=== PATIENT | male | born 1940 | race Caucasian/White ===

== ENCOUNTER 2017-06-09 14:46 | Day surgery (SDC) | payer MEDICARE, BC ==
[2017-06-09] MEDS ORDERED: diphenhydrAMINE 25 MG CAP PO SCH (16:45)
[2017-06-09] MEDS ORDERED: FLU VACC TS2017-18 (>65YR) 0.5 ML SYRINGE IM ONE (16:45)
[2017-06-09] MEDS ORDERED: Acetaminophen 500 MG TAB PO SCH (16:45)
[2017-06-09 23:18] VITALS: BP 142/78; TEMP 97.8
[2017-06-10 00:19] LABS: Band 4 % (5-11); Hematocrit 28.8 % (42.0-52.0); Macrocytosis MODERATE=16-30 cells (100X) (0-5/hpf); Mean Platelet Volume 6.9 fL (7.4-10.4); Metamyelocyte 9 % (0-0); Myelocyte 3 % (0-0); Neutrophil 62 % (42-75); Polychromasia SLIGHT = 2-3 cells (100X) (0-2/hpf); Reactive Lymphocytes 1 % (0-10); Red Blood Cell (RBC) Count 2.73 mill/uL (4.70-6.10)
--- OUTSIDE RECORDS SUMMARY | 2017-06-11 22:19 | XMS | Clinical Summary ---
:1940 Author Organization Formerly [facility] Address [address] [place] [address] Phone Care Team Providers Name Role Phone , Primary Care Provider Unavailable Allergies Not on File Current Medications Not on file Active Problems Not on file Social History Tobacco Use Types Packs/Day Years Used Date Never Assessed Sex Assigned at Date Recorded Not on file Last Filed Vital Signs Not on file Plan of Treatment Not on file Results Not on filefrom Last 3 Months
== END 2017-06-09 23:45 | disposition home or self-care (01) ==
LOC: ONC/OP 14:46 → ONC 14:58 → ONC/OP 23:45
PROVIDERS: ATTEND Internal Medicine Hematology & Oncology
PROC: 30233N1 Transfusion of Nonautologous Red Blood Cells into Peripheral Vein, Percutaneous Approach (ICD-10-PCS; principal; 2017-06-09)
DX: D64.9 Anemia, unspecified (principal); D69.6 Thrombocytopenia, unspecified
CPT/HCPCS: 36415; 36430; 82728; 85025; 86850; 86900; 86901; P9016

== ENCOUNTER 2017-06-17 11:29 | Day surgery (SDC) | payer MEDICARE, BC ==
[2017-06-17] MEDS ORDERED: Acetaminophen 500 MG TAB PO SCH (12:00)
[2017-06-17] MEDS ORDERED: diphenhydrAMINE 25 MG CAP PO SCH (12:00)
[2017-06-17 12:01] VITALS: BMI 48.2
[2017-06-17 17:43] VITALS: BP 148/67; TEMP 99.4
[2017-06-17 23:49] LABS: Hematocrit 28.2 % (42.0-52.0); Red Blood Cell (RBC) Count 2.78 mill/uL (4.70-6.10); White Blood Cell (WBC) Count 5.8 thou/uL (4.8-10.8)
[2017-06-18 00:06] LABS: #Eosinphils 0.1 thou/uL (0.0-0.7); #Lymphocytes 0.9 thou/uL (1.20-3.40); #Monocytes 0.8 thou/uL (0.11-0.59); #Neutrophils 4.1 thou/uL (1.40-6.50); %Basophils 0.4 % (0.0-1.0); %Eosinophils 1.7 % (0.0-10.0); %Lymphocytes 14.7 % (21.0-51.0); %Monocytes 13.5 % (0.0-10.0); Anisocytosis SLIGHT = 6-15 cells (100X) (0-5/hpf); Polychromasia SLIGHT = 2-3 cells (100X) (0-2/hpf)
== END 2017-06-17 23:45 | disposition home or self-care (01) ==
LOC: ONC/OP 11:29 → ONC 11:30 → ONC/OP 23:45
PROVIDERS: ATTEND Internal Medicine Hematology & Oncology
PROC: 30233N1 Transfusion of Nonautologous Red Blood Cells into Peripheral Vein, Percutaneous Approach (ICD-10-PCS; principal; 2017-06-17)
DX: D64.9 Anemia, unspecified (principal); D69.6 Thrombocytopenia, unspecified
CPT/HCPCS: 36415; 36430; 85025; 86850; 86900; 86901; P9016

== ENCOUNTER 2018-06-04 16:49 | Inpatient (IN) | payer MEDICARE, BC ==
[2018-06-04 17:35] LABS: #Eosinphils 0.1 thou/uL (0.0-0.7); #Lymphocytes 0.7 thou/uL (1.20-3.40); #Neutrophils 11.2 thou/uL (1.40-6.50); %Basophils 0.1 % (0.0-1.0); %Eosinophils 0.7 % (0.0-10.0); %Lymphocytes 5.2 % (21.0-51.0); %Monocytes 7.7 % (0.0-10.0); %Neutrophils 86.4 % (42.0-75.0); Hemoglobin 7.3 g/dL (14.0-18.0); Mean Corpuscular HGB CONC 31.3 g/dL (32.0-36.0); Mean Corpuscular Hemoglobin 32.7 pg (27.0-31.0); Mean Platelet Volume 6.5 fL (7.4-10.4); Platelet Count 429 thou/uL (130-400); RBC Distribution Width 14.8 % (11.5-14.5); Red Blood Cell (RBC) Count 2.22 mill/uL (4.70-6.10); White Blood Cell (WBC) Count 12.9 thou/uL (4.8-10.8)
[2018-06-04 17:57] LABS: ALT (SGPT) 9 U/L (8-55); AST (SGOT) 11 U/L (5-34); Albumin 3.8 g/dL (3.4-4.8); Alkaline Phosphatase 46 U/L (40-150); Anion Gap 12 mmol/L (10-20); BUN (Urea Nitrogen) 59 mg/dL (8.4-25.7); Bilirubin, Total 0.4 mg/dL (0.2-1.2); Calc. Creatinine Clearance 0 mL/min (70-130); Calcium 8.6 mg/dL (7.8-10.44); Carbon Dioxide 29 mmol/L (23-31); Chloride 99 mmol/L (98-107); Estimated GFR-MDRD 27; Globulin 2.7 g/dL (2.4-3.5); Glucose 111 mg/dL (83-110); PTT 28.3 SEC (22.9-36.1); Potassium 4.5 mmol/L (3.5-5.1); Protein, Total 6.5 g/dL (5.8-8.1); Prothrombin Time 13.5 SEC (12.0-14.7); Sodium 135 mmol/L (136-145)
[2018-06-04 20:19] LABS: Folate (Folic Acid) 7.3 ng/mL (7.0-31.4)
[2018-06-04] MEDS ORDERED: Lactated Ringer's 1,000 ML IV SCH (21:45)
[2018-06-05] MEDS ORDERED: Sodium Chloride 0.9% 1,000 ML IV SCH (00:15)
[2018-06-05 00:50] LABS: Reticulocyte Count 7.7 % (0.5-1.5)
[2018-06-05 00:51] LABS: #Eosinphils 0.1 thou/uL (0.0-0.7); #Monocytes 1.1 thou/uL (0.11-0.59); %Basophils 0.1 % (0.0-1.0); %Eosinophils 0.8 % (0.0-10.0); %Lymphocytes 8.2 % (21.0-51.0); %Monocytes 8.8 % (0.0-10.0); %Neutrophils 82.2 % (42.0-75.0); Hemoglobin 7.4 g/dL (14.0-18.0); Mean Corpuscular HGB CONC 31.5 g/dL (32.0-36.0); Mean Corpuscular Hemoglobin 32.1 pg (27.0-31.0); Mean Platelet Volume 6.2 fL (7.4-10.4); Platelet Count 382 thou/uL (130-400); RBC Distribution Width 15.5 % (11.5-14.5); White Blood Cell (WBC) Count 12.1 thou/uL (4.8-10.8)
[2018-06-05 01:09] LABS: Albumin 3.7 g/dL (3.4-4.8); Anion Gap 11 mmol/L (10-20); BUN (Urea Nitrogen) 63 mg/dL (8.4-25.7); BUN/Creatinine Ratio 26.69; Calc. Creatinine Clearance 53 mL/min (70-130); Calcium 8.4 mg/dL (7.8-10.44); Carbon Dioxide 30 mmol/L (23-31); Chloride 100 mmol/L (98-107); Estimated GFR-MDRD 27; Glucose 106 mg/dL (83-110); Iron 101 ug/dL (65-175); Phosphorus 3.4 mg/dL (2.3-4.7); Potassium 4.2 mmol/L (3.5-5.1); Sodium 137 mmol/L (136-145)
[2018-06-05 01:31] LABS: Ferritin 400.73 ng/mL (22-322)
[2018-06-05] MEDS: Acetaminophen 325 MG TAB PO PRN ×2 (02:21→13:11)
--- NOTE | 2018-06-05 04:03 | HP ---
CHIEF COMPLAINT: Transferred to the hospital because "I'm anemic." HISTORY OF PRESENT ILLNESS: This is a 77-year-old male with past medical history of chronic anemia, prostate cancer, hypertension, being admitted for anemia that was found in lab result which was done by patient's primary care physician, Dr. Cortes. Patient reports that he also follows up with Dr. Adele cruz in his clinic and he receives iron transfusions. In the past couple of weeks about 3 weeks, daphnie jones stated that he had been receiving iron transfusions, but this time around when he went to receive the transfusion, his hemoglobin was measured at 8.1 and then when he got home, he was not feeling too well. He was having shortness of breath and generalized weakness. When the patient's hemoglobin wa s measured in our ED, patient's hemoglobin was 7.3. Per the patient, his baseline is around 11. Lilli devries states that he uses CPAP at home for his sleep apnea. Patient states that he has been followed by GI doctor who did a colonoscopy on him 2 years ago and also endoscopy was done recently and everyt sha has been negative. Patient has history of aortic valve replacement 5 years ago and prostate can cer status post radiation in 2006. At this point, patient denies any fever, nausea, vomiting, dizzin ess. REVIEW OF SYSTEMS: Positive for generalized weakness, shortness of breath, otherwise as documented i n the HPI, all other systems were reviewed and are negative. PAST MEDICAL HISTORY: Prostate cancer, hypertension, anemia. FAMILY HISTORY: Reviewed and noncontributory. PAST SURGICAL HISTORY: Prostate cancer, status post radiation, left hip replacement, tonsillectomy, artificial valve replacement. SOCIAL HISTORY: Former tobacco user. Patient used to smoke cigarettes, patient quit when patient wa s 50 years. Patient lives at home. Patient drinks one glass of wine every month. ALLERGIES: No known drug allergies. CURRENT MEDICATIONS: Patient is on aspirin 81 mg, Celebrex 100 mg, Tylenol 325 mg. PHYSICAL EXAMINATION: VITAL SIGNS: Blood pressure is 146/71, pulse of 98, respiratory rate of 20, temperature of 99.2, O2 sat of 92%. GENERAL: Patient is lying comfortably in bed, does not appear to be in any distress. Patient is spe aking in full sentences. HEENT: Normocephalic, atraumatic. Pupils are equal, round, and reactive to light. Extraocular move ments are intact. No scleral icterus. NECK: Supple, full range of motion. Trachea is midline. LUNGS: Clear to auscultation bilaterally. No wheezing, no rales, no rhonchi appreciated. CARDIOVASCULAR: Positive S1, S2, regular rate and rhythm, no murmurs, no gallops or rubs appreciated . ABDOMEN: Obese. Abdomen is soft, nontender, nondistended, positive bowel sounds in all quadrants. EXTREMITIES: The patient has 5/5 upper extremity strength, 5/5 lower extremity strength, good pulses at the upper and lower extremity bilaterally. Patient has 1+ pitting edema at the lower extremity. NEUROLOGIC: Cranial nerves II-XII grossly intact. No focal neurologic deficits noted. SKIN: Warm, dry, and intact. PSYCHIATRIC: Patient has normal affect. Patient is alert and oriented x3. EKG: Normal sinus rhythm with a rate of 94. 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 LABORATORY DATA: WBC 12.9, hemoglobin 7.3, hematocrit 23.2, platelets 429. PT 13.5, INR is 1.0, PTT 28.3. Sodium is 135, potassium is 4.5, chloride is 99, carbon dioxide 29, anion gap of 12, BUN is 5 9, creatinine is 2.37, AST is 11, ALT is 9. Lactate dehydrogenase 221. BNP is 31. Vitamin B12 is 1 92. Folate is 7.3. ASSESSMENT AND PLAN: 1. This is a 77-year-old male being admitted for symptomatic anemia likely due to anemia of chronic inflammation, B12 deficiency and iron deficiency. At this point, patient is being transfused PRBC. We will repeat H&H in the morning. We will send anemia workup. Patient will benefit from B12 inject ions and we will start Venofer IV. We have consulted heme oncologist. We will continue to monitor t he patient. 2. Acute kidney injury likely due to dehydration. At this point, patient's creatinine is 2.37, BUN 59. We will transfuse the patient 1 PRBCs. We will start the patient on fluids. We will monitor neha mendosa's creatinine. We have consulted Nephrology. We will follow up with their recommendations. 3. Microcytic anemia due to B12 deficiency. We have ordered B12 injections. 4. History of prostate cancer, status post radiation, currently stable. We will continue to monitor the patient. 5. History of hypertension. We will continue patient on current management. 6. Deep venous thrombosis and gastrointestinal prophylaxis. At this point, we will do SCDs and will do Pepcid for GI prophylaxis. This case has been dictated by Dr. Jer Royal on patient Flakito Coulter.
[2018-06-05] MEDS: Nystatin Powder 15 GM BOT TOP PRN ×2 (05:29→09:34)
[2018-06-05 05:57] LABS: Bilirubin Negative (Negative); Blood, Urine Negative (Negative); Clarity CLEAR (Clear); Glucose, Urine (Dipstick) Negative (Negative); Leukocyte Small (Negative); Nitrite Negative (Negative); Protein, Urine (Dipstick) Negative (Neg-Trace); Specific Gravity, Urine 1.015 (1.002-1.036); Urobilinogen 0.2 mg/dL (0.2-1.0)
[2018-06-05 06:00] LABS: Bacteria/HPF Rare-Few HPF (None Seen); Hyaline Casts/LPF 0-3 HYALINE CAST LPF (0-3 Hyaline); Pathc Cast-AUWi Flag 0.14 (0-2.49); Squamous Epithelial 0-3 HPF (0-3)
--- NOTE | 2018-06-05 08:26 | RAD ---
PORTABLE AP CHEST XRAY: DATE: 06/05/2018. HISTORY: Chest pain. COMPARISON: None available. FINDINGS: Cardiac silhouette is magnified by projection but is at the upper limits of normal in size. Pulmonar y vasculature is within normal limits. Lungs are clear. Vascular calcification is seen in the thora cic aorta. Degenerative changes are noted in the spine. IMPRESSION: No acute cardiopulmonary process. POS: [facility]
[2018-06-05] MEDS ORDERED: Iron, Sodium Ferric Gluconate 125 MG in Sodium Chloride 0.9% 100 ML IVPB SCH (09:00)
[2018-06-05] MEDS ORDERED: Epoetin (ESRD) 20,000 UNITS/ML SC SCH (09:15)
[2018-06-05] MEDS: Cyanocobalamin 1000 MCG/ML VIAL IM SCH (09:33)
[2018-06-05] MEDS ORDERED: Furosemide 40 MG/4 ML VIAL SLOW IVP SCH (11:00)
[2018-06-05] MEDS: Epoetin (ESRD) 10,000 UNITS/ML VIAL SC SCH (11:18)
[2018-06-05] MEDS ORDERED: Acetaminophen 325 MG TAB PO PRN (12:47)
--- NOTE | 2018-06-05 12:51 | PDOC.PN ---
- Subjective Encounter Start Date: 06/05/18 Encounter Start Time: 10:30 Subjective: pt up in bed sleeping, no complains - Objective Vital Signs & Weight: Vital Signs (12 hours) Temp Pulse Resp BP BP Pulse Ox 06/05/18 12:15 98.1 F 89 18 121/57 L 95 06/05/18 11:25 82 20 96 06/05/18 07:43 98.0 F 99 22 H 143/60 H 99 06/05/18 03:45 98.1 F 88 14 112/53 L 96 Weight Weight 326 lb 8 oz Result Diagrams: 06/05/18 00:28 06/05/18 00:28 Phys Exam - Physical Examination Neck: no nodes, no JVD, supple, full ROM Respiratory: wheezing present Cardiovascular: RRR, no significant murmur, no rub, gallop, irregular Gastrointestinal: soft, non-tender, no distention, positive bowel sounds Dx/Plan (1) Symptomatic anemia Code(s): D64.9 - ANEMIA, UNSPECIFIED Status: Acute (2) SERG (acute kidney injury) Code(s): N17.9 - ACUTE KIDNEY FAILURE, UNSPECIFIED Status: Acute (3) HTN (hypertension) Code(s): I10 - ESSENTIAL (PRIMARY) HYPERTENSION Status: Acute - Plan pt is receiving blood and iron -: will give one dose of lasix -: pt was on celebrex, hctz and ARB. will hold and see if this help -: if his creatinine does not improve may consider spep/upep -: will stop hydration * . Review of Systems - Review of Systems Respiratory: negative: Cough, Dry, Shortness of Breath, Hemoptysis, SOB with Excertion, Pleuritic Pain, Sputum, Wheezing Gastrointestinal: negative: Nausea, Vomiting, Abdominal Pain, Diarrhea, Constipation, Melena, Hematochezia, Other Genitourinary: negative: Dysuria, Frequency, Incontinence, Hematuria, Retention , Other - Medications/Allergies Allergies/Adverse Reactions: Allergies Allergy/AdvReac Type Severity Reaction Status Date / Time No Known Allergies Allergy Verified 06/04/18 21:18 Medications: Current Medications Acetaminophen (Tylenol) 650 mg PO Q6H PRN PRN Reason: Headache/Fever or Pain Last Admin: 06/05/18 02:21 Dose: 650 mg Acetaminophen (Tylenol) 325 mg PO ASDIR PRN PRN Reason: Pain Albuterol/Ipratropium (Duoneb) 3 ml NEB [id number] PRN PRN Reason: SOB &/or Wheezing Last Admin: 06/05/18 11:25 Dose: 3 ml Cyanocobalamin (Vitamin B-12) 1,000 mcg IM DAILY MARCIN Stop: 06/06/18 09:01 Last Admin: 06/05/18 09:33 Dose: 1,000 mcg Epoetin Jean Carlos (Procrit) 10,000 units SC Q7D MARCIN Last Admin: 06/05/18 11:18 Dose: 10,000 units Ferric Sodium Gluconate Complex 125 mg/ Sodium Chloride 110 mls @ 110 mls/hr IVPB DAILY MARCIN Stop: 06/09/18 09:59 Last Admin: 06/05/18 09:33 Dose: 110 mls Nystatin (Mycostatin Powder) 0 gm TOP DAILYPRN PRN PRN Reason: ABDOMINAL FOLD Last Admin: 06/05/18 09:34 Dose: 1 applic Sodium Chloride (Flush - Normal Saline) 10 ml IVF Q12HR MARCIN Last Admin: 06/05/18 09:34 Dose: 10 ml Sodium Chloride (Flush - Normal Saline) 10 ml IVF PRN PRN PRN Reason: Saline Flush Last Admin: 06/05/18 02:14 Dose: 10 ml
--- NOTE | 2018-06-05 16:34 | CON ---
DATE OF CONSULTATION: 06/05/2018 CONSULTING PHYSICIAN: Aman Barclay M.D. REQUESTING PHYSICIAN: Jer Royal DO REASON FOR CONSULTATION: Acute kidney injury versus chronic kidney disease. IMPRESSION: 1. Chronic kidney disease, query cause. 2. Severe symptomatic anemia. PLAN: 1. The patient to receive up to 2 units of blood. 2. Erythropoiesis stimulating agent to be administered given the normal iron studies. 3. I did not see any evidence of proteinuria while evaluating this patient for paraprotein disease l annemarie multiple myeloma causing anemia and kidney disease; however, this is not completely ruled out giv en the history of this patient. 4. Further management would to be dependent on the clinical course. Meanwhile, renally dose all med ications and avoid potential nephrotoxic agents. 5. Discontinue IV fluid as patient is beginning to show some evidence of respiratory distress. HISTORY OF PRESENT ILLNESS: A 77-year-old gentleman who was sent over because of symptomatic anemia. On further evaluation, the patient noted with elevated creatinine above 2, that was the need for Re nal consultation. Patient denies any hematuria, denies any evidence of GI bleed. The patient denies any knowledge of kidney disease. The patient does have history of prostatic carcinoma, status post radiotherapy. PAST MEDICAL HISTORY: Significant for prostatic carcinoma, status post radiotherapy followed by Dr. Rodrigez, obesity, hypertension, and anemia. FAMILY HISTORY: None significantly related to the presenting illness. SOCIAL HISTORY: Remote tobacco use. No alcohol, no illicit drug use. REVIEW OF SYSTEMS: As documented in the body of the history. Other systems were reviewed and found not to be significantly related to presenting illness. ALLERGIES: No known drug allergy. PHYSICAL EXAMINATION: GENERAL: The patient was found to be in some mild respiratory distress in bed. VITAL SIGNS: Afebrile, temperature 98.1, pulse 89, respiratory rate of 18, O2 sat 95% with blood pre ssure 121/57. HEENT: Unremarkable. Moist oral mucosa. Neck was supple. No conjunctival injection or icterus. CARDIOVASCULAR SYSTEM: First and second heart sounds are heard. RESPIRATORY SYSTEM: Showed some wheeze. DIGESTIVE SYSTEM: Revealed an obese abdomen. EXTREMITIES: No significant peripheral edema. NEUROLOGIC: Alert, oriented. No lateralizing sign. LYMPHATICS: No peripheral lymphadenopathy. SUMMARY: A 77-year-old gentleman who presented here with symptomatic anemia. Thank you for this consultation. We will follow with you.
[2018-06-05] MEDS: HYDROcodone/Acetaminophen 5/325 mg Tablet PO PRN (16:35)
--- NOTE | 2018-06-05 21:34 | CON ---
DATE OF CONSULTATION: 06/05/2018 REASON FOR CONSULTATION: Anemia. HISTORY OF PRESENT ILLNESS: Mr. Fraga is a pleasant 77-year-old gentleman who has a history of chr onic iron deficient anemia secondary to occult gastrointestinal blood loss. He has been receiving IV iron in our clinic periodically since 2011. He has had multiple GI workups, all of which have been negative. He does also have a history of atrial fibrillation and was on Eliquis at some point which was stopped in 2016. He returned to our clinic several weeks ago with complaints of fatigue and shor tness of breath. His hemoglobin was 10.1. On May 13, his ferritin was 66. He received 3 dose s of 500 mg a Feraheme over the last 3 weeks. Unfortunately, his hemoglobin continued to drop and wa s at 8.1 on Friday, June 01. He was undergoing further workup when he presented to this facilit y for weakness and fatigue. In the emergency room, his hemoglobin was 7.3. He was admitted for symp tomatic anemia. Further workup revealed a creatinine level of 2.36, a ferritin of 400, and a B12 of 192. He was started on B12 injections. He was transfused 1 unit of packed RBCs. He complains of ba ck pain and shortness of breath, denies any bleeding, bruising, or clotting. PAST MEDICAL HISTORY: 1. Chronic iron deficient anemia. 2. Atrial fibrillation. 3. Prostate cancer, status post radiation. 4. Hypertension. PAST SURGICAL HISTORY: 1. Hip replacement. 2. Valve replacement. ALLERGIES: No known drug allergies. HOME MEDICATIONS: 1. Aspirin 81 mg daily. 2. Candesartan - hydrochlorothiazide daily. 2. Celebrex daily. FAMILY HISTORY: Noncontributory. SOCIAL HISTORY: He is , lives with his spouse. No alcohol, tobacco, or illicit drug use. REVIEW OF SYSTEMS: Twelve-point review of systems is negative except for noted in HPI. PHYSICAL EXAMINATION: VITAL SIGNS: Temperature 98.1, pulse is 89, respiratory rate 18, BP is 121/57. He is 95% on room ai r. GENERAL: Obese male in no acute distress. HEENT: Normocephalic, atraumatic. Pupils equal and reactive to light. CARDIOVASCULAR: Regular rate and rhythm. LUNGS: Clear. ABDOMEN: Obese, nontender, bowel sounds are positive. EXTREMITIES: No clubbing, cyanosis or edema. SKIN: No rash. HEMATOLOGIC: No petechia or purpura. NEUROLOGIC: Nonfocal. PSYCHIATRIC: The patient is alert and oriented and appropriate. PERTINENT LABORATORY AND X-RAYS: Current WBCs 12.1, hemoglobin 7.4, hematocrit 23.4, platelet count is 382,000, 82% neutrophils, 8% lymphocytes. Sodium 137, potassium 4.2, chloride 100, CO2 of 30, BUN is 63, creatinine 2.36, calcium is 8.4, phosphorus 3.4. Iron is 101. Ferritin is 400. Bilirubin i s 0.4, AST is 11, ALT is 9, alkaline phosphatase is 46, serum total protein 6.5, albumin 3.8, globuli n 2.7. Urine is negative for bacteria. IMPRESSION: 1. Symptomatic anemia, multifactorial, iron deficiency. 2. Chronic iron deficiency with B12 deficiency. 3. Acute versus chronic kidney disease . DISCUSSION: The patient has recently received 1500 mg of Feraheme in the outpatient setting, his alejandro ritin is 400. He does not need any further iron at this time. His B12 is 192. He received 1 dose o f 1000 mcg B12 and will receive another tomorrow. He will then need weekly injections in the clinic. Agree the Procrit could be helpful in this situation; however, he did have a normal hemoglobin of 1 2 in January of 2018, so it is unclear to me if this is acute kidney disease secondary to dehydration or if he has kidney dysfunction. Nephrology has been consulted. Thank you for the consult. We will follow this gentleman in our clinic.
[2018-06-06] MEDS: HYDROcodone/Acetaminophen 5/325 mg Tablet PO PRN (03:00)
[2018-06-06] MEDS: Cyanocobalamin 1000 MCG/ML VIAL IM SCH (08:22)
[2018-06-06] MEDS: Nystatin Powder 15 GM BOT TOP PRN (08:25)
[2018-06-06 09:53] LABS: #Eosinphils 0.1 thou/uL (0.0-0.7); #Lymphocytes 0.6 thou/uL (1.20-3.40); #Monocytes 0.5 thou/uL (0.11-0.59); #Neutrophils 11.4 thou/uL (1.40-6.50); %Lymphocytes 4.7 % (21.0-51.0); %Monocytes 3.9 % (0.0-10.0); %Neutrophils 90.4 % (42.0-75.0); Mean Corpuscular HGB CONC 31.9 g/dL (32.0-36.0); Mean Corpuscular Hemoglobin 32.1 pg (27.0-31.0); Mean Platelet Volume 6.5 fL (7.4-10.4); Platelet Count 344 thou/uL (130-400); RBC Distribution Width 17.5 % (11.5-14.5); Red Blood Cell (RBC) Count 2.17 mill/uL (4.70-6.10); White Blood Cell (WBC) Count 12.6 thou/uL (4.8-10.8)
[2018-06-06 10:15] LABS: Anion Gap 14 mmol/L (10-20); BUN (Urea Nitrogen) 82 mg/dL (8.4-25.7); Calc. Creatinine Clearance 47 mL/min (70-130); Calcium 8.1 mg/dL (7.8-10.44); Carbon Dioxide 26 mmol/L (23-31); Chloride 100 mmol/L (98-107); Estimated GFR-MDRD 23; Glucose 172 mg/dL (83-110); Potassium 3.9 mmol/L (3.5-5.1); Sodium 136 mmol/L (136-145)
[2018-06-06] MEDS ORDERED: Furosemide 40 MG/4 ML VIAL SLOW IVP SCH ×2 (10:30→20:30)
[2018-06-06 12:27] LABS: Hemoglobin 7.2 g/dL (14.0-18.0)
[2018-06-06] MEDS ORDERED: Cyanocobalamin 1000 MCG/ML VIAL IM SCH (14:30)
--- NOTE | 2018-06-06 17:42 | PDOC.PN ---
- Subjective Encounter Start Date: 06/06/18 Encounter Start Time: 13:30 Subjective: pt up in bed no complains - Objective Vital Signs & Weight: Vital Signs (12 hours) Temp Pulse Pulse Resp BP BP Pulse Ox 06/06/18 15:05 98.5 F 87 18 128/58 L 98 06/06/18 14:46 99.8 F H 90 18 139/62 97 06/06/18 11:02 86 20 97 06/06/18 10:37 98.3 F 87 18 123/55 L 96 06/06/18 07:41 97.8 F 86 18 129/60 97 Weight Admit Weight 326 lb 8 oz Weight 327 lb 4.8 oz I&O: 06/05/18 06/06/18 06/07/18 06:59 06:59 06:59 Intake Total 490 0 Balance 490 0 Result Diagrams: 06/06/18 12:17 06/06/18 09:36 Phys Exam - Physical Examination Neck: no nodes, no JVD, supple, full ROM Respiratory: wheezing present Cardiovascular: RRR, no significant murmur, no rub, gallop, irregular Gastrointestinal: soft, non-tender, no distention, positive bowel sounds Dx/Plan (1) Symptomatic anemia Code(s): D64.9 - ANEMIA, UNSPECIFIED Status: Acute (2) SERG (acute kidney injury) Code(s): N17.9 - ACUTE KIDNEY FAILURE, UNSPECIFIED Status: Acute (3) HTN (hypertension) Code(s): I10 - ESSENTIAL (PRIMARY) HYPERTENSION Status: Acute - Plan pt wheezing a lot will give lasix and duoneb now -: pt's hh still low will give another unit of blood -: will get occult stool -: pt was on NSAID will stop * . Review of Systems - Review of Systems Respiratory: negative: Cough, Dry, Shortness of Breath, Hemoptysis, SOB with Excertion, Pleuritic Pain, Sputum, Wheezing Cardiovascular: negative: chest pain, palpitations, orthopnea, paroxysmal nocturnal dyspnea, edema, light headedness, other Gastrointestinal: negative: Nausea, Vomiting, Abdominal Pain, Diarrhea, Constipation, Melena, Hematochezia, Other Genitourinary: negative: Dysuria, Frequency, Incontinence, Hematuria, Retention , Other - Medications/Allergies Allergies/Adverse Reactions: Allergies Allergy/AdvReac Type Severity Reaction Status Date / Time No Known Allergies Allergy Verified 06/04/18 21:18 Medications: Current Medications Acetaminophen (Tylenol) 650 mg PO Q6H PRN PRN Reason: Headache/Fever or MILD Pain Last Admin: 06/05/18 13:11 Dose: 650 mg Hydrocodone Bitart/Acetaminophen ([place] 5/325) 1 tab PO Q6H PRN PRN Reason: Moderate to Severe Pain (6-10) Last Admin: 06/06/18 03:00 Dose: 1 tab Albuterol/Ipratropium (Duoneb) 3 ml NEB [id number] PRN PRN Reason: SOB &/or Wheezing Last Admin: 06/06/18 11:02 Dose: 3 ml Cyanocobalamin (Vitamin B-12) 1,000 mcg PO DAILY MARCIN Epoetin Jean Carlos (Procrit) 10,000 units SC Q7D MARCIN Last Admin: 06/05/18 11:18 Dose: 10,000 units Furosemide (Lasix) 40 mg SLOW IVP 2030 [facility] Stop: 06/06/18 23:59 Nystatin (Mycostatin Powder) 0 gm TOP DAILYPRN PRN PRN Reason: ABDOMINAL FOLD Last Admin: 06/06/18 08:25 Dose: 1 applic Sodium Chloride (Flush - Normal Saline) 10 ml IVF Q12HR MARCIN Last Admin: 06/06/18 08:22 Dose: 10 ml Sodium Chloride (Flush - Normal Saline) 10 ml IVF PRN PRN PRN Reason: Saline Flush Last Admin: 06/06/18 10:39 Dose: 10 ml
[2018-06-06 19:13] LABS: Hemoglobin 7.1 g/dL (14.0-18.0)
[2018-06-06] MEDS: Acetaminophen 325 MG TAB PO PRN (20:43)
--- NOTE | 2018-06-06 21:44 | PRG ---
DATE OF SERVICE: 06/06/2018 DATE OF OPERATION: The patient was seen and examined, noted with the following vital signs. PHYSICAL EXAMINATION: VITAL SIGNS: Afebrile, temperature 98.5, pulse 87, respirations 18, O2 sat 98%, blood pressure 120/5 8. HEENT: Examination is unremarkable. Moist oral mucosa. Neck was supple. No conjunctival injection or icterus. CARDIOVASCULAR SYSTEM: First and second heart sounds were heard. RESPIRATORY SYSTEM: Reveals some scattered wheeze. DIGESTIVE SYSTEM: Revealed an obese abdomen. EXTREMITIES: No peripheral edema. SKIN: No new gross rash. LYMPHATICS: No peripheral lymphadenopathy. LABORATORY DATA: Laboratory investigations significant for hemoglobin of 7.2, creatinine of 2.7. IMPRESSION: 1. Anemia, status post 2 units of blood transfusion with surprisingly low hemoglobin . 2. Acute on chronic kidney disease. 3. Morbid obesity. PLAN: 1. The patient likely to require more transfusions given the fact that the patient is asymptomatic. 2. The patient really needs a workup for this persistent anemia and now not responding to transfusio n, very active bleed. 3. Continue to renally dose all medications per low GFR, avoiding potentially nephrotoxic agents. 4. Further management to be dependent on the clinical course.
--- NOTE | 2018-06-06 22:57 | ULT ---
RENAL ULTRASOUND 06/06/18 INDICATION: Acute renal injury. COMPARISON: None. FINDINGS: The bladder is markedly dilated with a prevoid bladder volume of 1200 mL. There is mild bilateral hyd ronephrosis, right greater than left. The right kidney measures 9.6 x 6 x 6.5 cm. The left kidney mike sures 12.5 x 6.7 x 6.2 cm. IMPRESSION: 1. Prominent bladder distention. Wait[employer] Captain notified the nurse of this prior to submitting the e xam for interpretation. 2. Mild bilateral hydronephrosis may be related to bladder outlet obstruction. Recommend followu p renal ultrasound after drainage of the patient's bladder. 3. No definite solid renal lesion demonstrated. POS: [facility]
[2018-06-07] MEDS: HYDROcodone/Acetaminophen 5/325 mg Tablet PO PRN ×3 (00:30→18:28)
[2018-06-07 06:00] LABS: Anion Gap 11 mmol/L (10-20); BUN (Urea Nitrogen) 89 mg/dL (8.4-25.7); Calc. Creatinine Clearance 47 mL/min (70-130); Calcium 8.1 mg/dL (7.8-10.44); Carbon Dioxide 30 mmol/L (23-31); Chloride 100 mmol/L (98-107); Estimated GFR-MDRD 23; Glucose 109 mg/dL (83-110); Potassium 4.2 mmol/L (3.5-5.1); Sodium 137 mmol/L (136-145)
[2018-06-07] MEDS: cefTRIAXone\\ROCEPHIN 1 GM in Sodium Chloride 0.9% 100 ML IVPB SCH (06:02)
[2018-06-07 06:09] LABS: Band 2 % (5-11); Eosinophils 4 % (0-10); Hemoglobin 6.7 g/dL (14.0-18.0); Lymphocytes 10 % (21-51); MDiff Complete? YES; Mean Corpuscular HGB CONC 32.7 g/dL (32.0-36.0); Mean Corpuscular Hemoglobin 32.5 pg (27.0-31.0); Mean Corpuscular Volume 99.4 fL (78.0-98.0); Mean Platelet Volume 6.8 fL (7.4-10.4); Metamyelocyte 1 % (0-0); Monocytes 4 % (0-10); Neutrophil 79 % (42-75); PLT Morphology Comment Appears Adequate; Platelet Count 278 thou/uL (130-400); RBC Distribution Width 17.3 % (11.5-14.5); RBC Morphology Normal; Red Blood Cell (RBC) Count 2.05 mill/uL (4.70-6.10)
[2018-06-07] MEDS: Cyanocobalamin (Vitamin B-12) 1,000 MCG TAB PO SCH (08:56)
[2018-06-07] MEDS ORDERED: Bisacodyl 5 MG TAB PO SCH (10:00)
--- NOTE | 2018-06-07 12:54 | PDOC.PN ---
- Subjective Encounter Start Date: 06/07/18 Encounter Start Time: 09:00 Subjective: pt up in bed no complains - Objective Vital Signs & Weight: Vital Signs (12 hours) Temp Pulse Resp BP BP Pulse Ox 06/07/18 11:32 99 F 95 18 126/53 L 96 06/07/18 11:19 87 24 H 100 06/07/18 07:35 98.7 F 98 16 114/56 L 97 06/07/18 06:54 95 24 H 99 06/07/18 03:27 97.5 F L 91 16 140/62 99 Weight Admit Weight 326 lb 8 oz Weight 326 lb 8 oz I&O: 06/06/18 06/07/18 06/08/18 06:59 06:59 06:59 Intake Total 490 1740 Output Total 2350 Balance 490 -610 Result Diagrams: 06/07/18 05:36 06/07/18 05:36 Phys Exam - Physical Examination Neck: no nodes, no JVD, supple, full ROM Respiratory: no wheezing, no rales, no rhonchi, wheezing present, clear to auscultation bilateral Cardiovascular: RRR, no significant murmur, no rub, gallop, irregular Gastrointestinal: soft, non-tender, no distention, positive bowel sounds Dx/Plan (1) Symptomatic anemia Code(s): D64.9 - ANEMIA, UNSPECIFIED Status: Acute (2) SERG (acute kidney injury) Code(s): N17.9 - ACUTE KIDNEY FAILURE, UNSPECIFIED Status: Acute (3) HTN (hypertension) Code(s): I10 - ESSENTIAL (PRIMARY) HYPERTENSION Status: Acute (4) Bladder outlet obstruction Code(s): N32.0 - BLADDER-NECK OBSTRUCTION Status: Acute (5) UTI (urinary tract infection) Status: Acute - Plan pt has received 3units of blood and so far his hh is still 6.7 -: Pending stool to check occult blood. He does have hydro on renal ultrasound -: however when we did post void his residual was only 70ml -: will also get ct abd/pel and get gi since he was seen by them -: as outpatient. * . Review of Systems - Review of Systems Respiratory: negative: Cough, Dry, Shortness of Breath, Hemoptysis, SOB with Excertion, Pleuritic Pain, Sputum, Wheezing Cardiovascular: negative: chest pain, palpitations, orthopnea, paroxysmal nocturnal dyspnea, edema, light headedness, other Gastrointestinal: negative: Nausea, Vomiting, Abdominal Pain, Diarrhea, Constipation, Melena, Hematochezia, Other Genitourinary: negative: Dysuria, Frequency, Incontinence, Hematuria, Retention , Other - Medications/Allergies Allergies/Adverse Reactions: Allergies Allergy/AdvReac Type Severity Reaction Status Date / Time No Known Allergies Allergy Verified 06/04/18 21:18 Medications: Current Medications Acetaminophen (Tylenol) 650 mg PO Q6H PRN PRN Reason: Headache/Fever or MILD Pain Last Admin: 06/06/18 20:43 Dose: 650 mg Hydrocodone Bitart/Acetaminophen ([place] 5/325) 1 tab PO Q6H PRN PRN Reason: Moderate to Severe Pain (6-10) Last Admin: 06/07/18 06:42 Dose: 1 tab Albuterol/Ipratropium (Duoneb) 3 ml NEB [id number] PRN PRN Reason: SOB &/or Wheezing Last Admin: 06/07/18 11:19 Dose: 3 ml Cyanocobalamin (Vitamin B-12) 1,000 mcg PO DAILY MARCIN Last Admin: 06/07/18 08:56 Dose: 1,000 mcg Epoetin Jean Carlos (Procrit) 10,000 units SC Q7D MARCIN Last Admin: 06/05/18 11:18 Dose: 10,000 units Ceftriaxone Sodium 1 gm/ (Sodium Chloride) 100 mls @ 200 mls/hr IVPB Q24HR MARCIN Last Admin: 06/07/18 06:02 Dose: 100 mls Nystatin (Mycostatin Powder) 0 gm TOP DAILYPRN PRN PRN Reason: ABDOMINAL FOLD Last Admin: 06/06/18 08:25 Dose: 1 applic Sodium Chloride (Flush - Normal Saline) 10 ml IVF Q12HR MARCIN Last Admin: 06/07/18 08:56 Dose: 10 ml Sodium Chloride (Flush - Normal Saline) 10 ml IVF PRN PRN PRN Reason: Saline Flush Last Admin: 06/07/18 06:02 Dose: 10 ml
--- NOTE | 2018-06-07 13:04 | CT ---
ABDOMEN CT WITHOUT CONTRAST PELVIC CT WITHOUT CONTRAST: HISTORY: Anemia. Possible obstruction. Evaluate for retroperitoneal bleed. COMPARISON: None. FINDINGS: ABDOMEN CT: The lung bases are clear. There is a stent projecting over the cardiac silhouette. The descending t horacic aorta and abdominal aorta demonstrate atherosclerosis. No periaortic fat stranding. Limited evaluation of the solid organs by lack of IV contrast. There are 2 separate cysts in the marquis er. Anterior segment right hepatic lobe cyst measures 2.4 x 3.3 cm. The 2nd right hepatic lobe cyst dmitry ures 2.7 x 2.0 cm. The spleen, pancreas, and adrenal glands have appropriate attenuation. No gastrohepatic, retrocrural, or periportal lymphadenopathy. There is an enlarged lymph node along the right iliac chain measuring 4.3 x 3.6 cm. There is an enla rged lymph node adjacent to the proximal right common iliac artery measuring 2.4 x 2.2 cm. No free a ir or free fluid. Ventral abdominal wall hernia containing mesenteric fat. Gastric mucosa, duodenum, and multiple normal-caliber small bowel loops are noted. The ileocecal miriam ction is normal. Limited evaluation of the alimentary canal by the lack of oral contrast. Scattered fecal material in a nondistended, nondilated colon. Occasional diverticulum. No evidence of divert iculitis. Bilaterally, there is moderate hydronephrosis and hydroureter. There is a solitary obstructing calcu anat in the distal right ureter near the uterovesicular junction measuring 5 mm in craniocaudal dimens ion. No evidence of a left-sided ureteral calculus. PELVIC CT: Limited evaluation due to beam attenuation artifact. Decompressed urinary bladder. No pelvic free a ir or free fluid. IMPRESSION: 1. Moderate bilateral obstructive uropathy. There is an obstructing calculus in the distal right ur eter. No evidence of a left-sided obstructing calculus. 2. Right-sided lymphadenopathy as described above. Correlate for malignancy. POS: KRIS
--- NOTE | 2018-06-07 17:14 | CON ---
DATE OF CONSULTATION: 06/07/2018 GI INPATIENT CONSULTATION NOTE REQUESTING PHYSICIAN: Dr. An. REASON FOR CONSULTATION: Anemia. HISTORY OF PRESENT ILLNESS: Yfn Fraga is a 77-year-old man seen in the past by my GI colleague, Dr. Jonathan Bustillos. He has a history of prostate cancer status post radiation therapy, also heart valve replacement and chronic anemia. This has been a mixed anemia characterized in the past secondary to iron deficiency and chronic disease as well as kidney disease. He had a full endoscopic workup in 07 07, which was essentially unremarkable and included EGD and colonoscopy as well as capsule endoscopy. He had repeat endoscopic investigation in 2015 including an EGD that was normal and a colonoscopy w [facility] [place] [facility] showed only a small colon polyp which was removed as well as some small nonbleeding rectal arter iovenous malformations. The patient has been getting periodic iron infusions through the [facility]. He says this has always done pretty well. He had 3 recent infusions and his iron studies ar e all normal. However, his hemoglobin failed to respond. He was admitted with symptoms of symptomat ic anemia over the past few days hospitalization. Despite 3 units of RBC transfusion, his hemoglobin remains low at 6.7. There is no evidence of any overt gastrointestinal bleeding or any overt bleedi ng from anywhere else except for a slight pink tinge to the urine. He states he has never had any ov ert gastrointestinal bleeding. He has no symptoms of nausea or abdominal pain either. He saw Dr. Davis veloz as an outpatient just 3 weeks ago and the decision was made not to repeat any endoscopic investiga tion. He had a CT of the abdomen and pelvis earlier today and this does show moderate bilateral obst ructive uropathy as well as right ureteral stone and also enlarged right iliac lymph nodes. He has n ot had any bone marrow workup. REVIEW OF SYSTEMS: Full review of systems including constitutional, head, eyes, ears, nose, throat, GI, , cardiovascular, respiratory, musculoskeletal, and neurologic systems is negative except as no nimesh in the HPI. PAST MEDICAL HISTORY: Chronic anemia, prior iron deficiency, atrial fibrillation, prostate cancer, s tatus post radiation therapy, rectal AVMs seen on colonoscopy 2016, hypertension, heart valve replace ment, hip replacement. ALLERGIES: No known drug allergies. OUTPATIENT MEDICATIONS: Aspirin 81 mg daily, Celebrex p.r.n., candesartan/hydrochlorothiazide. FAMILY HISTORY: Noncontributory. SOCIAL HISTORY: No smoking, alcohol, or drug use. PHYSICAL EXAMINATION: VITAL SIGNS: Temperature 99.0, pulse 95, blood pressure 126/53, 96% oxygen saturation on room air. GENERAL: Elderly obese 77-year-old man sitting up in bed comfortably in no distress. SKIN: He is pale, no jaundice. He has a red fungal appearing rash in the inguinal folds bilaterally . EYES: No scleral icterus. Extraocular movements intact. ENT: Mucous membranes moist, no oral lesions. LYMPH: No submandibular or supraclavicular lymphadenopathy. I attempted palpation in the right ingu inal area and I really could not palpate these enlarged right iliac nodes that were demonstrated on C T scan. HEART: Regular rate and rhythm. LUNGS: Clear to auscultation bilaterally. ABDOMEN: Obese, bowel sounds present, soft, nontender to palpation. EXTREMITIES: 2+ bilateral lower extremity edema. VESSELS: Radial pulses 2+ bilaterally. NEUROLOGICAL: Cranial nerves II-XII intact bilaterally. No focal deficits. LABORATORY STUDIES: Hemoglobin 6.7, MCV is 99.4, WBC 11.0, platelets 278. INR 1.0, sodium 137, pota ssium 4.2, BUN 89, creatinine 2.67, glucose 109. LDH is 221. Ferritin 400, iron 101, BNP only 31.3, TSH 2.08, folic acid normal at 7.3. Vitamin B12 is low 192. LFTs all normal with total bilirubin 0 .4, alkaline phosphatase 46, AST 11, ALT 9. Urine culture is growing Proteus mirabilis. IMAGING STUDIES: Chest x-ray showed no acute processes. Renal ultrasound showed full bladder and bi lateral ureteral distention. CT of the abdomen and pelvis demonstrated moderate bilateral obstructiv e uropathy with a right ureteral stone, also some enlargement of right iliac lymph nodes. ASSESSMENT AND PLAN: 1. Chronic anemia, multifactorial. 2. Vitamin B12 deficiency. 3. Prior iron deficiency. 4. Chronic kidney disease. 5. Right iliac lymphadenopathy. I reviewed the results as well as his prior endoscopic studies as well as his recent visit with Dr. Nishi silva on an outpatient basis. I would agree with Dr. Bustillos's impression that his anemia is not likely p rimarily related to occult gastrointestinal bleeding, and that there is really no indication for repe at endoscopic examination in the absence of any overt bleeding. Certainly, if he were having gastroi ntestinal blood loss to make his blood count refractory to 3 units of blood over the past few days, w e would be seeing evidence of that overtly. I do note the low vitamin B12 and this is already being addressed. I note that FOBT as well as SPEP are pending. Consideration could be given to reconsulti ng Hematology for their impressions. Could consider bone marrow workup or possibly lymph node biopsy. We will not plan on any endoscopy. He can continue a regular diet. GI can continue to follow. I believe Dr. Bustillos is back tomorrow.
[2018-06-08] MEDS: HYDROcodone/Acetaminophen 5/325 mg Tablet PO PRN ×4 (01:31→21:57)
[2018-06-08] MEDS: cefTRIAXone\\ROCEPHIN 1 GM in Sodium Chloride 0.9% 100 ML IVPB SCH (05:11)
[2018-06-08 07:13] LABS: #Eosinphils 0.2 thou/uL (0.0-0.7); #Lymphocytes 0.8 thou/uL (1.20-3.40); #Monocytes 1.1 thou/uL (0.11-0.59); #Neutrophils 9.4 thou/uL (1.40-6.50); %Basophils 0.2 % (0.0-1.0); %Eosinophils 1.4 % (0.0-10.0); %Monocytes 9.7 % (0.0-10.0); %Neutrophils 81.8 % (42.0-75.0); Hemoglobin 6.1 g/dL (14.0-18.0); Mean Corpuscular HGB CONC 32.3 g/dL (32.0-36.0); Mean Corpuscular Hemoglobin 32.2 pg (27.0-31.0); Mean Corpuscular Volume 99.9 fL (78.0-98.0); Mean Platelet Volume 6.2 fL (7.4-10.4); Platelet Count 293 thou/uL (130-400); RBC Distribution Width 17.1 % (11.5-14.5); Red Blood Cell (RBC) Count 1.88 mill/uL (4.70-6.10); White Blood Cell (WBC) Count 11.5 thou/uL (4.8-10.8)
[2018-06-08 07:30] LABS: Anion Gap 15 mmol/L (10-20); BUN (Urea Nitrogen) 78 mg/dL (8.4-25.7); Calc. Creatinine Clearance 61 mL/min (70-130); Calcium 8.2 mg/dL (7.8-10.44); Carbon Dioxide 26 mmol/L (23-31); Chloride 101 mmol/L (98-107); Estimated GFR-MDRD 30; Glucose 103 mg/dL (83-110); Sodium 138 mmol/L (136-145)
[2018-06-08] MEDS ORDERED: Furosemide 40 MG/4 ML VIAL SLOW IVP SCH ×2 (09:00→17:30)
[2018-06-08] MEDS ORDERED: Cyanocobalamin 1000 MCG/ML VIAL IM SCH ×2 (09:45)
[2018-06-08] MEDS: Cyanocobalamin (Vitamin B-12) 1,000 MCG TAB PO SCH (09:53)
[2018-06-08 09:54] LABS: Platelet Count 301 thou/uL (130-400)
[2018-06-08 10:00] LABS: Fibrinogen 631 mg/dL (253-463)
[2018-06-08 10:01] LABS: INR-International Normal Ratio 1.1; PTT 32.7 SEC (22.9-36.1); Prothrombin Time 14.5 SEC (12.0-14.7)
[2018-06-08 10:02] LABS: D-Dimer Test 0.51 *mcg/mL (0.27-0.43)
[2018-06-08 10:13] LABS: ALT (SGPT) 11 U/L (8-55); AST (SGOT) 9 U/L (5-34); Albumin 3.4 g/dL (3.4-4.8); Alkaline Phosphatase 38 U/L (40-150); Bilirubin, Direct 0.1 mg/dL (0.1-0.3); Bilirubin, Total 0.3 mg/dL (0.2-1.2); Protein, Total 5.7 g/dL (5.8-8.1)
[2018-06-08 10:14] LABS: Bilirubin, Direct 0.1 mg/dL (0.1-0.3)
[2018-06-08 10:49] LABS: FSP-Qualitative Normal (Normal)
[2018-06-08] MEDS ORDERED: Milk Of Magnesia 30 ML UDCUP PO PRN (14:13)
[2018-06-08] MEDS: Acetaminophen 325 MG TAB PO PRN (14:24)
--- NOTE | 2018-06-08 14:53 | PRG ---
DATE OF SERVICE: 06/08/2018 SUBJECTIVE: The patient denies any abdominal pain, nausea, or vomiting. He denied any melena, hemat ochezia; however, when I was questioning him, the nurse in the room reported that his stool was black . He does not recall seeing black stools in the past. Maybe a month ago, he had one day where he lemos d a black stool. He does take a lot of Pepto-Bismol and took some last week. He does complain of co nstipation. He takes Pepto-Bismol for his reflux. OBJECTIVE: VITAL SIGNS: Temperature 98.7, pulse 96, respiratory rate 20, blood pressure 127/58. HEENT: Unremarkable. CHEST: Clear. CARDIOVASCULAR: Regular rate and rhythm. ABDOMEN: Soft, obese, nontender, without organomegaly or masses. LABORATORY DATA: Shows a white blood cell count of 6.1, hemoglobin 18.8, white blood cell count 11.5 . PT is 14.5 with an INR of 1.1, fibrinogen is 631. Chemistries show normal LFTs, LDH of 224. ASSESSMENT: 1. Chronic anemia - no change in his H&H after 3 units. He denied any black stools and fecal occult blood was negative; however, the nurse did describe a black stool. He does take Pepto-Bismol and it may be secondary to this. 2. Vitamin B12 deficiency. 3. Chronic kidney disease. RECOMMENDATIONS: 1. EGD in a.m. 2. PPI. 3. Agree with continuing transfusion.
--- NOTE | 2018-06-08 17:27 | PDOC.PN ---
- Subjective Encounter Start Date: 06/08/18 Encounter Start Time: 09:00 Subjective: pt up in bed has pain all over - Objective Vital Signs & Weight: Vital Signs (12 hours) Temp Pulse Pulse Resp BP BP Pulse Ox 06/08/18 16:40 98.8 F 112 H 22 H 119/56 L 06/08/18 14:30 98.7 F 97 20 135/63 06/08/18 14:00 97.7 F 97 20 130/60 06/08/18 13:20 98.7 F 96 20 127/58 L 06/08/18 11:05 97.6 F 106 H 22 H 129/57 L 06/08/18 10:50 97.8 F 93 20 122/51 L 06/08/18 08:00 98.8 F 99 20 130/58 L 97 Weight Admit Weight 326 lb 8 oz Weight 334 lb I&O: 06/07/18 06/08/18 06/09/18 06:59 06:59 06:59 Intake Total 1740 260 940 Output Total 2350 1450 Balance -610 -1190 940 Result Diagrams: 06/08/18 17:04 06/08/18 06:52 Phys Exam - Physical Examination Neck: no nodes, no JVD, supple, full ROM Respiratory: no wheezing, no rales, no rhonchi, wheezing present, clear to auscultation bilateral Cardiovascular: RRR, no significant murmur, no rub, gallop, irregular Gastrointestinal: soft, non-tender, no distention, positive bowel sounds Musculoskeletal: no edema, pulses present, edema present Dx/Plan (1) Symptomatic anemia Code(s): D64.9 - ANEMIA, UNSPECIFIED Status: Acute (2) SERG (acute kidney injury) Code(s): N17.9 - ACUTE KIDNEY FAILURE, UNSPECIFIED Status: Acute (3) HTN (hypertension) Code(s): I10 - ESSENTIAL (PRIMARY) HYPERTENSION Status: Acute (4) Bladder outlet obstruction Code(s): N32.0 - BLADDER-NECK OBSTRUCTION Status: Acute (5) UTI (urinary tract infection) Status: Acute (6) Inguinal adenopathy Code(s): R59.0 - LOCALIZED ENLARGED LYMPH NODES Status: Acute - Plan pt now 5u post blood transfusion will check hh -: no hemolysis, fobt negative, no bleed on ct abd/pel -: i called lab to see if any other possibility for his anemia -: pt to undergo egd/bone marrow and lymph node biopsy -: he went into afib will give him metoprolol and consult cardio. * . Review of Systems - Review of Systems ENT: negative: Ear Pain, Ear Discharge, Nose Pain, Nose Discharge, Nose Congestion, Mouth Pain, Mouth Swelling, Throat Pain, Throat Swelling, Other Respiratory: negative: Cough, Dry, Shortness of Breath, Hemoptysis, SOB with Excertion, Pleuritic Pain, Sputum, Wheezing Cardiovascular: negative: chest pain, palpitations, orthopnea, paroxysmal nocturnal dyspnea, edema, light headedness, other Gastrointestinal: negative: Nausea, Vomiting, Abdominal Pain, Diarrhea, Constipation, Melena, Hematochezia, Other - Medications/Allergies Allergies/Adverse Reactions: Allergies Allergy/AdvReac Type Severity Reaction Status Date / Time No Known Allergies Allergy Verified 06/04/18 21:18 Medications: Current Medications Acetaminophen (Tylenol) 650 mg PO Q6H PRN PRN Reason: Headache/Fever or MILD Pain Last Admin: 06/08/18 14:24 Dose: 650 mg Hydrocodone Bitart/Acetaminophen ([place] 5/325) 1 tab PO Q6H PRN PRN Reason: Moderate to Severe Pain (6-10) Last Admin: 06/08/18 16:26 Dose: 1 tab Albuterol/Ipratropium (Duoneb) 3 ml NEB [id number] PRN PRN Reason: SOB &/or Wheezing Last Admin: 06/07/18 11:19 Dose: 3 ml Cyanocobalamin (Vitamin B-12) 1,000 mcg IM DAILY M[facility]IN Stop: 06/10/18 09:01 Cyanocobalamin (Vitamin B-12) 1,000 mcg PO DAILY MARCIN Epoetin Jean Carlos (Procrit) 10,000 units SC Q7D [facility] Last Admin: 06/05/18 11:18 Dose: 10,000 units Folic Acid (Folvite) 1 mg PO DAILY MARCIN Furosemide (Lasix) 40 mg SLOW IVP ONE [facility] Ceftriaxone Sodium 1 gm/ (Sodium Chloride) 100 mls @ 200 mls/hr IVPB Q24HR [facility] Last Admin: 06/08/18 05:11 Dose: 100 mls Magnesium Hydroxide (Milk Of Magnesium) 30 ml PO DAILYPRN PRN PRN Reason: Constipation Nystatin (Mycostatin Powder) 0 gm TOP DAILYPRN PRN PRN Reason: ABDOMINAL FOLD Last Admin: 06/06/18 08:25 Dose: 1 applic Sodium Chloride (Flush - Normal Saline) 10 ml IVF Q12HR [facility] Last Admin: 06/08/18 11:45 Dose: 10 ml Sodium Chloride (Flush - Normal Saline) 10 ml IVF PRN PRN PRN Reason: Saline Flush Last Admin: 06/07/18 06:02 Dose: 10 ml Tamsulosin HCl (Flomax) 0.4 mg PO HS MARCIN
[2018-06-08 18:32] LABS: Hemoglobin 7.2 g/dL (14.0-18.0)
[2018-06-08] MEDS: Tamsulosin HCl 0.4 MG CAP PO SCH (20:18)
[2018-06-08] MEDS: Metoprolol Tartrate 25 MG TAB PO SCH (20:19)
[2018-06-08] MEDS ORDERED: Furosemide 20 MG/2 ML VIAL SLOW IVP SCH (21:00)
[2018-06-08] MEDS ORDERED: Diltiazem HCl 125 MG, Admixture Fee 1 EACH in Sodium Chloride 0.9% 100 ML IVPB SCH (21:15)
--- NOTE | 2018-06-09 00:10 | CON ---
DATE OF CONSULTATION: 06/08/2018 CONSULTING PHYSICIAN: Hospitalist Service. CONSULTED PHYSICIAN: Dr. Allan Paz, urology. REASON FOR CONSULTATION: Bilateral hydronephrosis and ureteral stone. HISTORY OF PRESENT ILLNESS: Mr. Fraga is a 77-year-old white male with a past medical history sign ificant for prostate cancer status post radiation and chronic anemia, who was admitted for anemia and shortness of breath. The patient states that he has been receiving iron transfusions, but his hemog lobin was 8.1 and he was not feeling well with shortness of breath, weakness, and fatigue and he went to the emergency room and his hemoglobin had decreased down to 7.3. He was admitted to the hospital for further workup of his chronic anemia. He was noted on his initial labs to have an elevated crea tinine. As part of his workup, he underwent a renal ultrasound for his acute kidney injury, which de monstrated bilateral hydronephrosis. A subsequent CT was done without contrast, which demonstrated b ilateral hydronephrosis worse on the right with a distal right ureteral stone measuring about 4 mm. I was consulted for further assistance regarding the hydronephrosis bilaterally and the ureteral ston e. On patient's previous history, he does have a history of prostate cancer of unknown Abbey score an unknown initial PSA, which was treated with primary radiation therapy at [facility] by Dr. Pacheco . The patient was on androgen deprivation for approximately 2-3 years after this, but apparently has not had PSA surveillance since that time. It is unclear who has been following his prostate cancer if anybody, I do not have any PSA documentation in his records and he does not know what it has been or what it was previously. From a urinary standpoint, he states that within the last 2 to 3 weeks, lola felder has been having increasing difficulty with urination with urgency and frequency. Currently, he verduzco s have a Allen catheter in. He states he does take Flomax routinely, which he has been started on pr eviously. He did have an episode of urge incontinence approximately a week ago, which he states has never happened before to him. He denies any history of hematuria. He has not had any previous histo ry of GI bleeds. He is currently complaining of some shortness of breath, which was felt to be possi jeannette due to volume overload. He does not have any chest pain. He denies any current dizziness or lig htheadedness, although he states he is still fatigued and does not feel great. He does have a histor y of some cardiac issues, primarily with an aortic valve replacement 5 years ago. ALLERGIES: None. CURRENT HOME MEDICATIONS: 1. Celebrex 100 mg p.o. daily. 2. Aspirin 81 mg p.o. daily. 3. Tylenol 325 mg p.o. p.r.n. [id number]. 4. Candesartan/hydrochlorothiazide 32/12.5 mg p.o. daily. PAST MEDICAL HISTORY: 1. Prostate cancer. 2. Hypertension. 3. Chronic anemia. 4. Aortic valve stenosis. PAST SURGICAL HISTORY: 1. Left hip replacement. 2. Tonsillectomy. 3. Artificial valve replacement. FAMILY HISTORY: Reviewed and noncontributory. SOCIAL HISTORY: Patient is a previous smoker, although he quit around 50 years of age. He lives at home. He drinks a wine occasionally but denies any alcohol abuse or illicit drug use. REVIEW OF SYSTEMS: A 12-point review of systems reviewed and otherwise negative other than what was commented on specifically within the HPI. PHYSICAL EXAMINATION: VITAL SIGNS: Temperature 98.8, pulse 112, respirations 22, blood pressure 119/56, saturations 97% on room air. GENERAL: No apparent distress, communicative and alert, morbidly obese. HEENT: Normocephalic, atraumatic. Sclerae nonicteric. Pupils are symmetric and round. Moist mucou s membranes. Trachea midline. CARDIOVASCULAR: Sinus tachycardia with normal S1 and S2. Loud murmur. Symmetric pulses. LUNGS: Slightly increased work of breathing with tachypnea. Bilateral wheezing and bibasilar crackl es. Breath sounds are distant secondary to patient's obesity. ABDOMEN: Soft, nontender, nondistended. Positive bowel sounds, obese and protuberant abdomen. No s ignificant CVA tenderness. No significant suprapubic tenderness. No rebound or guarding or obvious organomegaly. GENITOURINARY: Allen catheter in place secured with clear yellow urine. Penis is somewhat retracted . Testes are bilaterally descended. RECTAL: Rectal examination demonstrates a grade I small hard prostate status post radiation, without obvious nodules or tenderness. EXTREMITIES: 3+ edema bilaterally with stasis dermatitis and cyanotic changes. No significant clubb ing. MUSCULOSKELETAL: obvious joint deformities or joint erythema noted. Full range of motion. NEUROLOGIC: Cranial nerves II through XII appear grossly intact. No obvious focal sensory or motor deficits identified. SKIN: Warm, dry, good turgor. Mild pallor with no lesions. Again noted stasis dermatitis of the lo wer extremities. PSYCHIATRIC: Alert and oriented x3, appropriate mood and affect. LABORATORY EVALUATION: The full set of labs are in the [facility] system, which I have reviewed. Of n ote, patient's white count is 11.5 with a hemoglobin currently of 7.2 after multiple transfusions. I NR is 1.1, creatinine is 2.11 down from 2.67 yesterday. Urinalysis is completely unremarkable other than 7-10 white cells and small leukocyte esterase, 4-6 red blood cells. Urine culture is demonstrat ing Proteus mirabilis 50,000 to 75,000 pansensitive except to nitrofurantoin. Blood cultures are neg ative. On radiographic imaging, CT without contrast from 06/07/2018, demonstrates moderate bilateral obstructive uropathy with an obstructing calculus in the distal right ureter without evidence of lef t-sided obstructing calculus. There is also right-sided lymphadenopathy along the right iliac chain and common iliac artery. On my review, the hydronephrosis appears slightly worse on the right than o n the left. I have reviewed these images myself. ASSESSMENT AND PLAN: A 77-year-old white male with history of prostate cancer and unknown PSA with l ymphadenopathy and chronic anemia with bilateral hydronephrosis with an obstructing stone on the righ t with acute kidney injury. I think, the patient appears to have either colonization versus a mild u rinary tract infection, which is currently being treated with ceftriaxone. There is no apparent sarah gent indication for ureteral stent at this time, as the patient is not febrile nor does he have an in creasing or significantly elevated white blood cell count. As such, I think the patient may be harsh ble to ureteroscopy for removal of the stone and a single surgery as opposed to stenting and subseque nt take back at a later date for ureteroscopy. If the patient became febrile or has significantly wo rsening of his kidney function more urgent ureteral stenting would be required, but at this time, I t hink it would be better for the patient to undergo a few more days of antibiotics to eradicate the Pr oteus, at which time we can plan a ureteroscopy, removal of the right-sided stone with laser lithotri psy, basket extraction, and placement of a stent on the right. I would also like to evaluate the lef t ureter with retrograde pyelogram to see if there is an apparent stricture. The hydroureter appears to go all the way down to the bladder and I suspect that he may have a ureteral orifice stricture se condary to his radiation treatment. If this is the case, we can perform a balloon dilation of the st ricture as well as placement of the stent on this side for optimization of kidney function on both si freda. I have discussed this all with the patient including the risks, which include but are not limit ed to bleeding, infection, damage to the ureters, recurrent stricture formation, new stricture format ion, damage to the kidneys or bladder, urethral injury, worsening infection, or significant bleeding. He understands these risks and states he would be willing to go forward with ureteroscopic stone ex traction with lithotripsy and evaluation of the left side with retrograde pyelogram. In addition, I would like to get a PSA test to evaluate what the patient's prostate cancer control is. If his PSA i s significantly elevated, this may explain the possible lymphadenopathy; however, I still agree with the bone marrow biopsy and lymph node biopsy, which is being planned for the patient. The patient do es have an EGD plan for tomorrow and ideally it would be best to try to coordinate the ED with the ur eteroscopy; however, I do not think he has yet ready to undergo ureteroscopy until he has had a few m ore days of antibiotics, so if the EGD needs to be done more urgently, this can go ahead and be done on its own. We will plan for the ureteroscopic treatment later. I will continue to follow along and make recommendations. SUMMARY OF RECOMMENDATIONS: 1. Plan for ureteroscopy on the right with laser lithotripsy and basket extraction of stone and sten t placement with possible balloon dilation and retrograde pyelogram on the left and stent placement o n , 06/11/2018. 2. PSA test today. 3. Continue antibiotic therapy with Rocephin. 4. Agree with continuing with bone marrow biopsy and lymph node biopsy. 5. If EGD can be postponed until that would be ideal, otherwise go ahead and perform it kanika orrow and we will perform a separate ureteroscopy on .
[2018-06-09] MEDS: cefTRIAXone\\ROCEPHIN 1 GM in Sodium Chloride 0.9% 100 ML IVPB SCH (03:57)
[2018-06-09 05:51] LABS: Anion Gap 15 mmol/L (10-20); BUN (Urea Nitrogen) 81 mg/dL (8.4-25.7); Calc. Creatinine Clearance 56 mL/min (70-130); Carbon Dioxide 27 mmol/L (23-31); Chloride 101 mmol/L (98-107); Estimated GFR-MDRD 28; Glucose 108 mg/dL (83-110); Sodium 139 mmol/L (136-145)
[2018-06-09] MEDS: Metoprolol Tartrate 25 MG TAB PO SCH ×2 (05:51→20:27)
[2018-06-09 06:07] LABS: Band 6 % (5-11); Eosinophils 1 % (0-10); Hemoglobin 6.8 g/dL (14.0-18.0); Lymphocytes 9 % (21-51); MDiff Complete? YES; Mean Corpuscular HGB CONC 32.7 g/dL (32.0-36.0); Mean Corpuscular Hemoglobin 31.9 pg (27.0-31.0); Mean Corpuscular Volume 97.7 fL (78.0-98.0); Mean Platelet Volume 7.1 fL (7.4-10.4); Metamyelocyte 2 % (0-0); Monocytes 7 % (0-10); Neutrophil 75 % (42-75); PLT Morphology Comment Appears Adequate; Platelet Count 290 thou/uL (130-400); RBC Distribution Width 17.9 % (11.5-14.5); Red Blood Cell (RBC) Count 2.12 mill/uL (4.70-6.10); White Blood Cell (WBC) Count 11.1 thou/uL (4.8-10.8)
[2018-06-09] MEDS ORDERED: Cyanocobalamin 1000 MCG/ML VIAL IM SCH (09:00)
[2018-06-09] MEDS ORDERED: Midazolam HCl 2 mg/2 ml Vial ONE (11:24)
[2018-06-09] MEDS ORDERED: Fentanyl 100 MCG/2 ML VIAL ONE (11:24)
[2018-06-09] MEDS ORDERED: Lidocaine 1% PF 5 ML VIAL ONE (12:46)
[2018-06-09] MEDS ORDERED: PROPOFOL 200 MG/20 ML VIAL ONE (12:46)
--- NOTE | 2018-06-09 15:20 | CT ---
CT GUIDED RETROPERITONEAL MASS BIOPSY: Date: 06/09/18 INDICATION: Anemia. Enlarged lymph nodes. CONSCIOUS SEDATION: 1 mg Versed IV. 50 mcg Fentanyl IV. Approximately 45 minutes was spent with the patient during consci ous sedation. FINDINGS: After explaining the procedure and answering all questions, the patient was placed on the CT table in the left lateral decubitus position. Sterile technique, buffered local anesthesia, conscious sedatio n, CT guidance, and a right lateral approach were used to carefully advanced a 17 gauge trocar needle to the right retroperitoneal enlarged lymph node. Position was confirmed with CT. A total of six 18 gauge biopsy specimens were obtained and placed in Formalin and in sterile saline t o be later evaluated for lymphomatous process, eventually submitted to pathology for evaluation. Need le was removed. Postprocedure imaging shows no evidence of complication. The patient tolerated the pr ocedure well and was returned in unchanged condition. IMPRESSION: Technically successful CT guided biopsy right retroperitoneal adenopathy. Pathology is pending. POS: KRIS
--- NOTE | 2018-06-09 15:23 | CT ---
CT GUIDED BONE MARROW BIOPSY: Date: 06/09/18 HISTORY: Anemia. FINDINGS: After explaining the procedure and answering all questions, the patient was placed on the CT table in prone position. Sterile technique, buffered local anesthesia, CT guidance, and a left posterior appr oach were used to carefully advance a 12 gauge core biopsy needle to the posterior cortex of the left iliac bone. Position was confirmed with CT. The bone was carefully engaged with the needle. Blood wa s aspirated from the bone marrow and submitted to pathology for evaluation. A bone marrow core was th en obtained and also submitted to pathology. Needle was removed. Postprocedure imaging shows no evide nce of complication. The patient tolerated the procedure well and was returned in unchanged condition . IMPRESSION: Technically successful CT guided bone marrow aspiration/biopsy. Pathology is pending. POS: KRIS
[2018-06-09] MEDS: Cyanocobalamin 1000 MCG/ML VIAL IM SCH (16:19)
[2018-06-09] MEDS: Folic Acid 1 MG TAB PO SCH (16:19)
[2018-06-09 17:13] LABS: A/G Ratio 1.1 (0.7-1.7); Albumin 2.7 g/dL (2.9-4.4); Alpha 1 0.4 g/dL (0.0-0.4); Alpha 2 0.9 g/dL (0.4-1.0); Beta 0.8 g/dL (0.7-1.3); Gamma 0.5 g/dL (0.4-1.8); Globulin, Total 2.5 g/dL (2.2-3.9); M-Spike Not Observed g/dL (Not Observed)
--- NOTE | 2018-06-09 17:56 | PRG ---
DATE OF SERVICE: 06/09/2018 SUBJECTIVE: The patient went down for his bone marrow biopsy and retroperitoneal lymph node biopsy t janis. He apparently also had his EGD as well, the results of this are still pending as noted to have not yet been dictated. The pathology results are still pending. His PSA returned at approximately 36. At the time of my visit with him, he is recovering from anesthesia, but states he is feeling oka y. He still has a Allen catheter in which is not bothering him. He denies any flank pain or abdomin al pain. OBJECTIVE: VITAL SIGNS: Temperature 97.9, pulse 87, respirations 20, blood pressure 141/61, saturation 97% on r oom air. GENERAL: No apparent distress, somnolent, still communicative. CARDIOVASCULAR: Regular rate and rhythm. Normal S1 and S2. CHEST: Coarse breath sounds bilaterally with scattered wheezes. ABDOMEN: Soft, nontender, nondistended, positive bowel sounds. GENITOURINARY: Allen catheter in place, secured with clear yellow urine. EXTREMITIES: 2-3+ edema with stasis dermatitis. LABORATORY DATA: The full set of labs in the [facility] system, which I reviewed. Of note, the patien t's hemoglobin dropped down to 6.8, white count 11.1, creatinine is 2.29 today. PSA was 31.26. ASSESSMENT AND PLAN: A 77-year-old white male with a right ureteral stone and bilateral hydronephros is, status post lymph node biopsy and history of prostate cancer. His PSA is significantly elevated up to 31. I suspect that some of this elevation is probably due to his urinary tract infection as we ll as his Allen catheter; however, I would not expect his PSA to rise this high, which does suggest t hat he probably has metastatic or recurrent prostate cancer. Currently, I would still await the resu lts of the lymph node and bone marrow biopsies to see if this is due to prostate cancer or some other process such as lymphoma or other infiltrative disease. We still have plans to take him to the oper ating room on to remove the ureteral stone and evaluate the left kidney for strictures. In the meantime, I would agree with keeping his Allen catheter in place until his procedure, at which po int we can consider a void trial subsequently.
--- NOTE | 2018-06-09 20:15 | PRG ---
DATE OF SERVICE: 06/09/2018 SUBJECTIVE: The patient examined on BiPAP. PHYSICAL EXAMINATION: Noted with the following, VITAL SIGNS: Afebrile with temperature 97.9, pulse 87, respiratory rate of 20, O2 sat 97%, blood pre ssure 141/61. HEENT: Unremarkable. CARDIOVASCULAR: First and second heart sounds were heard. RESPIRATORY: Clear to auscultation. DIGESTIVE: Revealed a benign abdomen with positive bowel sounds. EXTREMITIES: No peripheral edema. SKIN: No new gross rash. LYMPHATICS: No peripheral lymphadenopathy. LABORATORY INVESTIGATIONS: Significant for a hemoglobin of 6.8. IMPRESSION: 1. Persistent anemia, somewhat mysterious, status post blood transfusions with no change in hemoglob in level. 2. 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 3. Morbid obesity. PLAN: 1. We will continue current renal supportive measures. 2. Patient's anemia rating needs to be worked up. This is becoming somewhat mysterious as to why th is patient has not been responding to the blood transfusions.
[2018-06-09] MEDS: Tamsulosin HCl 0.4 MG CAP PO SCH (20:27)
--- NOTE | 2018-06-09 21:35 | OP ---
PREOPERATIVE DIAGNOSES: Acute on chronic anemia, concerning for possible GI bleeding, Hemoccult nega tive, but nurse reported melena. The patient was taking Pepto-Bismol. POSTOPERATIVE DIAGNOSES: 1. Normal esophagogastroduodenoscopy. 2. B12 deficiency. RECOMMENDATIONS: 1. Supplement B12. 2. No signs of overt gastrointestinal bleeding. The patient has had a previous extensive workup inc luding upper and lower endoscopies and a capsule endoscopy in the past. At this time, we will follow from a distance for any further assistance, please do not hesitate to reconsult GI. ANESTHESIA: TIVA. PROCEDURE IN DETAIL: After the patient was informed of the risks, benefits, and possible complicatio ns of endoscopy including perforation, reactions to medication and aspiration, informed consent was o btained. The patient brought to the endoscopy suite where he was sedated in a gradual fashion. Once he was comfortable, a bite block was placed in incisural orifice. The endoscope was advanced throug h the esophagus, stomach and second and third portion of duodenum and slowly removed. There was good visualization of mucosa. There were no masses, lesions or AV malformations identified. The esophag us was without varices. There was a small hiatal hernia present. distal colon was normal ____ _ of the duodenum was normal, second and third portions. No stigmata of bleeding or signs of bleedin g were identified. The stomach was completely emptied of the duodenum except for bile staining. The scope was removed. The patient tolerated the procedure well with no complications.
--- NOTE | 2018-06-09 22:22 | PDOC.PN ---
- Subjective Encounter Start Date: 06/09/18 Encounter Start Time: 16:00 Patient seen and examined for Anemia. s/p EGD and bone marrow/retroperitoneal biopsys. No new complaints. No overnight events - Objective MAR Reviewed: Yes Vital Signs & Weight: Vital Signs (12 hours) Temp Pulse Pulse Resp BP BP Pulse Ox 06/09/18 16:25 97.9 F 87 20 141/61 H 97 06/09/18 11:15 98.5 F 88 16 136/52 L 95 Weight Admit Weight 326 lb 8 oz Weight 333 lb Most Recent Monitor Data Heart Rate from ECG 88 I&O: 06/08/18 06/09/18 06/10/18 06:59 06:59 06:59 Intake Total 260 1990 1180 Output Total 1450 4100 2300 Balance -1190 -2110 -1120 Result Diagrams: 06/09/18 04:30 06/09/18 04:30 EKG Reviewed by me: Yes (Tele SR) Phys Exam - Physical Examination Constitutional: NAD Respiratory: no wheezing, no rhonchi Cardiovascular: RRR, no rub Gastrointestinal: soft, non-tender, positive bowel sounds Neurological: moves all 4 limbs Dx/Plan - Plan DVT proph w/SCDs IMPRESSION/PLAN: 1. Anemia s/p Bone marrow biopsy and EGD Transfuse 1 unit PRBC Cont Procrit Await Flow cytometry 2. B/L Hydronephrosis with Rt sided ureteral calculi/ESRG on CKD 3 Ureteroscopy on 06/11 3. Proteus UTI Cont Ceftriaxone 4. HTN Cont Lopressor 5. BPH Cont Flomax 6. Morbid Obesity BMI 49 Laboratory Tests 06/08/18 19:41 Prostate Specific Ag 31.26 H Review of Systems - Review of Systems Respiratory: negative: Cough, Dry, Shortness of Breath, Hemoptysis, SOB with Excertion, Pleuritic Pain, Sputum, Wheezing Cardiovascular: negative: chest pain, palpitations, orthopnea, paroxysmal nocturnal dyspnea, edema, light headedness, other - Medications/Allergies Allergies/Adverse Reactions: Allergies Allergy/AdvReac Type Severity Reaction Status Date / Time No Known Allergies Allergy Verified 06/04/18 21:18 Medications: Current Medications Acetaminophen (Tylenol) 650 mg PO Q6H PRN PRN Reason: Headache/Fever or MILD Pain Last Admin: 06/08/18 14:24 Dose: 650 mg Hydrocodone Bitart/Acetaminophen ([place] 5/325) 1 tab PO Q6H PRN PRN Reason: Moderate to Severe Pain (6-10) Last Admin: 06/08/18 21:57 Dose: 1 tab Albuterol/Ipratropium (Duoneb) 3 ml NEB [id number] PRN PRN Reason: SOB &/or Wheezing Last Admin: 06/07/18 11:19 Dose: 3 ml Cyanocobalamin (Vitamin B-12) 1,000 mcg IM DAILY [facility] Stop: 06/10/18 09:01 Last Admin: 06/09/18 16:19 Dose: 1,000 mcg Cyanocobalamin (Vitamin B-12) 1,000 mcg PO DAILY [facility] Epoetin Jean Carlos (Procrit) 10,000 units SC Q7D [facility] Last Admin: 06/05/18 11:18 Dose: 10,000 units Folic Acid (Folvite) 1 mg PO DAILY [facility] Last Admin: 06/09/18 16:19 Dose: 1 mg Ceftriaxone Sodium 1 gm/ (Sodium Chloride) 100 mls @ 200 mls/hr IVPB Q24HR [facility] Last Admin: 06/09/18 03:57 Dose: 100 mls Magnesium Hydroxide (Milk Of Magnesium) 30 ml PO DAILYPRN PRN PRN Reason: Constipation Metoprolol Tartrate (Lopressor) 25 mg PO BID [facility] Last Admin: 06/09/18 20:27 Dose: 25 mg Nystatin (Mycostatin Powder) 0 gm TOP DAILYPRN PRN PRN Reason: ABDOMINAL FOLD Last Admin: 06/06/18 08:25 Dose: 1 applic Sodium Chloride (Flush - Normal Saline) 10 ml IVF Q12HR [facility] Last Admin: 06/09/18 20:27 Dose: 10 ml Sodium Chloride (Flush - Normal Saline) 10 ml IVF PRN PRN PRN Reason: Saline Flush Last Admin: 06/07/18 06:02 Dose: 10 ml Tamsulosin HCl (Flomax) 0.4 mg PO HS [facility] Last Admin: 06/09/18 20:27 Dose: 0.4 mg
--- NOTE | 2018-06-09 22:44 | CON ---
DATE OF CONSULTATION: 06/09/2018 HISTORY: Yfn Fraga is a 77-year-old white male with chronic anemia that is currently being evaluated. His cardiac history is that he underwent TAVR in [place] approximately 5 years ago. Prior to that, he stated he had [address] Ananda Arizmendi. He denies any cardiac arrhythmias in the past. He has been found to have intermittent tachycardia since being admitted and Cardiology consultation is requested. He denies ever feeling any palpitations. He denies any chest discomfort. He does have occasional shortness of breath and at the current time is wheezing. PAST MEDICAL HISTORY: Significant for chronic anemia for which he has received multiple transfusions this admission, prostate cancer, hypertension, coronary artery disease. In 2006, he underwent radiation for the prostate cancer. MEDICATIONS: At home include, acetaminophen p.r.n., aspirin 81 daily, candesartan-hydrochlorothiazide 32/12.5 daily, Celebrex 100 mg daily. ALLERGIES: None. OPERATIONS: Radiation for prostate cancer, TAVR, coronary artery stent placement, left hip replacement, tonsillectomy. SOCIAL HISTORY: He smoked cigarettes but stopped over 25 years ago. He has a glass of wine every month. FAMILY HISTORY: Unremarkable. REVIEW OF SYSTEMS: Twelve-point review of systems otherwise unremarkable. PHYSICAL EXAMINATION: VITAL SIGNS: 146/65, pulse of 78, sinus rhythm on monitor. HEENT: PERRL. NECK: Supple. LUNGS: Chest reveals diffuse expiratory wheezing bilaterally. CARDIAC: Cardiac sounds are very distant and actually cannot be heard over the wheezing. ABDOMEN: Obese. Normal bowel sounds, no tenderness. EXTREMITIES: Reveal 1+ pretibial pitting edema with chronic stasis changes. NEUROLOGIC: Grossly intact. SKIN: Warm and dry. LABORATORY AND X-RAY FINDINGS: EKG revealed normal sinus rhythm with right bundle branch block, left anterior fascicular block. On the monitor, he does have paroxysmal episodes of supraventricular tachycardia which appears to be very regular and at times appears to be atrial flutter. Today's hemoglobin is 6.8, hematocrit 20.8, white count 11,100, platelets 290,000. Sodium 139, potassium 4.0, chloride 101, carbon dioxide 27, BUN 81, creatinine 2.29. PSA is elevated at 31.26. TSH is normal. IMPRESSION: 1. Probable atrial flutter with short episodes. Certainly, this is exacerbated by his anemia. 2. Anemia of uncertain etiology, requiring multiple transfusions. GI does not feel that this is due to gastrointestinal bleeding. 3. Hypertension. 4. Coronary artery disease, status post stent placement. 5. History of TAVR 5 years ago. 6. Obesity. 7. Former smoker, wheezing at present. 8. Chronic kidney disease. 9. History of prostate cancer, status post radiation. PLAN: At the present time, the patient was started on metoprolol 25 mg b.i.d. He is being transfused p.r.n. He has undergone bone marrow biopsy as well as CT -guided biopsy of right retroperitoneal adenopathy. Path reports on these specimens are pending. We will continue to follow the patient with you. Consideration may need to be given to radiofrequency ablation; however, I feel his other multiple medical problems need to be addressed first since these tachycardic episodes appear to be short-lived and spontaneously terminate. MTDD
[2018-06-10] MEDS: HYDROcodone/Acetaminophen 5/325 mg Tablet PO PRN ×2 (00:04→06:10)
[2018-06-10] MEDS: cefTRIAXone\\ROCEPHIN 1 GM in Sodium Chloride 0.9% 100 ML IVPB SCH (05:23)
[2018-06-10 06:43] LABS: Anion Gap 14 mmol/L (10-20); BUN (Urea Nitrogen) 84 mg/dL (8.4-25.7); Calc. Creatinine Clearance 48 mL/min (70-130); Calcium 8.2 mg/dL (7.8-10.44); Carbon Dioxide 27 mmol/L (23-31); Chloride 101 mmol/L (98-107); Estimated GFR-MDRD 23; Glucose 94 mg/dL (83-110); Magnesium 2.6 mg/dL (1.6-2.6); Potassium 4.1 mmol/L (3.5-5.1); Sodium 138 mmol/L (136-145)
[2018-06-10] MEDS: Metoprolol Tartrate 25 MG TAB PO SCH ×2 (08:10→20:30)
[2018-06-10] MEDS: Folic Acid 1 MG TAB PO SCH (08:10)
[2018-06-10] MEDS: Cyanocobalamin 1000 MCG/ML VIAL IM SCH (08:10)
[2018-06-10] MEDS: oxyCODONE 5 MG TAB PO PRN ×2 (12:28→20:30)
--- NOTE | 2018-06-10 13:07 | PDOC.CTH ---
Cardiology Progress Note - Subjective He is doing well. He denies any chest pain, tightness, pressure. - Objective Vital Signs Temp Pulse Resp BP BP Pulse Ox 06/10/18 11:45 97.9 F 78 18 120/59 L 98 06/10/18 08:00 97.9 F 78 16 140/63 98 06/10/18 04:00 98.1 F 77 19 133/61 98 Admit Weight 326 lb 8 oz Weight 326 lb 6 oz 06/09/18 06/10/18 06/11/18 06:59 06:59 06:59 Intake Total 1989 142 Output Total 4100 2975 Balance -0270 -8435 - Physical Examination General/Neuro: alert & oriented x3, NAD Neck: no JVD present Lungs: CTA, unlabored respirations Heart: RRR Abdomen: NT/ND Extremities: + edema B (2+) - Telemetry Telemetry Rhythm: NSR - Labs Result Diagrams: 06/10/18 05:26 06/10/18 05:26 - Assessment/Plan 1. Atrial flutter, paroxysmal. 2. SERG on CKD 3. Prostate CA Hx 4. Renal stones with hydronephrosis. 5. UTI 6. Anemia PLAN: - Continue BB. - Not a candidate for full anticoagulation given anemia. - Aspirin alone for stroke prophylaxis. - Continue telemetry monitoring. - Will consider watchman/Lariat as an outpatient.
--- NOTE | 2018-06-10 14:17 | PDOC.PN ---
- Subjective Encounter Start Date: 06/10/18 Encounter Start Time: 11:15 Subjective: pt up in bed no complains - Objective Vital Signs & Weight: Vital Signs (12 hours) Temp Pulse Resp BP BP Pulse Ox 06/10/18 11:45 97.9 F 78 18 120/59 L 98 06/10/18 08:00 97.9 F 78 16 140/63 98 06/10/18 04:00 98.1 F 77 19 133/61 98 Weight Admit Weight 326 lb 8 oz Weight 326 lb 6 oz Most Recent Monitor Data Heart Rate from ECG 88 I&O: 06/09/18 06/10/18 06/11/18 06:59 06:59 06:59 Intake Total 1989 1419 Output Total 410 2975 Balance -2110 -5115 Result Diagrams: 06/10/18 05:26 06/10/18 05:26 Phys Exam - Physical Examination Neck: no nodes, no JVD, supple, full ROM Respiratory: no wheezing, no rales, no rhonchi, wheezing present, clear to auscultation bilateral Cardiovascular: RRR, no significant murmur, no rub, gallop, irregular Gastrointestinal: soft, non-tender, no distention, positive bowel sounds Dx/Plan (1) Symptomatic anemia Code(s): D64.9 - ANEMIA, UNSPECIFIED Status: Acute (2) SERG (acute kidney injury) Code(s): N17.9 - ACUTE KIDNEY FAILURE, UNSPECIFIED Status: Acute (3) HTN (hypertension) Code(s): I10 - ESSENTIAL (PRIMARY) HYPERTENSION Status: Acute (4) Bladder outlet obstruction Code(s): N32.0 - BLADDER-NECK OBSTRUCTION Status: Acute (5) UTI (urinary tract infection) Status: Acute (6) Inguinal adenopathy Code(s): R59.0 - LOCALIZED ENLARGED LYMPH NODES Status: Acute - Plan pt has pain to his lower abd -: pt going for cytstoscopy in am -: will continue iv abx for now -: pt's hh is still low * . Review of Systems - Review of Systems Respiratory: negative: Cough, Dry, Shortness of Breath, Hemoptysis, SOB with Excertion, Pleuritic Pain, Sputum, Wheezing Cardiovascular: negative: chest pain, palpitations, orthopnea, paroxysmal nocturnal dyspnea, edema, light headedness, other Gastrointestinal: negative: Nausea, Vomiting, Abdominal Pain, Diarrhea, Constipation, Melena, Hematochezia, Other Genitourinary: negative: Dysuria, Frequency, Incontinence, Hematuria, Retention , Other - Medications/Allergies Allergies/Adverse Reactions: Allergies Allergy/AdvReac Type Severity Reaction Status Date / Time No Known Allergies Allergy Verified 06/04/18 21:18 Medications: Current Medications Acetaminophen (Tylenol) 650 mg PO Q6H PRN PRN Reason: Headache/Fever or MILD Pain Last Admin: 06/08/18 14:24 Dose: 650 mg Hydrocodone Bitart/Acetaminophen ([place] 5/325) 1 tab PO Q6H PRN PRN Reason: Moderate to Severe Pain (6-10) Last Admin: 06/10/18 06:10 Dose: 1 tab Albuterol/Ipratropium (Duoneb) 3 ml NEB [id number] PRN PRN Reason: SOB &/or Wheezing Last Admin: 06/07/18 11:19 Dose: 3 ml Cyanocobalamin (Vitamin B-12) 1,000 mcg PO DAILY [facility] Epoetin Jean Carlos (Procrit) 10,000 units SC Q7D [facility] Last Admin: 06/05/18 11:18 Dose: 10,000 units Folic Acid (Folvite) 1 mg PO DAILY [facility] Last Admin: 06/10/18 08:10 Dose: 1 mg Ceftriaxone Sodium 1 gm/ (Sodium Chloride) 100 mls @ 200 mls/hr IVPB Q24HR [facility] Last Admin: 06/10/18 05:23 Dose: 100 mls Magnesium Hydroxide (Milk Of Magnesium) 30 ml PO DAILYPRN PRN PRN Reason: Constipation Metoprolol Tartrate (Lopressor) 25 mg PO BID [facility] Last Admin: 06/10/18 08:10 Dose: 25 mg Morphine Sulfate (Morphine) 2 mg SLOW IVP Q4H PRN PRN Reason: Moderate Pain (4-6) Nystatin (Mycostatin Powder) 0 gm TOP DAILYPRN PRN PRN Reason: ABDOMINAL FOLD Last Admin: 06/06/18 08:25 Dose: 1 applic Oxycodone HCl (Oxycodone Ir) 10 mg PO Q4H PRN PRN Reason: Moderate Pain (4-6) Last Admin: 06/10/18 12:28 Dose: 10 mg Sodium Chloride (Flush - Normal Saline) 10 ml IVF Q12HR [facility] Last Admin: 06/10/18 08:10 Dose: 10 ml Sodium Chloride (Flush - Normal Saline) 10 ml IVF PRN PRN PRN Reason: Saline Flush Last Admin: 06/07/18 06:02 Dose: 10 ml Tamsulosin HCl (Flomax) 0.4 mg PO HS [facility] Last Admin: 06/09/18 20:27 Dose: 0.4 mg
[2018-06-10 14:22] LABS: Albumin-Ur 60.2 % (.); Alpha 1 - Ur 0.9 % (.); Alpha 2 - Ur 4.5 % (.); Beta-Ur 15.9 % (.); Gamma-Ur 18.5 % (.); M-Spike,% 8.1 % (Not Observed); Protein, Urine 73.4 mg/dL (Not Estab.)
[2018-06-10] MEDS: Tamsulosin HCl 0.4 MG CAP PO SCH (20:29)
--- NOTE | 2018-06-10 20:48 | PRG ---
DATE OF SERVICE: 06/10/2018 SUBJECTIVE: The patient is seen and examined today with no new complaint except low abdominal pain, noted with the following vital signs. OBJECTIVE: VITAL SIGNS: Afebrile with temperature 97.9, pulse 78, respiratory rate of 18, O2 saturation 98% wit h a blood pressure 120/59. HEENT: Unremarkable. CARDIOVASCULAR: First and second heart sounds were heard. RESPIRATORY: Clear to auscultation. DIGESTIVE: Revealed a benign abdomen with positive bowel sounds. EXTREMITIES: No peripheral edema. SKIN: No new gross rash. LYMPHATICS: No peripheral lymphadenopathy. LABORATORY AND X-RAY FINDINGS: Significant for hemoglobin of 7. IMPRESSION: 1. Symptomatic anemia. to blood transfusion which is somewhat mysterious. 2. Acute on chronic kidney disease, likely in the context of obstructive uropathy. 3. Obesity. 4. Paroxysmal atrial flutter. PLAN: 1. Patient to continue with erythropoiesis stimulating agent. 2. Further workup of this mysterious anemia will be deferred to the supervisor dock. 3. Further management to be dependent on the clinical course.
[2018-06-11 05:34] LABS: #Eosinphils 0.2 thou/uL (0.0-0.7); #Lymphocytes 0.6 thou/uL (1.20-3.40); #Monocytes 1.4 thou/uL (0.11-0.59); #Neutrophils 8.9 thou/uL (1.40-6.50); %Basophils 0.1 % (0.0-1.0); %Eosinophils 1.4 % (0.0-10.0); %Lymphocytes 5.2 % (21.0-51.0); %Monocytes 12.4 % (0.0-10.0); Anion Gap 13 mmol/L (10-20); BUN (Urea Nitrogen) 89 mg/dL (8.4-25.7); Calc. Creatinine Clearance 35 mL/min (70-130); Calcium 7.9 mg/dL (7.8-10.44); Carbon Dioxide 28 mmol/L (23-31); Chloride 100 mmol/L (98-107); Estimated GFR-MDRD 17; Glucose 109 mg/dL (83-110); Hemoglobin 6.6 g/dL (14.0-18.0); Mean Corpuscular HGB CONC 31.6 g/dL (32.0-36.0); Mean Corpuscular Hemoglobin 30.6 pg (27.0-31.0); Mean Platelet Volume 6.8 fL (7.4-10.4); Platelet Count 291 thou/uL (130-400); Potassium 4.2 mmol/L (3.5-5.1); RBC Distribution Width 17.9 % (11.5-14.5); Red Blood Cell (RBC) Count 2.15 mill/uL (4.70-6.10); Sodium 137 mmol/L (136-145); White Blood Cell (WBC) Count 10.9 thou/uL (4.8-10.8)
[2018-06-11] MEDS: Metoprolol Tartrate 25 MG TAB PO SCH ×2 (05:36→20:39)
[2018-06-11] MEDS: cefTRIAXone\\ROCEPHIN 1 GM in Sodium Chloride 0.9% 100 ML IVPB SCH (05:36)
[2018-06-11] MEDS: oxyCODONE 5 MG TAB PO PRN ×2 (06:32→23:27)
[2018-06-11] MEDS ORDERED: Furosemide 40 MG/4 ML VIAL SLOW IVP SCH (07:00)
[2018-06-11 07:28] LABS: Hemoglobin 6.4 g/dL (14.0-18.0); Mean Corpuscular HGB CONC 31.8 g/dL (32.0-36.0); Mean Corpuscular Hemoglobin 30.8 pg (27.0-31.0); Mean Corpuscular Volume 96.9 fL (78.0-98.0); Mean Platelet Volume 6.6 fL (7.4-10.4); Platelet Count 283 thou/uL (130-400); RBC Distribution Width 17.8 % (11.5-14.5); Red Blood Cell (RBC) Count 2.08 mill/uL (4.70-6.10); White Blood Cell (WBC) Count 10.3 thou/uL (4.8-10.8)
[2018-06-11 07:30] LABS: Anisocytosis SLIGHT = 6-15 cells (100X) (0-5/hpf); Band 1 % (5-11); Eosinophils 3 % (0-10); Lymphocytes 7 % (21-51); MDiff Complete? YES; Monocytes 12 % (0-10); Neutrophil 77 % (42-75); PLT Morphology Comment Appears Adequate; Polychromasia MODERATE = 3-4 cells (100X) (0-2/hpf)
[2018-06-11 08:35] LABS: Complement-C4 20.2 mg/dL (15-53)
[2018-06-11] MEDS: Folic Acid 1 MG TAB PO SCH (10:43)
[2018-06-11] MEDS: Cyanocobalamin (Vitamin B-12) 1,000 MCG TAB PO SCH (10:43)
[2018-06-11] MEDS ORDERED: Ondansetron PF 4 MG/2 ML Vial ONE (11:05)
[2018-06-11] MEDS ORDERED: Lidocaine 1% PF 5 ML VIAL ONE (11:05)
[2018-06-11] MEDS ORDERED: Glycopyrrolate 0.2 MG/ML 5 ML SYRINGE ONE (11:05)
[2018-06-11] MEDS ORDERED: ePHEDrine/0.9% NaCl/PF SYRINGE 50 mg/10 ml ONE (11:05)
[2018-06-11] MEDS ORDERED: PHENYLEPHRINE-NS 100 MCG/ML 10 ML SYRINGE ONE (11:05)
[2018-06-11] MEDS ORDERED: PROPOFOL 200 MG/20 ML VIAL ONE (11:05)
[2018-06-11] MEDS ORDERED: Iothalamate Meglumine 60% 50 ML VIAL FS ONE (13:47)
[2018-06-11] MEDS ORDERED: Fentanyl 100 MCG/2 ML VIAL ONE ×3 (13:47→14:17)
--- NOTE | 2018-06-11 14:17 | PDOC.PN ---
- Subjective Encounter Start Date: 06/11/18 Encounter Start Time: 11:30 Subjective: pt up in bed has some lower abd pain - Objective Vital Signs & Weight: Vital Signs (12 hours) Temp Pulse Pulse Resp BP BP Pulse Ox 06/11/18 11:45 98.6 F 78 18 133/63 97 06/11/18 10:51 74 24 H 95 06/11/18 09:20 98.1 F 71 20 159/73 H 97 06/11/18 07:50 98.3 F 68 18 133/60 96 06/11/18 04:00 99.7 F H 87 19 171/68 H 98 Weight Admit Weight 326 lb 8 oz Weight 327 lb 6 oz Most Recent Monitor Data Heart Rate from ECG 79 I&O: 06/10/18 06/11/18 06/12/18 06:59 06:59 06:59 Intake Total 1420 1260 350 Output Total 2975 825 Balance -1555 435 350 Result Diagrams: 06/11/18 06:54 06/11/18 04:56 Phys Exam - Physical Examination Neck: no nodes, no JVD, supple, full ROM Respiratory: no wheezing, no rales, no rhonchi, wheezing present, clear to auscultation bilateral Cardiovascular: RRR, no significant murmur, no rub, gallop, irregular Gastrointestinal: soft, non-tender, no distention, positive bowel sounds Dx/Plan (1) Symptomatic anemia Code(s): D64.9 - ANEMIA, UNSPECIFIED Status: Acute (2) SERG (acute kidney injury) Code(s): N17.9 - ACUTE KIDNEY FAILURE, UNSPECIFIED Status: Acute (3) HTN (hypertension) Code(s): I10 - ESSENTIAL (PRIMARY) HYPERTENSION Status: Acute (4) Bladder outlet obstruction Code(s): N32.0 - BLADDER-NECK OBSTRUCTION Status: Acute (5) UTI (urinary tract infection) Status: Acute (6) Inguinal adenopathy Code(s): R59.0 - LOCALIZED ENLARGED LYMPH NODES Status: Acute - Plan creatinine worsening, pt going for cystoscopy today -: hh still low not sure where his blood which is being transfused is going -: biospy positive for prostate cancer -: ct chest and bone scan ordered. * . Review of Systems - Review of Systems Respiratory: negative: Cough, Dry, Shortness of Breath, Hemoptysis, SOB with Excertion, Pleuritic Pain, Sputum, Wheezing Cardiovascular: negative: chest pain, palpitations, orthopnea, paroxysmal nocturnal dyspnea, edema, light headedness, other Gastrointestinal: negative: Nausea, Vomiting, Abdominal Pain, Diarrhea, Constipation, Melena, Hematochezia, Other Genitourinary: negative: Dysuria, Frequency, Incontinence, Hematuria, Retention , Other - Medications/Allergies Allergies/Adverse Reactions: Allergies Allergy/AdvReac Type Severity Reaction Status Date / Time No Known Allergies Allergy Verified 06/04/18 21:18 Medications: Current Medications Acetaminophen (Tylenol) 650 mg PO Q6H PRN PRN Reason: Headache/Fever or MILD Pain Last Admin: 06/08/18 14:24 Dose: 650 mg Hydrocodone Bitart/Acetaminophen ([place] 5/325) 1 tab PO Q6H PRN PRN Reason: Moderate to Severe Pain (6-10) Last Admin: 06/10/18 06:10 Dose: 1 tab Albuterol/Ipratropium (Duoneb) 3 ml NEB [id number] PRN PRN Reason: SOB &/or Wheezing Last Admin: 06/11/18 10:51 Dose: 3 ml Cyanocobalamin (Vitamin B-12) 1,000 mcg PO DAILY [facility] Last Admin: 06/11/18 10:43 Dose: 1,000 mcg Epoetin Jean [place] (Procrit) 10,000 units SC Q7D [facility] Last Admin: 06/05/18 11:18 Dose: 10,000 units Folic Acid (Folvite) 1 mg PO DAILY [facility] Last Admin: 06/11/18 10:43 Dose: 1 mg Ceftriaxone Sodium 1 gm/ (Sodium Chloride) 100 mls @ 200 mls/hr IVPB Q24HR [facility] Last Admin: 06/11/18 05:36 Dose: 100 mls Magnesium Hydroxide (Milk Of Magnesium) 30 ml PO DAILYPRN PRN PRN Reason: Constipation Metoprolol Tartrate (Lopressor) 25 mg PO BID [facility] Last Admin: 06/11/18 05:36 Dose: 25 mg Morphine Sulfate (Morphine) 2 mg SLOW IVP Q4H PRN PRN Reason: Moderate Pain (4-6) Nystatin (Mycostatin Powder) 0 gm TOP DAILYPRN PRN PRN Reason: ABDOMINAL FOLD Last Admin: 06/06/18 08:25 Dose: 1 applic Oxycodone HCl (Oxycodone Ir) 10 mg PO Q4H PRN PRN Reason: Moderate Pain (4-6) Last Admin: 06/11/18 06:32 Dose: 10 mg Sodium Chloride (Flush - Normal Saline) 10 ml IVF Q12HR [facility] Last Admin: 06/11/18 07:59 Dose: 10 ml Sodium Chloride (Flush - Normal Saline) 10 ml IVF PRN PRN PRN Reason: Saline Flush Last Admin: 06/07/18 06:02 Dose: 10 ml Tamsulosin HCl (Flomax) 0.4 mg PO HS [facility] Last Admin: 06/10/18 20:29 Dose: 0.4 mg
[2018-06-11] MEDS ORDERED: Furosemide 20 MG/2 ML VIAL ONE (15:19)
[2018-06-11] MEDS ORDERED: Promethazine HCl 25 MG/ML VIAL IM PRN (16:10)
[2018-06-11] MEDS ORDERED: Promethazine HCl 25 MG/ML VIAL SLOW IVP PRN (16:10)
[2018-06-11] MEDS ORDERED: Ondansetron HCl/PF 4 MG/2 ML Vial IVP PRN (16:10)
--- NOTE | 2018-06-11 16:38 | RAD ---
RETROGRADE PYELOGRAM: Date: 06-11-18 History: Ureteroscopy. FINDINGS: A single image is provided during retrograde pyelogram. There is contrast media within the urinary bl adder which is partially empty. The left ureter is partially opacified and is dilated in its mid and distal portion. There is no opacification of the ureter above this point. IMPRESSION: Dilated mid/distal left ureter. Correlation with real-time imaging is essential. POS: KRIS
--- NOTE | 2018-06-11 17:26 | PRG ---
DATE OF SERVICE: 06/11/2018 SUBJECTIVE: The patient states he is feeling fine today without any complaints. He has some lower b ack pain which he attributes to lying in bed for a long time. He denies any flank pain. His lymph n ode biopsies came back positive for metastatic prostate cancer. Bone marrow biopsy was essentially u nremarkable. OBJECTIVE: VITAL SIGNS: Stable. GENERAL: No apparent distress, communicative and alert. CARDIOVASCULAR: Regular rate and rhythm. CHEST: Coarse breath sounds bilaterally. ABDOMEN: Soft, nontender, nondistended, protuberant belly. GENITOURINARY: Allen catheter in place with clear yellow urine. EXTREMITIES: 2+ edema with stasis dermatitis. LABORATORY DATA: The full set of labs in the [facility] system, which I reviewed. Of note, patient's hemoglobin continued to trend down with a creatinine now 3.11. ASSESSMENT AND PLAN: A 77-year-old white male with metastatic prostate adenocarcinoma and bilateral ureteral obstruction, now determined to be due to extensive radiation disease and stricturing of his ureters secondary to the radiation and possibly due to advancing prostate cancer, is unlikely that th is will be easily corrected and the patient may either have to live with permanent nephrostomy tubes or consider an aggressive ileal conduit surgery as his bladder appears to be significantly damaged an d the bladder neck appears to be necrotic and is at risk for a bladder neck contracture and closure i n the future. For now, we will continue the Allen catheter, although we can perform a void trial at a later date. I would plan for a nephrostomy tube placement on the right with a possible nephrostomy tube on the left, depending on whether or not the left stent is draining regarding his prostate canc er for now. The patient will need to initiate Lupron therapy which we can initiate as an outpatient. He has no need to start emergent antigen deprivation in the hospital. Therefore, I see no need to start him on bicalutamide or ketaconazole or perform any type of orchiectomy at this time. I will co santino to follow along and make recommendations.
[2018-06-11] MEDS ORDERED: Fentanyl 100 MCG/2 ML VIAL SLOW IVP SCH (17:30)
--- NOTE | 2018-06-11 19:47 | OP ---
DATE OF PROCEDURE: 06/11/2018 SERVICE: Urology. SURGEON: Allan Paz M.D. PREOPERATIVE DIAGNOSES: Right ureteral stone with bilateral hydronephrosis. 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 PROCEDURES PERFORMED: Cystoscopy with simple stone removal, left retrograde pyelogram, and left uret eral stent placement with a 7 x 26 double-J stent. INDICATIONS FOR PROCEDURE: Mr. Fraga is a 77-year-old white male with a history of prostate cancer status post radiation, who was recently diagnosed with metastatic prostate cancer. He has bilateral hydronephrosis with apparently a stone in the right distal ureter. His creatinine has been rising. Therefore, we have elected to go forward with cystoscopy. Attempts to remove the right ureteral sto ne and placement of bilateral stents with possible balloon dilation of his strictures. Risks and reggie efits of the surgery have been discussed and he has agreed to proceed forward. DESCRIPTION OF PROCEDURE: After identification of armband and verification of consent, the patient w as brought back to the operating room where he underwent general anesthesia with an LMA. He was plac ed in dorsal lithotomy position and prepped and draped in usual sterile fashion. After appropriate t imeout, a lubricated 22-Latvian rigid cystoscope was introduced per urethra into the bladder. The ronak dder had significant amount of ischemia towards the proximal aspect near the bladder neck. Immediate ly upon entry into the bladder, the bladder neck was noted to be extremely ragged, friable and comple tely necrotic. There was minimal bleeding, but significant fibrinous tissue, which was sloughed easi ly. There appeared to be a calcification on the bladder neck, which was dislodged and became free-fl oating within the bladder. This bladder stone was evacuated using the cystoscope. Attempts to find the ureteral orifices were extremely difficult due to the amount of inflammation, scarring, ischemic tissue and bullous edema surrounding the bladder floor. Methylene Blue followed by Lasix was adminis tered, but no blue came out on either side after several minutes of waiting. Fortuitously, a slit wa s noted in the location of where the left ureteral orifice should be and this was cannulated with a 0 .035 sensor wire, which did go up in the renal pelvis up into the kidney. A 5-Latvian Pollack cathete r was advanced over the sensor wire and the sensor wire removed and a retrograde pyelogram was perfor med, which demonstrated a severe hydroureter, but we could not opacify the entire collecting system o n this side as the urine seemed to extravasate around the Pollack catheter. With the wire up, I stat ed it would probably be reasonable to at least attempt a stent, even though the ureteral orifice was very stenotic. Given the amount of radiation, a balloon dilation will be futile as it will likely ju st scar back down and there does not appear to be any reason to do this at this time, given his sever e ischemia and radiation damage around the bladder floor. A 7 x 26 double-J stent was advanced over the sensor wire. There was difficulty advancing the wire through the ureteral orifices as it was ninfa y stenotic, but with manipulation, we were able to get the stent all the way up into the renal pelvis . The wire was removed leaving a good curl in the renal pelvis and the distal end was actually in th e prostate. Using flexible graspers, the tip was moved into the bladder, which then resulted in a go od curl. We watched the stent for a while and there did appear to be slow efflux from the stent. It was questionable whether or not the stent will actually remain patent and allow for drainage, no mino e was seen emanating from the stent. We then turned our attention towards the right side and after a pproximately 10-15 minutes of investigating looking for the ureteral orifice, we realized that it was almost completely futile. There was extensive amount of necrosis and ischemia on this area resultin g extensive scar tissue and no ability to identify anything that looked like the ureteral orifice. D uring this time, we attempted to probe the area with a 5-Latvian Pollack catheter and sensor wire, bot h without any success in trying to find an opening. I realize at this point that continued attempts would just prolong the patient's anesthetic possibly cause tissue damage and bleeding and as such, I elected to stop the procedure basically finding that the right ureteral orifice is completely obstruc nimesh or at least completely obscured from view without any ability to cannulate this. He will likely end up needing a nephrostomy tube on the right and perhaps on the left as well given that the stent a ppears to be poorly draining as it is a very tight stenosis due to the radiation. As such, the bladd er was left full and the cystoscope removed. A 16-Latvian coude catheter was inserted with ease into the bladder and 10 mL of sterile water placed in the balloon. This was hooked up to a gravity bag an d secured to his leg with a StatLock. The patient was put back in the supine position and transferre d to a bed, awakened and taken to PACU for recovery in stable condition. COMPLICATIONS: None. ESTIMATED BLOOD LOSS: Minimal. RETAINED TUBES AND DRAINS: A 7 x 26 double-J stent on the left and a 16-Latvian coude catheter. SPECIMENS: Stone from the bladder for stone analysis. The right ureteral stone was never achieved. FINDINGS: Again is extensive bladder necrosis with some stenosis and severe bilateral ureteral stric ture disease secondary to radiation damage and possibly due to advancing prostate cancer. DISPOSITION: The patient will be admitted back to the Hospitalist Service. He will likely need to i nitiate Lupron therapy as an outpatient. For now, I will plan to get a renal ultrasound this evening or early tomorrow morning. If there is persistent hydronephrosis on the side of the stent, he will likely need a nephrostomy tube and then we will subsequently remove his stent. As far as the right s cortney, he will definitely need a nephrostomy tube on this side as the ureteral orifice is completely ob scured cystoscopically.
[2018-06-11] MEDS: Tamsulosin HCl 0.4 MG CAP PO SCH (20:39)
[2018-06-11] MEDS ORDERED: Cepastat Lozenges 1 LOZ PO PRN (21:46)
[2018-06-12] MEDS: cefTRIAXone\\ROCEPHIN 1 GM in Sodium Chloride 0.9% 100 ML IVPB SCH (05:42)
[2018-06-12 06:41] LABS: #Eosinphils 0.1 thou/uL (0.0-0.7); #Lymphocytes 0.5 thou/uL (1.20-3.40); #Monocytes 1.1 thou/uL (0.11-0.59); #Neutrophils 8.7 thou/uL (1.40-6.50); %Eosinophils 1.2 % (0.0-10.0); %Lymphocytes 4.4 % (21.0-51.0); %Monocytes 10.9 % (0.0-10.0); %Neutrophils 83.5 % (42.0-75.0); Hemoglobin 8.3 g/dL (14.0-18.0); Mean Corpuscular Hemoglobin 29.9 pg (27.0-31.0); Mean Corpuscular Volume 96.2 fL (78.0-98.0); Mean Platelet Volume 7.2 fL (7.4-10.4); Platelet Count 334 thou/uL (130-400); RBC Distribution Width 16.7 % (11.5-14.5); Red Blood Cell (RBC) Count 2.79 mill/uL (4.70-6.10); White Blood Cell (WBC) Count 10.4 thou/uL (4.8-10.8)
[2018-06-12 06:47] LABS: ALT (SGPT) 13 U/L (8-55); AST (SGOT) 13 U/L (5-34); Albumin 3.6 g/dL (3.4-4.8); Alkaline Phosphatase 45 U/L (40-150); Anion Gap 16 mmol/L (10-20); BUN (Urea Nitrogen) 80 mg/dL (8.4-25.7); Bilirubin, Total 0.5 mg/dL (0.2-1.2); Calc. Creatinine Clearance 39 mL/min (70-130); Calcium 8.6 mg/dL (7.8-10.44); Carbon Dioxide 27 mmol/L (23-31); Chloride 102 mmol/L (98-107); Estimated GFR-MDRD 19; Globulin 2.9 g/dL (2.4-3.5); Glucose 109 mg/dL (83-110); Potassium 4.6 mmol/L (3.5-5.1); Protein, Total 6.5 g/dL (5.8-8.1); Sodium 140 mmol/L (136-145)
[2018-06-12] MEDS: Cyanocobalamin (Vitamin B-12) 1,000 MCG TAB PO SCH (09:23)
[2018-06-12] MEDS: Metoprolol Tartrate 25 MG TAB PO SCH (09:23)
[2018-06-12] MEDS: Folic Acid 1 MG TAB PO SCH (09:23)
--- NOTE | 2018-06-12 09:59 | PRG ---
DATE OF SERVICE: 06/12/2018 SUBJECTIVE: The patient was seen and examined and noted with the following vital signs. PHYSICAL EXAMINATION: VITAL SIGNS: . CARDIOVASCULAR SYSTEM: First and second heart sounds were heard. RESPIRATORY: Clear to auscultation. DIGESTIVE: Revealed an obese abdomen . LABORATORY: iMPRESSION: 1. Acute on chronic kidney disease in the context of . 2. Symptomatic anemia, . PLAN: 1. We will continue current renal supportive measures. 2. We will monitor . 3. Renally dose all medications .
[2018-06-12] MEDS ORDERED: Sodium Bicarbonate 2.5 MEQ/5 ML VIAL ONE (10:01)
[2018-06-12] MEDS ORDERED: Midazolam HCl 2 mg/2 ml Vial ONE (10:02)
[2018-06-12] MEDS ORDERED: Fentanyl 100 MCG/2 ML VIAL ONE (10:02)
--- NOTE | 2018-06-12 13:51 | PDOC.PN ---
- Subjective Encounter Start Date: 06/12/18 Encounter Start Time: 11:00 Subjective: pt up in bed no complains - Objective Vital Signs & Weight: Vital Signs (12 hours) Temp Pulse Resp BP BP Pulse Ox 06/12/18 12:57 98.7 F 79 18 143/63 H 99 06/12/18 12:37 77 20 98 06/12/18 08:10 99 F 90 20 161/68 H 93 L 06/12/18 04:00 99.3 F 85 18 165/65 H 92 L Weight Admit Weight 326 lb 8 oz Weight 326 lb 5 oz Most Recent Monitor Data Heart Rate from ECG 79 I&O: 06/11/18 06/12/18 06/13/18 06:59 06:59 06:59 Intake Total 1260 2990 Output Total 825 4200 Balance 435 -1210 Result Diagrams: 06/12/18 05:13 06/12/18 05:13 Phys Exam - Physical Examination Neck: no nodes, no JVD, supple, full ROM Respiratory: no wheezing, no rales, no rhonchi, wheezing present, clear to auscultation bilateral Cardiovascular: RRR, no significant murmur, no rub, gallop, irregular Gastrointestinal: soft, non-tender, no distention, positive bowel sounds Dx/Plan (1) Symptomatic anemia Code(s): D64.9 - ANEMIA, UNSPECIFIED Status: Acute (2) SERG (acute kidney injury) Code(s): N17.9 - ACUTE KIDNEY FAILURE, UNSPECIFIED Status: Acute (3) HTN (hypertension) Code(s): I10 - ESSENTIAL (PRIMARY) HYPERTENSION Status: Acute (4) Bladder outlet obstruction Code(s): N32.0 - BLADDER-NECK OBSTRUCTION Status: Acute (5) UTI (urinary tract infection) Status: Acute (6) Inguinal adenopathy Code(s): R59.0 - LOCALIZED ENLARGED LYMPH NODES Status: Acute - Plan s/p stent to his left ureter and nephrostomy tube to his right -: hh is 8.3 will continue to monitor -: ct chest done pending results * . Review of Systems - Review of Systems Respiratory: negative: Cough, Dry, Shortness of Breath, Hemoptysis, SOB with Excertion, Pleuritic Pain, Sputum, Wheezing Cardiovascular: negative: chest pain, palpitations, orthopnea, paroxysmal nocturnal dyspnea, edema, light headedness, other Gastrointestinal: negative: Nausea, Vomiting, Abdominal Pain, Diarrhea, Constipation, Melena, Hematochezia, Other Genitourinary: negative: Dysuria, Frequency, Incontinence, Hematuria, Retention , Other - Medications/Allergies Allergies/Adverse Reactions: Allergies Allergy/AdvReac Type Severity Reaction Status Date / Time No Known Allergies Allergy Verified 06/04/18 21:18 Medications: Current Medications Acetaminophen (Tylenol) 650 mg PO Q6H PRN PRN Reason: Headache/Fever or MILD Pain Last Admin: 06/08/18 14:24 Dose: 650 mg Hydrocodone Bitart/Acetaminophen ([place] 5/325) 1 tab PO Q6H PRN PRN Reason: Moderate to Severe Pain (6-10) Last Admin: 06/10/18 06:10 Dose: 1 tab Albuterol/Ipratropium (Duoneb) 3 ml NEB [id number] PRN PRN Reason: SOB &/or Wheezing Last Admin: 06/12/18 12:37 Dose: 3 ml Cyanocobalamin (Vitamin B-12) 1,000 mcg PO DAILY [facility] Last Admin: 06/12/18 09:23 Dose: 1,000 mcg Epoetin Jean Carlos (Procrit) 10,000 units SC Q7D [facility] Last Admin: 06/05/18 11:18 Dose: 10,000 units Folic Acid (Folvite) 1 mg PO DAILY [facility] Last Admin: 06/12/18 09:23 Dose: 1 mg Ceftriaxone Sodium 1 gm/ (Sodium Chloride) 100 mls @ 200 mls/hr IVPB Q24HR [facility] Last Admin: 06/12/18 05:42 Dose: 100 mls Magnesium Hydroxide (Milk Of Magnesium) 30 ml PO DAILYPRN PRN PRN Reason: Constipation Metoprolol Tartrate (Lopressor) 50 mg PO BID [facility] Morphine Sulfate (Morphine) 2 mg SLOW IVP Q4H PRN PRN Reason: Moderate Pain (4-6) Nystatin (Mycostatin Powder) 0 gm TOP DAILYPRN PRN PRN Reason: ABDOMINAL FOLD Last Admin: 06/06/18 08:25 Dose: 1 applic Oxycodone HCl (Oxycodone Ir) 10 mg PO Q4H PRN PRN Reason: Moderate Pain (4-6) Last Admin: 06/11/18 23:27 Dose: 10 mg Sodium Chloride (Flush - Normal Saline) 10 ml IVF Q12HR [facility] Last Admin: 06/12/18 09:23 Dose: 10 ml Sodium Chloride (Flush - Normal Saline) 10 ml IVF PRN PRN PRN Reason: Saline Flush Last Admin: 06/07/18 06:02 Dose: 10 ml Tamsulosin HCl (Flomax) 0.4 mg PO HS [facility] Last Admin: 06/11/18 20:39 Dose: 0.4 mg Throat Lozenges (Cepastat Lozenges) 1 sharmin PO Q2H PRN PRN Reason: Cough Last Admin: 06/11/18 22:06 Dose: 1 sharmin
--- NOTE | 2018-06-12 13:59 | CT ---
CT GUIDED PERCUTANEOUS RIGHT NEPHROSTOMY TUBE PLACEMENT: Date: 06-12-18 History: Patient with metastatic prostate cancer and ureteral orifice stricture due to post radiation changes. There is bilateral hydronephrosis. Left ureteral stent was recently placed, but ureteral st ent was unable to be placed on the right and percutaneous nephrostomy tube is requested. Technique: The procedure including risks and complications were explained to the patient and informed consent wa s obtained. The patient was placed on the CT scan table in the prone position. Limited sonographic ev aluation was performed to evaluate for needle placement via ultrasound guidance, but the right kidney was unable to be adequately visualized. As a result, a grid localizer was placed in right flank sonia on and noncontrasted CT scan was obtained. The area was marked and then meticulously prepped and drap ed in the usual sterile fashion. Skin and subcutaneous tissues were infiltrated with buffered 1% Lidocaine for local anesthesia. A 22 gauge Chiba needle was advanced followed by axial noncontrasted CT images. This was repeated unt il the needle was placed just within a posterior renata inferior pole right kidney. The right kidney i s rotated. The .018 inch guidewire was placed. CT imaging demonstrates the guidewire extending down the right ur eter. As a result, the needle was exchanged over the guidewire for a 6 Israeli accustick sheath with s tiff intra dilator and cannula. The dilator and cannula were removed and there was free flow of urine . As a result, a .035 inch Amplax guidewire was placed and positioning was confirmed with axial CT im ages demonstrating the guidewire in the ureter. As a result, the sheath and .018 guidewire were remov ed and exchanged over the guidewire for a 18 inch tissue dilator followed by placement of an 8 Israeli all-purpose drainage catheter. The guidewire was removed and there was free flow of urine from the c atheter. Follow up CT imaging demonstrates the catheter in the expected location of the renal pelvis with decompression of the renal collecting system. However, to ensure placement in the collecting sys tem, approximately 5 ml of contrast was injected with demonstrated contrast in the renal collecting s ystem and ureter. Contrast was removed and the catheter was flushed and then placed to gravity draina ge. Catheter was suture in place utilizing 2-0 Ethilon suture material, and a dry sterile dressing was pl aced. Patient tolerated the procedure well and without immediate complication. IMPRESSION: 1. Mild right hydronephrosis. 2. Technically successful CT guided percutaneous placement of a 8 Israeli nephrostomy tube. 3. A left sided ureteral stent is noted in place, and there is decompression of the right renal colle cting system when compared to the CT exam on 06-07-18. After placement of an 8 Israeli nephrostomy tub e, there is also decompression of the right renal collecting system. POS: KRIS
--- NOTE | 2018-06-12 15:49 | PRG ---
DATE OF SERVICE: 06/12/2018 SUBJECTIVE: The patient states he is not feeling very well. He is tired and sluggish and very thirs ty. He is scheduled for a nephrostomy tube placement on the right, possibly on the left today. He e nded up going down for the procedure and had a CT guided right-sided percutaneous nephrostomy tube pl acement. During the CT, it was noted that his left renal collecting system was completely decompress ed with stent in good positioning. As such, no nephrostomy tube was placed on the left. He otherwis e states that he is not having any significant pain. He continued to have his Allen catheter, which he has expressed that does not bother him and he finds it convenient for his urination given his poor health and low energy that he does not have to get up to use the bathroom. OBJECTIVE: VITAL SIGNS: Temperature 98.7, pulse 79, respirations 18, blood pressure 143/63, saturation 99% on 2 liters nasal cannula. GENERAL: No apparent distress, communicative and alert. CARDIOVASCULAR: Regular rate and rhythm. CHEST: No increased work of breathing. Bilateral coarse breath sounds. ABDOMEN: Soft, nontender, nondistended, protuberant belly. Right nephrostomy tube in place with blo bradley urine. GENITOURINARY: Allen catheter in place with clear, slightly blue-tinged urine. EXTREMITIES: 2+ edema bilaterally. LABORATORY DATA: The full set of labs is in the [facility] system, which I reviewed. Of note, the pat ient's white count is 10.4 with hemoglobin of 8.3, creatinine is currently 3.23. 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 He now has a right-sided nephrostomy tube and a left stent, both of which are decompressi ng his urinary system. This is probably the maximum amount of drainage that we can achieve at the cu rrent time. For now, this would be the best option for him until a long-term plan can be devised. I t may be necessary if he desires to undergo an ileal conduit to divert his urine in the future as his bladder and bladder neck looked extremely hazardous and I am not sure ureteral reimplantation would be beneficial for him in the long run, although it may be feasible with an SP tube if his bladder nec k closes in the future. In any case, this is not really necessary right now and I would recommend dylan whitney the current management. He probably does have intrinsic kidney disease and I will await to see what his creatinine does to see if any additional treatments from Nephrology are necessary. His ane paul will still need to be addressed, but we will plan to manage his prostate cancer as an outpatient by reinitiating Lupron and he can follow up with me in the office for this. Dr. Schneider will be on over the weekend and will continue to see the patient in my stead.
[2018-06-12] MEDS: Epoetin (ESRD) 10,000 UNITS/ML VIAL SC SCH (16:08)
--- NOTE | 2018-06-12 16:15 | CT ---
CT THORAX WITHOUT IV CONTRAST CT ABDOMEN WITHOUT IV CONTRAST 06/12/18 HISTORY: Metastatic prostate cancer. Left ureteral stent recently placed. Evaluate for left hydronephrosis af ter ureteral stent placement and re-evaluate hydronephrosis on the right. COMPARISON: CT abdomen on 06/07/18. CT THORAX: Linear minimal patchy parenchymal densities are seen in the posterior aspect of the right upper lobe as well as at the right lung base. Findings could be related to atelectasis, but findings are worriso me for developing areas of pneumonitis. No areas of consolidation are seen. There is atelectasis at t he left lung base. Aortic valve replacement is noted. Vascular calcifications are seen in the abdominal aorta and involving the coronary arteries. Lack of intravenous contrast does limit evaluation of the mediastinal structures and vasculature, but no enlarged lymph nodes are seen by CT size criteria. There is minimal pleural thickening versus very tiny bilateral pleural effusions. Degenerative changes are seen in the spine. No lytic or sclerotic osseous lesions are seen. CT ABDOMEN: Vascular calcifications are seen in the abdominal aorta involving the iliac arteries. Hypodense lesio ns are again seen in the liver which may be attributable to hepatic cysts, but are difficult to bernardo acterize on this exam. There has been interval placement of a left ureteral stent. Distal portion was not imaged as imaging of the pelvis was not performed, but the proximal portion of the stent is in a superior pole left [place] al collecting system and there has been interval decompression of the left kidney and no left sided h ydronephrosis is present on this exam. There is persistent mild right hydronephrosis and hydroureter. The spleen, pancreas, and bilateral adrenal glands demonstrate a grossly normal nonenhanced CT appear ance. There are degenerative changes in the spine with fusion at the L4-5 and L5-S1 levels. There is small subcentimeter sclerotic density in the L5 vertebral body which has characteristics suggestive of a sm all bone island. No additional lytic or sclerotic osseous lesions are appreciated on this exam. There is an enlarged lymph node seen within the pelvis just anterior to the right psoas muscle adjace nt to the right common iliac artery. Also noted on the prior CT exam measuring 2.8 cm. IMPRESSION: 1. Minimal linear and patchy densities in the right upper lobe and right lower lobe which could be related to areas of atelectasis, but pneumonitis is a possibility. 2. Atherosclerotic vascular calcifications in the thoracic and abdominal aorta as well as involv ing the coronary arteries. 3. Interval placement of a left ureteral stent without hydronephrosis present on the left. 4. Stable mild right hydronephrosis. 5. Stable enlarged lymph node along the right iliac chain. 6. Colonic diverticulosis. 7. Tiny bilateral pleural effusions versus pleural thickening. 8. Colonic diverticulosis. POS: YOLISH
--- NOTE | 2018-06-12 18:47 | NM ---
WHOLE BODY BONE SCAN: 06/12/18 HISTORY: 77-year-old male with history of metastatic prostate cancer. COMPARISON: Chest, abdomen and pelvic CT scan, 06/12/18, prior bone scan 12/31/05. The patient was injected with 32 millicuries of technetium 99m MDP intravenously. Whole body imaging is performed. The abdomen is very protuberant which somewhat obscures the bones in this region. There is bilateral renal and urine activity. There is a focal area of abnormal increased activity in the l eft upper femoral diaphysis which certainly could possibly represent a metastatic focus. This is a ne w focus from the prior study from 2005. There is also some increased activity in the lateral thoracic and lumbar spine more so on the right side as well as a small focal area of activity at the L4 level dorsally. I favor these finding to be related to degenerative and osteoarthrosis changes. There is a lso abnormal increased activity in the shoulders and knees evidence for degenerative and osteoarthros is changes. IMPRESSION: Focal area of increased activity in the left upper femoral diaphysis. Follow up femur plain film eval uation for further assessment is recommended. Scattered areas of increased activity involving the tho racolumbar spine having more the appearance of degenerative and osteoarthrosis changes rather metasta sis. Increased activity in the shoulders and particularly the knees, evidence for arthrosis and degen erative change. POS: KRIS
[2018-06-12] MEDS: Metoprolol Tartrate 50 MG TAB PO SCH (20:35)
[2018-06-12] MEDS: Tamsulosin HCl 0.4 MG CAP PO SCH (20:35)
[2018-06-13] MEDS: cefTRIAXone\\ROCEPHIN 1 GM in Sodium Chloride 0.9% 100 ML IVPB SCH (05:34)
[2018-06-13] MEDS: oxyCODONE 5 MG TAB PO PRN ×3 (05:35→21:24)
[2018-06-13 06:31] LABS: #Eosinphils 0.1 thou/uL (0.0-0.7); #Lymphocytes 0.6 thou/uL (1.20-3.40); #Monocytes 1.2 thou/uL (0.11-0.59); #Neutrophils 7.7 thou/uL (1.40-6.50); %Eosinophils 1.5 % (0.0-10.0); %Lymphocytes 6.2 % (21.0-51.0); %Monocytes 12.6 % (0.0-10.0); %Neutrophils 79.6 % (42.0-75.0); Hemoglobin 7.5 g/dL (14.0-18.0); Mean Corpuscular HGB CONC 32.1 g/dL (32.0-36.0); Mean Corpuscular Volume 96.5 fL (78.0-98.0); Mean Platelet Volume 6.9 fL (7.4-10.4); Platelet Count 297 thou/uL (130-400); RBC Distribution Width 16.3 % (11.5-14.5); Red Blood Cell (RBC) Count 2.43 mill/uL (4.70-6.10); White Blood Cell (WBC) Count 9.7 thou/uL (4.8-10.8)
[2018-06-13 06:53] LABS: ALT (SGPT) 12 U/L (8-55); AST (SGOT) 12 U/L (5-34); Albumin 3.3 g/dL (3.4-4.8); Alkaline Phosphatase 45 U/L (40-150); Anion Gap 14 mmol/L (10-20); BUN (Urea Nitrogen) 57 mg/dL (8.4-25.7); Bilirubin, Total 0.5 mg/dL (0.2-1.2); Calc. Creatinine Clearance 54 mL/min (70-130); Calcium 8.3 mg/dL (7.8-10.44); Carbon Dioxide 27 mmol/L (23-31); Chloride 102 mmol/L (98-107); Estimated GFR-MDRD 27; Globulin 2.7 g/dL (2.4-3.5); Glucose 95 mg/dL (83-110); Potassium 3.9 mmol/L (3.5-5.1); Sodium 139 mmol/L (136-145)
[2018-06-13] MEDS: Metoprolol Tartrate 50 MG TAB PO SCH ×2 (08:11→21:06)
[2018-06-13] MEDS: Folic Acid 1 MG TAB PO SCH (08:11)
[2018-06-13] MEDS: Cyanocobalamin (Vitamin B-12) 1,000 MCG TAB PO SCH (08:11)
--- NOTE | 2018-06-13 11:41 | PRG ---
DATE OF SERVICE: 06/13/2018 INPATIENT PROGRESS NOTE SUBJECTIVE: The patient is sitting up, resting comfortably. Denies flank pain. PHYSICAL EXAMINATION: VITAL SIGNS: Stable. He is afebrile. I's and O's 1440 in and 5700 out. He is negative 4.2 liters. GENITOURINARY: Allen catheter nephrostomy tube both draining uneventfully with no significant hematuria of concern. ABDOMEN: Soft, morbidly obese. Of note, his nephrostomy tube and his Allen catheter is inadequately secured. This was resecured for patient safety. EXTREMITIES: Gross edematous lower extremities, chronic venous stasis changes. PERTINENT LABORATORY DATA: White count 9, hemoglobin 7.5, yesterday was 8.3, platelets stable. Creatinine today is 2.3, yesterday 3.2. IMPRESSION AND PLAN: Mr. Fraga is a 77-year-old male with history of metastatic prostate cancer, bilateral hydronephrosis secondary to distal ureteral obstruction. Status post left stent, right nephrostomy tube. Both catheters are draining uneventfully. Continue nephrostomy tube indwelling Allen catheter for strict I's and O's. The patient needs to be monitored for postobstructive diuresis. Recommend daily labs including magnesium. MTDD
--- NOTE | 2018-06-13 13:22 | EKG ---
Test Reason : Blood Pressure : / mmHG Vent. Rate : 094 BPM Atrial Rate : 094 BPM P-R Int : 196 ms QRS Dur : 150 ms QT Int : 394 ms P-R-T Axes : 068 -50 039 degrees QTc Int : 492 ms Normal sinus rhythm Right bundle branch block Left anterior fascicular block Bifascicular block Abnormal ECG Confirmed by HEATH FAUST ([id number]), rewrite editor LAWSON HASKINS ([id number]) on 06/13/2018 1:22:14 PM Referred By: Confirmed By:HEATH FAUST
[2018-06-13] MEDS ORDERED: guaiFENesin/Codeine Phosphate 200 mg/20 mg 10 ml UD Cup PO PRN (13:51)
[2018-06-13] MEDS ORDERED: predniSONE 20 MG TAB PO SCH (14:00)
--- NOTE | 2018-06-13 16:17 | PDOC.PN ---
- Subjective Encounter Start Date: 06/13/18 Encounter Start Time: 11:00 Subjective: pt up in bed feels depressed - Objective Vital Signs & Weight: Vital Signs (12 hours) Temp Pulse Resp BP BP Pulse Ox 06/13/18 15:15 98.6 F 101 H 20 111/77 93 L 06/13/18 11:00 98.5 F 70 18 132/70 94 L 06/13/18 08:25 93 L 06/13/18 08:20 88 20 93 L 06/13/18 07:25 97.7 F 80 18 138/59 L 95 Weight Admit Weight 326 lb 8 oz Weight 328 lb Most Recent Monitor Data Heart Rate from ECG 79 I&O: 06/12/18 06/13/18 06/14/18 06:59 06:59 06:59 Intake Total 2990 1440 Output Total 4200 5700 1000 Balance -1210 -4260 -1000 Result Diagrams: 06/13/18 05:55 06/13/18 05:55 Phys Exam - Physical Examination Respiratory: no wheezing, no rales, no rhonchi, wheezing present, clear to auscultation bilateral Cardiovascular: RRR, no significant murmur, no rub, gallop, irregular Gastrointestinal: soft, non-tender, no distention, positive bowel sounds Musculoskeletal: no edema, pulses present, edema present Dx/Plan (1) Symptomatic anemia Code(s): D64.9 - ANEMIA, UNSPECIFIED Status: Acute (2) SERG (acute kidney injury) Code(s): N17.9 - ACUTE KIDNEY FAILURE, UNSPECIFIED Status: Acute (3) HTN (hypertension) Code(s): I10 - ESSENTIAL (PRIMARY) HYPERTENSION Status: Acute (4) Bladder outlet obstruction Code(s): N32.0 - BLADDER-NECK OBSTRUCTION Status: Acute (5) UTI (urinary tract infection) Status: Acute (6) Inguinal adenopathy Code(s): R59.0 - LOCALIZED ENLARGED LYMPH NODES Status: Acute - Plan pt's hh is low today will monitor -: pt's creatinine is improving -: will order inpatient rehab -: pt converted back to afib unable to give him AC due to pt's anemia status. * . Review of Systems - Review of Systems Respiratory: negative: Cough, Dry, Shortness of Breath, Hemoptysis, SOB with Excertion, Pleuritic Pain, Sputum, Wheezing Cardiovascular: negative: chest pain, palpitations, orthopnea, paroxysmal nocturnal dyspnea, edema, light headedness, other Gastrointestinal: negative: Nausea, Vomiting, Abdominal Pain, Diarrhea, Constipation, Melena, Hematochezia, Other Genitourinary: negative: Dysuria, Frequency, Incontinence, Hematuria, Retention , Other - Medications/Allergies Allergies/Adverse Reactions: Allergies Allergy/AdvReac Type Severity Reaction Status Date / Time No Known Allergies Allergy Verified 06/04/18 21:18 Medications: Current Medications Acetaminophen (Tylenol) 650 mg PO Q6H PRN PRN Reason: Headache/Fever or MILD Pain Last Admin: 06/08/18 14:24 Dose: 650 mg Hydrocodone Bitart/Acetaminophen (Tensed 5/325) 1 tab PO Q6H PRN PRN Reason: Moderate to Severe Pain (6-10) Last Admin: 06/10/18 06:10 Dose: 1 tab Albuterol/Ipratropium (Duoneb) 3 ml NEB [id number] [facility] Cyanocobalamin (Vitamin B-12) 1,000 mcg PO DAILY [facility] Last Admin: 06/13/18 08:11 Dose: 1,000 mcg Epoetin Jean Carlos (Procrit) 10,000 units SC Q7D [facility] Last Admin: 06/12/18 16:08 Dose: 10,000 units Folic Acid (Folvite) 1 mg PO DAILY [facility] Last Admin: 06/13/18 08:11 Dose: 1 mg Guaifenesin/Codeine Phosphate (Robitussin Ac) 10 ml PO HS PRN PRN Reason: Cough Ceftriaxone Sodium 1 gm/ (Sodium Chloride) 100 mls @ 200 mls/hr IVPB Q24HR [facility] Last Admin: 06/13/18 05:34 Dose: 100 mls Magnesium Hydroxide (Milk Of Magnesium) 30 ml PO DAILYPRN PRN PRN Reason: Constipation Metoprolol Tartrate (Lopressor) 50 mg PO BID [facility] Last Admin: 06/13/18 08:11 Dose: 50 mg Morphine Sulfate (Morphine) 2 mg SLOW IVP Q4H PRN PRN Reason: Moderate Pain (4-6) Nystatin (Mycostatin Powder) 0 gm TOP DAILYPRN PRN PRN Reason: ABDOMINAL FOLD Last Admin: 06/06/18 08:25 Dose: 1 applic Oxycodone HCl (Oxycodone Ir) 10 mg PO Q4H PRN PRN Reason: Moderate Pain (4-6) Last Admin: 06/13/18 14:30 Dose: 10 mg Prednisone (Prednisone) 20 mg PO QAM-WM [facility] Stop: 06/17/18 08:01 Sodium Chloride (Flush - Normal Saline) 10 ml IVF Q12HR [facility] Last Admin: 06/13/18 08:11 Dose: 10 ml Sodium Chloride (Flush - Normal Saline) 10 ml IVF PRN PRN PRN Reason: Saline Flush Last Admin: 06/07/18 06:02 Dose: 10 ml Tamsulosin HCl (Flomax) 0.4 mg PO HS [facility] Last Admin: 06/12/18 20:35 Dose: 0.4 mg Throat Lozenges (Cepastat Lozenges) 1 sharmin PO Q2H PRN PRN Reason: Cough Last Admin: 06/11/18 22:06 Dose: 1 sharmin
[2018-06-13] MEDS: Tamsulosin HCl 0.4 MG CAP PO SCH (21:06)
--- NOTE | 2018-06-14 02:27 | PRG ---
DATE OF SERVICE: 06/14/2018 SUBJECTIVE: The patient was seen and examined, noted with the following vital signs. OBJECTIVE: VITAL SIGNS: Afebrile, temperature 98.5, pulse 70, respiratory 18, O2 sat on 94%, blood pressure 111 /77. HEENT: Unremarkable. CARDIOVASCULAR: First and second heart sounds were heard, irregularly irregular. ABDOMEN: Digestive system revealed an obese abdomen. EXTREMITIES: No peripheral edema. SKIN: No new gross rash. LYMPHATICS: No peripheral lymphadenopathy. LABORATORY INVESTIGATIONS: Showed hemoglobin of 7.5. Chemistry showed BUN of 57 with a creatinine d own to 2.33. IMPRESSION: 1. Acute on chronic kidney disease which seems to be improving. 2. Severe anemia, status post multiple blood transfusions. 3. Obstructive uropathy. PLAN: 1. We will continue current renal supportive measures. 2. Transfuse on p.r.n. basis. 3. Erythropoiesis stimulating agent to be continued. 4. Further management to be dependent on the clinical course.
[2018-06-14] MEDS: cefTRIAXone\\ROCEPHIN 1 GM in Sodium Chloride 0.9% 100 ML IVPB SCH (06:50)
[2018-06-14] MEDS: oxyCODONE 5 MG TAB PO PRN (06:51)
[2018-06-14] MEDS: Metoprolol Tartrate 50 MG TAB PO SCH ×2 (09:06→21:08)
[2018-06-14] MEDS: Cyanocobalamin (Vitamin B-12) 1,000 MCG TAB PO SCH (09:06)
[2018-06-14] MEDS: HYDROcodone/Acetaminophen 5/325 mg Tablet PO PRN (09:06)
[2018-06-14] MEDS: predniSONE 20 MG TAB PO SCH (09:06)
[2018-06-14] MEDS: Folic Acid 1 MG TAB PO SCH (09:06)
[2018-06-14 10:23] LABS: Anion Gap 14 mmol/L (10-20); BUN (Urea Nitrogen) 40 mg/dL (8.4-25.7); Calc. Creatinine Clearance 70 mL/min (70-130); Calcium 8.6 mg/dL (7.8-10.44); Carbon Dioxide 28 mmol/L (23-31); Chloride 103 mmol/L (98-107); Estimated GFR-MDRD 37; Glucose 128 mg/dL (83-110); Potassium 3.7 mmol/L (3.5-5.1); Sodium 141 mmol/L (136-145)
--- NOTE | 2018-06-14 11:22 | PRG ---
DATE OF SERVICE: 06/14/2018 SUBJECTIVE: The patient awake, has some vague lower abdominal discomfort. Denies nausea, vomiting or fever. OBJECTIVE: VITAL SIGNS: Stable at 98.2, 82, 20, 96%, 159/89. I's and O's, he is making good urine output via his urethral Allen catheter and his nephrostomy tube. I' s and O's 1919 in, 2024 out. ABDOMEN: Morbidly obese. No rigidity. No rebound. No CVA tenderness is appreciated. PERTINENT LABORATORY DATA: Hemoglobin stable at 8.0. Renal function is improved, creatinine of 1.79. IMPRESSION AND PLAN: 1. Mr. Fraga is a 77-year-old male with history of metastatic prostate cancer. 2. Bilateral hydronephrosis secondary to distal ureteral obstruction. 3. Status post cystoscopy left stent, unsuccessful right stent, right percutaneous nephrostomy tube. Both catheters are draining uneventfully, there is improvement in his renal function. Continue both nephrostomy tube, Allen catheter. Consider interventional radiology to internalize right ureteral stent via percutaneous access. Continue strict I's and O's. Dr. Paz will resume his care tomorrow morning. JULIÁN
--- NOTE | 2018-06-14 14:50 | PDOC.PN ---
- Subjective Encounter Start Date: 06/14/18 Encounter Start Time: 11:00 Subjective: pt up in bed no complains - Objective Vital Signs & Weight: Vital Signs (12 hours) Temp Pulse Pulse Pulse Resp BP BP 06/14/18 13:46 68 20 06/14/18 11:36 67 67 130/65 136/63 06/14/18 11:35 97.9 F 66 18 06/14/18 07:49 98 F 82 20 06/14/18 06:31 06/14/18 06:30 73 20 06/14/18 05:00 98.5 F 75 16 BP BP Pulse Ox Pulse Ox Pulse Ox 06/14/18 13:46 06/14/18 11:36 93 L 95 06/14/18 11:35 130/65 93 L 06/14/18 07:49 157/89 H 96 06/14/18 06:31 93 L 06/14/18 06:30 93 L 06/14/18 05:00 153/68 H 94 L Weight Admit Weight 326 lb 8 oz Weight 326 lb Most Recent Monitor Data Heart Rate from ECG 79 I&O: 06/13/18 06/14/18 06/15/18 06:59 06:59 06:59 Intake Total 1440 1920 Output Total 5700 8860 500 Balance -4260 -905 -500 Result Diagrams: 06/14/18 09:55 06/14/18 09:55 Phys Exam - Physical Examination Neck: no nodes, no JVD, supple, full ROM Respiratory: no wheezing, no rales, no rhonchi, wheezing present, clear to auscultation bilateral Cardiovascular: RRR, no significant murmur, no rub, gallop, irregular Gastrointestinal: soft, non-tender, no distention, positive bowel sounds Dx/Plan (1) Symptomatic anemia Code(s): D64.9 - ANEMIA, UNSPECIFIED Status: Acute (2) SERG (acute kidney injury) Code(s): N17.9 - ACUTE KIDNEY FAILURE, UNSPECIFIED Status: Acute (3) HTN (hypertension) Code(s): I10 - ESSENTIAL (PRIMARY) HYPERTENSION Status: Acute (4) Bladder outlet obstruction Code(s): N32.0 - BLADDER-NECK OBSTRUCTION Status: Acute (5) UTI (urinary tract infection) Status: Acute (6) Inguinal adenopathy Code(s): R59.0 - LOCALIZED ENLARGED LYMPH NODES Status: Acute - Plan pt hh is stable after 7u of blood -: screen for inpatient rehab -: pt s/p nephrostomy tube in right and stent in left -: creatinine has improved. called son but no answer. * . Review of Systems - Review of Systems Respiratory: negative: Cough, Dry, Shortness of Breath, Hemoptysis, SOB with Excertion, Pleuritic Pain, Sputum, Wheezing Cardiovascular: negative: chest pain, palpitations, orthopnea, paroxysmal nocturnal dyspnea, edema, light headedness, other Gastrointestinal: negative: Nausea, Vomiting, Abdominal Pain, Diarrhea, Constipation, Melena, Hematochezia, Other Genitourinary: negative: Dysuria, Frequency, Incontinence, Hematuria, Retention , Other - Medications/Allergies Allergies/Adverse Reactions: Allergies Allergy/AdvReac Type Severity Reaction Status Date / Time No Known Allergies Allergy Verified 06/04/18 21:18 Medications: Current Medications Acetaminophen (Tylenol) 650 mg PO Q6H PRN PRN Reason: Headache/Fever or MILD Pain Last Admin: 06/08/18 14:24 Dose: 650 mg Hydrocodone Bitart/Acetaminophen (Warren 5/325) 1 tab PO Q6H PRN PRN Reason: Moderate to Severe Pain (6-10) Last Admin: 06/14/18 09:06 Dose: 1 tab Albuterol/Ipratropium (Duoneb) 3 ml NEB [id number] [facility] Last Admin: 06/14/18 13:46 Dose: 3 ml Cyanocobalamin (Vitamin B-12) 1,000 mcg PO DAILY [facility] Last Admin: 06/14/18 09:06 Dose: 1,000 mcg Epoetin Jean Carlos (Procrit) 10,000 units SC Q7D [facility] Last Admin: 06/12/18 16:08 Dose: 10,000 units Folic Acid (Folvite) 1 mg PO DAILY [facility] Last Admin: 06/14/18 09:06 Dose: 1 mg Guaifenesin/Codeine Phosphate (Robitussin Ac) 10 ml PO HS PRN PRN Reason: Cough Ceftriaxone Sodium 1 gm/ (Sodium Chloride) 100 mls @ 200 mls/hr IVPB Q24HR [facility] Last Admin: 06/14/18 06:50 Dose: 100 mls Magnesium Hydroxide (Milk Of Magnesium) 30 ml PO DAILYPRN PRN PRN Reason: Constipation Metoprolol Tartrate (Lopressor) 75 mg PO BID [facility] Morphine Sulfate (Morphine) 2 mg SLOW IVP Q4H PRN PRN Reason: Moderate Pain (4-6) Nystatin (Mycostatin Powder) 0 gm TOP DAILYPRN PRN PRN Reason: ABDOMINAL FOLD Last Admin: 06/06/18 08:25 Dose: 1 applic Oxycodone HCl (Oxycodone Ir) 10 mg PO Q4H PRN PRN Reason: Moderate Pain (4-6) Last Admin: 06/14/18 06:51 Dose: 10 mg Prednisone (Prednisone) 20 mg PO QAM-WM [facility] Stop: 06/17/18 08:01 Last Admin: 06/14/18 09:06 Dose: 20 mg Sodium Chloride (Flush - Normal Saline) 10 ml IVF Q12HR [facility] Last Admin: 06/14/18 09:06 Dose: 10 ml Sodium Chloride (Flush - Normal Saline) 10 ml IVF PRN PRN PRN Reason: Saline Flush Last Admin: 06/07/18 06:02 Dose: 10 ml Tamsulosin HCl (Flomax) 0.4 mg PO HS [facility] Last Admin: 06/13/18 21:06 Dose: 0.4 mg Throat Lozenges (Cepastat Lozenges) 1 sharmin PO Q2H PRN PRN Reason: Cough Last Admin: 06/11/18 22:06 Dose: 1 sharmin
[2018-06-14] MEDS: Tamsulosin HCl 0.4 MG CAP PO SCH (21:08)
--- NOTE | 2018-06-14 23:59 | PRG ---
DATE OF SERVICE: 06/14/2018 SUBJECTIVE: The patient was seen and examined, seems to be feeling much better, noted with the follo wing vital signs. PHYSICAL EXAMINATION: VITAL SIGNS: Afebrile with temperature 98.2, pulse 75, respiratory rate of 16, O2 sat of 94% with a blood pressure of 145/63. HEENT: Unremarkable with moist oral mucosa. Neck was supple. No conjunctival injection or icterus. CARDIOVASCULAR SYSTEM: First and second heart sounds were heard. RESPIRATORY SYSTEM: Clear to auscultation. DIGESTIVE SYSTEM: Revealed a benign abdomen with positive bowel sounds. EXTREMITIES: No peripheral edema. SKIN: No new gross rash. LYMPHATICS: No peripheral lymphadenopathy. LABORATORY INVESTIGATIONS: Showed a hemoglobin . Chemistry showed a creatinine down to 1.79. IMPRESSION: 1. Acute on chronic kidney disease in the context of obstructive uropathy, improving. 2. Anemia, status post multiple blood transfusions. 3. Obesity. PLAN: 1. Continue current renal supportive measures. 2. Avoid potentially nephrotoxic agents. 3. Outpatient Nephrology followup recommended.
[2018-06-15] MEDS: oxyCODONE 5 MG TAB PO PRN ×2 (00:13→05:55)
[2018-06-15 05:40] LABS: Hemoglobin 8.7 g/dL (14.0-18.0)
[2018-06-15] MEDS: cefTRIAXone\\ROCEPHIN 1 GM in Sodium Chloride 0.9% 100 ML IVPB SCH (05:53)
[2018-06-15 05:55] LABS: Anion Gap 13 mmol/L (10-20); BUN (Urea Nitrogen) 34 mg/dL (8.4-25.7); Calc. Creatinine Clearance 76 mL/min (70-130); Carbon Dioxide 30 mmol/L (23-31); Chloride 102 mmol/L (98-107); Estimated GFR-MDRD 41; Glucose 89 mg/dL (83-110); Potassium 3.8 mmol/L (3.5-5.1); Sodium 141 mmol/L (136-145)
[2018-06-15] MEDS: predniSONE 20 MG TAB PO SCH (08:27)
[2018-06-15] MEDS: Cyanocobalamin (Vitamin B-12) 1,000 MCG TAB PO SCH (08:27)
[2018-06-15] MEDS: Folic Acid 1 MG TAB PO SCH (08:28)
[2018-06-15] MEDS: Metoprolol Tartrate 50 MG TAB PO SCH ×2 (08:29→21:30)
--- NOTE | 2018-06-15 10:51 | PRG ---
DATE OF SERVICE: 06/15/2018 The patient was seen and examined today and seems to be doing much better, noted with the following v ital signs. PHYSICAL EXAMINATION: VITAL SIGNS: Afebrile with temperature 98, pulse 85, respiratory rate of 18, O2 sat 96% with a blood pressure 141/63. HEENT: Unremarkable with moist oral mucosa. Neck was supple, No conjunctival injection or icterus. CARDIOVASCULAR: First and second heart sounds were heard. RESPIRATORY: Clear to auscultation anteriorly. DIGESTIVE: Revealed an obese abdomen. EXTREMITIES: No peripheral edema. SKIN: No new gross rash. LABORATORY INVESTIGATIONS: Significant for hemoglobin up to 8.7. Chemistry showed a creatinine down to 1.63 with BUN of 34. IMPRESSION: 1. Anemia, status post multiple blood transfusions. 2. Acute on chronic kidney disease in the context of problem #3. 3. Obstructive uropathy, status post a ureteral stent. PLAN: 1. Continue current renal supportive measures. 2. Renally dose all medications and avoid potentially nephrotoxic agents. 3. Outpatient nephrology followup status post discharge.
--- NOTE | 2018-06-15 11:41 | PDOC.PN ---
- Subjective Encounter Start Date: 06/15/18 Encounter Start Time: 11:30 Subjective: f/u for SERG due to outlet obstruction s/p L ureteral stent and R -: percutaneous nephrostomy tube. Feels ok but weak. Mobilized with RW. -: Appetite ok. Constipated. - Objective MAR Reviewed: Yes Vital Signs & Weight: Vital Signs (12 hours) Temp Pulse Pulse Pulse Resp BP BP 06/15/18 08:53 89 86 142/62 H 138/64 06/15/18 08:21 98.0 F 85 18 06/15/18 07:08 06/15/18 07:06 81 20 06/15/18 04:00 98.5 F 71 20 BP Pulse Ox Pulse Ox Pulse Ox 06/15/18 08:53 95 95 06/15/18 08:21 141/63 H 96 06/15/18 07:08 95 06/15/18 07:06 95 06/15/18 04:00 156/69 H 94 L Weight Admit Weight 326 lb 8 oz Weight 322 lb Most Recent Monitor Data Heart Rate from ECG 79 I&O: 06/14/18 06/15/18 06/16/18 06:59 06:59 06:59 Intake Total 1920 1950 Output Total 2825 3650 Balance -905 -1700 Result Diagrams: 06/15/18 04:55 06/15/18 04:55 Additional Labs: Microbiology 06/08/18 10:30 Stool Stool Occult Blood (MEG) - Final 06/05/18 05:42 Urine clean catch Urine Culture - Final Proteus mirabilis 06/05/18 00:33 Venous blood - Left Hand Blood Culture - Final NO GROWTH IN 5 DAYS 06/05/18 00:29 Venous blood - Right Arm Blood Culture - Final NO GROWTH IN 5 DAYS Laboratory Tests 06/11/18 06/12/18 06/12/18 06:54 05:13 05:13 Hgb 6.4 L 8.3 L Creatinine 3.23 H 06/13/18 06/13/18 06/14/18 05:55 05:55 09:55 Hgb 7.5 L Creatinine 2.33 H 1.79 H 06/14/18 09:55 Hgb 8.0 L Creatinine EKG Reviewed by me: Yes (Tele - ) Phys Exam - Physical Examination Constitutional: NAD HEENT: PERRLA, sclera anicteric, oral pharynx no lesions Neck: no nodes, no JVD, supple, full ROM Respiratory: no wheezing, no rales, no rhonchi, clear to auscultation bilateral S1, S2 Cardiovascular: RRR, no significant murmur, no rub, gallop Gastrointestinal: soft, non-tender, no distention, positive bowel sounds Musculoskeletal: pulses present, edema present Neurological: normal sensation, moves all 4 limbs Psychiatric: A&O x 3 Skin: normal turgor, cap refill <2 seconds Deviation from normal: R percutaneous nephrostomy tube in place Dx/Plan (1) SERG (acute kidney injury) Code(s): N17.9 - ACUTE KIDNEY FAILURE, UNSPECIFIED Status: Acute Comment: Improving with catheter placement and drainage, avoid nephrotoxic agents and limit contrast exposure, serial creatinine (2) Bladder outlet obstruction Code(s): N32.0 - BLADDER-NECK OBSTRUCTION Status: Acute Comment: s/p R percutaneous nephrostomy and L ureteral stent placement (3) Constipation Code(s): K59.00 - CONSTIPATION, UNSPECIFIED Status: Acute Qualifiers: Constipation type: slow transit constipation Qualified Code(s): K59.01 - Slow transit constipation Comment: Senokot-S BID (4) Symptomatic anemia Code(s): D64.9 - ANEMIA, UNSPECIFIED Status: Acute Comment: s/p total 8u PRBC's, Epo weekly, B12 (5) UTI (urinary tract infection) Status: Acute Comment: Proteus spp, d/c Rocephin, start Rocephin 500mg po daily - Plan continue antibiotics, PT/OT, social worker aide, out of bed/ambulate Stable currently -: CM for Rehab options -: OOB/PT -: D/C Rocephin -: Start Levaquin 500mg po daily * AM lab: BMP, H/H * Likely d/c in 24h
[2018-06-15] MEDS ORDERED: Senokot S 8.6-50 MG TAB PO SCH (12:00)
--- NOTE | 2018-06-15 20:44 | PRG ---
DATE OF SERVICE: 06/15/2018 SUBJECTIVE: The patient states he is feeling fine. He has no complaints. He states he is going to be released soon to a [facility] facility. OBJECTIVE: VITAL SIGNS: Temperature 98.3, pulse 76, respirations 18, blood pressure 140/64, saturation 96% on r oom air. GENERAL: No apparent distress, communicative, alert. CARDIOVASCULAR: Regular rate and rhythm. ABDOMEN: Soft, nontender, nondistended, protuberant, positive bowel sounds. BACK: Right nephrostomy tube in place with clear yellow urine. GENITOURINARY: Allen catheter in place with brownish colored urine. EXTREMITIES: 3+ edema with stasis dermatitis. 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 I offered the patient internalization of his right nephrostomy tube to a stent, but he states that he likes to nephrostomy tube and does not want to undergo any more proced ures if he can avoid it. From my standpoint, he is stable with improving creatinine which is down to 1.63. He can be discharged when he is ready from my standpoint and I will initiate androgen depriva tion therapy as an outpatient. We will discuss long-term management of his kidneys, but with my shor t discussion with the patient it states that he does not really want to have any more surgeries and s tates that while not ideal, he may be willing to accept keeping a ureteral stent and nephrostomy tube in permanently long-term. We can discuss this more as an outpatient. Once he is cleared from the m edical team regarding his anemia and other issues, he can be discharged from my standpoint and he iram horta has followup arranged which is currently in the discharge plan of the [facility] system. I will s ign off. Please reconsult if there are any further questions.
[2018-06-15] MEDS: Tamsulosin HCl 0.4 MG CAP PO SCH (21:29)
[2018-06-15] MEDS: Senokot S 8.6-50 MG TAB PO SCH (21:30)
[2018-06-16] MEDS: oxyCODONE 5 MG TAB PO PRN ×3 (02:55→23:05)
[2018-06-16 05:52] LABS: Anion Gap 11 mmol/L (10-20); BUN (Urea Nitrogen) 28 mg/dL (8.4-25.7); Calc. Creatinine Clearance 89 mL/min (70-130); Calcium 8.5 mg/dL (7.8-10.44); Carbon Dioxide 28 mmol/L (23-31); Chloride 101 mmol/L (98-107); Estimated GFR-MDRD 50; Glucose 87 mg/dL (83-110); Potassium 3.6 mmol/L (3.5-5.1); Sodium 136 mmol/L (136-145)
[2018-06-16] MEDS: predniSONE 20 MG TAB PO SCH (08:54)
[2018-06-16] MEDS: Folic Acid 1 MG TAB PO SCH (08:54)
[2018-06-16] MEDS: Senokot S 8.6-50 MG TAB PO SCH ×2 (08:54→21:39)
[2018-06-16] MEDS: Metoprolol Tartrate 50 MG TAB PO SCH ×2 (08:54→21:39)
[2018-06-16] MEDS: Cyanocobalamin (Vitamin B-12) 1,000 MCG TAB PO SCH (08:54)
[2018-06-16] MEDS ORDERED: Bisacodyl 10 MG SUPP PR SCH (13:00)
[2018-06-16] MEDS ORDERED: Magnesium Citrate 300 ML BOT PO SCH (13:00)
--- NOTE | 2018-06-16 17:18 | PDOC.PN ---
- Subjective Encounter Start Date: 06/16/18 Encounter Start Time: 11:05 Subjective: f/u for bladder outlet obstruction secondary to radiation induced bladder -: damage and metastatic prostate carcinoma s/p R nephrostomy tube -: and L ureteral stent placement. c/o constipation - Objective MAR Reviewed: Yes Vital Signs & Weight: Vital Signs (12 hours) Temp Pulse Pulse Resp BP BP Pulse Ox 06/16/18 15:19 98.3 F 67 20 142/63 H 94 L 06/16/18 13:38 66 16 94 L 06/16/18 12:12 97.3 F L 68 18 143/61 H 95 06/16/18 09:05 84 136/72 06/16/18 08:51 98 F 88 20 143/63 H 94 L 06/16/18 08:50 94 L 06/16/18 06:57 96 06/16/18 06:55 75 16 96 Pulse Ox 06/16/18 15:19 06/16/18 13:38 06/16/18 12:12 06/16/18 09:05 100 06/16/18 08:51 06/16/18 08:50 06/16/18 06:57 06/16/18 06:55 Weight Admit Weight 326 lb 8 oz Weight 321 lb 1.6 oz Most Recent Monitor Data Heart Rate from ECG 79 I&O: 06/15/18 06/16/18 06/17/18 06:59 06:59 06:59 Intake Total 1950 1960 Output Total 3650 2350 Balance -1700 -390 Result Diagrams: 06/16/18 04:34 06/16/18 04:34 Additional Labs: Microbiology 06/08/18 10:30 Stool Stool Occult Blood (MEG) - Final 06/05/18 05:42 Urine clean catch Urine Culture - Final Proteus mirabilis 06/05/18 00:33 Venous blood - Left Hand Blood Culture - Final NO GROWTH IN 5 DAYS 06/05/18 00:29 Venous blood - Right Arm Blood Culture - Final NO GROWTH IN 5 DAYS Laboratory Tests 06/11/18 06/12/18 06/12/18 06:54 05:13 05:13 Hgb 6.4 L 8.3 L Creatinine 3.23 H 06/13/18 06/13/18 06/14/18 05:55 05:55 09:55 Hgb 7.5 L Creatinine 2.33 H 1.79 H 06/14/18 09:55 Hgb 8.0 L Creatinine EKG Reviewed by me: Yes (Tele - SR) Phys Exam - Physical Examination Constitutional: NAD HEENT: PERRLA, sclera anicteric, oral pharynx no lesions Neck: no nodes, no JVD, supple, full ROM Respiratory: no wheezing, no rales, no rhonchi, clear to auscultation bilateral S1, S2 Cardiovascular: RRR, no significant murmur, no rub, gallop obese Gastrointestinal: soft, non-tender, no distention, positive bowel sounds Musculoskeletal: pulses present, edema present Neurological: normal sensation, moves all 4 limbs Psychiatric: normal affect, A&O x 3 Skin: normal turgor, cap refill <2 seconds Deviation from normal: Allen bag in place, R nephrostomy in place Dx/Plan (1) SERG (acute kidney injury) Code(s): N17.9 - ACUTE KIDNEY FAILURE, UNSPECIFIED Status: Acute Comment: Improving with catheter placement and drainage, avoid nephrotoxic agents and limit contrast exposure, serial creatinine (2) Bladder outlet obstruction Code(s): N32.0 - BLADDER-NECK OBSTRUCTION Status: Acute Comment: s/p R percutaneous nephrostomy and L ureteral stent placement (3) Constipation Code(s): K59.00 - CONSTIPATION, UNSPECIFIED Status: Acute Qualifiers: Constipation type: slow transit constipation Qualified Code(s): K59.01 - Slow transit constipation Comment: Senokot-S BID, add Mag Citrate, Dulcolax suppository (4) Symptomatic anemia Code(s): D64.9 - ANEMIA, UNSPECIFIED Status: Acute Comment: s/p total 8u PRBC's, Epo weekly, B12 (5) UTI (urinary tract infection) Status: Acute Comment: Proteus spp, d/c Rocephin, start Levaquin 500mg po daily - Plan continue antibiotics, PT/OT, executive secretary social welfare, out of bed/ambulate Stable overall -: Add Mag Citrate and Dulcolax -: Continue Levaquin 500mg daily -: Continue R nephrostomy tube -: AM lab: BMP * Transfer to Rehab in am
[2018-06-16 18:10] LABS: Ammonium Acid Urate 25 % (.); CA Oxalate Monohydrate 62 % (.); CA Phosphate 10 % (.); Color Brown (.); Stone Size 10x7x1 mm (.); Stone Weight 32.3 mg (.)
[2018-06-16] MEDS: Bisacodyl 10 MG SUPP PR SCH (19:06)
[2018-06-16] MEDS: Tamsulosin HCl 0.4 MG CAP PO SCH (21:40)
--- NOTE | 2018-06-16 23:00 | PRG ---
DATE OF SERVICE: 06/16/2018 The patient was seen and examined, feeling much better, noted with the following vital signs. PHYSICAL EXAMINATION: VITAL SIGNS: Afebrile with temperature 99.1, pulse 74, respiratory rate 20, O2 sat 95% with a blood pressure of 135/60. HEENT: Unremarkable. CARDIOVASCULAR: First and second heart sounds were heard. RESPIRATORY: Clear to auscultation. DIGESTIVE: Revealed a benign abdomen with positive bowel sounds. EXTREMITIES: No peripheral edema. SKIN: No new gross rash. LYMPHATICS: No peripheral lymphadenopathy. LABORATORY INVESTIGATION: Showed hemoglobin of 8.0. Chemistry showed a creatinine down to 1.38 with BUN of 28. IMPRESSION: 1. Acute on chronic kidney disease, which has maintained sustained clinical improvement. 2. Anemia, status post multiple blood transfusions. 3. Obesity. PLAN: 1. We will continue with current renal supportive measures and avoid potentially nephrotoxic agents. 2. Continue erythropoiesis stimulating agent. 3. Further management to be dependent on the clinical course.
[2018-06-17] MEDS: oxyCODONE 5 MG TAB PO PRN ×2 (05:11→10:33)
[2018-06-17 06:13] LABS: Anion Gap 13 mmol/L (10-20); BUN (Urea Nitrogen) 23 mg/dL (8.4-25.7); Calc. Creatinine Clearance 92 mL/min (70-130); Calcium 8.8 mg/dL (7.8-10.44); Carbon Dioxide 28 mmol/L (23-31); Chloride 102 mmol/L (98-107); Estimated GFR-MDRD 51; Glucose 94 mg/dL (83-110); Sodium 139 mmol/L (136-145)
[2018-06-17] MEDS: Cyanocobalamin (Vitamin B-12) 1,000 MCG TAB PO SCH (10:10)
[2018-06-17] MEDS: predniSONE 20 MG TAB PO SCH (10:10)
[2018-06-17] MEDS: Metoprolol Tartrate 50 MG TAB PO SCH (10:11)
[2018-06-17] MEDS: Folic Acid 1 MG TAB PO SCH (10:11)
[2018-06-17] MEDS: Senokot S 8.6-50 MG TAB PO SCH (10:12)
[2018-06-17 12:20] VITALS: BMI 47.5
--- NOTE | 2018-06-17 13:23 | CT ---
3CT THORAX WITHOUT IV CONTRAST CT ABDOMEN WITHOUT IV CONTRAST 06/12/18 HISTORY: Metastatic prostate cancer. Left ureteral stent recently placed. Evaluate for left hydronephrosis af ter ureteral stent placement and re-evaluate hydronephrosis on the right. COMPARISON: CT abdomen on 06/07/18. CT THORAX: Linear minimal patchy parenchymal densities are seen in the posterior aspect of the right upper lobe as well as at the right lung base. Findings could be related to atelectasis, but findings are worriso me for developing areas of pneumonitis. No areas of consolidation are seen. There is atelectasis at t he left lung base. Aortic valve replacement is noted. Vascular calcifications are seen in the abdominal aorta and involving the coronary arteries. Lack of intravenous contrast does limit evaluation of the mediastinal structures and vasculature, but no enlarged lymph nodes are seen by CT size criteria. There is minimal pleural thickening versus very tiny bilateral pleural effusions. Degenerative changes are seen in the spine. No lytic or sclerotic osseous lesions are seen. CT ABDOMEN: Vascular calcifications are seen in the abdominal aorta involving the iliac arteries. Hypodense lesio ns are again seen in the liver which may be attributable to hepatic cysts, but are difficult to bernardo acterize on this exam. There has been interval placement of a left ureteral stent. Distal portion was not imaged as imaging of the pelvis was not performed, but the proximal portion of the stent is in a superior pole left winston al collecting system and there has been interval decompression of the left kidney and no left sided h ydronephrosis is present on this exam. There is persistent mild right hydronephrosis and hydroureter. The spleen, pancreas, and bilateral adrenal glands demonstrate a grossly normal nonenhanced CT appear ance. There are degenerative changes in the spine with fusion at the L4-5 and L5-S1 levels. There is small subcentimeter sclerotic density in the L5 vertebral body which has characteristics suggestive of a sm all bone island. No additional lytic or sclerotic osseous lesions are appreciated on this exam. There is an enlarged lymph node seen within the pelvis just anterior to the right psoas muscle adjace nt to the right common iliac artery. Also noted on the prior CT exam measuring 2.8 cm. IMPRESSION: 1. Minimal linear and patchy densities in the right upper lobe and right lower lobe which could be related to areas of atelectasis, but pneumonitis is a possibility. 2. Atherosclerotic vascular calcifications in the thoracic and abdominal aorta as well as involv ing the coronary arteries. 3. Interval placement of a left ureteral stent without hydronephrosis present on the left. 4.Stable mild right hydronephrosis. 5.Stable enlarged lymph node along the right iliac chain. 6.Colonic diverticulosis. 7.Tiny bilateral pleural effusions versus pleural thickening. Colonic diverticulosis.
--- NOTE | 2018-06-17 14:44 | DIS ---
DATE OF ADMISSION: 06/04/2018 DATE OF DISCHARGE: 06/17/2018 DISCHARGE DIAGNOSES: 1. Acute kidney injury, resolving. 2. Bladder outlet obstruction, improved. 3. Status post left ureteral stent placement. 4. Status post right percutaneous nephrostomy tube placement. 5. Constipation, improved. 6. Symptomatic anemia, status post 8 units total packed red blood cells. 7. Urinary tract infection with Proteus mirabilis. 8. Metastatic prostate cancer with radiation-induced bladder destruction. 9. Deconditioning. CONSULTATIONS: Dr. Aman Barclay with Nephrology Service. Medical Oncology Service. Dr. Little , Dr. Bustillos and Dr. Uribe with GI Service. Dr. East with Cardiology Service. Dr. Paz and Dr Erum Schneider with Urology Service. PERTINENT LABORATORY DATA AND X-RAY FINDINGS: Creatinine ranged between 1.35-3.55, estimated GFR ran ged between 17-51. Magnesium level 2.6. Erythropoietin level 40.1, serum iron 101. Ferritin 441. Albumin 3.7. BNP 31. Vitamin B12 level 192. Folate level 7.3. TSH 2.08. Testosterone level 110. CBC showed a hemoglobin ranging between 6.1-8.7, MCV 97. Blood cultures x2 dated 06/05/2018 showed no growth at 5 days. Urine culture dated 06/05/2018 showed 50,000-75,000 colonies of Proteus mirabil is resistant to Macrobid. Stool Hemoccult dated 06/08/2018, negative x1. CT of the abdomen and pelv is dated 06/07/2018 showed moderate bilateral obstructive uropathy. Obstructing calculus in the dist al right ureter noted. Right-sided lymphadenopathy noted. A 2D transthoracic echocardiogram dated 1 showed ejection fraction of 60%-65%. Moderate to severe left atrial enlargement. Mild to moderate aortic stenosis. 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 Bone marrow biopsy dated 06/09/2018 showed hypercellular marrow with trilineage hematopoiesis. No evidence of hematolymphoid neoplasm or metastatic carcinoma. CT of the abdomen da nimesh 06/09/2018 showed interval placement of left ureteral stent without hydronephrosis present. Stab le mild right hydronephrosis. CT of the chest dated 06/12/2018 showed minimal linear and patchy dens ities in the right upper and right lower lobe, likely atelectasis. EGD dated 06/09/2018 showed chema l findings. No sign of active bleeding. HOSPITAL COURSE: The patient was initially admitted secondarily to acute on chronic anemia in the co ntext of known metastatic prostate carcinoma. The patient underwent extensive evaluation and protrac nimesh hospital course for anemia workup. The patient received a total 8 units of packed red blood cell s during this hospital course stabilizing with a current value of 8 to 8.5 at the time of discharge. The patient was evaluated by Medical Oncology Service as well as the GI service, undergoing EGD eval uation showing normal EGD findings. The patient was noted with mild B12 deficiency and placed on B12 supplementation. Iron levels were assessed and normal as stated previously. The patient was also n oted with acute kidney injury, likely multifactorial and component of dehydration. The patient recei digna blood products as stated previously with serial monitoring of renal function. During the patient 's evaluation for renal failure, CT of the abdomen and pelvis showed evidence of hydronephrosis at wh ich point the patient underwent evaluation by the Urology Service. The patient underwent subsequent left ureteral stent placement as well as an attempted right ureteral stent placement; however, this w as unsuccessful and patient underwent a right nephrostomy tube placement for decompression. The yina ent was noted with Proteus species on urine culture from 06/05/2018, placed on IV antibiotic therapy. The patient transitioned to oral Levaquin without complication. The patient also underwent evaluat ion for anemia including a bone marrow biopsy showing no evidence of metastatic prostate carcinoma. The patient was noted with metastasis to a retroperitoneal lymph node as stated previously with recom mendations for androgen deprivation therapy on an outpatient basis per Urology instructions. The pat ient was also evaluated due to severe deconditioning and deemed an appropriate candidate for ongoing skilled care and physical and occupational therapy. The patient has been approved to transfer to [facility] on 06/17/2018. I examined the patient at the time of discharge and discussed f elio instructions. The patient verbalized understanding and agreement and ready for discharge on 06/17/2018. DISCHARGE MEDICATIONS: 1. Aspirin enteric coated 81 mg p.o. daily. 2. Tylenol 325 mg p.o. q.6 hours p.r.n. pain. 3. Candesartan/HCTZ 32 mg/12.5 mg 1 tab p.o. daily. 4. Celebrex 100 mg p.o. daily, hold. 5. Procrit 10,000 units subcutaneously q.7 days. 6. Folic acid 1 mg p.o. daily. 7. DuoNeb 3 mL nebulized q.6 hours p.r.n. 8. Levaquin 500 mg p.o. daily x5 days. 9. Metoprolol tartrate 75 mg p.o. b.i.d. 10. Nystatin applied to affected area daily. 11. Oxycodone immediate release 10 mg p.o. q.4 hours p.r.n. 12. Senokot-S 1 tab p.o. b.i.d. 13. Flomax 0.4 mg p.o. at bedtime. FOLLOWUP: Patient will follow up with Dr. Allan Paz with Urology service on 06/29/2018 at 9:45 a .m. The patient will follow up with Dr. Pritesh Cortes after discharge from inpatient rehabilitation. CONDITION ON DISCHARGE: Fair. ACTIVITY: Ad mariana. Rolling walker with standby assistance. DIET: Heart healthy. CODE STATUS: FULL. DISPOSITION: Discharge to [facility] inpatient rehabilitation, 06/17/2018. Total time preparing and coordinating discharge is 39 minutes.
[2018-06-17 15:53] VITALS: TEMP 98.3
[2018-06-17 15:55] VITALS: BP 120/56
--- NOTE | 2018-06-18 04:38 | PRG ---
DATE OF SERVICE: 06/17/2018 SUBJECTIVE: Patient noted with the following vital signs. PHYSICAL EXAMINATION: VITAL SIGNS: Afebrile with temperature 98.3, pulse 69, respiratory rate of 20, O2 sat 93%, blood pre ssure 120/56. HEENT: Unremarkable. CARDIOVASCULAR SYSTEM: First and second heart sounds were heard. RESPIRATORY SYSTEM: Clear to auscultation. DIGESTIVE SYSTEM: Revealed an obese abdomen. EXTREMITIES: No peripheral edema. SKIN: No new gross rash. LYMPHATICS: No peripheral lymphadenopathy. IMPRESSION: 1. Acute on chronic kidney disease, much improved with creatinine down to 1.35. 2. Severe anemia, status post multiple transfusions. PLAN: 1. From all indication, patient likely to be discharged today. 2. Outpatient Nephrology followup recommended.
== END 2018-06-17 19:30 | DRG 988 ==
LOC: ERS 16:49 → 2NO 21:02
PROVIDERS: ADMIT Internal Medicine; ATTEND Internal Medicine
PROC: 30233N1 Transfusion of Nonautologous Red Blood Cells into Peripheral Vein, Percutaneous Approach (ICD-10-PCS; 2018-06-04)
PROC: 0WBH3ZX Excision of Retroperitoneum, Percutaneous Approach, Diagnostic (ICD-10-PCS; 2018-06-09)
PROC: 07DR3ZX Extraction of Iliac Bone Marrow, Percutaneous Approach, Diagnostic (ICD-10-PCS; 2018-06-09)
PROC: 0T778DZ Dilation of Left Ureter with Intraluminal Device, Via Natural or Artificial Opening Endoscopic (ICD-10-PCS; principal; 2018-06-11)
PROC: 0TCB8ZZ Extirpation of Matter from Bladder, Via Natural or Artificial Opening Endoscopic (ICD-10-PCS; 2018-06-11)
PROC: BT1F1ZZ Fluoroscopy of Left Kidney, Ureter and Bladder using Low Osmolar Contrast (ICD-10-PCS; 2018-06-11)
PROC: 0DJ08ZZ Inspection of Upper Intestinal Tract, Via Natural or Artificial Opening Endoscopic (ICD-10-PCS; 2018-06-11)
PROC: 0T9030Z Drainage of Right Kidney with Drainage Device, Percutaneous Approach (ICD-10-PCS; 2018-06-12)
DX: D50.9 Iron deficiency anemia, unspecified (principal); N17.9 Acute kidney failure, unspecified; N13.2 Hydronephrosis with renal and ureteral calculous obstruction; N39.0 Urinary tract infection, site not specified; Z68.42 Body mass index [BMI] 45.0-49.9, adult; I48.92 Unspecified atrial flutter; C77.2 Secondary and unspecified malignant neoplasm of intra-abdominal lymph nodes; E86.0 Dehydration; E53.8 Deficiency of other specified B group vitamins; N21.0 Calculus in bladder; N32.0 Bladder-neck obstruction; K44.9 Diaphragmatic hernia without obstruction or gangrene; R59.9 Enlarged lymph nodes, unspecified; R19.09 Other intra-abdominal and pelvic swelling, mass and lump; E66.01 Morbid (severe) obesity due to excess calories; I48.91 Unspecified atrial fibrillation; K59.01 Slow transit constipation; I25.10 Atherosclerotic heart disease of native coronary artery without angina pectoris; I12.9 Hypertensive chronic kidney disease with stage 1 through stage 4 chronic kidney disease, or unspecified chronic kidney disease; N18.9 Chronic kidney disease, unspecified; Z79.82 Long term (current) use of aspirin; Z87.891 Personal history of nicotine dependence; Z85.46 Personal history of malignant neoplasm of prostate; Z95.2 Presence of prosthetic heart valve; Z96.642 Presence of left artificial hip joint; Z95.5 Presence of coronary angioplasty implant and graft
CPT/HCPCS: 20225; 36415; 36416; 36430; 49180; 71045; 71250; 74150; 74176; 74420; 75984; 76770; 77002; 77012; 78306; 80048; 80053; 80069; 81003; 81015; 82248; 82274; 82365; 82607; 82668; 82728; 82746; 83010; 83540; 83615; 83735; 83880; 84153; 84165; 84166; 84403; 84443; 85014; 85018; 85025; 85046; 85049; 85060; 85097; 85300; 85362; 85379; 85384; 85610; 85730; 86160; 86850; 86880; 86900; 86901; 87040; 87077; 87086; 87186; 88184; 88237; 88264; 88280; 88300; 88305; 88311; 88313; 88341; 88342; 90471; 90662; 93005; 93306; 94640; 96360; 96361; A9503; C1729; C1752; C1758; C1769; G0008; G8978-GP-CL; G8979-GP-CJ; G8987-GO-CL; G8988-GO-CJ; J0696; J1940; J2001; J2250; J2405; J2704; J2916; J3010; J3420; J7050; J7506; J7620; P9016; Q4081; Q9961; Q9968

== ENCOUNTER 2018-07-26 14:58 | Emergency (ER) | payer MEDICARE, BC | END 2018-07-26 18:07 | disposition home or self-care (01) | LOC: ERS 14:58 | DX: T83.091A Other mechanical complication of indwelling urethral catheter, initial encounter (principal); I10 Essential (primary) hypertension; D64.9 Anemia, unspecified; Z87.891 Personal history of nicotine dependence; Z79.82 Long term (current) use of aspirin; Z79.899 Other long term (current) drug therapy | CPT/HCPCS: 51703 ==

== ENCOUNTER 2018-07-30 07:05 | Day surgery (SDC) | payer MEDICARE, BC ==
[2018-07-29 11:03] VITALS: BMI 44.3
[2018-07-30 07:28] LABS: INR-International Normal Ratio 1.1; PTT 30.3 SEC (22.9-36.1); Prothrombin Time 14.7 SEC (12.0-14.7)
[2018-07-30] MEDS ORDERED: Midazolam HCl 2 mg/2 ml Vial ONE (08:35)
[2018-07-30] MEDS ORDERED: Fentanyl 100 MCG/2 ML VIAL ONE (08:36)
--- NOTE | 2018-07-30 11:59 | SPC ---
RIGHT PERCUTANEOUS URETERAL STENT PLACEMENT: RIGHT PERCUTANEOUS NEPHROSTOGRAM AND NEPHROSTOMY REMOVAL: HISTORY: Prostate cancer. Ureteral obstruction. FLUOROSCOPY TIME: 7.5 minutes. FINDINGS: After explaining the procedure and answering all questions, the right flank and percutaneous nephrost kt were prepped and draped in the usual sterile fashion. A small amount of contrast was used to opa cify the mildly dilated right renal collecting system and ureter. There was not free flow into the u rinary bladder. A 0.035 Stiff Glidewire was eventually used to extend through the percutaneous nephrostomy and into t he urinary bladder. The previously nephrostomy drain was carefully removed. Standard technique was then used to place a 6 German, 26 cm double-pigtail ureteral stent, so that the distal coil is in the urinary bladder and the proximal coil is at the right renal pelvis. Position was confirmed with flu oroscopy. The guidewire was then removed. MEDICATION: Versed 0.5 mg IV. Fentanyl 25 mcg IV. The patient tolerated the procedure well and was eventually discharged in good condition. IMPRESSION: 1. Successful antegrade placement, right ureteral stent, in good radiograph position. 2. Removal of previous nephrostomy catheter. POS: [facility]
[2018-07-30 14:00] VITALS: BP 106/40; TEMP 98.6
== END 2018-07-30 10:25 | disposition home or self-care (01) ==
LOC: SPEC 07:05
PROVIDERS: ATTEND Urology
PROC: 0TP5X0Z Removal of Drainage Device from Kidney, External Approach (ICD-10-PCS; principal; 2018-07-30)
PROC: BT111ZZ Fluoroscopy of Right Kidney using Low Osmolar Contrast (ICD-10-PCS; 2018-07-30)
DX: N13.5 Crossing vessel and stricture of ureter without hydronephrosis (principal); Z79.82 Long term (current) use of aspirin; Z79.899 Other long term (current) drug therapy
CPT/HCPCS: 50430; 50695; 82565; 85610; 85730; C1769 ×2; 36415; J2250; J3010

== ENCOUNTER 2018-08-02 16:20 | Inpatient (IN) | payer MEDICARE, BC ==
[2018-08-02 16:49] LABS: Hemoglobin 6.9 g/dL (14.0-18.0); Mean Corpuscular HGB CONC 31.4 g/dL (32.0-36.0); Mean Corpuscular Hemoglobin 28.2 pg (27.0-31.0); Mean Corpuscular Volume 89.7 fL (78.0-98.0); Mean Platelet Volume 6.8 fL (7.4-10.4); Platelet Count 674 thou/uL (130-400); RBC Distribution Width 16.2 % (11.5-14.5); Red Blood Cell (RBC) Count 2.44 mill/uL (4.70-6.10)
[2018-08-02 16:52] LABS: Bilirubin Small (Negative); Blood, Urine Large (Negative); Glucose, Urine (Dipstick) Negative (Negative); Leukocyte Large (Negative); Nitrite Positive (Negative); Protein, Urine (Dipstick) 100 mg/dL (Neg-Trace); Urobilinogen 0.2 mg/dL (0.2-1.0); pH, Urine 8.5 (5.0-9.0)
[2018-08-02 16:53] LABS: Bacteria/HPF 4+ HPF (None Seen); Clarity Cloudy (Clear)
[2018-08-02 16:54] LABS: Specific Gravity, Urine 1.019 (1.002-1.036)
[2018-08-02 16:57] LABS: Pathc Cast-AUWi Flag 55.29 (0-2.49); Yeast-AUWi Flag 712.9 (0-25.0)
[2018-08-02 17:03] LABS: RBC/HPF 21-50 HPF (0-3); WBC/HPF 21-50 HPF (0-3)
[2018-08-02 17:04] LABS: Hyaline Casts/LPF NONE SEEN LPF (0-3 Hyaline); Other Casts/LPF None Seen LPF (0-3 Hyaline); Yeast-All Forms None Seen HPF (None Seen)
[2018-08-02 17:09] LABS: Anisocytosis SLIGHT = 6-15 cells (100X) (0-5/hpf); Band 3 % (5-11); Hypochromia SLIGHT = 6-15 cells (100X) (0-5/hpf); Lymphocytes 5 % (21-51); MDiff Complete? YES; Monocytes 6 % (0-10); Neutrophil 86 % (42-75); Ovalocytes SLIGHT = 2-5 cells (100X) (0-1/hpf); PLT Morphology Comment Appears Increased; Polychromasia MODERATE = 3-4 cells (100X) (0-2/hpf)
[2018-08-02 17:11] LABS: ALT (SGPT) 32 U/L (8-55); AST (SGOT) 19 U/L (5-34); Albumin 3.3 g/dL (3.4-4.8); Alkaline Phosphatase 88 U/L (40-150); Anion Gap 22 mmol/L (10-20); BUN (Urea Nitrogen) 32 mg/dL (8.4-25.7); Bilirubin, Total 0.3 mg/dL (0.2-1.2); Calc. Creatinine Clearance 0 mL/min (70-130); Calcium 9.6 mg/dL (7.8-10.44); Carbon Dioxide 20 mmol/L (23-31); Chloride 98 mmol/L (98-107); Estimated GFR-MDRD 35; Globulin 3.9 g/dL (2.4-3.5); Glucose 228 mg/dL (83-110); Potassium 4.4 mmol/L (3.5-5.1); Protein, Total 7.2 g/dL (5.8-8.1); Sodium 136 mmol/L (136-145)
[2018-08-02] MEDS ORDERED: cefTRIAXone\\ROCEPHIN 2 GM VIAL ONE (17:43)
--- NOTE | 2018-08-02 18:00 | RAD ---
PORTABLE CHEST: History: Hallucinations. FINDINGS: The lungs appear clear. No infiltrate. Heart and mediastinum are unremarkable. IMPRESSION: No acute findings. POS: [facility]
[2018-08-02 21:21] LABS: Lactic Acid 0.8 mmol/L (0.5-2.2)
[2018-08-02] MEDS ORDERED: Ondansetron PF 4 MG/2 ML Vial IVP PRN (21:42)
[2018-08-02] MEDS ORDERED: Bisacodyl 5 MG TAB PO PRN (21:42)
[2018-08-02] MEDS ORDERED: Calcium Carbonate 500 MG ChewTAB PO PRN (21:42)
[2018-08-02] MEDS ORDERED: Guaifenesin DM 100-10/5 ML UDCUP PO PRN (21:42)
[2018-08-02] MEDS ORDERED: Ondansetron ODT 4 MG TAB PO PRN (21:42)
[2018-08-02] MEDS ORDERED: Acetaminophen 650 MG Suppository PR PRN (21:42)
[2018-08-02] MEDS ORDERED: Senokot S 8.6-50 MG TAB PO PRN (21:42)
[2018-08-02] MEDS ORDERED: Acetaminophen 325 MG TAB PO PRN (21:42)
[2018-08-02 22:19] LABS: #Eosinphils 0.1 thou/uL (0.0-0.7); #Lymphocytes 0.9 thou/uL (1.20-3.40); #Monocytes 1.1 thou/uL (0.11-0.59); #Neutrophils 15.5 thou/uL (1.40-6.50); %Basophils 0.1 % (0.0-1.0); %Eosinophils 0.4 % (0.0-10.0); %Lymphocytes 4.9 % (21.0-51.0); %Monocytes 6.5 % (0.0-10.0); %Neutrophils 88.2 % (42.0-75.0); Hemoglobin 5.8 g/dL (14.0-18.0); Mean Corpuscular HGB CONC 30.5 g/dL (32.0-36.0); Mean Corpuscular Hemoglobin 27.2 pg (27.0-31.0); Mean Corpuscular Volume 89.2 fL (78.0-98.0); Mean Platelet Volume 6.5 fL (7.4-10.4); Platelet Count 502 thou/uL (130-400); RBC Distribution Width 16.1 % (11.5-14.5); Red Blood Cell (RBC) Count 2.12 mill/uL (4.70-6.10); White Blood Cell (WBC) Count 17.5 thou/uL (4.8-10.8)
[2018-08-02 22:45] LABS: Iron 12 ug/dL (65-175); Iron Binding Capacity, Total 175 mcg/dL (261-462)
[2018-08-02 23:16] LABS: Folate (Folic Acid) 11.1 ng/mL (7.0-31.4)
[2018-08-02] MEDS: Piperacillin/Tazobactam 3.375 GM in Sodium Chloride 0.9% 100 ML IVPB SCH (23:50)
[2018-08-02] MEDS: Sodium Chloride 0.9% 1,000 ML IV SCH (23:51)
[2018-08-03 00:18] VITALS: BMI 42.9
[2018-08-03] MEDS: Piperacillin/Tazobactam 3.375 GM in Sodium Chloride 0.9% 100 ML IVPB SCH ×4 (05:08→23:59)
[2018-08-03] MEDS: Vancomycin HCl 1.5 GM in Sodium Chloride 0.9% 250 ML 300 ML IVPB SCH ×2 (05:15→18:54)
[2018-08-03 06:37] LABS: #Eosinphils 0.1 thou/uL (0.0-0.7); #Lymphocytes 0.9 thou/uL (1.20-3.40); #Monocytes 1.3 thou/uL (0.11-0.59); #Neutrophils 13.3 thou/uL (1.40-6.50); %Basophils 0.2 % (0.0-1.0); %Eosinophils 0.5 % (0.0-10.0); %Lymphocytes 5.8 % (21.0-51.0); %Monocytes 8.5 % (0.0-10.0); Hemoglobin 6.6 g/dL (14.0-18.0); Mean Corpuscular HGB CONC 31.7 g/dL (32.0-36.0); Mean Corpuscular Hemoglobin 28.2 pg (27.0-31.0); Mean Corpuscular Volume 88.9 fL (78.0-98.0); Mean Platelet Volume 6.7 fL (7.4-10.4); Platelet Count 440 thou/uL (130-400); RBC Distribution Width 15.8 % (11.5-14.5); Red Blood Cell (RBC) Count 2.33 mill/uL (4.70-6.10); White Blood Cell (WBC) Count 15.6 thou/uL (4.8-10.8)
[2018-08-03 06:48] LABS: Albumin 2.8 g/dL (3.4-4.8); Anion Gap 11 mmol/L (10-20); BUN (Urea Nitrogen) 30 mg/dL (8.4-25.7); BUN/Creatinine Ratio 21.58; Calc. Creatinine Clearance 80 mL/min (70-130); Calcium 8.5 mg/dL (7.8-10.44); Carbon Dioxide 26 mmol/L (23-31); Chloride 106 mmol/L (98-107); Estimated GFR-MDRD 49; Glucose 105 mg/dL (83-110); Phosphorus 3.9 mg/dL (2.3-4.7); Potassium 4.3 mmol/L (3.5-5.1); Sodium 139 mmol/L (136-145)
--- NOTE | 2018-08-03 07:58 | HP ---
CHIEF COMPLAINT: Anemia. HISTORY OF PRESENT ILLNESS: This is a 77-year-old male with past medical history of chronic anemia, prostate cancer, hypertension, being admitted for symptomatic anemia. The patient was brought in by the and per the , the patient was hallucinating, complaining of pain, and also having some confusion. The patient reports that in all, he has had chronic anemia and his hemoglobin seemed to be low every time. At this time, the patient is coming in feeling a little tired, fatigued, and generalized weakness with some hallucination and confusion. In the ED, H and H was done, which showed the patient's hemoglobin is 6.9. Of note, the patient was recently in the hospital on 06/04/2018 and the patient was admitted for symptomatic anemia. The patient seems to have this symptoms of anemia and the patient sees Dr. Rodrigez in his clinic and the patient receives iron transfusions. At this point, the patient states that he is feeling very fatigued and weak. Otherwise, the patient denies any fever, nausea, vomiting, chest pain, palpitations, or abdominal pain. REVIEW OF SYSTEMS: Positive for generalized weakness and confusion, some shortness of breath, fatigue, otherwise as documented in the HPI. All other systems were reviewed and are negative. PAST MEDICAL HISTORY: Prostate cancer, hypertension, anemia. FAMILY HISTORY: Reviewed and noncontributory to this case. PAST SURGICAL HISTORY: Prostate cancer, status post radiation; left hip replacement; tonsillectomy; artificial valve replacement. SOCIAL HISTORY: Former tobacco user. The patient used to smoke cigarettes. The patient quit when the patient was 50 years old. The patient lives at home. The patient drinks one glass of wine every month. ALLERGIES: NO KNOWN DRUG ALLERGIES. CURRENT MEDICATIONS: The patient takes: 1. Aspirin 81 mg. 2. Celebrex 100 mg. 3. Tylenol 325 mg. PHYSICAL EXAMINATION: VITAL SIGNS: Blood pressure 139/63, pulse of 104, respiratory rate of 26, temperature of 98.4, O2 saturation of 100% on room air. GENERAL: The patient is lying in bed. The patient appears very pale and the patient is very fatigued and weak. HEENT: Normocephalic, atraumatic. Pupils are equally round and reactive to light. Extraocular movements are intact. No scleral icterus. The patient does have conjunctival pallor that can be appreciated. Mucous membranes are dry. NECK: Supple. Full range of motion. No JVD is noted. LUNGS: Clear to auscultation bilaterally. No wheezing, no rales, no rhonchi appreciated. CARDIAC: Positive S1 and S2. The patient is tachycardic. ABDOMEN: Obese abdomen, soft, nontender, and nondistended. Positive bowel sounds in all quadrants. No palpable masses. No peritoneal signs. EXTREMITIES: The patient has 5/5 upper extremity strength and 5/5 lower extremity strength. No edema appreciated at this time. NEUROLOGIC: Cranial nerves 2 through 12 grossly intact. No neurologic deficits noted at this time. SKIN: The patient has poor skin turgor. The patient is very pale, warm. PSYCHIATRIC: The patient has normal affect. DIAGNOSTIC STUDIES: A 12-lead EKG that was done shows the patient again in sinus tachycardia with a rate of about 153. Labs; WBC is 23.0, hemoglobin is 6.9, hematocrit is 21.9, platelet count is 674. Sodium is 136, potassium is 4.4, chloride is 98, carbon dioxide of 20, anion gap of 22, BUN is 32, creatinine is 1.85, GFR is 35, glucose is 228. Lactic acid is 7.7. Calcium of 9.6, iron is 12, TIBC of 175. Urinalysis, the patient does have positive nitrite and large leukocyte esterases. ASSESSMENT AND PLAN: This is a 77-year-old male being admitted for: 1. Symptomatic anemia, likely due to anemia of chronic inflammation and underlying anemia of acute blood loss. At this point, we have ordered stool occult. We have consulted GI. We will follow up with GI as recommendations. We have consulted heme-oncologist. We will follow up with their recommendation. We will start the patient on 3 units of PRBCs. We will also start transfusion of iron after 3 units of PRBCs have been completed. 2. Acute on chronic kidney disease, likely secondary to dehydration. At this point, the patient is receiving blood, which is going to help the patient with some hydration. We will continue the patient on blood transfusion and we will trend the patient's creatinine. 3. Microcytic anemia due to combination of anemia of chronic inflammation and iron deficiency anemia. At this point, the patient will benefit from IV iron. The patient is currently receiving blood. After blood transfusions, the patient can be started on Venofer. 4. History of prostate cancer, status post radiation, currently stable. The patient will be monitored at this time. 5. History of hypertension. Currently, blood pressure is under control. We will continue to monitor the patient's blood pressure and we will adjust the patient's blood pressure medications as needed. 6. Deep vein thrombosis and gastrointestinal prophylaxis, we will do SCDs. Job ID: [id number]
[2018-08-03] MEDS ORDERED: Heparin 5,000 UNITS/ML VIAL SC SCH (09:00)
[2018-08-03] MEDS: Famotidine 20 MG TAB PO SCH ×2 (10:16→21:37)
[2018-08-03] MEDS: Metoprolol Tartrate 50 MG TAB PO SCH (10:17)
[2018-08-03] MEDS: Famotidine/PF 20 mg/2ml Vial SLOW IVP SCH ×2 (10:19→21:37)
[2018-08-03] MEDS: Folic Acid 1 MG TAB PO SCH (10:19)
[2018-08-03] MEDS: Aspirin 81 mg Enteric Coated Tablet PO SCH (10:19)
[2018-08-03 10:58] LABS: Bicarbonate (HCO3v) 21.7 mmol/L (22.0-29.0); Calcium, Ionized 1.05 mmol/L (1.12-1.32); Hemoglobin - Calc 6.9 g/dL (12.0-18.0); O2 Tension (PvO2) 52.3 mmHg (35.0-45.0); Potassium 4.3 mmol/L (3.4-4.7); T. Carbon Dioxide 22.8 mmol/L (1.0-85.0); pH (Venous) 7.389 (7.35-7.45); vO2 Saturation-calc 86.5 % (94-98)
[2018-08-03] MEDS ORDERED: Sodium Chloride 0.9% 1,000 ML IV SCH (14:45)
[2018-08-03] MEDS ORDERED: Iron, Sodium Ferric Gluconate 250 MG in Sodium Chloride 0.9% 100 ML IVPB SCH (15:00)
--- NOTE | 2018-08-03 15:00 | PDOC.PN ---
- Subjective Encounter Start Date: 08/03/18 Encounter Start Time: 14:40 Subjective: f/u for acute/chronic anemia of unclear source. Received 2u PRBC's -: prior but remains symptomatic with hypotension. - Objective Resuscitation Status - Order Detail: 08/02/18 21:42 Resuscitation Status Routine Resuscitation Status: FULL: Full Resuscitation MAR Reviewed: Yes Vital Signs & Weight: Vital Signs (12 hours) Temp Pulse Pulse Resp BP BP Pulse Ox 08/03/18 13:36 82/41 L 08/03/18 13:06 71 16 97 08/03/18 11:00 99.1 F 75 20 96/43 L 97 08/03/18 07:11 89 16 98 08/03/18 07:00 99.1 F 92 20 107/45 L 98 08/03/18 05:01 99.5 F 95 20 119/66 Weight Admit Weight 290 lb 11.2 oz Weight 290 lb 11.2 oz I&O: 08/02/18 08/03/18 08/04/18 06:59 06:59 06:59 Intake Total 700 15387 Output Total 650 Balance 700 21631 Result Diagrams: 08/03/18 06:00 08/03/18 06:00 Additional Labs: Accuchecks 08/02/18 16:39 POC Glucose 254 H Microbiology 08/02/18 17:22 Nasal swab Influenza Types A,B Direct EIA - Final 08/02/18 02:18 Stool Stool Occult Blood (MEG) - Final 08/02/18 16:39 Urine melchor catheter Urine Culture - Preliminary Gram Negative Juaquin 08/02/18 16:35 Venous blood - Right Arm Blood Culture - Preliminary Specimen has been received and culture in progress. No Growth to date. 08/02/18 16:35 Venous blood - Left Arm Blood Culture - Preliminary Specimen has been received and culture in progress. No Growth to date. Laboratory Tests 08/02/18 08/02/18 08/02/18 16:35 16:35 22:05 WBC 23.0 H Hgb 6.9 L Plt Count 674 H Creatinine 1.85 H Iron 12 L TIBC 175 L Vitamin B12 Folate 08/02/18 08/02/18 22:05 22:05 WBC 17.5 H Hgb 5.8 L* Plt Count 502 H Creatinine Iron TIBC Vitamin B12 806 Folate 11.10 Radiology Reviewed by me: Yes (CT abd/pel - normal pancreas) EKG Reviewed by me: Yes (Tele - ) Phys Exam - Physical Examination alert, pale HEENT: PERRLA, sclera anicteric, oral pharynx no lesions Neck: no nodes, no JVD, supple, full ROM Respiratory: no wheezing, no rales, no rhonchi, clear to auscultation bilateral S1, S2 Cardiovascular: RRR, no significant murmur, no rub, gallop Gastrointestinal: soft, non-tender, no distention, positive bowel sounds mild peripheral edema Musculoskeletal: pulses present Neurological: normal sensation, moves all 4 limbs Psychiatric: A&O x 3 Skin: normal turgor, cap refill <2 seconds Deviation from normal: Melchor with laquita urine Dx/Plan (1) Sepsis Code(s): A41.9 - SEPSIS, UNSPECIFIED ORGANISM Status: Acute Comment: Suspected, continue Vanc/Zosyn, add Rocephin given gm negative Ucx preliminarily (2) Sepsis due to gram-negative UTI Code(s): A41.50 - GRAM-NEGATIVE SEPSIS, UNSPECIFIED; N39.0 - URINARY TRACT INFECTION, SITE NOT SPECIFIED Status: Acute Comment: final identification pending, add Rocephin (3) Chronic indwelling Melchor catheter Code(s): Z92.89 - PERSONAL HISTORY OF OTHER MEDICAL TREATMENT Status: Chronic Comment: Consider Urology evaluation, likely the source of current UTI (4) SERG (acute kidney injury) Code(s): N17.9 - ACUTE KIDNEY FAILURE, UNSPECIFIED Status: Acute Comment: Improved with IVF's, avoid nephrotoxic meds and limit contrast (5) Symptomatic anemia Code(s): D64.9 - ANEMIA, UNSPECIFIED Status: Acute Comment: s/p 2u PRBC's, will transfuse an additional unit PRBC's, serial CBC, repeat stool guaiac - Plan continue antibiotics, PT/OT, social professionals, out of bed/ambulate, DVT proph w/ SCDs continue Trendelenburg -: IVF NS bolus -: Transfuse 1u PRBC's today -: Iron transfusion today -: AM lab: BMP, CBC, stool hemoccult * .
[2018-08-03 16:01] LABS: Lactate 6.89 mmol/L (0.50-2.20)
[2018-08-03] MEDS: Sodium Chloride 0.9% 1,000 ML IV SCH ×2 (17:44→20:13)
[2018-08-03 20:05] LABS: Lactic Acid 1.6 mmol/L (0.5-2.2)
--- NOTE | 2018-08-03 20:09 | CON ---
DATE OF CONSULTATION: NEPHROLOGY CONSULTATION REASON FOR CONSULTATION: Elevated creatinine. HISTORY OF PRESENT ILLNESS: This is a very pleasant 77-year-old gentleman with a baseline creatinine of 1.2 on July 30, presented with a creatinine of 1.8 and improved to 1.3. The patient was severely anemic and after transfusion, his creatinine improved. The patient denies no headache, numbness, tingling, or weakness. Denies nausea, vomiting, or chest pain. PAST MEDICAL HISTORY: Significant for hypertension; anemia; history of CKD; history of prostate cancer, radiation; tonsillectomy; artificial valve replacement. SOCIAL HISTORY: No alcohol or drug use. FAMILY HISTORY: Negative for ESRD. ALLERGIES: REVIEWED. MEDICATIONS: Home medications list reviewed. REVIEW OF SYSTEMS: Fifteen-point review of systems was performed and negative except for positives noted above. NECK: No swelling or lumps. NOSE: No epistaxis or discharge. EYES: No diplopia or pain. MUSCULOSKELETAL: No joint pain. NEUROPSYCHIATRIC SYSTEMS: No suicidal ideation. No ideation. SKIN: Denies any rash or ulcer. CONSTITUTIONAL: No fever or chills. OBJECTIVE: GENERAL: The patient is awake and alert. VITAL SIGNS: Afebrile. Pulse 104, breathing 16, blood pressure 113/60. GENERAL APPEARANCE AND MENTAL STATUS: Fair. HEAD/NECK: Normocephalic. Atraumatic. EYES: EOMI. No deformity. EARS: Clear. No ulcers. NOSE: Intact. No lesions. MOUTH: Clear. No discharge. THROAT: Clear. No exudate. LUNGS: Clear. No crackles. CARDIAC: S1, S2. No rub. ABDOMEN: Benign. Bowel sounds positive. GENITALIA/RECTUM: Allen absent. BACK/EXTREMITIES: Edema 0+. NEUROLOGICAL: Alert and motor intact. LABORATORY DATA: Labs show creatinine of 1.3. ASSESSMENT AND PLAN: 1. Acute kidney injury, improved. 2. Hypertension, stable. 3. Anemia, stable. 4. Medications based on glomerular filtration rate, I would recommend stopping Celebrex. 5. Anemia, agree with transfusion. I would hold aspirin. Job ID: [id number] [id number]
[2018-08-03] MEDS: cefTRIAXone\\ROCEPHIN 2 GM in Sodium Chloride 0.9% 100 ML IVPB SCH (21:36)
[2018-08-03] MEDS: Tamsulosin HCl 0.4 MG CAP PO SCH (21:37)
--- NOTE | 2018-08-03 23:34 | CON ---
DATE OF CONSULTATION: HISTORY OF PRESENT ILLNESS: Yfn Fraga is a 77-year-old white male with a history of severe anemia. His cardiac history is that he underwent TAVR in [place] approximately 5 years ago. Prior to that, he states that he had [address] Ananda Arizmendi. He denies any cardiac arrhythmias in the past. During his last admission in May 2018, he did have paroxysmal episodes of supraventricular tachycardia, which appeared to be very regular and at times, appeared to be atrial flutter. It seemed to be exacerbated when he was more anemic. He was completely asymptomatic whenever he would have those episodes. PAST MEDICAL HISTORY: Coronary artery disease, aortic valve replacement, prostate cancer, hypertension, and anemia. OPERATIONS: Radiation to prostate cancer, TAVR, coronary artery stent placement , left hip replacement, and tonsillectomy. MEDICATIONS: At home include: 1. Metoprolol 75 b.i.d. 2. Aspirin 81 daily. 3. Candesartan/hydrochlorothiazide 32/12.5 daily. 4. Procrit every 7 days. 5. Folic acid 1 mg daily. 6. DuoNeb every 6 hours. 7. Levaquin 500 daily. 8. Nystatin powder. 9. Flomax 0.4 mg at bedtime. ALLERGIES: NONE. SOCIAL HISTORY: He smoked cigarettes, but stopped over 25 years ago. He has a glass of wine every month. FAMILY HISTORY: Unremarkable. REVIEW OF SYSTEMS: A 12-point review of systems is otherwise unremarkable. PHYSICAL EXAMINATION: VITAL SIGNS: Blood pressure 111/42, pulse 78. HEENT: PERRL. NECK: Supple. CHEST: Clear. CARDIAC: S1 and S2 normal without any S3 or S4. There is a 1/6 systolic ejection murmur. ABDOMEN: Obese, normal bowel sounds. No tenderness. EXTREMITIES: Revealed 1 to 2+ pretibial edema. NEUROLOGIC: Grossly intact. SKIN: Warm and dry. LABORATORY DATA: EKG revealed some type of supraventricular tachycardia with right bundle-branch block, left anterior fascicular block. On the monitor since being admitted, he had a 113-beat run of supraventricular tachycardia at a rate of approximately 145 per minute (In May of 2018, an echocardiogram revealed ejection fraction of 60%- 65% with aortic valve area of 1.37-1.5 square cm). Hemoglobin 5.8 at the time of admission, hematocrit 18.9, white count 17,500, platelets 502,000. INR 1.1. Sodium 139, potassium 4.3, chloride 106, carbon dioxide 26, BUN 30, creatinine 1.39. IMPRESSION: 1. Paroxysmal supraventricular tachycardia. During previous admissions, it appeared that this was probably atrial flutter. Certainly, this is exacerbated by his anemia. He is totally asymptomatic for these episodes and they appear to be very short lived. 2. Chronic anemia requiring multiple transfusions. 3. Hypertension. 4. Coronary artery disease status post stent placement. 5. Status post transcatheter aortic valve replacement five years ago. 6. Obesity. 7. Former smoker. 8. Chronic kidney disease. 9. History of prostate cancer status post radiation. PLAN: The patient will be continued on metoprolol. During his previous admission, he had a few episodes and they were very short lived. We will continue to monitor this. If he does have an episode of sustained atrial flutter, then consideration should be given to radiofrequency ablation. Job ID: [id number] [facility]
--- NOTE | 2018-08-04 01:12 | CON ---
DATE OF CONSULTATION: REASON FOR CONSULTATION: Anemia. HISTORY OF PRESENT ILLNESS: A 77-year-old male with longstanding history of recurrent iron deficiency anemia since August 2011, presenting to the hospital with hallucinations, confusion, and severe fatigue. The patient's states that he was hallucinating and was confused. Upon presentation to the ER, the patient's hemoglobin is found to be 6.9. On 07/28/2018, blood work showed hemoglobin of 8.3. The patient's hemoglobin trended down to 5.8 at 10 p.m. last night, and the patient received 2 units of packed red blood cells with improvement of the hemoglobin to only 6.6. He is currently being transfused third unit at this time. The patient last received Feraheme on 06/08/2018. The patient's ferritin was 115 last week on 07/28/2018. His INR at that time was 14 and upon admission to the hospital was 12. The patient denied any dizziness or lightheadedness upon standing, as he is wheel chair bound and does not walk. He denied any palpitation, shortness of breath, cough, or fever. He states that since he received first blood transfusion and fluids that he feels much improved but still very fatigue and weak. REVIEW OF SYSTEMS: Ten-point review of systems negative except as per HPI. PAST MEDICAL HISTORY: Iron deficiency anemia from occult GI bleed, prostate cancer, and hypertension. FAMILY HISTORY: Noncontributory to acute presentation. PAST SURGICAL HISTORY: Prostate cancer, status post radiation; left hip replacement; tonsillectomy; and artificial valve replacement. SOCIAL HISTORY: Former tobacco use, quit when he is 50-year-old. Drinks one glass of wine every month. ALLERGIES: NO KNOWN DRUG ALLERGIES. CURRENT MEDICATIONS: Reviewed. PHYSICAL EXAMINATION: VITAL SIGNS: Temperature 99.6, pulse mildly tachycardiac on admission currently 80, satting 94% on room air, blood pressure low is 82/41, currently 108/48. GENERAL APPEARANCE: The patient is lying in bed, eating, in no acute distress. HEENT: No scleral icterus present, otherwise normocephalic and atraumatic. NECK: Supple. Full range of motion. LUNGS: Clear to auscultation bilaterally without wheezes, rales, or rhonchi. CARDIOVASCULAR: Normal S1 and S2 with regular rhythm and rate. ABDOMEN: Soft, nondistended, and nontender. Very obese. Positive bowel sounds are present. EXTREMITIES: Mild 1+ edema was present bilaterally. The patient is able to move all extremities. NEUROLOGIC: Cranial nerves 2 through 12 are grossly intact. PSYCHIATRIC: Awake, alert, and oriented x3 with normal affect. LABORATORY DATA: White blood cells 23.0 on admission, currently 15.6, hemoglobin 6.9 on admission down to 5.8, now status post 2 units of PRBCs with hemoglobin response to 6.6, platelets 674 on admission, currently 440, and neutrophils 86%. Sodium 139, potassium 4.3, BUN 30, creatinine 1.85 on admission, currently 1.39, lactic acid 7.7 on admission, currently 0.8, iron 12, TIBC 175, vitamin B12 of 806, and folate 11.1. Urinalysis shows large leukocyte esterase with large blood and large white cells with 4+ bacteria. Preliminary urine culture shows gram negative rods and occult stool was negative for blood. ASSESSMENT AND PLAN: A 77-year-old male with history of chronic iron deficiency anemia, felt to be secondary to occult gastrointestinal blood loss, presenting with symptomatic anemia with severe fatigue and confusion. The patient is status post 2 units of PRBCs with minimal improvement in hemoglobin from 5.8 to 6.6, though this is partly dilutional due to IV fluid resuscitation as well. The patient denies any dark bloody stools and first occult stool was negative. The patient did complain of some pink color in the urine in the past, which is currently not present. The urinalysis did show many red blood cells. Labs show low iron of 12 with TIBC of 175, which is consistent of a mixed anemia of chronic disease and iron deficiency. Ferritin level last week was 115. The patient received ferriheme as an outpatient, when his ferritin is less than 50. The patient had a bone marrow biopsy on 06/09/2018 that did not show any evidence of abnormality to be causing severe anemia. Agree with repeating occult stool at this time and monitoring hemoglobin for response to third unit of blood, which he is currently transfusing. The patient was scheduled for IV iron in the hospital however with his ferritin of 112 and 3 units of PRBC, I did not recommend IV iron at this time. Each unit of packed red blood cells has approximately 200 to 250 mg of iron and so patient would receive approximately 750 mg already though blood transfusions alone and this should be sufficient given his normal ferritin level and very low TIBC. There was no evidence of hemolysis and B12 and folate were normal as well. The patient may have a degree of chronic kidney disease contributing to anemia. The patient's creatinine was normal in 2015, however, on 05/2018 it was high as 3.55, and resolved to 1.2 on 07/30 it was elevated again, part of this is acute kidney injury but I do believe there may be a component of chronic disease as well. The patient has also been evaluated for myeloma and this has been ruled out. We will continue to follow this patient with you for response to blood transfusions, and the patient does respond, in a stable, and may be discharge, and follow up with Dr. Rodrigez as an outpatient. Job ID: [id number]
--- NOTE | 2018-08-04 01:29 | CON ---
DATE OF CONSULTATION: HISTORY OF PRESENT ILLNESS: The patient is a 77-year-old male, well known to me from previous history of anemia and multiple evaluations thereof. The patient was somewhat confused and came in with a hemoglobin of 6.9. He had a full endoscopic workup in 2010 for anemia and repeat investigation in 2016 was essentially negative. He has not seen any blood in his stool. He has had quite a bit of blood in his urine and recently underwent urinary stent placement and has seen blood off and on. He denies any abdominal pain, nausea, vomiting, or any weight loss. He is on no blood thinners. PAST MEDICAL HISTORY: Significant for atrial fibrillation, prostate cancer, metastatic; radiation telangiectasias of the rectum, hypertension, aortic valve replacement, porcine valve; and hip replacement. ALLERGIES: NO KNOWN MEDICAL ALLERGIES. MEDICATIONS: Include; 1. Flomax 0.4 mg p.o. at bedtime. 2. Lopressor 75 mg p.o. b.i.d. 3. DuoNeb inhalers. 4. p.o. daily. 5. Aspirin 81 mg p.o. daily. 6. Senokot one p.o. b.i.d. 7. Oxycodone 10 mg p.o. q.4 hours p.r.n. 8. Levaquin 500 mg p.o. daily. 9. Procrit 10,000 units subcu q.7 days. 10. Candesartan/hydrochlorothiazide 1 p.o. daily. SOCIAL HISTORY: Does not smoke or drink. FAMILY HISTORY: Negative for GI or liver disease. REVIEW OF SYSTEMS: CONSTITUTIONAL: No fever or chills. No weight loss. EYES: No blurred vision or double vision. ENT: No sore throat or earaches. CARDIOVASCULAR: No chest pain or palpitations. PULMONARY: No shortness of breath, cough, or wheezing. GI: See above. : No hematuria or dysuria. MUSCULOSKELETAL: No joint pain or muscle weakness. SKIN: No rash. NEUROLOGIC: No numbness or seizure activity. PHYSICAL EXAMINATION: VITAL SIGNS: Shows a temperature of 99.6, pulse 80, respiratory rate 20, and blood pressure 108/84. HEENT: Unremarkable. NECK: Supple. CHEST: Clear. CARDIOVASCULAR: Regular rate and rhythm. ABDOMEN: Obese, nontender, without organomegaly or masses. LABORATORY DATA: Shows white blood cell count of 15.6, hemoglobin of 6.6, hematocrit 20.7, and platelet counts of 440. Laboratory shows a BUN 30, creatinine 1.39, GFR is 49. Iron is 12, TIBC is 175. Folate and vitamin B12 levels are normal. Stool occult blood is negative. ASSESSMENT: 1. Anemia - multifactorial, no evidence of gastrointestinal blood loss. 2. Aortic valve replacement. 3. Atrial fibrillation. 4. History of metastatic prostate cancer. 5. Renal insufficiency. 6. Status post left ureteral stent placement and right percutaneous nephrostomy. RECOMMENDATIONS: 1. No further GI workup at this time. 2. Transfuse as needed. Job ID: [id number]
[2018-08-04] MEDS: Piperacillin/Tazobactam 3.375 GM in Sodium Chloride 0.9% 100 ML IVPB SCH (04:54)
[2018-08-04] MEDS: Sodium Chloride 0.9% 1,000 ML IV SCH ×2 (04:54→10:46)
[2018-08-04] MEDS: Vancomycin HCl 1.5 GM in Sodium Chloride 0.9% 250 ML 300 ML IVPB SCH (05:35)
[2018-08-04 06:09] LABS: Anion Gap 13 mmol/L (10-20); BUN (Urea Nitrogen) 20 mg/dL (8.4-25.7); Calc. Creatinine Clearance 101 mL/min (70-130); Calcium 8.2 mg/dL (7.8-10.44); Carbon Dioxide 22 mmol/L (23-31); Chloride 109 mmol/L (98-107); Estimated GFR-MDRD 64; Glucose 96 mg/dL (83-110); Sodium 140 mmol/L (136-145)
[2018-08-04 06:10] LABS: Band 7 % (5-11); Hemoglobin 6.2 g/dL (14.0-18.0); Lymphocytes 13 % (21-51); MDiff Complete? YES; Mean Corpuscular HGB CONC 31.5 g/dL (32.0-36.0); Mean Corpuscular Hemoglobin 28.3 pg (27.0-31.0); Mean Corpuscular Volume 89.8 fL (78.0-98.0); Mean Platelet Volume 7.5 fL (7.4-10.4); Monocytes 9 % (0-10); Neutrophil 71 % (42-75); PLT Morphology Comment Appears Adequate; Platelet Count 361 thou/uL (130-400); RBC Distribution Width 15.6 % (11.5-14.5); Red Blood Cell (RBC) Count 2.18 mill/uL (4.70-6.10)
[2018-08-04] MEDS: Famotidine/PF 20 mg/2ml Vial SLOW IVP SCH (09:44)
[2018-08-04] MEDS: Famotidine 20 MG TAB PO SCH ×2 (09:45→20:12)
[2018-08-04] MEDS: Aspirin 81 mg Enteric Coated Tablet PO SCH (09:45)
[2018-08-04] MEDS: Folic Acid 1 MG TAB PO SCH (09:46)
--- NOTE | 2018-08-04 10:15 | PDOC.PN ---
- Subjective Encounter Start Date: 08/04/18 Encounter Start Time: 10:00 Subjective: f/u for acute/chronic anemia s/p 3u total PRBC's and no current -: evidence of GI loss. Hypotension improved and pt feels better overall. - Objective Resuscitation Status - Order Detail: 08/02/18 21:42 Resuscitation Status Routine Resuscitation Status: FULL: Full Resuscitation MAR Reviewed: Yes Vital Signs & Weight: Vital Signs (12 hours) Temp Pulse Resp BP Pulse Ox 08/04/18 07:52 99.0 F 90 18 136/45 L 93 L 08/04/18 07:40 93 L 08/04/18 06:39 81 20 96 08/04/18 04:00 99.0 F 82 20 139/50 L 95 08/04/18 00:00 99.6 F 86 19 114/49 L 94 L Weight Admit Weight 290 lb 11.2 oz Weight 290 lb 11.2 oz I&O: 08/03/18 08/04/18 08/05/18 06:59 06:59 06:59 Intake Total 700 91986 1495 Output Total 1350 750 Balance 700 87908 745 Result Diagrams: 08/04/18 05:06 08/04/18 05:06 Additional Labs: Microbiology 08/02/18 17:22 Nasal swab Influenza Types A,B Direct EIA - Final 08/02/18 16:39 Urine melchor catheter Urine Culture - Final Escherichia coli 08/02/18 02:18 Stool Stool Occult Blood (MEG) - Final 08/02/18 16:39 Urine melchor catheter Urine Culture - Preliminary Gram Negative Juaquin 08/02/18 16:35 Venous blood - Right Arm Blood Culture - Preliminary Specimen has been received and culture in progress. No Growth to date. 08/02/18 16:35 Venous blood - Left Arm Blood Culture - Preliminary Specimen has been received and culture in progress. No Growth to date. Laboratory Tests 08/02/18 08/02/18 08/02/18 16:35 16:35 22:05 WBC 23.0 H Hgb 6.9 L Plt Count 674 H Neutrophils % BUN Creatinine 1.85 H Iron 12 L TIBC 175 L Vitamin B12 Folate 08/02/18 08/02/18 08/03/18 22:05 22:05 06:00 WBC 17.5 H Hgb 5.8 L* Plt Count 502 H Neutrophils % BUN 30 H Creatinine 1.39 H Iron TIBC Vitamin B12 806 Folate 11.10 08/03/18 06:00 WBC 15.6 H Hgb 6.6 L Plt Count 440 H Neutrophils % 85.0 H BUN Creatinine Iron TIBC Vitamin B12 Folate EKG Reviewed by me: Yes (Tele - SR) Phys Exam - Physical Examination Constitutional: NAD HEENT: PERRLA, sclera anicteric, oral pharynx no lesions Neck: no nodes, no JVD, supple, full ROM Respiratory: no wheezing, no rales, no rhonchi, clear to auscultation bilateral S1, S2 Cardiovascular: RRR, no significant murmur, no rub, gallop Gastrointestinal: soft, non-tender, no distention, positive bowel sounds mild peripheral edema Musculoskeletal: pulses present Neurological: normal sensation, moves all 4 limbs Psychiatric: A&O x 3 Skin: normal turgor, cap refill <2 seconds Dx/Plan (1) Sepsis Code(s): A41.9 - SEPSIS, UNSPECIFIED ORGANISM Status: Acute Comment: Suspected, d/c Vanc/Zosyn, continue Rocephin with E. coli and current sensitivities (2) Sepsis due to gram-negative UTI Code(s): A41.50 - GRAM-NEGATIVE SEPSIS, UNSPECIFIED; N39.0 - URINARY TRACT INFECTION, SITE NOT SPECIFIED Status: Acute Comment: Continue Rocephin (3) Chronic indwelling Melchor catheter Code(s): Z92.89 - PERSONAL HISTORY OF OTHER MEDICAL TREATMENT Status: Chronic Comment: Consider Urology evaluation, likely the source of current UTI (4) SERG (acute kidney injury) Code(s): N17.9 - ACUTE KIDNEY FAILURE, UNSPECIFIED Status: Acute Comment: Improved with IVF's, avoid nephrotoxic meds and limit contrast, decrease IVF's 50ml/h (5) Symptomatic anemia Code(s): D64.9 - ANEMIA, UNSPECIFIED Status: Acute Comment: s/p 3u PRBC's, will transfuse an additional unit PRBC's, serial CBC, repeat stool guaiac, trial Epogen, ?MDS - Plan continue antibiotics, PT/OT, social scientist, out of bed/ambulate, DVT proph w/ SCDs Stable currently -: PT for mobilization/OOB -: Continue Rocephin 2gm IV daily -: D/C Vancomycin/Zosyn -: Trial Epogen * AM lab: BMP, CBC * Likely home in am
--- NOTE | 2018-08-04 11:37 | PRG ---
DATE OF SERVICE: 08/04/2018 SUBJECTIVE: A 77-year-old male being seen for acute kidney injury. The patient denies any nausea, vomiting, or chest pain. OBJECTIVE: CONSTITUTIONAL: The patient is awake and alert. VITAL SIGNS: Afebrile, pulse 90, breathing 16, and blood pressure 139/50. GENERAL APPEARANCE AND MENTAL STATUS: Fair. HEAD/NECK: Normocephalic. Atraumatic. EYES: EOMI. No deformity. EARS: Clear. No ulcers. NOSE: Intact. No lesions. MOUTH: Clear. No discharge. THROAT: Clear. No exudate. LUNGS: Clear. No crackles. CARDIAC: S1, S2. No rub. ABDOMEN: Benign. Bowel sounds positive. GENITALIA/RECTUM: Allen absent. BACK/EXTREMITIES: Edema 0+. NEUROLOGICAL: Alert and motor intact. SKIN: LYMPHATICS: LABORATORY DATA: Labs show hemoglobin is 6.2. Creatinine 1.0. ASSESSMENT AND PLAN: 1. Acute kidney injury, resolved. 2. Hypertension, stable. 3. Anemia, management per primary team. I will sign off on this patient. Please reconsult as needed. Job ID: [id number]
[2018-08-04] MEDS: cefTRIAXone\\ROCEPHIN 2 GM in Sodium Chloride 0.9% 100 ML IVPB SCH (17:52)
--- NOTE | 2018-08-04 19:10 | PRG ---
DATE OF SERVICE: 08/04/2018 SUBJECTIVE: The patient is feeling well. He had large number of bowel movements last night because of stool softeners. They performed another Hemoccult, which was negative. OBJECTIVE: VITAL SIGNS: Temperature 99.8, pulse 99, respiratory rate 20, and blood pressure 124/50. CHEST: Clear. CARDIOVASCULAR: Regular rate and rhythm. ABDOMEN: Benign. EXTREMITIES: Normal. The urine bag shows some blood in it. LABORATORY DATA: Shows white blood cell count of 14.0, hemoglobin 16, hematocrit of 19.6, and platelet count is 361. ASSESSMENT: 1. Anemia - multifactorial, anemia of chronic disease. 2. Hematuria, etc. RECOMMENDATIONS: 1. Outpatient iron infusions. 2. Oral iron. 3. We will follow at a distance. Job ID: [id number]
[2018-08-04] MEDS: Tamsulosin HCl 0.4 MG CAP PO SCH (20:12)
[2018-08-04] MEDS ORDERED: Vancomycin HCl 1 GM in Premix Bag 1 BAG IVPB SCH (21:00)
[2018-08-05] MEDS ORDERED: Melatonin 3 MG TAB PO PRN (01:38)
--- NOTE | 2018-08-05 01:49 | PDOC.EVN ---
Event Note - Event Note Event Note: Patient converted to a-flutter on monitor with rate 130's. BP stable and he is asymptomatic. Reviewed Dr. East's note. He has a hx of this and it is likely exacerbated by the anemia. His counts are still very low and he did not receive transfusion on 08/04. As long as his BP is ok and he is asymptomatic I will try to address the underlying anemia more aggressively. Once the blood is going, I will consider CCB. He is already on fairly high dose of oral beta- eric.
[2018-08-05 05:18] LABS: Anion Gap 10 mmol/L (10-20); BUN (Urea Nitrogen) 15 mg/dL (8.4-25.7); Calc. Creatinine Clearance 110 mL/min (70-130); Calcium 8.4 mg/dL (7.8-10.44); Carbon Dioxide 27 mmol/L (23-31); Chloride 109 mmol/L (98-107); Estimated GFR-MDRD 70; Glucose 111 mg/dL (83-110); Sodium 142 mmol/L (136-145)
[2018-08-05 05:31] LABS: Hemoglobin 7.3 g/dL (14.0-18.0); Hypochromia SLIGHT = 6-15 cells (100X) (0-5/hpf); Lymphocytes 2 % (21-51); MDiff Complete? YES; Mean Corpuscular HGB CONC 31.8 g/dL (32.0-36.0); Mean Corpuscular Volume 91.2 fL (78.0-98.0); Mean Platelet Volume 6.9 fL (7.4-10.4); Neutrophil 98 % (42-75); PLT Morphology Comment Appears Adequate; Platelet Count 349 thou/uL (130-400); RBC Distribution Width 15.6 % (11.5-14.5); Red Blood Cell (RBC) Count 2.51 mill/uL (4.70-6.10)
[2018-08-05] MEDS: Sodium Chloride 0.9% 1,000 ML IV SCH (07:40)
[2018-08-05] MEDS ORDERED: Digoxin 0.5 MG/2 ML AMP SLOW IVP SCH (09:00)
--- NOTE | 2018-08-05 09:01 | PDOC.PN ---
- Subjective Encounter Start Date: 08/05/18 Encounter Start Time: 08:50 Subjective: f/u for acute/chronic anemia s/p total 4u PRBC's this admit. Developed -: A-fib RVR overnight but denies CP or dyspnea. Currently on Metoprolol. - Objective Resuscitation Status - Order Detail: 08/02/18 21:42 Resuscitation Status Routine Resuscitation Status: FULL: Full Resuscitation MAR Reviewed: Yes Vital Signs & Weight: Vital Signs (12 hours) Temp Pulse Resp BP Pulse Ox 08/05/18 08:30 99 08/05/18 08:00 99.2 F 101 H 18 105/43 L 95 08/05/18 06:42 111 H 18 97 08/05/18 04:00 98.9 F 113 H 20 112/48 L 93 L 08/05/18 00:19 104 H 20 94 L 08/05/18 00:07 99.7 F H 115 H 18 103/77 94 L Weight Admit Weight 290 lb 11.2 oz Weight 290 lb 11.2 oz I&O: 08/04/18 08/05/18 08/06/18 06:59 06:59 06:59 Intake Total 14204 2445 840 Output Total 1350 1850 Balance 67322 595 840 Result Diagrams: 08/05/18 04:31 08/05/18 04:31 Additional Labs: Microbiology 08/02/18 17:22 Nasal swab Influenza Types A,B Direct EIA - Final 08/02/18 16:39 Urine melchor catheter Urine Culture - Final Escherichia coli 08/02/18 02:18 Stool Stool Occult Blood (MEG) - Final 08/02/18 16:39 Urine melchor catheter Urine Culture - Preliminary Gram Negative Juaquin 08/02/18 16:35 Venous blood - Right Arm Blood Culture - Preliminary Specimen has been received and culture in progress. No Growth to date. 08/02/18 16:35 Venous blood - Left Arm Blood Culture - Preliminary Specimen has been received and culture in progress. No Growth to date. Laboratory Tests 08/02/18 08/02/18 08/02/18 16:35 16:35 22:05 WBC 23.0 H Hgb 6.9 L Plt Count 674 H Neutrophils % BUN Creatinine 1.85 H Iron 12 L TIBC 175 L Vitamin B12 Folate 08/02/18 08/02/18 08/03/18 22:05 22:05 06:00 WBC 17.5 H Hgb 5.8 L* Plt Count 502 H Neutrophils % BUN 30 H Creatinine 1.39 H Iron TIBC Vitamin B12 806 Folate 11.10 08/03/18 08/04/18 06:00 05:06 WBC 15.6 H Hgb 6.6 L 6.2 L Plt Count 440 H Neutrophils % 85.0 H BUN Creatinine Iron TIBC Vitamin B12 Folate EKG Reviewed by me: Yes (Tele - A-fib RVR in 120's) Phys Exam - Physical Examination Constitutional: NAD HEENT: PERRLA, sclera anicteric, oral pharynx no lesions Neck: no nodes, no JVD, supple, full ROM Respiratory: no wheezing, no rales, no rhonchi, clear to auscultation bilateral II/ LATOSHA in RUSB, S1, S2 Cardiovascular: irregular Gastrointestinal: soft, non-tender, no distention, positive bowel sounds Musculoskeletal: pulses present, edema present Neurological: normal sensation, moves all 4 limbs Psychiatric: A&O x 3 Skin: normal turgor, cap refill <2 seconds Dx/Plan (1) Atrial fibrillation with RVR Code(s): I48.91 - UNSPECIFIED ATRIAL FIBRILLATION Status: Acute Comment: Start Digoxin 0.25mg IV x 1 now then 0.25mg po daily, continue Metoprolol 75mg BID, Echo showed EF 60-65%, mod LAE (2) Sepsis Code(s): A41.9 - SEPSIS, UNSPECIFIED ORGANISM Status: Acute Comment: Suspected, d/c Vanc/Zosyn, continue Rocephin with E. coli and current sensitivities (3) Sepsis due to gram-negative UTI Code(s): A41.50 - GRAM-NEGATIVE SEPSIS, UNSPECIFIED; N39.0 - URINARY TRACT INFECTION, SITE NOT SPECIFIED Status: Acute Comment: Continue Rocephin (4) Chronic indwelling Melchor catheter Code(s): Z92.89 - PERSONAL HISTORY OF OTHER MEDICAL TREATMENT Status: Chronic Comment: Consider Urology evaluation, likely the source of current UTI (5) SERG (acute kidney injury) Code(s): N17.9 - ACUTE KIDNEY FAILURE, UNSPECIFIED Status: Acute Comment: Improved with IVF's, avoid nephrotoxic meds and limit contrast, decrease IVF's 50ml/h (6) Symptomatic anemia Code(s): D64.9 - ANEMIA, UNSPECIFIED Status: Acute Comment: s/p 4u PRBC's, will transfuse an additional unit PRBC's, serial CBC, repeat stool guaiac, trial Epogen, ?MDS - Plan continue antibiotics, PT/OT, social staff worker Start Digoxin 0.25mg IV x 1 now -: Digoxin 0.25mg po daily -: Continue Metoprolol 75mg BID -: Check H/H, Mg++ level now -: AM lab: BMP, CBC * .
[2018-08-05 09:43] LABS: Platelet Count 347 thou/uL (130-400)
[2018-08-05] MEDS: Famotidine 20 MG TAB PO SCH ×2 (09:57→21:14)
[2018-08-05] MEDS: Aspirin 81 mg Enteric Coated Tablet PO SCH (09:57)
[2018-08-05] MEDS: Metoprolol Tartrate 50 MG TAB PO SCH ×2 (09:57→21:15)
[2018-08-05] MEDS: Folic Acid 1 MG TAB PO SCH (09:57)
[2018-08-05] MEDS ORDERED: Digoxin 0.25 MG TAB PO SCH ×2 (12:00→17:45)
[2018-08-05] MEDS: cefTRIAXone\\ROCEPHIN 2 GM in Sodium Chloride 0.9% 100 ML IVPB SCH (17:32)
[2018-08-05] MEDS: Tamsulosin HCl 0.4 MG CAP PO SCH (21:16)
[2018-08-06] MEDS: Sodium Chloride 0.9% 1,000 ML IV SCH (06:19)
[2018-08-06 06:22] LABS: Band 5 % (5-11); Eosinophils 1 % (0-10); Hemoglobin 8.7 g/dL (14.0-18.0); Lymphocytes 4 % (21-51); MDiff Complete? YES; Mean Corpuscular Hemoglobin 28.8 pg (27.0-31.0); Mean Platelet Volume 6.8 fL (7.4-10.4); Monocytes 7 % (0-10); Neutrophil 83 % (42-75); PLT Morphology Comment Appears Adequate; Platelet Count 392 thou/uL (130-400); RBC Distribution Width 16.1 % (11.5-14.5); Red Blood Cell (RBC) Count 3.02 mill/uL (4.70-6.10); White Blood Cell (WBC) Count 14.3 thou/uL (4.8-10.8)
[2018-08-06 06:33] LABS: Anion Gap 15 mmol/L (10-20); BUN (Urea Nitrogen) 16 mg/dL (8.4-25.7); Calc. Creatinine Clearance 84 mL/min (70-130); Calcium 8.8 mg/dL (7.8-10.44); Carbon Dioxide 21 mmol/L (23-31); Chloride 107 mmol/L (98-107); Estimated GFR-MDRD 52; Glucose 93 mg/dL (83-110); Sodium 139 mmol/L (136-145)
[2018-08-06 08:23] VITALS: TEMP 98.3
[2018-08-06] MEDS ORDERED: Digoxin 0.25 MG TAB PO SCH (09:00)
[2018-08-06] MEDS: Aspirin 81 mg Enteric Coated Tablet PO SCH (09:01)
[2018-08-06] MEDS: Metoprolol Tartrate 50 MG TAB PO SCH (09:02)
[2018-08-06] MEDS: Folic Acid 1 MG TAB PO SCH (09:02)
[2018-08-06] MEDS: Famotidine 20 MG TAB PO SCH (09:02)
[2018-08-06 11:58] VITALS: BP 153/57
--- NOTE | 2018-08-06 13:55 | DIS ---
DATE OF ADMISSION: 08/02/2018 DATE OF DISCHARGE: 08/06/2018 DISCHARGE DIAGNOSES: 1. Atrial fibrillation with rapid ventricular response. Current rate controlled with sinus mechanism. 2. Sepsis, secondary to Escherichia coli urinary tract infection, resolving. 3. Chronic indwelling Allen catheter. 4. Acute kidney injury on chronic kidney disease, stage 2 to 3. 5. Acute on chronic normocytic anemia, status post 4 units of packed red blood cells. CONSULTATIONS: 1. Dr. Jonathan Bustillos with GI Service. 2. Dr. Lancaster with Nephrology Service. 3. Dr. Tremayne Scott with Hematology Service. 4. Dr. John East with Cardiology Service. PERTINENT LABORATORY AND X-RAY FINDINGS: Creatinine ranged between 1.02 to 1.85. Estimated GFR ranged between 35 to 70. Lactic acid level ranged between 0.8 to 7.7. Serum iron level 12, TIBC 175, vitamin B12 level 806, and folate 11.1. CBC showed a white blood cell count ranged between 13.0 to 23.0, hemoglobin ranged between 5.8 to 8.7. Stool Hemoccult dated 08/02/2018, negative x1. Blood cultures x2 dated 08/02/2018, showed no growth at 48 hours. Urine culture dated 08/02/2018, showed greater than 100,000 colonies of E. coli. Influenza A and B antigen dated 08/02/2018, negative. Stool Hemoccult dated 08/03/2018, negative. Portable chest x-ray dated 08/02/2018, showed no acute cardiopulmonary process. HOSPITAL COURSE: The patient was admitted after presenting with acute on chronic symptomatic anemia with associated generalized weakness and hallucinations. The patient underwent a screening complete blood count with initial hemoglobin in the 5.8 range. The patient received 2 units of packed red blood cells and was evaluated by the hematology service. The exact underlying etiology is unclear with discussions regarding utility of serial Epogen injections. The patient received a total of 4 units of packed red blood cells during the hospital course and overall clinically stabilized. Telemetry monitoring showed atrial fibrillation with rapid ventricular response, likely due to underlying anemia, receiving metoprolol in addition to digoxin. The patient's overall rate improved and telemetry revealed a return to sinus mechanism prior to discharge. The patient overall remained clinically stable during the remainder of the hospital course, tolerating regular oral intake and ambulating with use of a rolling walker. I have examined the patient at the time of discharge and discussed followup instructions. The patient overall clinically stable and ready for discharge on 08/06/2018. DISCHARGE MEDICATIONS: 1. Enteric-coated aspirin 81 mg 1 tab p.o. daily. 2. Omnicef 300 mg p.o. b.i.d. x5 days. 3. Digoxin 0.125 mg p.o. daily. 4. Epoetin 10,000 units subcutaneously q.7 days. 5. Folic acid 1 mg p.o. daily. 6. DuoNeb 3 mL nebulized q.i.d. p.r.n. 7. Metoprolol tartrate 75 mg p.o. b.i.d. 8. Senokot S 1 tablet p.o. b.i.d. 9. Flomax 0.4 mg p.o. at bedtime. FOLLOWUP: The patient is to follow up with his primary care provider, Dr. Pritesh Cortes within 7 days of discharge. The patient is to follow up with Dr. Mark Rodrigez at the cancer clinic and to call his office for appointment, time, and date. CONDITION ON DISCHARGE: Fair. ACTIVITY: Ad-mariana. Rolling walker or cane for ambulation. DIET: Heart healthy. CODE STATUS: Full. DISPOSITION: Home on 08/06/2018. TIME SPENT: Total time preparing and coordinating discharge is 34 minutes. Job ID: [id number]
== END 2018-08-06 13:19 | disposition home or self-care (01) | DRG 811 ==
LOC: ERS 16:20 → ERHOLD 19:49 → 2SE 21:45
PROVIDERS: ADMIT Internal Medicine; ATTEND Internal Medicine
PROC: 30233N1 Transfusion of Nonautologous Red Blood Cells into Peripheral Vein, Percutaneous Approach (ICD-10-PCS; principal; 2018-08-02)
DX: D50.0 Iron deficiency anemia secondary to blood loss (chronic) (principal); A41.9 Sepsis, unspecified organism; T83.511A Infection and inflammatory reaction due to indwelling urethral catheter, initial encounter; N39.0 Urinary tract infection, site not specified; N17.9 Acute kidney failure, unspecified; I47.1 Supraventricular tachycardia; Z68.41 Body mass index [BMI] 40.0-44.9, adult; I48.91 Unspecified atrial fibrillation; B96.20 Unspecified Escherichia coli [E. coli] as the cause of diseases classified elsewhere; I12.9 Hypertensive chronic kidney disease with stage 1 through stage 4 chronic kidney disease, or unspecified chronic kidney disease; N18.3 Chronic kidney disease, stage 3 (moderate); Z96.642 Presence of left artificial hip joint; Z95.2 Presence of prosthetic heart valve; Z85.46 Personal history of malignant neoplasm of prostate; Z92.3 Personal history of irradiation; Z87.891 Personal history of nicotine dependence; Z79.82 Long term (current) use of aspirin; Z95.5 Presence of coronary angioplasty implant and graft; E66.01 Morbid (severe) obesity due to excess calories; R31.9 Hematuria, unspecified
CPT/HCPCS: 36415; 36416; 36430; 50430; 50695; 71045; 80048; 80053; 80069; 80202; 81003; 81015; 82274; 82330; 82565; 82607; 82746; 82803; 83540; 83550; 83605; 83735; 85007; 85025; 85027; 85610; 85730; 86850; 86900; 86901; 87040; 87077; 87086; 87186; 87804; 93005; 94640; 96361; 96365; 96366; 96367; C1769; G8978-GP-CN; G8979-GP-CK; J0696; J2250; J2543; J2916; J3010; J3370; J7050; J7620; P9016; S0028

== ENCOUNTER 2018-08-13 13:23 | Inpatient (IN) | payer MEDICARE, BC ==
--- NOTE | 2018-08-13 14:29 | RAD ---
CHEST 1 VIEW PORTABLE: Date: 08/13/18 HISTORY: 77-year-old male with history of chest pain. COMPARISON: 08/02/18. FINDINGS: Monitor leads overlie the chest. No confluent pneumonia, overt edema, or pleural effusion. IMPRESSION: No acute intrathoracic disease. Atherosclerosis of aorta. Stable from prior study. POS: [facility]
[2018-08-13 14:43] LABS: #Eosinphils 0.3 thou/uL (0.0-0.7); #Lymphocytes 0.9 thou/uL (1.20-3.40); #Monocytes 1.5 thou/uL (0.11-0.59); #Neutrophils 13.2 thou/uL (1.40-6.50); %Basophils 0.1 % (0.0-1.0); %Lymphocytes 5.7 % (21.0-51.0); %Monocytes 9.1 % (0.0-10.0); %Neutrophils 83.1 % (42.0-75.0); Hemoglobin 7.5 g/dL (14.0-18.0); Mean Corpuscular HGB CONC 30.9 g/dL (32.0-36.0); Mean Corpuscular Hemoglobin 27.8 pg (27.0-31.0); Mean Corpuscular Volume 89.7 fL (78.0-98.0); Mean Platelet Volume 6.9 fL (7.4-10.4); Platelet Count 428 thou/uL (130-400); RBC Distribution Width 15.8 % (11.5-14.5); Red Blood Cell (RBC) Count 2.69 mill/uL (4.70-6.10); White Blood Cell (WBC) Count 15.9 thou/uL (4.8-10.8)
[2018-08-13 14:50] LABS: INR-International Normal Ratio 1.2; PTT 31.3 SEC (22.9-36.1); Prothrombin Time 14.9 SEC (12.0-14.7)
[2018-08-13 15:04] LABS: ALT (SGPT) 20 U/L (8-55); AST (SGOT) 14 U/L (5-34); Albumin 2.9 g/dL (3.4-4.8); Alkaline Phosphatase 76 U/L (40-150); Anion Gap 13 mmol/L (10-20); BUN (Urea Nitrogen) 36 mg/dL (8.4-25.7); Bilirubin, Total 0.2 mg/dL (0.2-1.2); Calc. Creatinine Clearance 0 mL/min (70-130); Carbon Dioxide 25 mmol/L (23-31); Chloride 105 mmol/L (98-107); Digoxin 0.29 ng/mL (0.8-2.0); Estimated GFR-MDRD 26; Globulin 3.4 g/dL (2.4-3.5); Glucose 104 mg/dL (83-110); Potassium 4.1 mmol/L (3.5-5.1); Protein, Total 6.3 g/dL (5.8-8.1); Sodium 139 mmol/L (136-145)
[2018-08-13 19:16] LABS: Troponin I Less than 0.010 ng/mL (< 0.028)
[2018-08-13 21:34] LABS: Troponin I Less than 0.010 ng/mL (< 0.028)
--- NOTE | 2018-08-14 01:03 | HP ---
CHIEF COMPLAINT: Chest pain. HISTORY OF PRESENT ILLNESS: The patient is a 77-year-old male, who is admitted to the hospital with acute onset of chest pain. Apparently, he was resting and this morning he started having some chest discomfort located in the presternal area, which was not associated with any sweats. No nausea or vomiting. There was some shortness of breath. He rested additional probably 20 to 30 minutes and the pain did not stop, so he called his and they called his home healthcare agency nurse and she advised him to call EMS. Apparently when he was getting to the emergency room from the EMS ambulance, he did not have pain anymore. He never had this kind of pain anymore the pain lasted approximately 45 to 60 minutes. His senior front end developer is Dr. Arizmendi at [facility]. His PCP is Dr. Richar Cortes. His is his surrogate decision maker. At the time of my evaluation, he does not have pain anymore. He was found to have elevated creatinine at 2.4 and decision was made about full admission and further evaluation, and workup on his current problem. PAST MEDICAL HISTORY: Positive for, 1. Hypertension. 2. Atrial fibrillation with rapid ventricular response. 3. History of sepsis, secondary to E coli urinary tract infection. 4. Chronic indwelling Allen catheter. 5. Acute on chronic kidney injury during the previous admission in July of this year. 6. Acute on chronic normocytic anemia, status post 4 units of packed red blood cells transfusion just recently, approximately 10 days ago. 7. Prostate cancer. PAST SURGICAL HISTORY: 1. Prostate cancer, status post radiation. 2. Left hip replacement. 3. Tonsillectomy. 4. Artificial valve replacement. MEDICATIONS: Please refer to the medication list. According to discharge from the hospital, he was on: 1. Aspirin 81 mg once a day. 2. Omnicef 300 mg twice a day for 5 days. 3. Digoxin 0.125 mg once a day. 4. Epoetin 10,000 units every 7 days. 5. Folic acid 1 mg daily. 6. DuoNeb q.i.d. p.r.n. 7. Metoprolol tartrate 75 mg twice a day. 8. Senokot-S one tablet twice a day. 9. Flomax 0.4 mg once a day. FAMILY HISTORY: Reviewed and noncontributory to this case. SOCIAL HISTORY: He is a former tobacco user. He quit smoking a long time ago. He does not use any illicit drugs. He drinks sporadically red wine. ALLERGIES: NONE. REVIEW OF SYSTEMS: Reviewed and positive only for those symptoms mentioned in history of present illness. Otherwise negative. PHYSICAL EXAMINATION: VITAL SIGNS: Blood pressure is 145/75, pulse is 95, respiratory rate is 19, temperature is 98.5, pulse oximetry is 97% on room air. HEENT: Head is atraumatic and normocephalic. Eyes, PERRLA. Sclerae nonicteric. Oral mucosa is moist. NECK: Supple. No lymphadenopathy. LUNGS: Breath sounds are slightly diminished at both bases. HEART: S1, S2 somewhat distant. There is a systolic murmur over the right upper sternal border. ABDOMEN: Obese, mildly distended. Bowel sounds are present. No organomegaly. EXTREMITIES: He has 2 to 3+ peripheral edema on both lower extremities. He has discoloration of the skin of both extremities above both ankles. NEUROLOGICAL: He is alert and oriented x4. There is no sensory or motor deficit. Cranial nerves are intact. He has chronic indwelling Allen catheter. LABORATORY DATA: Labs showed white count of 15.9, hemoglobin 7.5, hematocrit 24.1, platelet count is 428,000. INR 1.2, PT of 14.9, APTT of 31.3. Normal electrolytes. Creatinine 2.4, BUN 36, BNP 326.5, albumin 2.9. Digoxin 0.29. IMAGING STUDIES: Chest x-ray did not show any infiltrates, some atherosclerosis of aorta. IMPRESSION: 1. Chest pain of unclear etiology at this point, resolved. 2. Acute on chronic kidney injury. 3. Atrial fibrillation with rapid ventricular response per history, now in sinus rhythm. 4. History of sepsis with Escherichia coli recently. 5. Chronic indwelling Allen catheter. 6. Acute on chronic normocytic anemia, status post 4 units of packed red blood cells transfusion during the previous hospitalization just 2 weeks ago. PLAN: Full admission. I think he needs to have more time to recover from his profound peripheral edema and renal insufficiency. We will obtain nephrology consultation with Dr. Collins and cardiology consultation with Dr. France, who is on-call today. We will obtain two sets of additional troponins and since he has massive peripheral edema, I am not going to use SCDs and because of a kidney failure, I am not going to use Lovenox for DVT prophylaxis. He is high risk for multiple complications. We will review his home medications and reconcile when its list is available. Job ID: [id number]
[2018-08-14 06:38] LABS: #Eosinphils 0.3 thou/uL (0.0-0.7); #Lymphocytes 0.9 thou/uL (1.20-3.40); #Monocytes 1.4 thou/uL (0.11-0.59); #Neutrophils 10.4 thou/uL (1.40-6.50); %Basophils 0.1 % (0.0-1.0); %Eosinophils 2.4 % (0.0-10.0); %Lymphocytes 6.8 % (21.0-51.0); %Neutrophils 79.7 % (42.0-75.0); Hemoglobin 7.2 g/dL (14.0-18.0); Mean Corpuscular HGB CONC 32.4 g/dL (32.0-36.0); Mean Corpuscular Hemoglobin 29.2 pg (27.0-31.0); Mean Corpuscular Volume 90.1 fL (78.0-98.0); Mean Platelet Volume 7.1 fL (7.4-10.4); Platelet Count 393 thou/uL (130-400); RBC Distribution Width 15.8 % (11.5-14.5); Red Blood Cell (RBC) Count 2.48 mill/uL (4.70-6.10)
[2018-08-14 06:59] LABS: Anion Gap 13 mmol/L (10-20); BUN (Urea Nitrogen) 35 mg/dL (8.4-25.7); Calc. Creatinine Clearance 48 mL/min (70-130); Calcium 8.9 mg/dL (7.8-10.44); Carbon Dioxide 27 mmol/L (23-31); Chloride 104 mmol/L (98-107); Estimated GFR-MDRD 27; Glucose 99 mg/dL (83-110); Sodium 140 mmol/L (136-145)
--- NOTE | 2018-08-14 13:33 | PDOC.PN ---
- Subjective Encounter Start Date: 08/14/18 (f/u SERG) Encounter Start Time: 13:31 Subjective: Pt reports today is better. Denies any chest pain. Reports -: legs chronically swollen. Has a chronic melchor cath x 3 months -: denies n/v/abd pain - Objective Resuscitation Status - Order Detail: 08/13/18 17:30 Resuscitation Status Routine Resuscitation Status: FULL: Full Resuscitation Vital Signs & Weight: Vital Signs (12 hours) Temp Pulse Resp BP Pulse Ox 08/14/18 11:28 98.3 F 93 16 157/67 H 93 L 08/14/18 08:09 98.4 F 90 16 154/65 H 93 L 08/14/18 04:00 98.2 F 91 21 H 164/67 H 94 L Weight Weight 293 lb 4.8 oz I&O: 08/13/18 08/14/18 08/15/18 06:59 06:59 06:59 Intake Total 240 Output Total 1500 Balance -1260 Result Diagrams: 08/14/18 05:40 08/14/18 05:40 EKG Reviewed by me: Yes (sinus 90's, pauses as long as 3 sec) Phys Exam - Physical Examination Constitutional: NAD Respiratory: no wheezing, no rales, no rhonchi Cardiovascular: RRR, no significant murmur Gastrointestinal: soft, non-tender, no distention, positive bowel sounds bilateral LE edema right > left Neurological: non-focal, moves all 4 limbs Psychiatric: normal affect Deviation from normal: erythema mild of LE associated with edema Dx/Plan (1) Anemia Code(s): D64.9 - ANEMIA, UNSPECIFIED Status: Acute (2) Peripheral edema Code(s): R60.9 - EDEMA, UNSPECIFIED Status: Chronic (3) Sinus pause Code(s): I45.5 - OTHER SPECIFIED HEART BLOCK Status: Acute (4) SERG (acute kidney injury) Code(s): N17.9 - ACUTE KIDNEY FAILURE, UNSPECIFIED Status: Acute (5) HTN (hypertension) Code(s): I10 - ESSENTIAL (PRIMARY) HYPERTENSION Status: Chronic Qualifiers: Hypertension type: essential hypertension Qualified Code(s): I10 - Essential (primary) hypertension (6) Chronic indwelling Melchor catheter Code(s): Z92.89 - PERSONAL HISTORY OF OTHER MEDICAL TREATMENT Status: Chronic (7) Morbid obesity Code(s): E66.01 - MORBID (SEVERE) OBESITY DUE TO EXCESS CALORIES Status: Chronic - Plan * SERG - likely secondary to significant and recurrent anemia resulting in 3rd spacing. Consult Neprhology and renal ultrasound * chest pain - presenting complaint, along with sinus pauses overnight - cardiology consult and echo. Pt is on lopressorr at home - hold this due to the sinus pauses, awaiting cardiology consultation * anemia - chronic and acutely worse despite 4 units prbc less than 2 weeks ago. Per blood bank, pt has received 13 units of prbc's at this facility since 04 Jun 2018. Type & screen and Consult Hematology - pt sees Dr. Rodrigez as an outpatient * RN noting some purulent drainage around melchor cath - will culture * * dvt prophy - start heparin due to renal function * gi prophy - not indicated. * * pt remains at high risk in current condition * reviewed plan of care with patient/, no questions or further needs at end of eval
--- NOTE | 2018-08-14 14:14 | ULT ---
RENAL ULTRASOUND: Comparison: 06-06-18 History: Acute kidney injury. Technique: Multiplanar grayscale and color doppler images were obtained in a renal ultrasound. FINDINGS: The kidneys are normal in echogenicity. There is mild prominence of the left renal collecting system without obstructing calculi on either side. No right sided hydronephrosis is seen. The kidney measure s 10.4 and 10.9 cm in length on the right and left respectively. The urinary bladder is decompressed with a Allen catheter. IMPRESSION: Mild left hydronephrosis. POS: [facility]
--- NOTE | 2018-08-14 14:52 | PQF ---
HEATHEDENILSON DORITA WEATHERS [id number] CLINICAL DOCUMENTATION IMPROVEMENT CLARIFICATION FORM: ICD-10 Updated PLEASE DO AN ADDENDUM TO THE PROGRESS NOTE WITH ANY DOCUMENTATION UPDATES OR ADDITIONS AND CARRY THROUGH TO DC SUMMARY. THANK YOU. DATE: 08/14 ATTN: DR. DORITA SIMMONS Please exercise your independent, professional judgment in responding to the clarification form. Clinical indicators are provided on the bottom of this form for your review. Please check appropriate box(s): BMI > 40 with associated diagnosis of: (check one) [ xx] Morbid (Severe) Obesity [ ] Due to excess calories [ ] Obesity [ ] Other diagnosis [ ] Unable to determine For continuity of documentation, please document condition throughout progress notes and discharge summary. Thank You. BMI < 19 Under weight 19 - 24.9 Healthy 25.0 - 29.9 Slightly Overweight 30.0 - 34.9 Obese 35.0 - 39.9 Severely Obese 40.0 and Over Morbidly Obese CLINICAL INDICATORS - SIGNS / SYMPTOMS / LABS BMI: 43.3 RISK FACTORS: PER PATIENT, HE IS WHEELCHAIR BOUND BLE PITTING EDEMA (2-3+) TREATMENTS: EXTRA LARGE EQUIPMENT, I.E., LARGE BP CUFF, LARGE WC, ETC HEART HEALTHY DIET THANK YOU! Lizy (This form is maintained as a part of the permanent medical record) 2014 [employer]. All Rights Reserved Lizy Hernandez RN, BSN [email or web address] Office: [phone] [facility]
[2018-08-14] MEDS: Epoetin (ESRD) 10,000 UNITS/ML VIAL SC SCH (16:23)
[2018-08-14] MEDS: Heparin 5,000 UNITS/ML VIAL SC SCH (20:19)
[2018-08-14] MEDS: Tamsulosin HCl 0.4 MG CAP PO SCH (20:19)
[2018-08-14] MEDS ORDERED: Metoprolol Tartrate 50 MG TAB PO SCH (21:00)
--- NOTE | 2018-08-14 21:25 | CON ---
DATE OF CONSULTATION: TYPE OF CONSULTATION: Nephrology REASON FOR CONSULTATION: elevated creatinine. HISTORY OF PRESENT ILLNESS: This is a very pleasant 77-year-old gentleman, who presented to the hospital with new onset chest pain. The patient's baseline creatinine was 1.0 on August 05 which has increased to 2.4 and to 2.3. The patient has no nausea, vomiting, or dyspnea at this time. The patient denies any NSAID use. PAST MEDICAL HISTORY: 1. Hypertension. 2. Atrial fibrillation with rapid ventricular response. 3. Escherichia coli UTI. Indwelling Allen catheter. 4. Anemia. 5. Prostate cancer. 6. Hip replacement. 7. Tonsillectomy. 8. Aortic valve replacement. HOME MEDICATIONS: Home medication list reviewed. Hospital medication list reviewed. ALLERGIES: REVIEWED. FAMILY HISTORY: Negative for ESRD. REVIEW OF SYSTEMS: A 15-point review of systems was performed and was negative except for positives noted above. NECK: No swelling or lumps. NOSE: No epistaxis or discharge. EYES: No diplopia or pain. MUSCULOSKELETAL: No joint pain. NEUROPSYCHIATIC SYSTEMS: No suicidal ideation. No ideation. SKIN: Denies any rash or ulcer. CONSTITUTIONAL: No fever or chills. PHYSICAL EXAMINATION: GENERAL: The patient is awake and alert. VITAL SIGNS: Afebrile. Pulse GENERAL APPEARANCE AND MENTAL STATUS: Fair. HEAD/NECK: Normocephalic. Atraumatic. EYES: EOMI. No deformity. EARS: Clear. No ulcers. NOSE: Intact. No lesions. MOUTH: Clear. No discharge. THROAT: Clear. No exudate. LUNGS: Clear. No crackles. CARDIAC: S1, S2. No rub. ABDOMEN: Benign. Bowel sounds positive. GENITALIA/RECTUM: Allen absent. BACK/EXTREMITIES: Edema 0+. NEUROLOGICAL: Alert and motor intact. SKIN: LYMPHATICS: LABORATORY DATA: Labs show creatinine 2.3, hemoglobin is 7.2. Acute kidney injury with chronic kidney disease, most likely due to cardiorenal syndrome. Continue gentle hydration. Avoid NSAIDs. Hypertension, stable. Anemia, we would recommend transfusion due to cardiac history and giving Epogen medication based on GFR as appropriate. No indication for dialysis at this time. We will follow along with you. Job ID: [id number]
--- NOTE | 2018-08-15 00:47 | CON ---
DATE OF CONSULTATION: REASON FOR CONSULTATION: Anemia. HISTORY OF PRESENT ILLNESS: Mr. Fraga is a pleasant 77-year-old gentleman with longstanding anemia. He has a history of iron-deficient anemia, chronic kidney disease, and likely occult GI blood loss. He has had extensive GI workup in the past, all of which have been negative. He has had multiple hospitalizations since May and has received over 12 units of blood. He presented to the emergency room on this visit with acute onset of chest pain. His troponins have been negative thus far. On admission, his hemoglobin was 7.5, prior hemoglobin on August 06 was 8.7. Besides the GI workup, he has had a bone marrow biopsy, which was negative for myelodysplastic syndrome and he has had a negative workup for hemolysis. Currently, he complains of weakness and fatigue, occasional shortness of breath, no chest pain at this time. He denies any melena, hematochezia, or hemoptysis. He does have intermittent hematuria with an indwelling Allen catheter. PAST MEDICAL HISTORY: 1. Iron-deficient anemia from occult GI bleed. 2. Prostate cancer. 3. Hypertension. 4. Atrial fib with RVR. 5. Recent sepsis with E. coli bacteremia. 6. Chronic indwelling Allen cath. PAST SURGICAL HISTORY: 1. Prostate cancer with radiation. 2. Left hip replacement. 3. Tonsillectomy. 4. Aortic valve replacement. 5. Multiple endoscopies. ALLERGIES: NO KNOWN DRUG ALLERGIES. HOME MEDICATIONS: 1. Aspirin 81 mg daily. 2. Lopressor 75 mg b.i.d. 3. Senokot b.i.d. 4. Flomax 0.4 mg daily. FAMILY HISTORY: Noncontributory. SOCIAL HISTORY: , lives with his spouse. No alcohol, tobacco, or illicit drug use. REVIEW OF SYSTEMS: 10-point review of systems is negative except as noted in the HPI. PHYSICAL EXAMINATION: VITAL SIGNS: Temperature is 99.5, pulse is 107, respiratory rate 16, BP is 156/68, he is 93% on room air. GENERAL: Chronically ill-appearing male, in no acute distress. HEENT: Normocephalic and atraumatic. Pupils are equal and reactive to light. NECK: Supple. CV: Regular rate and rhythm. LUNGS: Clear. ABDOMEN: Obese, nontender. Bowel sounds are positive. EXTREMITIES: He has 2+ peripheral edema. SKIN: There is no rash. HEMATOLOGIC: There are no petechiae or purpura. NEUROLOGIC: Nonfocal. PSYCHIATRIC: The patient is alert, oriented, and appropriate. PERTINENT LABS AND X-RAYS: Current WBC is 13.0, hemoglobin 7.2, hematocrit 22.3, platelet count 393,000, 80% neutrophils, 7% lymphocytes. PT is 14.9, INR is 1.2, PTT is 31.3. Sodium is 140, potassium 4.0, chloride 104, CO2 is 27, BUN is 35, creatinine 2.37. Total bilirubin is 0.2, AST is 14, ALT is 20, alkaline phosphatase is 76. BNP is 326. Serum total protein is 6.3, albumin 2.9, globulin 3.4. Troponin is negative. Last B12 was 806. Last folic acid was 11. Last PSA was 1.85. ASSESSMENT: Multifactorial anemia. DISCUSSION: The patient has had acute on chronic kidney injury. He has had extensive workup for GI bleeding and frequent iron infusions for iron deficiency. We will recheck his iron studies today and infuse iron as needed. I agree with a Procrit injection, I would actually increase the dose to 20,000 units weekly. He is planning to go to a facility at discharge. We will have to work with the facility to see if they will provide Procrit injections for him or if they will be able to bring him to the office to get his shots. We will follow his CBC daily and transfuse as needed. Thank you for the consult. Job ID: [id number]
--- NOTE | 2018-08-15 03:36 | CON ---
DATE OF CONSULTATION: HISTORY OF PRESENT ILLNESS: Yfn Fraga is a 77-year-old white male who was admitted with chest discomfort. He has a history of severe anemia requiring multiple transfusions. His cardiac history is that he underwent TAVR in [place] approximately 5 years ago. Prior to that, he stated that he had [address] Ananda Arizmendi. He denies any cardiac arrhythmias prior to the most recent admissions. He was admitted in May 2018. He did have paroxysmal episodes of supraventricular tachycardia that appeared to be very regular, and at times appeared to be atrial flutter. It seemed to be exacerbated when he was more anemic. He is completely asymptomatic when he had those episodes. He was readmitted on August 03, 2018, due to anemia again. He continued to have episodes of atrial fibrillation, atrial flutter, and supraventricular tachycardia. At times when he would convert, he would have pauses of 2.5 seconds, which are asymptomatic. He was placed on metoprolol and digoxin was added to this. At the time of discharge, he has been in normal sinus rhythm for several days. He now is again admitted with an episode of chest discomfort. He describes this is central chest pressure that lasted 45 minutes, and he thinks his heart was beating fast during that time. He had some shortness of breath with that. Cardiac enzymes have been totally normal. Digoxin was undetectable and I assume that someone discontinued that after he was discharged. Since being admitted, he has had episodes of supraventricular tachycardia as well as episodes of sinus pauses and metoprolol has been held. Pauses had been up to 2.7 and 2.8 seconds. PAST MEDICAL HISTORY: Coronary artery disease, aortic valve replacement, prostate cancer, hypertension, anemia requiring frequent transfusions, history of sepsis secondary to E coli urinary tract infection, chronic indwelling Allen catheter. OPERATIONS: TAVR, prostate cancer status post resection, left hip replacement, and tonsillectomy. MEDICATIONS: 1. Aspirin 81 daily. 2. Procrit 10,000 units q.7 days. 3. Omnicef 300 mg b.i.d. 4. Metoprolol 75 b.i.d. 5. Nystatin powder. 6. Flomax 0.4 mg daily. 7. Senokot. ALLERGIES: NONE. SOCIAL HISTORY: Smoked cigarettes, stopped over 25 years ago. He has a glass of wine every month. FAMILY HISTORY: Unremarkable. REVIEW OF SYSTEMS: A 10-point review of systems unremarkable. PHYSICAL EXAMINATION: VITAL SIGNS: Blood pressure 171/74, pulse of 108. HEENT: PERRL. NECK: Supple. CHEST: Clear. CARDIAC: S1 and S2 normal without any S3 or S4. There is a 1/6 systolic ejection murmur. ABDOMEN: Obese. Normal bowel sounds. No tenderness. EXTREMITIES: Reveal 1+ pretibial edema. NEUROLOGIC: Grossly intact. SKIN: Warm and dry. LABORATORY DATA: EKG reveals normal sinus rhythm with right bundle-branch block and left anterior fascicular block. Echocardiogram in May 2018 revealed ejection fraction of 60% to 65% with aortic valve area of 1.37 to 1.5 sq cm. Hemoglobin 7.2, hematocrit 22.3, white count 13,000, platelets 393,000. Sodium 140, potassium 4.0, chloride 104, carbon dioxide 27, BUN 35, and creatinine 2.37. Cardiac enzymes are unremarkable. BNP 326.5. Digoxin 0.29. IMPRESSION: 1. Paroxysmal supraventricular tachycardia as well as episodes of atrial fibrillation. At times, it appears to be atrial flutter. In the past, he has been asymptomatic with those episodes. All of these may have been the cause for his episode of chest discomfort. 2. Chronic anemia requiring multiple transfusions. 3. Hypertension. 4. Coronary artery disease, status post stent placement. 5. Status post transcatheter aortic valve replacement 5 years ago. 6. Obesity. 7. Former smoker. 8. Chronic kidney disease. 9. History of prostate cancer, status post radiation. 10. History of urosepsis with chronic indwelling Allen catheter. PLAN: Metoprolol has been held due to his pauses. Mr. Fraga presents today in a very difficult situation. With medications, we are not able to suppress his arrhythmias and with conversion from his atrial arrhythmias, frequently he will have sinus pauses. He certainly would be a poor candidate for pacemaker placement with frequent urinary tract infections and chronic indwelling Allen catheter. Consideration may be given to electrophysiology study for catheter ablation of his arrhythmias. Job ID: [id number] [facility]
[2018-08-15 05:53] LABS: #Eosinphils 0.2 thou/uL (0.0-0.7); #Lymphocytes 0.7 thou/uL (1.20-3.40); #Monocytes 1.1 thou/uL (0.11-0.59); #Neutrophils 9.5 thou/uL (1.40-6.50); %Basophils 0.3 % (0.0-1.0); %Eosinophils 2.1 % (0.0-10.0); %Lymphocytes 6.4 % (21.0-51.0); %Monocytes 9.7 % (0.0-10.0); %Neutrophils 81.6 % (42.0-75.0); Hemoglobin 6.7 g/dL (14.0-18.0); Mean Corpuscular HGB CONC 31.2 g/dL (32.0-36.0); Mean Corpuscular Hemoglobin 27.9 pg (27.0-31.0); Mean Corpuscular Volume 89.4 fL (78.0-98.0); Mean Platelet Volume 6.7 fL (7.4-10.4); Platelet Count 400 thou/uL (130-400); Red Blood Cell (RBC) Count 2.41 mill/uL (4.70-6.10); White Blood Cell (WBC) Count 11.6 thou/uL (4.8-10.8)
[2018-08-15 06:03] LABS: Iron 14 ug/dL (65-175); Iron Binding Capacity, Total 185 mcg/dL (261-462)
[2018-08-15 06:07] LABS: Anion Gap 11 mmol/L (10-20); BUN (Urea Nitrogen) 33 mg/dL (8.4-25.7); Calc. Creatinine Clearance 48 mL/min (70-130); Calcium 8.8 mg/dL (7.8-10.44); Carbon Dioxide 30 mmol/L (23-31); Chloride 103 mmol/L (98-107); Estimated GFR-MDRD 27; Glucose 116 mg/dL (83-110); Iron 12 ug/dL (65-175); Iron Binding Capacity, Total 180 mcg/dL (261-462); Sodium 140 mmol/L (136-145)
[2018-08-15] MEDS: Aspirin 81 mg Enteric Coated Tablet PO SCH (07:48)
[2018-08-15] MEDS: Heparin 5,000 UNITS/ML VIAL SC SCH (09:57)
--- NOTE | 2018-08-15 10:42 | PRG ---
DATE OF SERVICE: 08/15/2018 SUBJECTIVE: A 77-year-old gentleman being seen for acute kidney injury. The patient denies any nausea, vomiting or chest pain. OBJECTIVE: CONSTITUTIONAL: Awake, alert, in no acute distress. VITAL SIGNS: Afebrile. Pulse 99, breathing 16, blood pressure 141/69. GENERAL APPEARANCE AND MENTAL STATUS: Fair. HEAD/NECK: Normocephalic. Atraumatic. EYES: EOMI. No deformity. EARS: Clear. No ulcers. NOSE: Intact. No lesions. MOUTH: Clear. No discharge. THROAT: Clear. No exudate. LUNGS: Clear. No crackles. CARDIAC: S1, S2. No rub. ABDOMEN: Benign. Bowel sounds positive. GENITALIA/RECTUM: Allen absent. BACK/EXTREMITIES: Edema 0+. NEUROLOGICAL: Alert and motor intact. LABORATORY DATA: Show hemoglobin 6.7. Creatinine 2.3. ASSESSMENT AND PLAN: 1. Chronic kidney disease stage 4, stable. 2. Hypertension, stable. 3. Anemia, agree with transfusion. Job ID: [id number]
--- NOTE | 2018-08-15 10:53 | PDOC.CTH ---
Cardiology Progress Note - Subjective No complaints overnight. Chart and tele reviewed. - Objective Vital Signs Temp Pulse Resp BP Pulse Ox 08/15/18 07:43 98.4 F 99 18 151/67 H 93 L 08/15/18 03:53 98.3 F 113 H 18 141/69 H 93 L 08/14/18 23:58 101 H 166/71 H 95 Weight 289 lb 8 oz 08/14/18 08/15/18 08/16/18 06:59 06:59 06:59 Intake Total 240 1070 0 Output Total 1500 2700 Balance -1260 -1630 0 - Physical Examination General/Neuro: alert & oriented x3 Lungs: other: (bilateral exp wheeze) Heart: other: (tachy) Abdomen: soft Extremities: other: (chronic venous stasis changes) - Telemetry Telemetry Rhythm: SR; parox AFlutter - Labs Result Diagrams: 08/15/18 05:32 08/15/18 05:32 Troponin/CKMB Troponin I Less than 0.010 ng/mL (< 0.028) 08/13/18 21:02 - Assessment/Plan 1. PSVT 2. AFlutter 3. SSS on bblockers 4. CKD-4 5. Chronic anemia requiring frequent transfusions 6. s/p TAVR 7. s/p PCI 8. Chronic venous disease 9. History of frequent UTIs 10. Mild volume overload Complicated patient overall. History of atrial arrhythmias that were improved on bblockers, but now with SSS. Pacer would be beneficial, but again possible current UTI. Cultures pending. Not a candidate for OAC given chronic anemia and need for transfusions. Needs Watchman/helix. Continue observation only until cultures back. Probable EP consult in the future. Could try to resume Dig alone. Will d/w Dr. Dean. Pt seen and examined. Very difficult situation given recurrent infection adn recurrent anemia in addition to tachy adin syndrome that may benefit from a pacer but risk infection. Discussed with pts today. Pt has also had multiple hopistalizations in the recent past with the same issues. Briefly discussed palliative care/hospice option. Pt has received one unit of blood.
--- NOTE | 2018-08-15 12:47 | PDOC.PN ---
- Subjective Encounter Start Date: 08/15/18 Encounter Start Time: 08:00 Pt seen for followup re: acute on chronic stage 3 chronic kidney disease. Feels better. Denies chest pain, shortness of breath, fevers or chills. - Objective Resuscitation Status - Order Detail: 08/13/18 17:30 Resuscitation Status Routine Resuscitation Status: FULL: Full Resuscitation MAR Reviewed: Yes Vital Signs & Weight: Vital Signs (12 hours) Temp Pulse Pulse Resp BP BP Pulse Ox 08/15/18 11:02 99.0 F 101 H 20 171/72 H 93 L 08/15/18 10:45 99.0 F 101 H 20 171/72 H 93 L 08/15/18 10:30 99.2 F 104 H 20 151/65 H 93 L 08/15/18 07:43 98.4 F 99 18 151/67 H 93 L 08/15/18 03:53 98.3 F 113 H 18 141/69 H 93 L Weight Weight 289 lb 8 oz I&O: 08/14/18 08/15/18 08/16/18 06:59 06:59 06:59 Intake Total 240 1070 0 Output Total 1500 2700 Balance -1260 -1630 0 Result Diagrams: 08/15/18 05:32 08/15/18 05:32 EKG Reviewed by me: Yes (Tele: sinus tachycardia) Phys Exam - Physical Examination Morbid obesity HEENT: moist MMs, sclera anicteric, oral pharynx no lesions, 2+ tonsils Neck: no nodes, no JVD, supple, full ROM Respiratory: clear to auscultation bilateral Cardiovascular: RRR, no rub S1, S2 Gastrointestinal: soft, non-tender, no distention, positive bowel sounds Neurological: moves all 4 limbs Psychiatric: normal affect, A&O x 3 Dx/Plan (1) Acute worsening of stage 3 chronic kidney disease Code(s): N18.3 - CHRONIC KIDNEY DISEASE, STAGE 3 (MODERATE) Status: Acute Comment: creatinine mildly improved to 2.33 today (2) Sinus pause Code(s): I45.5 - OTHER SPECIFIED HEART BLOCK Status: Acute Comment: await EP opinion - Plan * . Review of Systems - Review of Systems Constitutional: negative: fever, chills, sweats, weakness, malaise Respiratory: Cough, SOB with Excertion. negative: Dry, Shortness of Breath, Hemoptysis, Pleuritic Pain, Sputum, Wheezing Cardiovascular: negative: chest pain, palpitations, orthopnea, paroxysmal nocturnal dyspnea, edema, light headedness Gastrointestinal: negative: Nausea, Vomiting, Abdominal Pain, Diarrhea, Constipation, Melena, Hematochezia Genitourinary: negative: Dysuria, Frequency, Incontinence, Hematuria, Retention - Medications/Allergies Allergies/Adverse Reactions: Allergies Allergy/AdvReac Type Severity Reaction Status Date / Time No Known Allergies Allergy Verified 08/13/18 20:53 Medications: Current Medications Aspirin (Ecotrin) 81 mg PO DAILY [facility] Last Admin: 08/15/18 07:48 Dose: 81 mg Epoetin Jean Carlos (Procrit) 10,000 units SC Q7D [facility] Last Admin: 08/14/18 16:23 Dose: 10,000 units Melatonin (Melatonin) 3 mg PO HS PRN PRN Reason: Insomnia Nystatin (Mycostatin Powder) 0 gm TOP PRN PRN PRN Reason: DIRECTED Tamsulosin HCl (Flomax) 0.4 mg PO HS [facility] Last Admin: 08/14/18 20:19 Dose: 0.4 mg
[2018-08-15] MEDS ORDERED: Digoxin 0.125 MG TAB PO SCH (15:45)
--- NOTE | 2018-08-15 18:30 | EKG ---
Test Reason : ER INDICATION Blood Pressure : / mmHG Vent. Rate : 137 BPM Atrial Rate : 137 BPM P-R Int : 000 ms QRS Dur : 124 ms QT Int : 342 ms P-R-T Axes : 000 -60 015 degrees QTc Int : 516 ms Undetermined rhythm Right bundle branch block Left anterior fascicular block Bifascicular block Abnormal ECG Confirmed by ANUJ SANCHEZ DO ([id number]), metropolitan editor RICHAR SCHMID ([id number] on 08/15/2018 6:29:30 PM Referred By: DAVID Confirmed By:ANJU SANCHEZ DO
[2018-08-15] MEDS: Melatonin 3 MG TAB PO PRN (22:25)
[2018-08-15] MEDS: Tamsulosin HCl 0.4 MG CAP PO SCH (22:25)
[2018-08-15] MEDS ORDERED: hydrALAZINE 20 MG/ML VIAL SLOW IVP PRN (23:42)
[2018-08-15] MEDS ORDERED: Amlodipine 5 MG TAB PO SCH (23:45)
[2018-08-16 07:24] LABS: #Eosinphils 0.2 thou/uL (0.0-0.7); #Lymphocytes 0.9 thou/uL (1.20-3.40); #Monocytes 1.2 thou/uL (0.11-0.59); #Neutrophils 10.3 thou/uL (1.40-6.50); %Basophils 0.2 % (0.0-1.0); %Eosinophils 1.5 % (0.0-10.0); %Monocytes 9.6 % (0.0-10.0); %Neutrophils 81.8 % (42.0-75.0); Hemoglobin 6.6 g/dL (14.0-18.0); Mean Corpuscular Hemoglobin 27.4 pg (27.0-31.0); Mean Corpuscular Volume 88.4 fL (78.0-98.0); Mean Platelet Volume 6.8 fL (7.4-10.4); Platelet Count 413 thou/uL (130-400); RBC Distribution Width 15.4 % (11.5-14.5); Red Blood Cell (RBC) Count 2.42 mill/uL (4.70-6.10); White Blood Cell (WBC) Count 12.5 thou/uL (4.8-10.8)
[2018-08-16] MEDS: Nystatin Powder 15 GM BOT TOP PRN (07:40)
[2018-08-16] MEDS ORDERED: Digoxin 0.5 MG/2 ML AMP ONE (08:07)
[2018-08-16] MEDS ORDERED: Digoxin 0.5 MG/2 ML AMP SLOW IVP SCH (08:15)
[2018-08-16] MEDS: Amlodipine 5 MG TAB PO SCH (08:20)
[2018-08-16] MEDS: Aspirin 81 mg Enteric Coated Tablet PO SCH (08:20)
[2018-08-16] MEDS ORDERED: Digoxin 0.125 MG TAB PO SCH (09:00)
[2018-08-16] MEDS ORDERED: Digoxin 0.25 MG TAB PO SCH ×2 (10:00→10:30)
--- NOTE | 2018-08-16 10:26 | PDOC.CTH ---
Cardiology Progress Note - Subjective No new complaints. Still anemic. Overnight still with flutter w/RVR - Objective Vital Signs Temp Pulse Resp BP BP Pulse Ox 08/16/18 08:20 157 H 136/74 08/16/18 08:14 157 H 08/16/18 08:13 157 H 08/16/18 08:05 97.8 F 157 H 20 136/74 93 L 08/16/18 04:00 98.7 F 103 H 21 H 134/58 L 93 L 08/15/18 23:52 105 H 189/79 H 08/15/18 23:29 105 H 189/79 H Weight 273 lb 1.6 oz 08/15/18 08/16/18 08/17/18 06:59 06:59 06:59 Intake Total 1070 1820 240 Output Total 2700 2050 Balance -1630 -230 240 - Physical Examination General/Neuro: alert & oriented x3 Neck: no JVD present Abdomen: NT/ND - Telemetry Telemetry Rhythm: Currently sinus tach - Labs Result Diagrams: 08/16/18 15:35 08/16/18 09:04 Troponin/CKMB Troponin I Less than 0.010 ng/mL (< 0.028) 08/13/18 21:02 - Assessment/Plan 1. PSVT 2. AFlutter 3. SSS on bblockers 4. CKD-4 5. Chronic anemia requiring frequent transfusions 6. s/p TAVR 7. s/p PCI 8. Chronic venous disease 9. History of frequent UTIs 10. Penile pseudomonas with negative urine Cx Still with breakthrough arrhythmias on po Digoxin. IV given in last 12 hours. Now sinus tach. Remains anemic despite transfusion yesterday. May benefit from another unit of blood. Continue Dig. No pauses at this time. Guarded prognosis. Pt seen and examined. Options limited. Pt with intermittent afib and anemia with guiac (+) stools. Pt receiving transfusion. Family not present today for further discussion such as hospice.
[2018-08-16 13:10] LABS: Anion Gap 16 mmol/L (10-20); BUN (Urea Nitrogen) 35 mg/dL (8.4-25.7); Calc. Creatinine Clearance 46 mL/min (70-130); Calcium 8.6 mg/dL (7.8-10.44); Carbon Dioxide 27 mmol/L (23-31); Chloride 103 mmol/L (98-107); Estimated GFR-MDRD 28; Glucose 166 mg/dL (83-110); Potassium 4.2 mmol/L (3.5-5.1); Sodium 142 mmol/L (136-145)
--- NOTE | 2018-08-16 13:25 | PDOC.PN ---
- Subjective Encounter Start Date: 08/16/18 Encounter Start Time: 07:20 Pt seen for followup re: acute on chronic renal failure. Reports generalized weakness. had black stools. - Objective Resuscitation Status - Order Detail: 08/13/18 17:30 Resuscitation Status Routine Resuscitation Status: FULL: Full Resuscitation MAR Reviewed: Yes Vital Signs & Weight: Vital Signs (12 hours) Temp Pulse Pulse Resp BP BP BP 08/16/18 12:20 98.6 F 107 H 20 137/62 08/16/18 11:05 98.6 F 104 H 18 154/67 H 08/16/18 10:54 100 08/16/18 10:50 98.4 F 100 18 138/60 08/16/18 08:20 157 H 136/74 08/16/18 08:14 157 H 08/16/18 08:13 157 H 08/16/18 08:05 97.8 F 157 H 20 136/74 08/16/18 08:00 08/16/18 04:00 98.7 F 103 H 21 H 134/58 L Pulse Ox 08/16/18 12:20 93 L 08/16/18 11:05 93 L 08/16/18 10:54 08/16/18 10:50 91 L 08/16/18 08:20 08/16/18 08:14 08/16/18 08:13 08/16/18 08:05 93 L 08/16/18 08:00 93 L 08/16/18 04:00 93 L Weight Weight 273 lb 1.6 oz I&O: 08/15/18 08/16/18 08/17/18 06:59 06:59 06:59 Intake Total 1070 1820 240 Output Total 2700 2050 Balance -1630 -230 240 Result Diagrams: 08/16/18 06:58 08/16/18 09:04 EKG Reviewed by me: Yes (Tele: NSR) Phys Exam - Physical Examination Morbid obesity HEENT: moist MMs, sclera anicteric, oral pharynx no lesions, 2+ tonsils pallor Neck: no nodes, no JVD, supple, full ROM Respiratory: clear to auscultation bilateral Cardiovascular: RRR, no rub S1, S2 Gastrointestinal: soft, non-tender, no distention, positive bowel sounds Musculoskeletal: edema present Neurological: moves all 4 limbs Psychiatric: normal affect, A&O x 3 Dx/Plan (1) Acute worsening of stage 3 chronic kidney disease Code(s): N18.3 - CHRONIC KIDNEY DISEASE, STAGE 3 (MODERATE) Status: Acute Comment: creatinine improved to 2.30 today (2) Melena Code(s): K92.1 - MELENA Status: Acute Comment: Stool occult blood +ve. Start PPI drip, consult GI. Check with cardiology if okay to stop aspirin. (3) Sinus pause Code(s): I45.5 - OTHER SPECIFIED HEART BLOCK Status: Acute Comment: await EP opinion - Plan * . Review of Systems - Review of Systems Constitutional: weakness. negative: fever, chills, sweats, malaise Respiratory: SOB with Excertion. negative: Cough, Shortness of Breath, Pleuritic Pain, Wheezing Cardiovascular: negative: chest pain, palpitations, orthopnea, paroxysmal nocturnal dyspnea, edema, light headedness, other Gastrointestinal: Melena. negative: Nausea, Vomiting, Abdominal Pain, Diarrhea , Constipation, Hematochezia Genitourinary: negative: Dysuria, Frequency, Incontinence, Hematuria, Retention Skin: negative: Rash, Lesions, Vikas, Bruising - Medications/Allergies Allergies/Adverse Reactions: Allergies Allergy/AdvReac Type Severity Reaction Status Date / Time No Known Allergies Allergy Verified 08/13/18 20:53 Medications: Current Medications Amlodipine Besylate (Norvasc) 5 mg PO DAILY [facility] Last Admin: 08/16/18 08:20 Dose: 5 mg Digoxin (Lanoxin) 0.25 mg PO DAILY [facility] Epoetin Jean Carlos (Procrit) 10,000 units SC Q7D [facility] Last Admin: 08/14/18 16:23 Dose: 10,000 units Hydralazine HCl (Apresoline) 10 mg SLOW IVP Q4H PRN PRN Reason: SBP > 180 Ciprofloxacin/Dextrose 400 mg/ (Device) 200 mls @ 200 mls/hr IVPB 1200,2359 [facility] Pantoprazole Sodium 80 mg/ (Sodium Chloride) 100 mls @ 10 mls/hr IVPB INF [facility] Melatonin (Melatonin) 3 mg PO HS PRN PRN Reason: Insomnia Last Admin: 08/15/18 22:25 Dose: 3 mg Nystatin (Mycostatin Powder) 0 gm TOP PRN PRN PRN Reason: DIRECTED Last Admin: 08/16/18 07:40 Dose: 1 applic Sodium Chloride (Flush - Normal Saline) 10 ml IVF PRN PRN PRN Reason: Saline Flush Last Admin: 08/16/18 08:14 Dose: 10 ml Tamsulosin HCl (Flomax) 0.4 mg PO HS [facility] Last Admin: 08/15/18 22:25 Dose: 0.4 mg
--- NOTE | 2018-08-16 14:06 | PRG ---
DATE OF SERVICE: 08/16/2018 SUBJECTIVE: A 77-year-old gentleman, being seen for ischemic nephropathy. The patient denies any nausea, vomiting, or chest pain. OBJECTIVE: CONSTITUTIONAL: On examination, the patient is awake, alert. VITAL SIGNS: Afebrile, pulse 98, breathing is 16, and blood pressure 154/67. GENERAL APPEARANCE AND MENTAL STATUS: Fair. HEAD/NECK: Normocephalic. Atraumatic. EYES: EOMI. No deformity. EARS: Clear. No ulcers. NOSE: Intact. No lesions. MOUTH: Clear. No discharge. THROAT: Clear. No exudate. LUNGS: Clear. No crackles. CARDIAC: S1, S2. No rub. ABDOMEN: Benign. Bowel sounds positive. GENITALIA/RECTUM: Allen absent. BACK/EXTREMITIES: Edema 0+. NEUROLOGICAL: Alert and motor intact. LABORATORY DATA: Labs show creatinine is 2.3. ASSESSMENT AND PLAN: 1. Chronic kidney disease, stage 4 with progressive rise in creatinine most likely due to chronic ischemic nephropathy. 2. Anemia, treated with blood. Overall prognosis is poor. 3. Hypertension, stable. 4. Medications based on glomerular filtration rate are appropriate. Job ID: [id number]
[2018-08-16] MEDS: Pantoprazole 80 MG in Sodium Chloride 0.9% 100 ML IVPB SCH (15:29)
[2018-08-16 15:45] LABS: Hemoglobin 7.4 g/dL (14.0-18.0)
[2018-08-16 19:19] LABS: Hemoglobin 7.6 g/dL (14.0-18.0)
[2018-08-16] MEDS: Tamsulosin HCl 0.4 MG CAP PO SCH (21:20)
[2018-08-16] MEDS: Melatonin 3 MG TAB PO PRN (21:20)
[2018-08-17] MEDS: Pantoprazole 80 MG in Sodium Chloride 0.9% 100 ML IVPB SCH ×2 (00:38→18:03)
--- NOTE | 2018-08-17 04:14 | CON ---
DATE OF CONSULTATION: REASON FOR CONSULTATION: 1. Anemia, which is recurrent. 2. History of dark stool and with positive fecal occult blood test. HISTORY OF PRESENT ILLNESS: Mr. Yfn Fraga is a 77-year-old male who is known to Dr. Jonathan Bustillos from before. The patient has history of recurrent anemia requiring blood transfusions. The patient hospitalized because of chest tightness and periods of SVT with atrial flutter/fibrillation. The patient had been seen by Dr. John East. The patient tells me he has had constipation over the last couple of weeks and he has been placed on some laxatives. He has been taking 3 pills twice a day and now for the last several days, he has been having multiple loose soft watery stools. Today, nurse has noted stool to be dark and tarry. The fecal occult blood test came back positive. The patient had been here before and was here 2 weeks ago and was seen by Dr. Jonathan Bustillos. He was seen by Dr. Jonathan Bustillos because of anemia and dropped blood count. He had stool guaiac done at that time. The fecal occult blood test was negative at that time. They also mention of prostate cancer in the past and also rectal telangiectasias. As per Dr. Bustillos' s consultation 2 weeks ago, he felt the patient does not need any endoscopy studies as he has had multiple scopes in the past and did not show any pathology. As per the patient, the last EGD and colonoscopy done by Dr. Bustillos in his office .. At present time, Mr. Fraga does not have abdominal pain. No chest pain. No nausea or vomiting. No indigestion or heartburn. But, he has had 4 or 5 stools today and stools are dark and somewhat mucus. Blood count on 08/15 was 6.7, today 6.6, so not a whole lot of difference in the blood count. On 08/13, his blood count was 7.5 and 7.2 on 08/14 without any whole lot of difference in terms of hemoglobin except mild drop. No other relevant history. PAST MEDICAL HISTORY: 1. Obesity. 2. Coronary artery disease, status post stent placement. 3. Aortic valve replacement. 4. Prostate cancer. 5. Hypertension. 6. Anemia of chronic, requiring multiple transfusions over the years. 7. History of sepsis secondary to E coli UTI. He has also had chronic indwelling Allen catheter. PAST SURGICAL HISTORY: Aortic valve replacement; prostate cancer, status post resection; left hip replacement, and has had tonsillectomy. He also has had EGD and colonoscopy with Dr. Bustillos in the past. ALLERGIES: NONE. SOCIAL HISTORY: The patient is . He is a former smoker. He drinks wine occasionally. MEDICATION LIST: Reviewed, which include; 1. Fosamax. 2. Senokot. 3. Aspirin. 4. Procrit. 5. Omnicef. 6. Metoprolol. 7. Nystatin powder. REVIEW OF SYSTEMS: [employer] MECH[employer]ICAL ENGINE[employer]: No dizziness. No chronic headache. No seizure disorder. RESPIRATORY SYSTEM: No chronic cough, hemoptysis, or dyspnea. CARDIOVASCULAR SYSTEM: No chest pain. No palpitation. No dyspnea, orthopnea, or PND at the present time. GI: No abdominal pain, no nausea, no vomiting, but history of black tarry stools recently. Other systems reviewed and are normal. PHYSICAL EXAMINATION: GENERAL: The patient is obese, appears comfortable. His pulse is 100, blood pressure 154/67. HEENT: Conjunctivae clear. NECK: Supple. CARDIOVASCULAR SYSTEM: First and second heart sounds were heard. LUNGS: Clear to auscultation. ABDOMEN: Soft and nontender. No organomegaly or masses. [employer] MECH[employer]ICAL ENGINEER: Within normal limits. LABORATORY DATA: Shows anemia, which has been chronic in nature. On 08/13, WBC count 15,900, today 12,500; hemoglobin 7.5, today 6.6; hematocrit 28.4, platelet count is normal at 418,000, polymorphs 81, lymphocytes 7, monocytes 9. Serum chemistries; sodium is 142, potassium 4.2, chloride is 103, bicarb 27, BUN is 35 , creatinine 2.30, and glucose 166. Iron is 12, TIBC is 185, folate 9, vitamin B12 388. CLINICAL IMPRESSION: 1. A 77-year-old male with chronic anemia, requiring transfusion over the years. He is on Procrit. As per the Dr. Jonathan Bustillos's consultation report 2 weeks ago, he has had endoscopic studies which were negative. On his last admission which was two weeks ago, Dr. Bustillos did not feel he needs any endoscopy studies. However , at that time, his fecal occult blood test was negative. Now, he is having some tarry stools and also positive stool guaiac. Blood count did not drop down significantly. There is also mention of rectal telangiectasias. I am not sure that he is bleeding from rectal telangiectasias or he has some other pathology. 2. Supraventricular tachycardia, atrial flutter/fibrillation. 3. Aortic valve replacement. 4. Coronary artery disease, status post stent placement. 5. Chronic anemia. 6. Previous endoscopy studies negative. 7. Prostate cancer, resection and possibly radiation. As the patient is following Dr. Jonathan Bustillos, I will let Dr. Bustillos to decide whether he wants to do endoscopic studies. I will keep him n.p.o. today and postpone the EGD possibly tomorrow. If Dr. Bustillos feels this should be done, I am very sure Dr. Bustillos will pursue the endoscopic studies tomorrow. In the meantime, we would recommend follow up hemoglobin and hematocrit and transfuse p.r.n. Job ID: [id number] MTDD
[2018-08-17] MEDS: Digoxin 0.25 MG TAB PO SCH (08:45)
[2018-08-17] MEDS: Amlodipine 5 MG TAB PO SCH (08:45)
[2018-08-17 09:16] LABS: Hemoglobin 6.3 g/dL (14.0-18.0)
[2018-08-17 09:44] LABS: Anion Gap 10 mmol/L (10-20); BUN (Urea Nitrogen) 46 mg/dL (8.4-25.7); Calc. Creatinine Clearance 46 mL/min (70-130); Calcium 8.4 mg/dL (7.8-10.44); Carbon Dioxide 31 mmol/L (23-31); Chloride 103 mmol/L (98-107); Estimated GFR-MDRD 27; Glucose 112 mg/dL (83-110); Potassium 4.4 mmol/L (3.5-5.1); Sodium 140 mmol/L (136-145)
[2018-08-17] MEDS ORDERED: Digoxin 0.25 MG TAB PO SCH (10:00)
--- NOTE | 2018-08-17 10:00 | PRG ---
DATE OF SERVICE: 08/17/2018 SUBJECTIVE: A 77-year-old gentleman, being seen for acute kidney injury. The patient denies nausea, vomiting, or chest pain. OBJECTIVE: CONSTITUTIONAL: The patient is awake and alert. VITAL SIGNS: Afebrile. Pulse 101, breathing 16, blood pressure 137/65. GENERAL APPEARANCE AND MENTAL STATUS: Fair. HEAD/NECK: Normocephalic. Atraumatic. EYES: EOMI. No deformity. EARS: Clear. No ulcers. NOSE: Intact. No lesions. MOUTH: Clear. No discharge. THROAT: Clear. No exudate. LUNGS: Clear. No crackles. CARDIAC: S1, S2. No rub. ABDOMEN: Benign. Bowel sounds positive. GENITALIA/RECTUM: Allen absent. BACK/EXTREMITIES: Edema 0+. NEUROLOGICAL: Alert and motor intact. LABORATORY DATA: Labs show hemoglobin 6.3, creatinine 2.3. ASSESSMENT AND PLAN: 1. Acute kidney injury with progressive chronic kidney disease due to chronic ischemic nephropathy. 2. Hypertension, stable. 3. Anemia, transfusion per primary team. 4. Medications based on glomerular filtration rate as appropriate. Job ID: [id number]
--- NOTE | 2018-08-17 14:55 | PRG ---
DATE OF SERVICE: 08/17/2018 SUBJECTIVE: Mr. Fraga has no acute complaints. He presented this morning for upper endoscopy to evaluate anemia and melena. However, in the preop area, he was noted to have a heart rate in the 150 range and a hemoglobin of 6.3, and this procedure was placed on hold. He was transferred back up to telemetry and he received a unit transfusion. Currently, he has no abdominal pain. His last bowel movement was yesterday. OBJECTIVE: VITAL SIGNS: Currently, his pulse is in the 112 range, blood pressure 140/66, and temperature 98.2. GENERAL: He is in no acute distress. He is pale. Awake and alert. LUNGS: Clear to auscultation bilaterally. HEART: Tachycardic with murmur over the right upper sternal border. ABDOMEN: Soft, nontender, and nondistended. Bowel sounds are present. EXTREMITIES: 1+ pitting lower extremity edema. IMPRESSION: 1. Acute on chronic anemia. His iron studies more consistent with anemia of chronic disease. However, given the melena and Hemoccult-positive stool, I am concerned for an upper gastrointestinal bleeding, source is being evaluated. He did have endoscopy back in May, which was normal. He has had prior upper and lower endoscopies for iron deficiency anemia that have been negative in the past. In this hospitalization, he has received 3 units of blood now. He also was hospitalized a couple of weeks ago and required 4 units transfusion then. At that time, he had no signs of overt gastrointestinal bleeding. 2. Chronic kidney disease. 3. Coronary artery disease and history of aortic valve replacement. He did have supraventricular tachycardia earlier this hospitalization. RECOMMENDATIONS: 1. His endoscopy has been held today. 2. He has received a unit transfusion today and we will reassess tomorrow. If he is stable, then we can perform upper endoscopy tomorrow. We will keep him n.p.o. past midnight. We will also reassess his response to transfusion in the morning. His tachycardia has improved back to the 112 range. Job ID: [id number]
--- NOTE | 2018-08-17 16:53 | PDOC.PN ---
- Subjective Encounter Start Date: 08/17/18 Encounter Start Time: 08:00 Pt seen for followup re: anemia. Denies chest pain. - Objective Resuscitation Status - Order Detail: 08/13/18 17:30 Resuscitation Status Routine Resuscitation Status: FULL: Full Resuscitation MAR Reviewed: Yes Vital Signs & Weight: Vital Signs (12 hours) Temp Pulse Resp BP Pulse Ox 08/17/18 15:17 98.1 F 115 H 22 H 176/72 H 96 08/17/18 13:43 111 H 22 H 146/66 H 97 08/17/18 08:45 92 L 08/17/18 07:42 98.2 F 101 H 20 137/65 92 L Weight Weight 282 lb 9.6 oz I&O: 08/16/18 08/17/18 08/18/18 06:59 06:59 06:59 Intake Total 1819 2039 Output Total 2049 2149 Balance -230 -110 Result Diagrams: 08/17/18 09:07 08/17/18 09:07 EKG Reviewed by me: Yes (Tele: NSR) Phys Exam - Physical Examination Morbid obesity HEENT: moist MMs Neck: supple Respiratory: clear to auscultation bilateral Cardiovascular: RRR Gastrointestinal: soft Neurological: moves all 4 limbs Psychiatric: normal affect Dx/Plan (1) Acute worsening of stage 3 chronic kidney disease Code(s): N18.3 - CHRONIC KIDNEY DISEASE, STAGE 3 (MODERATE) Status: Acute Comment: creatinine 2.37 today (2) Melena Code(s): K92.1 - MELENA Status: Acute Comment: awaiting EGD (3) Sinus pause Code(s): I45.5 - OTHER SPECIFIED HEART BLOCK Status: Acute Comment: cardiology following - Plan * . Review of Systems - Review of Systems Cardiovascular: negative: chest pain, palpitations, orthopnea, paroxysmal nocturnal dyspnea, edema, light headedness Gastrointestinal: negative: Nausea, Vomiting, Abdominal Pain, Diarrhea, Constipation, Hematochezia - Medications/Allergies Allergies/Adverse Reactions: Allergies Allergy/AdvReac Type Severity Reaction Status Date / Time No Known Allergies Allergy Verified 08/13/18 20:53 Medications: Current Medications Amlodipine Besylate (Norvasc) 5 mg PO DAILY [facility] Last Admin: 08/17/18 08:45 Dose: 5 mg Digoxin (Lanoxin) 0.25 mg PO DAILY [facility] Last Admin: 08/17/18 08:45 Dose: 0.25 mg Epoetin Jean Carlos (Procrit) 10,000 units SC Q7D [facility] Last Admin: 08/14/18 16:23 Dose: 10,000 units Hydralazine HCl (Apresoline) 10 mg SLOW IVP Q4H PRN PRN Reason: SBP > 180 Ciprofloxacin/Dextrose 400 mg/ (Device) 200 mls @ 200 mls/hr IVPB 1200,2359 [facility] Last Admin: 08/17/18 14:23 Dose: Not Given Pantoprazole Sodium 80 mg/ (Sodium Chloride) 100 mls @ 10 mls/hr IVPB INF [facility] Last Admin: 08/17/18 00:38 Dose: 100 mls Melatonin (Melatonin) 3 mg PO HS PRN PRN Reason: Insomnia Last Admin: 08/16/18 21:20 Dose: 3 mg Nystatin (Mycostatin Powder) 0 gm TOP PRN PRN PRN Reason: DIRECTED Last Admin: 08/16/18 07:40 Dose: 1 applic Sodium Chloride (Flush - Normal Saline) 10 ml IVF PRN PRN PRN Reason: Saline Flush Last Admin: 08/16/18 15:31 Dose: 10 ml Tamsulosin HCl (Flomax) 0.4 mg PO HS [facility] Last Admin: 08/16/18 21:20 Dose: 0.4 mg
[2018-08-17] MEDS: Tamsulosin HCl 0.4 MG CAP PO SCH (20:42)
--- NOTE | 2018-08-17 21:05 | PDOC.CTH ---
Cardiology Progress Note - Subjective He went to have his EGD and it was cancelled as he was in rapid aflutter HR in the 150's. - Objective Vital Signs Temp Pulse Resp BP Pulse Ox 08/17/18 19:27 98.7 F 106 H 18 151/71 H 97 08/17/18 15:17 98.1 F 115 H 22 H 176/72 H 96 08/17/18 13:43 111 H 22 H 146/66 H 97 Weight 282 lb 9.6 oz 08/16/18 08/17/18 08/18/18 06:59 06:59 06:59 Intake Total 1819 2039 500 Output Total 2049 2149 Balance -230 -110 500 - Physical Examination General/Neuro: NAD Neck: no JVD present Lungs: other: (Crackles bases.) Heart: other: (Irreg, tachy.) Abdomen: NT/ND Extremities: + edema B (2+) - Telemetry Telemetry Rhythm: Aflutter HR 150's. - Labs Result Diagrams: 08/17/18 09:07 08/17/18 09:07 Troponin/CKMB Troponin I Less than 0.010 ng/mL (< 0.028) 08/13/18 21:02 - Assessment/Plan 1. PSVT 2. AFlutter 3. SSS on bblockers 4. CKD-4 5. Chronic anemia requiring frequent transfusions 6. s/p TAVR 7. s/p PCI 8. History of frequent UTIs 9. Penile pseudomonas with negative urine Cx PLAN: - He has had pauses on BB. He has SSS and most likely will need a PPM for this. He has chronic infections which would make a PPM prohibitive. - Options are very limited at this time continue current meds. No Amiodarone as high risk of bradyarrhythmias. - Hospice care would be reasonable. - Will follow.
[2018-08-17] MEDS ORDERED: Amiodarone 450 MG in Dextrose 5% in Water 250 ML IVPB SCH (21:15)
[2018-08-18] MEDS: Pantoprazole 80 MG in Sodium Chloride 0.9% 100 ML IVPB SCH (03:50)
[2018-08-18 06:24] LABS: #Eosinphils 0.3 thou/uL (0.0-0.7); #Monocytes 1.3 thou/uL (0.11-0.59); #Neutrophils 12.2 thou/uL (1.40-6.50); %Basophils 0.1 % (0.0-1.0); %Eosinophils 1.7 % (0.0-10.0); %Lymphocytes 6.6 % (21.0-51.0); %Monocytes 8.8 % (0.0-10.0); %Neutrophils 82.7 % (42.0-75.0); Hemoglobin 6.7 g/dL (14.0-18.0); Mean Corpuscular HGB CONC 32.2 g/dL (32.0-36.0); Mean Corpuscular Hemoglobin 29.1 pg (27.0-31.0); Mean Corpuscular Volume 90.2 fL (78.0-98.0); Mean Platelet Volume 6.9 fL (7.4-10.4); Platelet Count 364 thou/uL (130-400); RBC Distribution Width 15.1 % (11.5-14.5); Red Blood Cell (RBC) Count 2.31 mill/uL (4.70-6.10); White Blood Cell (WBC) Count 14.8 thou/uL (4.8-10.8)
[2018-08-18 06:47] LABS: Anion Gap 12 mmol/L (10-20); BUN (Urea Nitrogen) 46 mg/dL (8.4-25.7); Calc. Creatinine Clearance 40 mL/min (70-130); Calcium 8.4 mg/dL (7.8-10.44); Carbon Dioxide 30 mmol/L (23-31); Chloride 102 mmol/L (98-107); Estimated GFR-MDRD 23; Glucose 106 mg/dL (83-110); Potassium 4.7 mmol/L (3.5-5.1); Sodium 139 mmol/L (136-145)
[2018-08-18] MEDS ORDERED: Furosemide 20 MG/2 ML VIAL SLOW IVP SCH (10:30)
[2018-08-18] MEDS: Amlodipine 5 MG TAB PO SCH (10:34)
[2018-08-18] MEDS: Digoxin 0.25 MG TAB PO SCH (10:34)
--- NOTE | 2018-08-18 11:51 | CT ---
CT ABDOMEN AND PELVIS NONCONTRAST: HISTORY: Hematuria. Hydronephrosis. COMPARISON: 06/07/2018. FINDINGS: Bilateral ureteral stents are in place. Mild left hydroureteral nephrosis persists. Tiny calculus i s now present within a calyx at the posterior aspect of the right kidney. Lack of contrast limits evaluation for other abnormalities. Subtle stranding around the kidneys and ureters is stable. Cysts are apparent within the liver. Calcification throughout the arterial struc tures. No retroperitoneal fluid collections. Urinary bladder contains Allen catheter and gas. IMPRESSION: 1. Bilateral ureteral stents are in place. Chronic mild left hydroureteral nephrosis. Cause is not evident. 2. A tiny amount of obstructing right renal calculus. 3. Atherosclerosis. POS: YOLIS
--- NOTE | 2018-08-18 11:52 | PRG ---
DATE OF SERVICE: 08/18/2018 SUBJECTIVE: Mr. Fraga has no acute complaints. No abdominal pain or chest pain. OBJECTIVE: VITAL SIGNS: Temperature is 98.7, pulse 101, blood pressure 127/58. His oxygen saturations 94% on 2 L nasal cannula. GENERAL: He is pale. LUNGS: Clear to auscultation bilaterally. HEART: Tachycardic, S1 and S2. ABDOMEN: Soft, nontender, and nondistended. RECTAL: This morning, still reveals black melenic appearing stool in the rectal vault in small amount. EXTREMITIES: 2+ pitting lower extremity edema. IMPRESSION: 1. Anemia of acute blood loss. He has received 3 units of transfusion so far in this hospital stay and his hemoglobin is still 6.7 this morning. 2. Anemia of chronic disease. He now appears to have an acute post hemorrhagic anemia in addition to that. 3. Intermittent atrial flutter and sick sinus syndrome. 4. Chronic renal insufficiency. RECOMMENDATIONS: 1. We will transfuse 2 units this morning. 2. If we can get him adequately stable, we will plan EGD this afternoon. He is certainly at high risk for any anesthesia. Job ID: [id number]
--- NOTE | 2018-08-18 12:45 | PRG ---
DATE OF SERVICE: 08/18/2018 SUBJECTIVE: A 77-year-old gentleman with acute kidney injury with progressive decline in renal function. The patient denies any nausea, vomiting, or chest pain. OBJECTIVE: CONSTITUTIONAL: The patient is awake, alert. VITAL SIGNS: Afebrile. Pulse 101, breathing 16, blood pressure 127/58. GENERAL APPEARANCE AND MENTAL STATUS: Fair. HEAD/NECK: Normocephalic. Atraumatic. EYES: EOMI. No deformity. EARS: Clear. No ulcers. NOSE: Intact. No lesions. MOUTH: Clear. No discharge. THROAT: Clear. No exudate. LUNGS: Clear. No crackles. CARDIAC: S1, S2. No rub. ABDOMEN: Benign. Bowel sounds positive. GENITALIA/RECTUM: Allen absent. BACK/EXTREMITIES: Edema 0+. NEUROLOGICAL: Alert and motor intact. LABORATORY DATA: Hemoglobin 6.7, creatinine 2.7. ASSESSMENT: 1. Acute kidney injury with progressive chronic kidney disease, most likely due to decreased effective arterial blood volume and/or cardiorenal syndrome. The patient does have some hydronephrosis, so I will order imaging. The patient does have chronic hydronephrosis and ureteral stent. No indication for dialysis. 2. Hypertension, stable. 3. Anemia, management per Primary Team. 4. Overall prognosis is poor. Job ID: [id number]
[2018-08-18] MEDS ORDERED: PROPOFOL 200 MG/20 ML VIAL ONE (13:00)
[2018-08-18] MEDS ORDERED: Albuterol Sulfate 1.25 MG/3 ML NEB ONE (13:05)
[2018-08-18] MEDS ORDERED: KETAMINE 100 MG/ML (5ML VIAL) ONE (13:43)
--- NOTE | 2018-08-18 14:07 | PDOC.PN ---
- Subjective Encounter Start Date: 08/18/18 Encounter Start Time: 07:20 Pt seen for followup re: melena. Denies chest pain. Feels hungry. - Objective Resuscitation Status - Order Detail: 08/13/18 17:30 Resuscitation Status Routine Resuscitation Status: FULL: Full Resuscitation MAR Reviewed: Yes Vital Signs & Weight: Vital Signs (12 hours) Temp Pulse Resp BP Pulse Ox 08/18/18 12:22 98.6 F 99 19 138/62 97 08/18/18 10:34 101 H 08/18/18 07:53 98.7 F 101 H 21 H 127/58 L 94 L 08/18/18 03:05 98.5 F 100 16 158/63 H 97 Weight Weight 280 lb I&O: 08/17/18 08/18/18 08/19/18 06:59 06:59 06:59 Intake Total 2040 733 Output Total 2150 1850 Balance -110 -1117 Result Diagrams: 08/18/18 05:41 08/18/18 05:41 EKG Reviewed by me: Yes (Tele: s. tach/a. flutter) Phys Exam - Physical Examination Morbid obesity HEENT: moist MMs Neck: supple Respiratory: clear to auscultation bilateral Cardiovascular: RRR Gastrointestinal: soft Neurological: moves all 4 limbs Psychiatric: normal affect Dx/Plan (1) Melena Code(s): K92.1 - MELENA Status: Acute Comment: yesterday's EDG cancelled fur to afib/flutter. Awaiting EGD today. (2) Acute worsening of stage 3 chronic kidney disease Code(s): N18.3 - CHRONIC KIDNEY DISEASE, STAGE 3 (MODERATE) Status: Acute Comment: creatinine slightly worse at 2.71 today (3) Sinus pause Code(s): I45.5 - OTHER SPECIFIED HEART BLOCK Status: Acute Comment: cardiology following - Plan * . Review of Systems - Review of Systems Respiratory: negative: Cough, Shortness of Breath, SOB with Excertion, Pleuritic Pain, Wheezing Cardiovascular: negative: chest pain, palpitations, orthopnea, paroxysmal nocturnal dyspnea, edema, light headedness - Medications/Allergies Allergies/Adverse Reactions: Allergies Allergy/AdvReac Type Severity Reaction Status Date / Time No Known Allergies Allergy Verified 08/13/18 20:53 Medications: Current Medications Amlodipine Besylate (Norvasc) 5 mg PO DAILY [facility] Last Admin: 08/18/18 10:34 Dose: 5 mg Digoxin (Lanoxin) 0.25 mg PO DAILY [facility] Last Admin: 08/18/18 10:34 Dose: 0.25 mg Epoetin Jean Carlos (Procrit) 10,000 units SC Q7D [facility] Last Admin: 08/14/18 16:23 Dose: 10,000 units Furosemide (Lasix) 20 mg SLOW IVP ONE [facility] Stop: 08/18/18 21:00 Hydralazine HCl (Apresoline) 10 mg SLOW IVP Q4H PRN PRN Reason: SBP > 180 Ciprofloxacin/Dextrose 400 mg/ (Device) 200 mls @ 200 mls/hr IVPB 1200,2359 [facility] Last Admin: 08/18/18 13:17 Dose: Not Given Pantoprazole Sodium 80 mg/ (Sodium Chloride) 100 mls @ 10 mls/hr IVPB INF [facility] Last Admin: 08/18/18 03:50 Dose: 100 mls Melatonin (Melatonin) 3 mg PO HS PRN PRN Reason: Insomnia Last Admin: 08/16/18 21:20 Dose: 3 mg Nystatin (Mycostatin Powder) 0 gm TOP PRN PRN PRN Reason: DIRECTED Last Admin: 08/16/18 07:40 Dose: 1 applic Sodium Chloride (Flush - Normal Saline) 10 ml IVF PRN PRN PRN Reason: Saline Flush Last Admin: 08/16/18 15:31 Dose: 10 ml Tamsulosin HCl (Flomax) 0.4 mg PO HS [facility] Last Admin: 08/17/18 20:42 Dose: 0.4 mg
--- NOTE | 2018-08-18 15:10 | OP ---
DATE OF PROCEDURE: 08/18/2018 PROCEDURE PERFORMED: Esophagogastroduodenoscopy with control of hemorrhage. PREOPERATIVE DIAGNOSIS: Anemia secondary to acute blood loss and gastrointestinal bleed. OPERATIVE NOTE: Informed consent was obtained from the patient. He was sedated with total intravenous anesthesia. The bite block was placed and the endoscope was advanced easily to the 2nd portion of the duodenum. There were multiple vascular ectasias in the 2nd portion of the duodenum. There was also blood clot overlying a vascular ectasia in the 3rd portion of the duodenum that could not be reached with the regular endoscope. Exchange was made for a colonoscope to reach that site to the 3rd portion of the duodenum. Five AVMs were visualized, two of which were actively bleeding. All five vascular ectasias were cauterized with argon plasma coagulation with good hemostasis confirmed. The AVMs generally measured 4 to 6 mm in size and were parry red. The stomach and the esophagus were otherwise normal. Retroflexed views in the stomach were unremarkable. IMPRESSION: 1. 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 Five vascular ectasias were visualized and cauterized with argon plasma coagulation; two of these were actively bleeding at that time. 2. Otherwise normal EGD. RECOMMENDATIONS: 1. Follow trend of the hemoglobin. 2. Transfuse 2 units of red blood cells today. Job ID: [id number]
--- NOTE | 2018-08-18 17:17 | PDOC.CTH ---
Cardiology Progress Note - Subjective He is still having paroxysms of aflutter HR to the 150's. He had his EGD and showed active bleeding AVMs in the duodenum that were cauterized. - Objective Vital Signs Temp Pulse Pulse Resp BP BP Pulse Ox 08/18/18 16:21 99.0 F 98 22 H 150/66 H 98 08/18/18 15:30 99.0 F 101 H 22 H 136/60 98 08/18/18 15:04 97.0 F L 102 H 24 H 123/57 L 08/18/18 12:22 98.6 F 99 19 138/62 97 08/18/18 10:34 101 H 08/18/18 07:53 98.7 F 101 H 21 H 127/58 L 94 L Weight 280 lb 08/17/18 08/18/18 08/19/18 06:59 06:59 06:59 Intake Total 2040 733 350 Output Total 2150 1850 Balance -110 -1117 350 - Physical Examination General/Neuro: alert & oriented x3, NAD Neck: no JVD present Lungs: unlabored respirations Heart: RRR Abdomen: NT/ND Extremities: + edema B (2+) - Telemetry Telemetry Rhythm: NSR, Aflutter. - Labs Result Diagrams: 08/18/18 05:41 08/18/18 05:41 Troponin/CKMB Troponin I Less than 0.010 ng/mL (< 0.028) 08/13/18 21:02 - Assessment/Plan 1. PSVT 2. AFlutter 3. SSS on bblockers 4. CKD-4 5. Acute blood loss anemia 6. s/p TAVR 7. s/p PCI 8. History of frequent UTIs 9. Penile pseudomonas with negative urine Cx 10. UGIB PLAN: - UGIB from vascular ectasias in duodenum cuaterized. Hopefully his Hgb will stabilize. - Continue to hold any anticoagulation or anti platelet.
[2018-08-18] MEDS: Pantoprazole 40 MG VIAL IVP SCH (20:23)
[2018-08-18] MEDS: Tamsulosin HCl 0.4 MG CAP PO SCH (20:23)
--- NOTE | 2018-08-18 23:45 | CON ---
DATE OF CONSULTATION: 08/18/2018 REASON FOR CONSULT: Gross hematuria with clot retention. HISTORY OF PRESENT ILLNESS: Mr. Fraga is a 77-year-old male, followed by Dr. Paz. The patient with history of prostate cancer with metastatic disease, he was treated at [facility] with radiation therapy. He was seen by Dr. Paz back in May 2018 due to history of hydronephrosis and gross hematuria. The patient underwent cystoscopy, stent placement, subsequent antegrade ureteral stent placement due to obstructing prostate cancer. He has had chronic indwelling urethral Allen catheter due to history of retention and gross hematuria. He was last seen by Dr. Paz on September 13 and had an indwelling urethral Allen catheter exchange uneventfully. 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 He is currently admitted due to severe anemia, found to have GI bleed, melena. He underwent EGD by Dr. Galaviz this afternoon and cauterized the source of bleed. He is currently being transfused. Of note, the nurses irrigated his Allen catheter last night. However, due to clots, a new Allen catheter was placed. They were unable to pass a 22 three-way, therefore a 20-[place] two-way Allen catheter was placed. Currently, it is draining. He denies sensation of incomplete void. PAST MEDICAL HISTORY: Includes hypertension, prostate cancer, history of heart valve, history of bilateral hydronephrosis, history of chronic renal insufficiency, history of chronic anemia. SURGICAL HISTORY: Hip replacement, heart valve replacement, status post bladder stone removal, cystoscopy, left stent placement in May [address] Paz. ALLERGIES: NO KNOWN DRUG ALLERGIES. FAMILY HISTORY: Unknown. PHYSICAL EXAMINATION: VITAL SIGNS: 99, 22, 98, 150/66. I's and O's 1850 of urine outputs. GENERAL: Patient currently is resting comfortably, easily arousable. HEENT: Unremarkable. HEART: Regular rate. LUNGS: Distant. ABDOMEN: Morbidly obese. A large umbilical hernia. No rigidity. No rebound. GENITOURINARY: His preexisting 20-[place] Allen catheter is adequately secured. There is dark venous hematuria component in the bag. I did irrigate his Allen catheter at the bedside. There were some clots that were evacuated approximately 100 mL. Otherwise, it was subsequent clearing and it is draining uneventfully. EXTREMITIES: Demonstrate chronic venous stasis changes. PERTINENT LABORATORY DATA: White count of 14, arrival hemoglobin on August 15 is 6.7, platelet today is 364. Coagulation profiles within normal limits. Creatinine is 2.7, which is near his baseline. Urine culture from August 13, 2018, is negative. CT of the abdomen and pelvis dated August 18, 2017, noncontrast, which I reviewed myself demonstrates bilateral ureteral stents in place with chronic mild left hydronephrosis, tiny right nonobstructing renal calculi with atherosclerosis. Bedside procedure, as above, I did irrigate his Allen catheter. Approximately 100 mL of dark venous clot evacuated with subsequent clearing. I did check on the patient subsequently an hour or two later demonstrating light red to tea-colored urine draining uneventfully. IMPRESSION AND PLAN: 1. Mr. Fraga is a 77-year-old male with history of prostate cancer, status post radiation therapy with metastatic disease. He has local invasion with necrotic bladder neck. As his catheter currently is draining, I did not exchange it to minimize further trauma. I did irrigate with no significant issues and subsequently draining uneventfully. Nursing orders provided to irrigate his Allen p.r.n. 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 2. Bilateral ureteral stent due to renal insufficiency. 3. Obstructing ureters bilaterally due to locally invasive prostate cancer. RECOMMENDATION: Continue indwelling Allen catheter and observe. Irrigate p.r.n. for clots. His main source of bleeding on this admission is upper GI bleed, which has been treated, on observation. No change in dispo regarding indwelling Allen catheter, to continue due to history of retention. We will follow on this admission as I am covering Dr. Paz this week. Job ID: [id number] [facility]
--- NOTE | 2018-08-19 07:26 | PRG ---
DATE OF SERVICE: 08/19/2018 SUBJECTIVE: The patient without complaints. Vital signs are stable. Urine output 1750 of laquita yellow urine. Abdomen is morbidly obese, protuberant. Catheter flushed at bedside with no significant clots. There was no repeat CBC ordered for this morning. Yesterday, his hemoglobin was 6.7. Creatinine yesterday is 2.7. IMPRESSION AND PLAN: Mr. Fraga is a 77-year-old male with history of prostate cancer status post RT with metastatic disease. History of necrotic bladder neck , prostate with trigonal invasion resulting in bilateral hydronephrosis status post bilateral stent. 1. History of chronic renal insufficiency. 2. Chronic indwelling Allen due to retention. 3. History of chronic recurrent gross hematuria secondary to above. His bladder was irrigated yesterday with clot evacuation. His subsequent urine has been clear. CBC ordered for this morning. From Urologic perspective, the patient can be discharged home, with indwelling urethral Allen catheter, to gravity bags when medically stable. The patient should follow up with Dr. Paz next week. will follow while in house. Job ID: [id number] [facility]
[2018-08-19 07:33] LABS: Hemoglobin 7.7 g/dL (14.0-18.0); Mean Corpuscular Hemoglobin 28.7 pg (27.0-31.0); Mean Corpuscular Volume 89.5 fL (78.0-98.0); Mean Platelet Volume 6.8 fL (7.4-10.4); Platelet Count 344 thou/uL (130-400); RBC Distribution Width 15.8 % (11.5-14.5); Red Blood Cell (RBC) Count 2.68 mill/uL (4.70-6.10); White Blood Cell (WBC) Count 14.9 thou/uL (4.8-10.8)
[2018-08-19 07:51] LABS: Anion Gap 11 mmol/L (10-20); BUN (Urea Nitrogen) 41 mg/dL (8.4-25.7); Calc. Creatinine Clearance 39 mL/min (70-130); Calcium 8.7 mg/dL (7.8-10.44); Carbon Dioxide 34 mmol/L (23-31); Chloride 103 mmol/L (98-107); Estimated GFR-MDRD 23; Glucose 100 mg/dL (83-110); Potassium 5.3 mmol/L (3.5-5.1); Sodium 143 mmol/L (136-145)
[2018-08-19] MEDS: Digoxin 0.25 MG TAB PO SCH (09:12)
[2018-08-19] MEDS: Pantoprazole 40 MG VIAL IVP SCH ×2 (09:12→21:03)
[2018-08-19] MEDS: Amlodipine 5 MG TAB PO SCH (09:13)
[2018-08-19 11:06] LABS: Anion Gap 9 mmol/L (10-20); BUN (Urea Nitrogen) 41 mg/dL (8.4-25.7); Calc. Creatinine Clearance 39 mL/min (70-130); Calcium 8.7 mg/dL (7.8-10.44); Carbon Dioxide 33 mmol/L (23-31); Chloride 101 mmol/L (98-107); Estimated GFR-MDRD 23; Glucose 127 mg/dL (83-110); Potassium 4.9 mmol/L (3.5-5.1); Sodium 138 mmol/L (136-145)
--- NOTE | 2018-08-19 11:30 | PRG ---
DATE OF SERVICE: 08/19/2018 SUBJECTIVE: A 77-year-old gentleman, being seen for acute kidney injury. The patient denies nausea, vomiting, or chest pain. OBJECTIVE: CONSTITUTIONAL: The patient is awake and alert. VITAL SIGNS: Afebrile, pulse 92, breathing 16, and blood pressure 130/95. GENERAL APPEARANCE AND MENTAL STATUS: Fair. HEAD/NECK: Normocephalic. Atraumatic. EYES: EOMI. No deformity. EARS: Clear. No ulcers. NOSE: Intact. No lesions. MOUTH: Clear. No discharge. THROAT: Clear. No exudate. LUNGS: Clear. No crackles. CARDIAC: S1, S2. No rub. ABDOMEN: Benign. Bowel sounds positive. GENITALIA/RECTUM: Allen absent. BACK/EXTREMITIES: Edema 0+. NEUROLOGICAL: Alert and motor intact. SKIN: LYMPHATICS: LABORATORY DATA: Labs show hemoglobin 7.7, potassium is 4.9, and creatinine 2.7. ASSESSMENT AND PLAN: 1. Chronic kidney disease stage 4, stable. 2. Hypertension, stable. 3. Acute kidney injury, stable. 4. Hyperkalemia, stable. 5. No indication for dialysis. 6. I would recommend low-potassium diet. 7. Lasix as use needed. Job ID: [id number] [facility]
--- NOTE | 2018-08-19 14:03 | PDOC.PN ---
- Subjective Encounter Start Date: 08/19/18 Encounter Start Time: 08:40 Pt seen for followup re: acute on chronic renal failure. Feels slightly better. - Objective Resuscitation Status - Order Detail: 08/13/18 17:30 Resuscitation Status Routine Resuscitation Status: FULL: Full Resuscitation Vital Signs & Weight: Vital Signs (12 hours) Temp Pulse Resp BP Pulse Ox 08/19/18 12:01 99.5 F 79 22 H 136/62 95 08/19/18 09:13 92 08/19/18 09:12 92 08/19/18 07:34 99.4 F 92 23 H 130/95 H 99 08/19/18 04:00 97.8 F 89 20 160/69 H 96 Weight Weight 275 lb I&O: 08/18/18 08/19/18 08/20/18 06:59 06:59 06:59 Intake Total 733 790 Output Total 1850 1750 Balance -1117 -830 Result Diagrams: 08/19/18 07:21 08/19/18 10:29 Phys Exam - Physical Examination Morbid obesity HEENT: moist MMs Neck: supple Respiratory: clear to auscultation bilateral Cardiovascular: RRR Gastrointestinal: soft Neurological: moves all 4 limbs Psychiatric: normal affect Dx/Plan (1) Acute worsening of stage 3 chronic kidney disease Code(s): N18.3 - CHRONIC KIDNEY DISEASE, STAGE 3 (MODERATE) Status: Acute Comment: creatinine stabilizing, 2.70 today (2) Hematuria Code(s): R31.9 - HEMATURIA, UNSPECIFIED Status: Acute Comment: Improved with bladder irrigation (3) Vascular ectasia of duodenum with hemorrhage Code(s): K31.811 - ANGIODYSPLASIA OF STOMACH AND DUODENUM WITH BLEEDING Status : Acute Comment: s/p EGD with APC cauterization of vascular ectasias in duodenum (4) Sinus pause Code(s): I45.5 - OTHER SPECIFIED HEART BLOCK Status: Acute Comment: cardiology following - Plan * . Review of Systems - Review of Systems Cardiovascular: negative: chest pain, palpitations, orthopnea, paroxysmal nocturnal dyspnea, edema, light headedness Gastrointestinal: negative: Nausea, Vomiting, Abdominal Pain, Diarrhea, Constipation, Melena, Hematochezia - Medications/Allergies Allergies/Adverse Reactions: Allergies Allergy/AdvReac Type Severity Reaction Status Date / Time No Known Allergies Allergy Verified 08/13/18 20:53 Medications: Current Medications Amlodipine Besylate (Norvasc) 5 mg PO DAILY [facility] Last Admin: 08/19/18 09:13 Dose: 5 mg Digoxin (Lanoxin) 0.125 mg PO DAILY [facility] Epoetin Jean Carlos (Procrit) 10,000 units SC Q7D [facility] Last Admin: 08/14/18 16:23 Dose: 10,000 units Hydralazine HCl (Apresoline) 10 mg SLOW IVP Q4H PRN PRN Reason: SBP > 180 Ciprofloxacin/Dextrose 400 mg/ (Device) 200 mls @ 200 mls/hr IVPB 1200,2359 [facility] Last Admin: 08/19/18 12:04 Dose: 200 mls Melatonin (Melatonin) 3 mg PO HS PRN PRN Reason: Insomnia Last Admin: 08/16/18 21:20 Dose: 3 mg Nystatin (Mycostatin Powder) 0 gm TOP PRN PRN PRN Reason: DIRECTED Last Admin: 08/16/18 07:40 Dose: 1 applic Pantoprazole Sodium (Protonix) 40 mg IVP Q12HR [facility] Last Admin: 08/19/18 09:12 Dose: 40 mg Sodium Chloride (Flush - Normal Saline) 10 ml IVF PRN PRN PRN Reason: Saline Flush Last Admin: 08/16/18 15:31 Dose: 10 ml Tamsulosin HCl (Flomax) 0.4 mg PO HS [facility] Last Admin: 08/18/18 20:23 Dose: 0.4 mg
--- NOTE | 2018-08-19 16:42 | PRG ---
DATE OF SERVICE: 08/19/2018 SUBJECTIVE: Mr. Fraga has had no further overt GI bleeding today. He has no abdominal pain and has been tolerating oral diet. OBJECTIVE: VITAL SIGNS: Temperature is 99.5, pulse 79, and blood pressure 136/62. He has been sleepy. LUNGS: Clear to auscultation bilaterally. HEART: Regular rate and rhythm with a 2/6 systolic murmur. ABDOMEN: Soft, nontender, and nondistended. Bowel sounds are present. EXTREMITIES: Trace lower extremity edema. LABORATORY DATA: Hemoglobin is 7.7 today, up from 6.7 yesterday after 2 units transfusion. Creatinine 2.70. IMPRESSION: 1. Anemia of acute blood loss secondary to duodenal vascular ectasia, status post cautery with argon plasma coagulation yesterday. 2. Chronic renal insufficiency. 3. Intermittent atrial flutter and sick sinus syndrome. RECOMMENDATIONS: 1. Continue proton pump inhibitor. 2. Continue to follow trend of the hemoglobin. Job ID: [id number]
[2018-08-19] MEDS: Flecainide 50 MG TAB PO SCH (21:02)
[2018-08-19] MEDS: Acetaminophen 325 MG TAB PO PRN (21:03)
[2018-08-19] MEDS: Tamsulosin HCl 0.4 MG CAP PO SCH (21:03)
--- NOTE | 2018-08-19 21:55 | CON ---
Dictated as a scribe for Dr. Romano. TYPE OF CONSULTATION: Electrophysiology consultation. REASON FOR CONSULTATION: Atrial arrhythmias, tachy-adin syndrome. HISTORY OF PRESENT ILLNESS: Mr. Fraga is a 77-year-old gentleman, who was admitted on 08/13/2018 with reported chest discomfort. He has had a complicated history in the past few months with severe recurrent acute anemia requiring multiple blood transfusions. He does have an extensive history of chronic anemia as well and has required iron transfusions for years. Of note, he has also undergone a TAVR in [place] approximately 5 years ago. For cardiac care, he follows Dr. Ananda Arizmendi. Left heart catheterization was done in 2014 that showed a 20% LAD obstruction and non-dominant right system, otherwise normal left heart catheterization. He was diagnosed with atrial fibrillation approximately 3 years ago and has been on Multaq in the past, but with questionable compliance. He has been on oral anticoagulation in the past, but with his recurrent and chronic anemia issues, oral anticoagulation has since been discontinued with him in favor of suppression of his atrial arrhythmias with Multaq. He has continued to have paroxysmal atrial arrhythmia issues, which have been evident throughout his recent hospital stays. He continued to have paroxysmal atrial fibrillation and atrial flutter episodes. He was placed on rate control medications with metoprolol and digoxin and began having episodes of asymptomatic pauses up to 3.7 seconds in duration. For his sick sinus syndrome , in addition to beta-eric therapy, his metoprolol was discontinued in favor of digoxin alone. He continued to have occasional bradycardic and pause episodes seen on telemetry, but these largely occurred at night while the patient is asleep and likely caused by sleep apnea. He uses CPAP at home, but not during this hospital stay. He has also had occasional junctional escape rhythms also during the hours of sleep. Mr. Fraga is resting in bed comfortably. 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 He has received multiple blood transfusions this hospital stay. He has a chronic indwelling Allen catheter for frequent and recurrent urinary tract infections and has been experiencing hematuria for the past few months as well. He is resting in bed comfortably. He currently denies any heart racing, palpitations, chest pain , pressure, syncope, near syncope, stroke, or stroke-like symptoms. He has been asymptomatic with pauses and tachyarrhythmias when asked. He is without cardiac concern or complaint at this time. REVIEW OF SYSTEMS: 12-point review of systems was conducted, positive for weakness, fatigue, and occasional shortness of breath. Positive for chest pressure upon admission, otherwise has long since been resolved. Otherwise, ROS is negative and as per HPI. PAST MEDICAL HISTORY: 1. Atrial fibrillation diagnosed approximately 3 years ago. a. History of antiarrhythmic therapy, on Multaq. 2. Transaortic valve replacement in 2013 in [place]. 3. Left heart catheterization in 2014, 20% LAD lesion and a non-dominant right system otherwise normal. 4. COPD. 5. Chronic kidney disease. 6. Recurrent urinary tract infections with an indwelling catheter. 7. Sick sinus syndrome in conjunction with beta-eric therapy. 8. Obstructive sleep apnea. 9. Morbid obesity with a BMI greater than 40. 10. Chronic anemia requiring long-term iron transfusions. 11. GI bleed and AV malformation. 12. Preserved LV systolic function. ALLERGIES: NO KNOWN DRUG ALLERGIES. HOME MEDICATIONS: 1. Cefdinir 300 mg p.o. b.i.d. 2. Epoetin 10,000 units subcu weekly. 3. Tamsulosin hydrochloride 0.4 mg p.o. at bedtime. 4. Nystatin powder daily as needed. 5. Metoprolol tartrate 75 mg p.o. b.i.d. 6. Aspirin 81 mg p.o. daily. 7. Senna/docusate sodium 1 tab p.o. b.i.d. SOCIAL HISTORY: One glass of wine a month. Negative for tobacco use. History of cigarette use, stopped over 25 years ago. Negative for drug use. FAMILY HISTORY: Unremarkable. Negative for sudden cardiac . OBJECTIVE: VITAL SIGNS: Temperature 99.5, pulse 79, blood pressure 136/62, respirations 22, oxygen is 95% on 1.5 L via nasal cannula. GENERAL: The patient is elderly, appears older than his stated age. He is alert and oriented times person, place, situation, very poor historian and actually questionable orientation to situation. HEENT: Pupils are equal, round, reactive and accommodating to light. Normocephalic, atraumatic. Sclerae anicteric. EOMs are intact. Oral mucosa is moist and pink. NECK: Supple without jugular venous distention. Thyroid is nonpalpable. CARDIAC: Heart rate is Irregularly irregular with crisp S1, S2. PMI is non-displaced. ABDOMEN: Soft, nontender, and obese. No palpable masses. Hepatojugular reflux is negative. EXTREMITIES: Warm and dry to touch without clubbing, cyanosis, or edema. NEUROLOGIC: Grossly intact and nonfocal. LABORATORY DATA: WBC 14.9, hemoglobin 7.7, hematocrit 23.9, platelet count is 334. Chemistry; sodium 138, potassium 4.9, BUN 41, creatinine 2.7. Echocardiogram on 08/15/2018; ejection fraction 60% to 65%, mild mitral regurgitation, mild tricuspid regurgitation. Telemetry and EKGs all were personally reviewed. Currently represents sinus rhythm, although upon presentation, atrial flutter is seen, possibly typical with variable AV conduction. Atrial fibrillation is seen in paroxysmal bursts. While the patient was on beta-eric therapy, bradycardia, junctional escape rhythms and pauses up to 3.7 seconds were seen. Pauses are occurring during hours of sleep and likely represent bradycardia secondary to sleep apnea that is currently not treated with CPAP. IMPRESSION: 1. Paroxysmal atrial arrhythmias, possibly typical atrial flutter, but difficult to distinguish on EKG alone given the variable AV conduction - Paroxysmal atrial fibrillation. 2. Right bundle-branch block with left anterior fascicular block. 3. Acute on chronic anemia requiring multiple transfusions during hospitalizations over the past 3 months. Years of iron transfusion required. Status post AV cauterization for an ectasia. 4. Morbid obesity with a BMI over 40. 5. Sick sinus syndrome seen concurrent with beta-eric therapy. 6. Chronic urinary tract infection with an indwelling Allen catheter. 7. Hematuria. 8. Chronic kidney disease. 9. Chronic obstructive pulmonary disease. 10. Normal coronary arteries by left heart catheterization in 2015 with only minimal 20% LAD disease seen. 11. Obstructive sleep apnea. RECOMMENDATIONS: Mr. Fraga certainly presents a challenge when it comes to arrhythmia management. I have spoken with Ananda Arizmendi's PA for further insight into his past medical history. Mr. Fraga has a history of paroxysmal atrial arrhythmias for over 3 years and has previously taken Multaq with questionable compliance in the past. He has long since been off anticoagulation given his chronic anemia issues and this is certainly reasonable in light of his acute ongoing bleeding issues requiring multiple and recurrent transfusions. He is a poor candidate for pacemaker given his recurrent infections and history of E. coli sepsis secondary to his UTIs. Fortunately removal of his beta-eric therapy, there has been substantially less bradycardia and no junctional escape rhythm seen. Many of these episodes did occur at night while the patient was sleeping. For now, strategy for treating him will be suppression therapy. He does not have substantial coronary artery disease and he has a preserved ejection fraction, so we will start him on flecainide 100 mg p.o. b.i.d. and close monitoring of his QRS while initiating this medication. With his morbid obesity and multiple comorbidities in addition to not being able to take anticoagulation, he is not a candidate for atrial fibrillation ablation. If his arrhythmias are hard to suppress, we could consider him for CTI ablation alone. Unfortunately, the patient's is not available to discuss this with and the patient seems to have a poor grasp on his situation in his health status. Thank you for allowing us to participate in the care of this patient. We will continue to follow and help manage his arrhythmia issues. Job ID: [id number] JULIÁN
[2018-08-20 06:10] LABS: Hemoglobin 7.1 g/dL (14.0-18.0); Mean Corpuscular Hemoglobin 28.8 pg (27.0-31.0); Platelet Count 339 thou/uL (130-400); RBC Distribution Width 15.7 % (11.5-14.5); Red Blood Cell (RBC) Count 2.45 mill/uL (4.70-6.10); White Blood Cell (WBC) Count 13.8 thou/uL (4.8-10.8)
--- NOTE | 2018-08-20 08:22 | PRG ---
DATE OF SERVICE: 08/20/2018 SUBJECTIVE: The patient without complaints. Doing well. Denies chills or fever. OBJECTIVE: VITAL SIGNS: T-max of 100.7, 99 current; heart rate 91; respiratory rate 20; blood pressure 115/70. Urine output 2250. Urine output is laquita yellow. No evidence of clots. PERTINENT LABORATORY DATA: White count 13; hemoglobin 7.1, yesterday was 7.7; platelets 379. Creatinine 2.7. Urine culture on August 13, negative, on ciprofloxacin. IMPRESSION AND PLAN: Mr. Fraga is a 77-year-old male with history of prostate cancer, status post radiation therapy, with bilateral hydronephrosis, followed by Dr. Paz. He has a chronic indwelling Allen catheter due to chronic retention, has bilateral stents. His hematuria has resolved. His anemia is due to gastrointestinal bleed. hemoglobin is stable. From urologic perspective, patient can be discharged home, with indwelling urethral Allen catheter to gravity as previous. He should follow up with Dr. Paz next week for close evaluation. From urologic perspective, he is cleared to be discharged. Job ID: [id number] [facility]
[2018-08-20] MEDS: Digoxin 0.125 MG TAB PO SCH (08:32)
[2018-08-20] MEDS: Pantoprazole 40 MG VIAL IVP SCH (08:32)
[2018-08-20] MEDS: Flecainide 50 MG TAB PO SCH ×2 (08:32→20:40)
[2018-08-20] MEDS: Amlodipine 5 MG TAB PO SCH (08:32)
--- NOTE | 2018-08-20 09:43 | PDOC.CTH ---
Cardiology Progress Note - Subjective EP PROGRESS NOTE: 08/20/18 Seen as follow up for atrial arrhythmias and anticoagulation issues. Resting in bed. Feels weak but overall well. No new cardiac concerns or complaints. - Objective Vital Signs Temp Pulse Resp BP Pulse Ox 08/20/18 08:32 93 08/20/18 07:28 98.3 F 93 20 182/70 H 96 08/20/18 04:00 99.2 F 91 20 157/70 H 95 08/20/18 00:00 100.7 F H 93 20 178/74 H 97 Weight 276 lb 3.2 oz 08/19/18 08/20/18 08/21/18 06:59 06:59 06:59 Intake Total 790 1420 Output Total 1750 2251 Balance -960 -831 - Physical Examination General/Neuro: alert & oriented x3, NAD, other: (poor historian. does not grasp many of his health problems.) Neck: no JVD present Lungs: other: (coarse in bases) Heart: PMI normal, RRR Abdomen: NT/ND, soft - Telemetry Telemetry Rhythm: SR - Labs Result Diagrams: 08/20/18 12:13 08/20/18 12:13 Troponin/CKMB Troponin I Less than 0.010 ng/mL (< 0.028) 08/13/18 21:02 - Assessment/Plan 1. Paroxysmal atrial arrhythmias - Atrial fibrillation and atrial flutter - Previously on Multaq -Started on Flecainide 100mg BID on 08/19/18. QRS stable today 132ms -SR on tele today and overnight 2. Acute/chronic anemia - AVM, duodenal ectasia s/p cautery -mult blood transfusions recently -chronic iron infusions -hematuria 3. Chronic UTI -indwelling melchor -hx E Coli sepsis 4. CHADS2-VASC =2 (advancing age and vascular disease) -unable to take anticoagulation with acute/chronic anemia Continue Flecainide for arrhythmia suppression. QRS stable on 12 lead EKG today
[2018-08-20] MEDS: Acetaminophen 325 MG TAB PO PRN ×2 (11:40→20:39)
[2018-08-20 12:21] LABS: Hemoglobin 7.6 g/dL (14.0-18.0)
--- NOTE | 2018-08-20 12:25 | PRG ---
DATE OF SERVICE: 08/20/2018 SUBJECTIVE: A 77-year-old gentleman, being seen for acute kidney injury. The patient denies any nausea, vomiting, or chest pain. OBJECTIVE: CONSTITUTIONAL: The patient is awake and alert. VITAL SIGNS: Febrile at 101.1, breathing 19, and blood pressure 162/72. GENERAL APPEARANCE AND MENTAL STATUS: Fair. HEAD/NECK: Normocephalic. Atraumatic. EYES: EOMI. No deformity. EARS: Clear. No ulcers. NOSE: Intact. No lesions. MOUTH: Clear. No discharge. THROAT: Clear. No exudate. LUNGS: Clear. No crackles. CARDIAC: S1, S2. No rub. ABDOMEN: Benign. Bowel sounds positive. GENITALIA/RECTUM: Allen absent. BACK/EXTREMITIES: Edema 0+. NEUROLOGICAL: Alert and motor intact. LABORATORY DATA: Labs show hemoglobin 7.1. Potassium is 4.9, creatinine 2.7. ASSESSMENT AND PLAN: 1. Chronic kidney disease, stage 4, with acute kidney injury, stable, nonoliguric. 2. Hypertension, stable. 3. Anemia, stable. 4. Hyperkalemia, stable. No indication for dialysis. Job ID: [id number]
[2018-08-20 12:40] LABS: Anion Gap 13 mmol/L (10-20); BUN (Urea Nitrogen) 37 mg/dL (8.4-25.7); Calc. Creatinine Clearance 39 mL/min (70-130); Calcium 8.9 mg/dL (7.8-10.44); Carbon Dioxide 32 mmol/L (23-31); Chloride 99 mmol/L (98-107); Estimated GFR-MDRD 22; Glucose 110 mg/dL (83-110); Potassium 5.1 mmol/L (3.5-5.1); Sodium 139 mmol/L (136-145)
--- NOTE | 2018-08-20 15:51 | PRG ---
DATE OF SERVICE: 08/20/2018 SUBJECTIVE: Mr. Fraga has had no overt bleeding in the last 24 hours. He has no abdominal pain. He is tolerating an oral diet. OBJECTIVE: VITAL SIGNS: He did have a fever to 101.1 this morning. LUNGS: Clear to auscultation bilaterally. HEART: Regular rate and rhythm. ABDOMEN: Soft, nontender, and nondistended. Bowel sounds are present. EXTREMITIES: Show no lower extremity edema. LABORATORY DATA: Hemoglobin is 7.6 today, stable from 7.7 yesterday. He received 2 units transfusion 2 days ago. He has had 5 total units transfused this hospital stay. IMPRESSION: 1. He is status post cautery of duodenal AVMs with stabilization of his blood counts. 2. End-stage renal disease, on hemodialysis. 3. Intermittent atrial flutter and sick sinus syndrome, improved over the last 24 hours. RECOMMENDATIONS: 1. Continue proton-pump inhibitor. He should be able to change to pantoprazole 40 mg once daily orally now. 2. I will sign off for now. Please call if GI can be of assistance. Job ID: [id number]
--- NOTE | 2018-08-20 16:11 | PDOC.PN ---
- Subjective Encounter Start Date: 08/20/18 Encounter Start Time: 10:20 Pt seen for followup re: acute on chronic stage 3 kidney disease. Says he feels well. - Objective Resuscitation Status - Order Detail: 08/13/18 17:30 Resuscitation Status Routine Resuscitation Status: FULL: Full Resuscitation MAR Reviewed: Yes Vital Signs & Weight: Vital Signs (12 hours) Temp Pulse Resp BP Pulse Ox 08/20/18 12:00 99.0 F 08/20/18 11:33 101.1 F H 90 20 167/72 H 98 08/20/18 08:32 93 08/20/18 07:28 98.3 F 93 20 182/70 H 93 L Weight Weight 276 lb 3.2 oz I&O: 08/19/18 08/20/18 08/21/18 06:59 06:59 06:59 Intake Total 790 1420 Output Total 1750 2251 Balance -960 -831 Result Diagrams: 08/20/18 12:13 08/20/18 12:13 EKG Reviewed by me: Yes (tele: NSR) Phys Exam - Physical Examination Morbid obesity HEENT: moist MMs Neck: supple Respiratory: clear to auscultation bilateral Cardiovascular: RRR Gastrointestinal: soft Neurological: moves all 4 limbs Psychiatric: normal affect Dx/Plan (1) Acute worsening of stage 3 chronic kidney disease Code(s): N18.3 - CHRONIC KIDNEY DISEASE, STAGE 3 (MODERATE) Status: Acute Comment: creatinine stabilizing, 2.75 today (2) Vascular ectasia of duodenum with hemorrhage Code(s): K31.811 - ANGIODYSPLASIA OF STOMACH AND DUODENUM WITH BLEEDING Status : Acute Comment: s/p EGD with APC cauterization (3) Sinus pause Code(s): I45.5 - OTHER SPECIFIED HEART BLOCK Status: Acute Comment: Pt not a good candidate for pacemaker. Has pauses when on beta blockers. Off of beta blockers, he has tachyarrhythmias. He has been started on flecainide yesterday. (4) Hematuria Code(s): R31.9 - HEMATURIA, UNSPECIFIED Status: Resolved - Plan * . Review of Systems - Review of Systems Cardiovascular: negative: chest pain, palpitations, orthopnea, paroxysmal nocturnal dyspnea, edema, light headedness Gastrointestinal: negative: Nausea, Vomiting, Abdominal Pain, Diarrhea, Constipation, Melena, Hematochezia - Medications/Allergies Allergies/Adverse Reactions: Allergies Allergy/AdvReac Type Severity Reaction Status Date / Time No Known Allergies Allergy Verified 08/13/18 20:53 Medications: Current Medications Acetaminophen (Tylenol) 650 mg PO Q6H PRN PRN Reason: Mild Pain (1-3)/FEVER Last Admin: 08/20/18 11:40 Dose: 650 mg Amlodipine Besylate (Norvasc) 5 mg PO DAILY [facility] Last Admin: 08/20/18 08:32 Dose: 5 mg Digoxin (Lanoxin) 0.125 mg PO DAILY [facility] Last Admin: 08/20/18 08:32 Dose: 0.125 mg Epoetin Jean Carlos (Procrit) 10,000 units SC Q7D [facility] Last Admin: 08/14/18 16:23 Dose: 10,000 units Flecainide Acetate (Tambocor) 100 mg PO Q12HR [facility] Last Admin: 08/20/18 08:32 Dose: 100 mg Hydralazine HCl (Apresoline) 10 mg SLOW IVP Q4H PRN PRN Reason: SBP > 180 Ciprofloxacin/Dextrose 400 mg/ (Device) 200 mls @ 200 mls/hr IVPB 1200,2359 [facility] Last Admin: 08/20/18 11:40 Dose: 200 mls Melatonin (Melatonin) 3 mg PO HS PRN PRN Reason: Insomnia Last Admin: 08/16/18 21:20 Dose: 3 mg Nystatin (Mycostatin Powder) 0 gm TOP PRN PRN PRN Reason: DIRECTED Last Admin: 08/16/18 07:40 Dose: 1 applic Pantoprazole Sodium (Protonix) 40 mg PO DAILY [facility] Sodium Chloride (Flush - Normal Saline) 10 ml IVF PRN PRN PRN Reason: Saline Flush Last Admin: 08/16/18 15:31 Dose: 10 ml Tamsulosin HCl (Flomax) 0.4 mg PO HS [facility] Last Admin: 08/19/18 21:03 Dose: 0.4 mg
[2018-08-20] MEDS: Tamsulosin HCl 0.4 MG CAP PO SCH (20:40)
[2018-08-21 06:18] LABS: Hemoglobin 7.5 g/dL (14.0-18.0); Mean Corpuscular HGB CONC 31.6 g/dL (32.0-36.0); Mean Corpuscular Hemoglobin 28.6 pg (27.0-31.0); Mean Corpuscular Volume 90.4 fL (78.0-98.0); Platelet Count 351 thou/uL (130-400); RBC Distribution Width 15.5 % (11.5-14.5); Red Blood Cell (RBC) Count 2.63 mill/uL (4.70-6.10); White Blood Cell (WBC) Count 15.4 thou/uL (4.8-10.8)
[2018-08-21] MEDS: Amlodipine 5 MG TAB PO SCH (08:10)
[2018-08-21] MEDS: Digoxin 0.125 MG TAB PO SCH (08:10)
[2018-08-21] MEDS: Flecainide 50 MG TAB PO SCH ×2 (08:11→20:43)
--- NOTE | 2018-08-21 08:25 | PRG ---
DATE OF SERVICE: 08/21/2018 INPATIENT PROGRESS NOTE SUBJECTIVE: The patient is sleeping, resting comfortably. OBJECTIVE: VITAL SIGNS: T-max of 102.6, currently 98.6; respiratory rate 20; 2 L. Urine output 1000, it is yellow, clear. ABDOMEN: Soft, morbidly obese, nontender, nondistended. PERTINENT LABORATORY DATA: White count 15, hemoglobin stable at 7.5, and platelets 351. Renal function stable. Creatinine of 2.75. Urine culture on August 13 is negative. The patient is on ciprofloxacin. IMPRESSION AND PLAN: Mr. Fraga is a 77-year-old male with history of prostate cancer, status post RT with bilateral hydronephrosis, bilateral stent, followed by Dr. Paz. His culture on this admission is negative. He has undergone a GI workup for melena, resolved with GI procedure. Urine is clear. He is to be discharged with indwelling Allen catheter. The patient with a history of fever of unknown etiology. Urine culture is negative. From urologic perspective, disposition pending Primary Service. FU with DR Paz after dc Job ID: [id number] MTDD
[2018-08-21 09:31] LABS: Anion Gap 14 mmol/L (10-20); BUN (Urea Nitrogen) 33 mg/dL (8.4-25.7); Calc. Creatinine Clearance 39 mL/min (70-130); Calcium 8.7 mg/dL (7.8-10.44); Carbon Dioxide 30 mmol/L (23-31); Chloride 96 mmol/L (98-107); Estimated GFR-MDRD 23; Glucose 104 mg/dL (83-110); Potassium 4.8 mmol/L (3.5-5.1); Sodium 135 mmol/L (136-145)
--- NOTE | 2018-08-21 10:43 | RAD ---
PORTABLE CHEST: Date: 08/21/18 HISTORY: Tachypnea. COMPARISON: 06/05/18 study. FINDINGS: Heart size appears borderline enlarged considering portable technique. Aortic valve prosthesis is not ed. There are atherosclerotic changes of the aorta. Lungs are clear of infiltrates. IMPRESSION: Borderline heart size. POS: TPC
[2018-08-21 11:00] LABS: Actual Bicarbonate (HCO3a) 30.7 mEq/L (22-28); Base Excess (BEa) 5.5 mEq/L (-2.0 to +3.0); CO2 Tension 48.8 mmHg (35.0-45.0); Carboxyhemoglobin (COHb) 1.4 gm% (0.0-3.0); Hemoglobin (Hb) 8.2 g/dL (14.0-18.0); O2 Tension (PaO2) 101.8 mmHg (> 70.0); Potassium - ABG Lab 4.79 mmol/L (3.70-5.30); pH, Arterial 7.42 (7.35-7.45)
[2018-08-21 11:02] LABS: Puncture Site RRA
--- NOTE | 2018-08-21 11:26 | PDOC.CTH ---
Cardiology Progress Note - Subjective EP PROGRESS NOTE: 08/21/18 Seen as follow up for atrial arrhythmias and anticoagulation issues. Resting in bed. Minimally responsive this AM. Will open eyes to physical stimuli. - Objective Vital Signs Temp Pulse Resp BP Pulse Ox 08/21/18 08:10 103 H 08/21/18 08:06 99.4 F 96 20 168/69 H 98 08/21/18 04:00 98.9 F 105 H 20 150/67 H 95 08/20/18 23:39 98.9 F 94 18 158/70 H 95 Weight 274 lb 8 oz 08/20/18 08/21/18 08/22/18 06:59 06:59 06:59 Intake Total 1420 440 Output Total 2251 1000 Balance -831 -560 - Physical Examination General/Neuro: other: (minimally responsive to physical stimuli) Neck: carotid US brisk, no JVD present Lungs: other: (accessory muscle use. Labored breathing. audible wheezes. rhonchi throughout) Heart: RRR Abdomen: NT/ND, soft Other PE findings: moves all extremities equally. non focal - Telemetry Telemetry Rhythm: SR with occasional non-conducted PACs - Labs Result Diagrams: 08/21/18 05:28 08/21/18 05:28 Troponin/CKMB Troponin I Less than 0.010 ng/mL (< 0.028) 08/13/18 21:02 - Assessment/Plan 1. Paroxysmal atrial arrhythmias - Atrial fibrillation and atrial flutter - Previously on Multaq -Started on Flecainide 100mg BID on 08/19/18. Good response so far. Hence Chr renal insuf, will decrease flecainde 50 BID. -SR on tele today and overnight. Occasional non conducted PACs. Does not appear to be a Mobitz type 2. 2. Acute/chronic anemia - AVM, duodenal ectasia s/p cautery -mult blood transfusions recently -chronic iron infusions -hematuria- largely resolved. Urine mostly clear today 3. Chronic UTI -indwelling melchor -hx E Coli sepsis 4. CHADS2-VASC =2 (advancing age and vascular disease) -unable to take anticoagulation with acute/chronic anemia 5. Leukocytosis - fever 102 yesterday. WBC 15.4k today. ID consult pending. Change Flecainide 50mg BID for arrhythmia suppression. 12 lead EKG pending today to monitor QRS
[2018-08-21] MEDS ORDERED: Furosemide 40 MG/4 ML VIAL SLOW IVP SCH (11:30)
[2018-08-21] MEDS: Acetaminophen 325 MG TAB PO PRN ×2 (11:48→20:43)
[2018-08-21] MEDS ORDERED: MEROPENEM 1 GM/50 ML 1 GM in Premix Bag 1 BAG IVPB SCH (12:00)
--- NOTE | 2018-08-21 12:11 | PRG ---
DATE OF SERVICE: 08/21/2018 SUBJECTIVE: The patient is seen and examined at the bedside. He is found to be somewhat less responsive and having some difficulty of breathing this morning. OBJECTIVE: VITAL SIGNS: Blood pressure is 168/69, pulse is 103, temperature 99.4, maximal temperature is 102.6. GENERAL: He follows my commands. HEENT: His head is atraumatic and normocephalic. Eyes, pupils are responding to light properly. Sclerae are nonicteric. Oral mucosa is moist. LUNGS: Bilateral rales present. HEART: S1 and S2 normal. No S3. No S4. ABDOMEN: Soft and nondistended. EXTREMITIES: No clubbing, cyanosis. 1+ peripheral edema. NEUROLOGICAL EXAMINATION: He follows my commands, but his mental condition is at his baseline according to the nurse. LABORATORY DATA: Showed white count of 15.4, hemoglobin 7.5, hematocrit 23.8, platelet count 251. We obtained ABGs on him, which showed pH of 7.42, pCO2 48.8, PO2 101.8, base excess is 5.5. Sodium of 135, potassium 4.8, chloride 96, CO2 of 30, BUN 33, creatinine 2.75. BNP 187. Chest x-ray was obtained, which showed a slightly enlarged heart. Aortic valve prosthesis is noted. Lungs are clear of infiltrates. IMPRESSION: 1. Fever with some increased respiratory breathing, suspicious of infectious process. We will stop Cipro and start him on meropenem. We will obtain ID consult. 2. Acute worsening of stage 3 chronic kidney disease with creatinine stabilized at 2.75. Because of the respiratory status, we will give him one dose of Lasix 40 mg IV push. 3. Duodenal arteriovenous malformations, status post cautery. 4. Paroxysmal atrial arrhythmias, status post cardioversion, currently in sinus rhythm. 5. Acute on chronic anemia requiring multiple blood transfusions, status post arteriovenous malformation cauterization. 6. Bilateral ureteral stents. PLAN: Plan is to do home workup on his fever with blood cultures. ID consult. Switch him to meropenem from Cipro for better coverage, and continue his flecainide. Continue Procrit. Continue digoxin. Continue amlodipine, Flomax, and pantoprazole. Job ID: [id number]
--- NOTE | 2018-08-21 12:47 | CT ---
BRAIN CT SCAN WITHOUT IV CONTRAST: HISTORY: A 77-year-old male with a history of sudden onset of unresponsiveness. Last seen normal last night. FINDINGS: There is some atrophy and chronic white matter ischemic. There is evidence for some old infarct paulino ges in the left middle cerebral artery distribution in the perisylvian region. No evidence for acute mass or hemorrhage. IMPRESSION: No evidence for acute mass or hemorrhage. 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 Attempt to reach Dr. aJy were unsuccessful, he did not answer his phone. Findings were discu ssed with Nurse Joseph at the IMCU/EMU unit at 12:35 p.m. CODE CR POS: KRIS
[2018-08-21] MEDS ORDERED: Flecainide 50 MG TAB PO SCH ×2 (13:45→14:00)
--- NOTE | 2018-08-21 16:13 | ULT ---
BILATERAL LOWER EXTREMITY VENOUS ULTRASOUND WITH DOPPLER: 08/21/18 HISTORY: Bilateral lower extremity swelling. COMPARISON: None. TECHNIQUE: Bustillos scale, color flow, doppler imaging with spectral waveform analysis performed in the left and rig ht lower extremity venous system. FINDINGS: Bilaterally, there is compressibility, presence of flow and augmentation in the common femoral vein, femoral vein, and popliteal vein. There is flow in bilateral greater saphenous vein, profunda vein an d posterior tibial vein. IMPRESSION: No evidence of thrombus in the left or right lower extremity deep venous system. POS: KRIS
--- NOTE | 2018-08-21 16:20 | CON ---
DATE OF CONSULTATION: 08/21/2018 REASON FOR CONSULTATION: Possible sepsis. HISTORY OF PRESENT ILLNESS: Mr. 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 The patient has had 2 or 3 admissions over the past 2 months related to the urinary complications. They have required placement of a left-sided stent and a right-sided percutaneous nephrostomy tube drainage. Subsequently, the patient had a stent placed on the right side as well. The patient has been managed without anticoagulation for his paroxysmal SVT because of concerns with his bleeding. He has a chronic indwelling Allen catheter for the past few months and, this time, he was brought because of chest pain on August 13. There was some dyspnea associated with it and, because the pain did not resolve EMS was activated and brought to the emergency room. On arrival, he did not have chest pain any longer. The BP was 145/75, pulse 95, respirations 19, temperature 98.5, and pulse ox 97%. The initial exam showed clear lung sounds, diminished at the bases. Distant heart sounds with a systolic murmur. 2 to 3+ peripheral edema. He appeared oriented. His initial white cell count was 15.9, hemoglobin 7.5, platelets 428,000 and the differential showed 82% neutrophils. Initial creatinine was 2.4, which is higher than his baseline at 1.02 on August 05, 2018. Initial imaging studies included a chest x-ray with no abnormalities noted. He had a renal ultrasound which showed a mild left hydronephrosis without obstructing calculi on either side. There was one urine culture obtained on arrival, which showed no growth at 36 hours. No other samples were submitted for culture except for a swab from his penile glans/introitus which revealed P. aeruginosa which was resistant to various antimicrobials including a 4th generation cephalosporin, levofloxacin, Zosyn. The patient has had consultations with Cardiology and with Oncology as well as Gastroenterology. The shuttlecock assembler felt that his situation was quite difficult because of inability to suppress his atrial arrhythmias and a concern with sinus pauses whenever those are converted. It was felt that he was a poor candidate for pacemaker placement because of the chronic recurring infections, and consideration of catheter ablation was suggested. The metal handler kept him n.p.o. and postponed the EGD after evaluation by his personal metal handler. The urologist Dr. Schneider recommended avoiding exchange of his current Allen catheter to avoid trauma, the stents have to be left in place and he does have obstructing ureters bilaterally due to locally invasive prostate cancer. Today, the patient was found less responsive with a temperature elevation of 102.6, and he was therefore transferred to the [facility] and antimicrobial spectrum coverage was broadened. Currently, Mr. Fraga is a bit confused, he did not know where he was, and he had a hard time recollecting events. He did establish eye contact. Denied any headaches, visual symptoms, sore throat, odynophagia, dysphagia. Mild dyspnea. No chest pain. No abdominal pain. No other symptoms. The reliability of his review of systems is limited because of his mental state changes. 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 He has a chronic indwelling Allen catheter. Complications from the prostate cancer treatment with bilateral ureter obstruction. Also, this obstruction is due to locally invasive prostate cancer. Chronic anemia secondary to AVMs, which have been managed with iron replacement and periodic transfusions. PAST SURGICAL HISTORY: Also includes left hip replacement, tonsillectomy, and TAVR. CURRENT MEDICATION LIST: Includes Tylenol, DuoNeb, Norvasc, Lanoxin, Procrit, Tambocor, Apresoline, melatonin, meropenem, Protonix, and tamsulosin. FAMILY HISTORY: Noncontributory. 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 Former smoker. Lives in [place]. ALLERGIES: NONE. PHYSICAL EXAMINATION: VITAL SIGNS: T-max 102.6 yesterday, is now 100.8. His O2 saturation is 96%. SKIN: Exam shows mild erythema in the gluteal region. Mild laceration of the penile foreskin and glans as well as evidence of stasis dermatitis in lower extremities. GENERAL: He is awake, but confused. Does not appear in acute distress. HEENT: The patient has no obvious lymphadenopathy noted. Ocular movements conjugate. Pupils are equal and reactive. Conjunctiva normal. Nasal passages are patent. Oral cavity is not remarkable. NECK: Supple. No jugular venous distention. LUNGS: Symmetric air entry without obvious crackles or wheezing. HEART: S1 and S2 with a soft aortic murmur. No S3. Irregular rate. ABDOMEN: Soft, not distended or tender. No bladder distention. No joint inflammatory activity noted. He is diffusely weak, but able to move extremities on command. Pulses are 1+ in dorsalis pedis. Plantar responses are indifferent. No clonus noted. There is 1+ edema in lower extremities with evidence of stasis dermatitis. NEUROLOGIC: He is awake, knows his name, did not know where he was. Recollection of events was quite limited. LABORATORY DATA: Latest laboratory values with a white cell count 12.5, hemoglobin 6.6, MCV 88, platelets 413, 81% neutrophils. INR 1.2 and sodium 140, creatinine at 2.37. Liver profile, normal. Albumin 2.9, globulin 3.4. Digoxin 0.29. The latest chest x-ray with borderline heart size, but no lung infiltrates noted. Brain CT scan, no evidence of acute mass or hemorrhage. ASSESSMENT: 1. Metastatic prostate cancer, controlled with androgen deprivation. 2. Ischemic cardiomyopathy with paroxysmal atrial fibrillation, not on anticoagulants because of chronic bleeding issues. 3. History of arteriovenous malformations with recurrent bleeding and chronic iron deficiency anemia, which has been quite refractory to treatment. 4. Complications related to treatment for prostate cancer as well as the local invasiveness of the prostate cancer recurrence with obstruction of right and left ureters which have required stent placement. 5. Chronic indwelling Allen catheter. 6. Change in mental status with fever. DISCUSSION: Differential diagnosis includes sepsis secondary to urinary tract infection in the face of the complications noted above and the instrumentation of the urinary tract. The possibility of a respiratory tract infection appears to be less in the face of a normal chest x-ray. Thromboembolism is always a concern and particularly in this gentleman with malignancy and his mobility issues, he is at high risk for thromboembolism and pulmonary embolism can be associated with fever. The patient has had his spectrum coverage broadened to meropenem which I believe it is adequate. We will re-evaluate the duplex ultrasound of his lower extremities regarding the possibility of thromboembolism. Job ID: [id number]
--- NOTE | 2018-08-21 18:06 | PRG ---
DATE OF SERVICE: 08/21/2018 SUBJECTIVE: A 77-year-old gentleman, being seen for acute kidney injury. The patient denies any complaints. OBJECTIVE: CONSTITUTIONAL: The patient is awake and alert. VITAL SIGNS: Afebrile, pulse 88, breathing 16, and blood pressure 158/58. GENERAL APPEARANCE AND MENTAL STATUS: Fair. HEAD/NECK: Normocephalic. Atraumatic. EYES: EOMI. No deformity. EARS: Clear. No ulcers. NOSE: Intact. No lesions. MOUTH: Clear. No discharge. THROAT: Clear. No exudate. LUNGS: Clear. No crackles. CARDIAC: S1, S2. No rub. ABDOMEN: Benign. Bowel sounds positive. GENITALIA/RECTUM: Allen absent. BACK/EXTREMITIES: Edema 0+. NEUROLOGICAL: Alert and motor intact. SKIN: LYMPHATICS: LABORATORY DATA: Labs show hemoglobin 7.5. Sodium 135, creatinine 2.7. ASSESSMENT AND PLAN: 1. Chronic kidney disease, stage 4, stable. 2. Hypertension, stable. 3. Anemia, stable. 4. Medication based on GFR appropriate. No indication for dialysis. Job ID: [id number]
[2018-08-21] MEDS: Tamsulosin HCl 0.4 MG CAP PO SCH (20:43)
[2018-08-21] MEDS: Epoetin (ESRD) 10,000 UNITS/ML VIAL SC SCH (20:44)
[2018-08-22] MEDS: MEROPENEM 1 GM/50 ML 1 GM in Premix Bag 1 BAG IVPB SCH ×2 (00:59→15:05)
[2018-08-22] MEDS: Acetaminophen 325 MG TAB PO PRN ×2 (04:19→21:07)
[2018-08-22] MEDS: Flecainide 50 MG TAB PO SCH ×2 (08:37→21:07)
[2018-08-22] MEDS: Amlodipine 5 MG TAB PO SCH (08:37)
[2018-08-22] MEDS: Digoxin 0.125 MG TAB PO SCH (08:37)
[2018-08-22 11:31] LABS: Hemoglobin 7.9 g/dL (14.0-18.0)
[2018-08-22 11:50] LABS: Anion Gap 16 mmol/L (10-20); BUN (Urea Nitrogen) 33 mg/dL (8.4-25.7); Calc. Creatinine Clearance 39 mL/min (70-130); Calcium 8.7 mg/dL (7.8-10.44); Carbon Dioxide 29 mmol/L (23-31); Chloride 96 mmol/L (98-107); Estimated GFR-MDRD 24; Glucose 114 mg/dL (83-110); Potassium 4.3 mmol/L (3.5-5.1); Sodium 137 mmol/L (136-145)
[2018-08-22] MEDS ORDERED: Epoetin (ESRD) 10,000 UNITS/ML VIAL IVP SCH (12:30)
--- NOTE | 2018-08-22 13:18 | PRG ---
DATE OF SERVICE: 08/22/2018 SUBJECTIVE: A 77-year-old male, being seen for acute kidney injury. The patient denies any nausea, vomiting, or chest pain. OBJECTIVE: CONSTITUTIONAL: The patient is awake, alert. VITAL SIGNS: Afebrile. Pulse 93, breathing 16, and blood pressure 155/99. GENERAL APPEARANCE AND MENTAL STATUS: Fair. HEAD/NECK: Normocephalic. Atraumatic. EYES: EOMI. No deformity. EARS: Clear. No ulcers. NOSE: Intact. No lesions. MOUTH: Clear. No discharge. THROAT: Clear. No exudate. LUNGS: Clear. No crackles. CARDIAC: S1, S2. No rub. ABDOMEN: Benign. Bowel sounds positive. GENITALIA/RECTUM: Allen absent. BACK/EXTREMITIES: Edema 0+. NEUROLOGICAL: Alert and motor intact. LABORATORY DATA: Labs show hemoglobin is 7.9. Creatinine 2.6. ASSESSMENT AND PLAN: 1. Acute kidney injury with chronic kidney disease, stage 4, stable. 2. Hypertension, stable. 3. Anemia, stable. 4. Medication based on GFR appropriate. No indication for dialysis. Job ID: [id number]
--- NOTE | 2018-08-22 14:20 | PRG ---
DATE OF SERVICE: 08/22/2018 SUBJECTIVE: The patient is seen and examined at the bedside. He does not know what happened yesterday. He is not able to be answer my basic questions, but he remembers that his is at home. I believe this is his baseline in terms of mental function. OBJECTIVE: VITAL SIGNS: Blood pressure is 155/59, pulse is 93, respiratory rate is 23, O2 saturation is 92% on 2 L by nasal cannula. His temperature maximal yesterday was 100.8, so the temperature is trending down. GENERAL: He tries to follow my commands. HEENT: His pupils respond to light properly. Sclerae are nonicteric. Conjunctivae is palish. Oral mucosa is moist. NECK: Supple. LUNGS: Breath sounds diminished at both bases with few rales and crackles and wheezes at both bases. HEART: S1 and S2, regular. No S3. No S4. ABDOMEN: Soft, nontender, nonobese, nondistended. EXTREMITIES: 1+ peripheral edema, similar bilaterally below both knees. NEUROLOGIC: He is alert and oriented times zero. He is able to move his all four extremities, but he has significant deconditioning in the whole-body. LABORATORY DATA: Labs showed hemoglobin of 7.9, hematocrit 24.7, sodium of 132, potassium 4.3, chloride 96, CO2 29, BUN 33, creatinine 2.64, calcium 8.7. Microbiology; two blood cultures from yesterday preliminary negative. IMPRESSION: 1. Fever with increased respiratory breathing. The patient was switched to meropenem. He was seen by Dr. Lobo for ID consultation. Chest x-ray did not reveal any infiltrates. Clinically, he has some bilateral wheezing at both bases, suggestive of possible bronchitis. 2. Pain worsened. Mental status improved. The CT of the brain did not show any acute changes, done yesterday. 3. Duodenal arterial venous malformations, status post cautery. 4. Paroxysmal atrial arrhythmias, status post cardioversion, currently in sinus rhythm. 5. Acute on chronic anemia requiring multiple blood transfusions, status post arteriovenous malformation cauterization. 6. Bilateral ureteral stents. 7. Pseudomonas aeruginosa growing from his penile culture, negative. Urine culture. PLAN: In discussion, other patient had Doppler studies done on his lower extremities, which did not show any DVTs. The CT of the brain was negative and he is more alert today. We will continue meropenem for now since this was confirmed as a good coverage by ID. We will continue DuoNeb and if he remains in sinus rhythm, so we will continue digoxin, flecainide, pantoprazole, Flomax, amlodipine. Job ID: [id number]
[2018-08-22] MEDS: Tamsulosin HCl 0.4 MG CAP PO SCH (21:07)
--- NOTE | 2018-08-22 21:18 | PDOC.CTH ---
Cardiology Progress Note - Objective Vital Signs Temp Pulse Resp BP Pulse Ox 08/22/18 20:17 96 122/67 95 08/22/18 19:42 97.4 F L 93 26 H 150/56 H 91 L 08/22/18 18:38 92 12 94 L 08/22/18 15:28 99.9 F H 90 20 148/65 H 95 08/22/18 15:26 93 20 97 08/22/18 11:34 99.1 F 93 23 H 155/59 H 99 08/22/18 11:01 93 20 92 L Admit Weight 295 lb 9.6 oz Weight 271 lb 2.697 oz 08/21/18 08/22/18 08/23/18 06:59 06:59 06:59 Intake Total 440 840 900 Output Total 1000 3300 900 Balance -560 -2460 0 - Physical Examination General/Neuro: other: (confused at times.) Neck: no JVD present Lungs: other: (wheezing) Heart: RRR Abdomen: soft - Labs Result Diagrams: 08/22/18 11:21 08/22/18 11:21 Troponin/CKMB Troponin I Less than 0.010 ng/mL (< 0.028) 08/13/18 21:02 - Assessment/Plan 1. PSVT 2. AFlutter.Maintaining NSR. Followed by EP. 3. SSS on bblockers 4. CKD-4 5. Acute blood loss anemia 6. s/p TAVR 7. s/p PCI 8. History of frequent UTIs 9. Penile pseudomonas with negative urine Cx 10. UGIB 11. MS changes : likely due to UTI.
[2018-08-23] MEDS: MEROPENEM 1 GM/50 ML 1 GM in Premix Bag 1 BAG IVPB SCH ×2 (01:43→13:30)
[2018-08-23] MEDS: Nystatin Powder 15 GM BOT TOP PRN ×2 (01:48→20:34)
[2018-08-23] MEDS: Amlodipine 5 MG TAB PO SCH (09:56)
[2018-08-23] MEDS: Flecainide 50 MG TAB PO SCH ×2 (09:56→20:34)
[2018-08-23] MEDS: Digoxin 0.125 MG TAB PO SCH (09:56)
--- NOTE | 2018-08-23 13:30 | PRG ---
DATE OF SERVICE: 08/23/2018 SUBJECTIVE: The patient is seen and examined at the bedside. His mental condition improved. He is able to communicate to some extent with me. OBJECTIVE: VITAL SIGNS: Blood pressure is 153/65, temperature is 99.4, maximal temperature is 100.8 from yesterday, but for the last 24 hours, he did not receive any Tylenol. His respiratory rate is 18, O2 saturation is 93% on 2 L by nasal cannula. HEENT: His head is atraumatic and normocephalic. Eyes are PERRLA. Sclerae are nonicteric. Oral mucosa is moist. NECK: Supple. LUNGS: Breath sounds diminished at both bases. HEART: S1, S2. Irregularly irregular. No S3. No S4. ABDOMEN: Obese, nontender. EXTREMITIES: No clubbing, cyanosis. 1+ peripheral edema similar bilaterally on lower extremities. NEUROLOGICAL EXAMINATION: As I mentioned above, he is able to answer my simple questions. He follows my commands. He moves his all four extremities. LABORATORY DATA: Showed none today. Only microbiology, two blood cultures came back negative. He has gross hematuria present in his Allen catheter bag. IMPRESSION: 1. Fever with increased respiratory distress, improved, most likely infectious etiology, although we do not see any obvious source. 2. duodenal arteriovenous malformations, status post cautery. Apparently, there is still some black tarry stools present. This continues, we will re-consult GI. 3. Gross hematuria. We will re-consult Urology, Dr. Schneider. 4. Paroxysmal atrial arrhythmias, status post cardioversion, currently in sinus rhythm. 5. Acute on chronic anemia, requiring multiple blood transfusions, status post arteriovenous malformation cauterization. 6. Bilateral ureteral stents. 7. Pseudomonas aeruginosa growing from his renal culture. Urine culture, negative. PLAN: Is to continue his meropenem. We will consult Urology for gross hematuria. Dr. Lobo agrees with current regimen with meropenem. We will continue his duo nebs, digoxin, flecainide, pantoprazole, Flomax, and amlodipine home. Also, will do the followup BMP and H and H for his renal insufficiency and hemoglobin level. Job ID: [id number]
--- NOTE | 2018-08-23 14:34 | PRG ---
DATE OF SERVICE: SUBJECTIVE: A 77-year-old gentleman being seen for acute kidney injury. The patient is very somnolent. OBJECTIVE: CONSTITUTIONAL: Awake, alert, in no acute distress. The patient is resting well. VITAL SIGNS: Afebrile. Pulse 86, breathing 16, blood pressure 153/65. GENERAL APPEARANCE AND MENTAL STATUS: Fair. HEAD/NECK: Normocephalic. Atraumatic. EYES: EOMI. No deformity. EARS: Clear. No ulcers. NOSE: Intact. No lesions. MOUTH: Clear. No discharge. THROAT: Clear. No exudate. LUNGS: Clear. No crackles. CARDIAC: S1, S2. No rub. ABDOMEN: Benign. Bowel sounds positive. GENITALIA/RECTUM: Allen absent. BACK/EXTREMITIES: Edema 0+. NEUROLOGICAL: Alert and motor intact. SKIN: LYMPHATICS: LABORATORY DATA: Hemoglobin 7.9 yesterday. Creatinine was 2.6. No labs today. ASSESSMENT AND PLAN: 1. Stage 4 chronic kidney disease. 2. Acute kidney injury, stable. 3. Hypertension, stable. 4. Anemia. Recommend transfusion. 5. Altered mental status. 6. Chronic lethargy. Management per primary team. 7. Overall prognosis is poor. Job ID: [id number]
--- NOTE | 2018-08-23 17:11 | PDOC.CTH ---
Cardiology Progress Note - Subjective No new events overnight. No cardiac complaints. - Objective Vital Signs Temp Pulse Resp BP BP Pulse Ox 08/23/18 15:18 99.1 F 90 18 136/43 L 93 L 08/23/18 14:06 86 16 94 L 08/23/18 10:49 90 18 93 L 08/23/18 10:47 99.4 F 89 20 153/65 H 95 08/23/18 09:56 96 156/70 H 08/23/18 08:00 95 08/23/18 07:35 98.9 F 96 20 135/59 L 95 08/23/18 07:22 85 18 93 L Admit Weight 295 lb 9.6 oz Weight 271 lb 2.697 oz 08/22/18 08/23/18 08/24/18 06:59 06:59 06:59 Intake Total 840 1430 Output Total 3300 1925 Balance -5130 -495 - Physical Examination General/Neuro: other: (confused at times.) Neck: no JVD present Lungs: unlabored respirations, other: (scattered wheeze.) Heart: RRR Abdomen: NT/ND, soft - Telemetry Telemetry Rhythm: NSR - Labs Result Diagrams: 08/22/18 11:21 08/22/18 11:21 Troponin/CKMB Troponin I Less than 0.010 ng/mL (< 0.028) 08/13/18 21:02 - Assessment/Plan 1. PSVT 2. AFlutter.Maintaining NSR. Followed by EP. 3. SSS on bblockers 4. CKD-4 5. Acute blood loss anemia 6. s/p TAVR 7. s/p PCI 8. History of frequent UTIs 9. Penile pseudomonas with negative urine Cx 10. UGIB 11. MS changes : likely due to UTI.
[2018-08-23] MEDS: Tamsulosin HCl 0.4 MG CAP PO SCH (20:34)
--- NOTE | 2018-08-23 21:57 | CON ---
DATE OF CONSULTATION: 08/23/2018 HISTORY OF PRESENT ILLNESS: This is a patient who Dr. Allan Paz has been seeing. He checked about to me when she is left for the weekend on Friday, but felt like he was stable and would not need to see him. The nurses called me today and asked me to come back to see him because of gross hematuria. He has had gross hematuria, it seems like pretty much since he has been in the hospital, this go around. He has a history of prostate cancer and he had radiation therapy for that. He unfortunately has developed bilateral hydro and Dr. Allan Paz has been caring for him, he has bilateral ureteral stents indwelling for the hydro and he has also had a chronic indwelling Allen. He has anemia based on recent GI bleed, for which he underwent emergent EGD as well as from gross hematuria and also unsure from prostate cancer. On looking at his imaging studies that have been done since he has been in the hospital, he had an abdominal CT scan done 5 days ago, which I have looked at and it shows the stents to be in good position. He also has had a urine culture done on 08/13, it showed no growth. On 08/14, he had a penile culture done and I am not sure what this actually means, but it grew out a Pseudomonas species, Pseudomonas aeruginosa and he actually is currently on meropenem. He has had blood cultures done on the of this months that would be 2 days ago that are no growth at 48 hours. His vital signs, he has had just a low-grade temperature in the last 24 hours and stable vital signs. On looking at his MAR, it did not appear that he is currently on any form of a blood thinner. PHYSICAL EXAMINATION: He is an elderly white male, who is not in any acute distress. However, his urine is very dark bloody. It does not appear to me to be active bleeding, actually it appears more like old blood that just staining the urine. I went ahead and sterilely hand irrigated with 2 L of sterile water and irrigated out a lot of old clot and he is much clearer now, although not completely clear. On having talk with Dr. Allan Paz when she left 2 days ago, the thought was that his bleeding is related to his recurrent prostate cancer and that he probably is going to continue to bleed off and on. She said that it is very difficult to place a Allen catheter, so she did not recommend removing the current Allen catheter, which is unfortunately not a 3-way catheter, so the thoughts are if he has trouble with bleeding, to hand irrigate. I have talked with the nursing staff about this, shown them how to hand irrigate. I do not think they should do this just because he has gross hematuria, but I think they need to be able to do this should he develop retention from that. His hemoglobin has been stable over the last few days, although there was not one drawn today but it was 7.9 yesterday, 7.5 the day before. He is currently, as mentioned, not significantly tachycardic. So, I think I would just order a hemoglobin to be drawn in the a.m. lab and will see where he stands. Job ID: [id number]
[2018-08-24] MEDS: MEROPENEM 1 GM/50 ML 1 GM in Premix Bag 1 BAG IVPB SCH ×2 (01:25→14:58)
[2018-08-24] MEDS: Melatonin 3 MG TAB PO PRN (01:38)
--- NOTE | 2018-08-24 01:48 | CON ---
DATE OF CONSULTATION: 08/22/2018 REASON FOR CONSULTATION: IMCU stay. This encompassed 50 minutes of the time, of that time, greater than 50% was spent with the patient and/or the patient's unit in the hospital. HISTORY OF PRESENT ILLNESS: This is a 77-year-old male, who was transferred over here yesterday with altered mental status, thought to be septic. He has a significant medical history. At the current time, he is confused and cannot give me much in the way history, but according to notes on the chart, he is much better today compared to yesterday when he came over. PAST MEDICAL HISTORY: 1. Prostate cancer with metastasis to regional nodes. 2. Hypertension. 3. Atrial fibrillation. 4. Ureteral obstruction. 5. Anemia secondary to arteriovenous malformations in the colon. PAST SURGICAL HISTORY: 1. Left hip replacement. 2. Tonsillectomy. 3. TAVR. MEDICATIONS: Currently taking; 1. Amlodipine. 2. DuoNeb. 3. Lanoxin. 4. Tambocor. 5. Apresoline. 6. Melatonin. 7. Meropenem. 8. Nystatin. 9. Pantoprazole. 10. Tamsulosin. His outpatient medications include; 1. Omnicef. 2. Procrit. 3. Flomax. 4. Nystatin powder. 5. Metoprolol. 6. Aspirin. 7. Senokot. FAMILY MEDICAL HISTORY: Unremarkable. 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 He lives in [place]. He formerly smoke. Does not drink alcohol. ALLERGIES: NONE. REVIEW OF SYSTEMS: Unobtainable secondary to the patient's confusion. PHYSICAL EXAMINATION: VITAL SIGNS: Temperature 99.1 with a T-max of 102.6 late yesterday, pulse 93, respirations 20, O2 sat 97% on 2 L, and blood pressure 155/59. GENERAL: He is an elderly male, who is 5 feet and 9 inches, weighs 271 pounds. He is confused but pleasant. HEENT: Unremarkable. NECK: No adenopathy, JVD, or bruits. LUNGS: Clear anteriorly without wheezes. CARDIAC: S1 and S2, regular. ABDOMEN: Soft, obese. EXTREMITIES: No edema. He has stasis changes over his anterior tibial regions bilaterally. IMAGING DATA: His chest x-ray shows no mass, effusion, or infiltrate. LABORATORY DATA: White blood cell count 15.4, hematocrit of 24.7, and platelet count 351. PH of 7.42, pCO2 of 48, and pO2 of 101 on 2 L nasal cannula. Sodium 137, potassium 4.3, chloride 96, CO2 of 29, BUN 33, creatinine 2.6, and glucose 114. He grew out Pseudomonas for a penile culture on 08/14. Cultures from yesterday are pending. ASSESSMENT: 1. Presumed sepsis, which is better after the change in antibiotic therapy by Dr. Lobo. 2. Multiple other medical problems listed above. PLAN: He is probably stable for transfer back out to the floor. He needs to continue on antibiotic therapy. There are no further Pulmonary recommendations at this time. Job ID: [id number]
--- NOTE | 2018-08-24 02:29 | PRG ---
DATE OF SERVICE: 08/23/2018 SUBJECTIVE: Mr. Fraga is still confused, he does not know where he is. Subjective report is questionable in terms of its accuracy because of his delirium. He does not appear to have shortness of breath or chest pain. No abdominal pain. OBJECTIVE: VITAL SIGNS: His temperature max is 100.8, his BP 150/70, and O2 saturation 95% on 2 L nasal cannula. SKIN: Exam with areas of maceration, intertriginous eruption, probably secondary to Karen species in the gluteal skin area. GENERAL: He is awake, but is confused. HEENT: His ocular movements are conjugate. No nystagmus. LUNGS: Symmetric air entry with faint basilar crackles. HEART: S1 and S2. Regular rate. ABDOMEN: Mildly distended, but not tender. There is a Allen catheter in place with somewhat cloudy urine drainage. EXTREMITIES: He is able to move extremities, but is diffusely weak. LABORATORY DATA: Sodium 137 and creatinine 2.64, which is fairly stable, maybe a little bit improved. BNP 187. Total bilirubin 0.2, AST 14, ALT 20, alkaline phosphatase 76, albumin 2.9, and globulin 3.4. Digoxin was 0.29. ABG with arterial pH of 7.42, pCO2 of 48, and pO2 of 101. Microbiology revealed the positive results thus far include Pseudomonas aeruginosa, which is a swab from the meatus from penile glans. The duplex ultrasound of lower extremities did not reveal any evidence of thrombosis. The patient had a brain CT, which did not show any acute changes. ASSESSMENT AND PLAN: Metastatic prostate cancer, controlled with androgen deprivation. Ischemic cardiomyopathy with paroxysmal atrial fibrillation, not on anticoagulants because of chronic bleeding issues in the gastrointestinal tract. 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 Complications related to treatment of prostate cancer as well as local invasiveness of the prostate cancer recurrence with obstruction of the right and left ureters, which have required stent placements. Chronic indwelling Allen catheter and now with the fever and delirium. The most likely scenario is a toxic metabolic encephalopathy/delirium associated with the urinary tract infectious process, and evidently he is at risk for numerous other complications such as pneumonia and thromboembolism. Primary C and S inflammatory process appears not likely. Continue antimicrobial therapy and supportive management and management of delirium. Cerebrovascular accidents can manifest as delirium and in view of his cardiac arrhythmia and absence of anticoagulation, it is conceivable that he might have had a stroke not identified on brain CT scan. Job ID: [id number]
[2018-08-24 04:59] LABS: #Eosinphils 0.1 thou/uL (0.0-0.7); #Lymphocytes 0.9 thou/uL (1.20-3.40); #Monocytes 1.2 thou/uL (0.11-0.59); %Basophils 0.1 % (0.0-1.0); %Eosinophils 1.6 % (0.0-10.0); %Lymphocytes 9.7 % (21.0-51.0); %Monocytes 12.8 % (0.0-10.0); %Neutrophils 75.9 % (42.0-75.0); Hemoglobin 6.8 g/dL (14.0-18.0); Mean Corpuscular HGB CONC 32.3 g/dL (32.0-36.0); Mean Corpuscular Hemoglobin 28.6 pg (27.0-31.0); Mean Corpuscular Volume 88.6 fL (78.0-98.0); Mean Platelet Volume 7.1 fL (7.4-10.4); Platelet Count 345 thou/uL (130-400); RBC Distribution Width 15.3 % (11.5-14.5); Red Blood Cell (RBC) Count 2.37 mill/uL (4.70-6.10); White Blood Cell (WBC) Count 9.3 thou/uL (4.8-10.8)
[2018-08-24] MEDS: Amlodipine 5 MG TAB PO SCH (09:25)
[2018-08-24] MEDS: Flecainide 50 MG TAB PO SCH ×2 (09:25→20:32)
[2018-08-24] MEDS: Digoxin 0.125 MG TAB PO SCH (09:26)
[2018-08-24] MEDS ORDERED: Flecainide 50 MG TAB PO SCH (11:45)
--- NOTE | 2018-08-24 12:08 | ULT ---
BILATERAL RENAL ULTRASOUND: Date: 08/24/18 COMPARISON: None. HISTORY: Clot in urinary bladder. Evaluate for hydronephrosis secondary to obstructing clot. TECHNIQUE: Multiplanar Bustillos scale and color Doppler images were obtained in a renal ultrasound. FINDINGS: There is minimal left-sided hydronephrosis, similar to the prior examination. There is no shadowing c alculi in either kidney. The kidneys are 11.1 and 14.2 cm in length on the right and left, respective ly. A Allen catheter is seen within the urinary bladder. There is incidental finding of a cyst in the marquis er measuring 2.6 cm in greatest dimension. IMPRESSION: 1. Mild left hydronephrosis. 2. Hepatic cyst. POS: [facility]
--- NOTE | 2018-08-24 14:09 | PRG ---
DATE OF SERVICE: 08/24/2018 SUBJECTIVE: The patient is seen and examined at the bedside. He is doing significantly better. He is able to talk to me. His mood is much more elusive than he used to be. He said that his son came and saw him. He is not in any pain. OBJECTIVE: VITAL SIGNS: Blood pressure is 151/60, pulse is 91, temperature is 98.1, respiratory rate is 18, O2 saturation is 97% on 2 L by nasal cannula. HEENT: His head is atraumatic and normocephalic. Eyes are PERRLA. Sclerae nonicteric. Oral mucosa is moist. NECK: Supple. LUNGS: Breath sounds diminished at both bases with bilateral wheezes, mild at both bases. HEART: S1, S2, somewhat irregular. No S3. No S4. ABDOMEN: Soft, nontender, slightly distended. EXTREMITIES: No clubbing or cyanosis. There is 1+ peripheral edema. GENITOURINARY: Allen catheter is in place and urine is bloodish. MONITORING: We noticed that he went back to atrial fibrillation with controlled ventricular rate. LABORATORY DATA: Labs showed white count of 9.3, hemoglobin 6.8, hematocrit 21, platelet count of 345. Renal ultrasound showed; 1. Mild left hydronephrosis. 2. Hepatic cyst. IMPRESSION: 1. Sepsis of unclear source, on meropenem, improved. 2. Duodenal arteriovenous malformations, status post cautery. 3. Gross hematuria. Dr. Ledezma saw the patient for Urology evaluation. Apparently, after discussion with the primary urologist, we learned that he will have urinary blood loss on and off from his prostate cancer, so the blood was irrigated by Dr. Ledezma. 4. Paroxysmal atrial arrhythmias, status post cardioversion. He just went back to atrial fibrillation and EP wants to increase the dose on his flecainide. 5. Acute on chronic anemia, requiring multiple blood transfusion, status post arteriovenous malformation, cauterization. His hemoglobin is down to 6.8, and we will transfuse him with 1 unit of packed red blood cells again. 6. Bilateral ureteral stents. 7. Pseudomonas aeruginosa growing from his penile culture. His urine culture negative. PLAN: Plan is to continue meropenem. I appreciate input from Dr. Ledezma for his hematuria treatments. We will continue his amlodipine, Flomax, pantoprazole, flecainide, digoxin, and DuoNeb, and transfuse him with 1 unit of packed red blood cells. Job ID: [id number]
--- NOTE | 2018-08-24 16:11 | PDOC.CTH ---
Cardiology Progress Note - Subjective Has been transfered over to MICU hence MS changes. He was found to have sepsis. Now better. Afib recurred on lower dose of flecainde. - ROS dizziness (No) - Objective Vital Signs Temp Pulse Resp BP Pulse Ox 08/24/18 14:41 100 16 96 08/24/18 12:00 98.1 F 91 18 151/60 H 97 08/24/18 11:02 100 16 95 08/24/18 09:26 117 H 08/24/18 09:25 117 H 08/24/18 08:00 98.7 F 116 H 20 130/62 99 08/24/18 07:50 110 H 14 95 Admit Weight 295 lb 9.6 oz Weight 268 lb 6.4 oz 08/23/18 08/24/18 08/25/18 06:59 06:59 06:59 Intake Total 1430 Output Total 9865 1875 Balance -495 -1875 - Physical Examination General/Neuro: alert & oriented x3, NAD Neck: no JVD present Lungs: CTA Heart: RRR (irrgeg HR), other: Abdomen: no HSM, NT/ND, soft - Labs Result Diagrams: 08/24/18 04:39 08/22/18 11:21 Troponin/CKMB Troponin I Less than 0.010 ng/mL (< 0.028) 08/13/18 21:02 - Assessment/Plan - Assessment/Plan 1. Paroxysmal atrial arrhythmias - Atrial fibrillation and atrial flutter - Previously on Multaq -Started on Flecainide 100mg BID on 08/19/18. Good response so far. Hence Chr renal insuf, we had decreased flecainde 50 BID on 08/21/18, but had recurrence. Eill re increase flecainde. and monitro QTC. -recurrent afib on tele today and overnight. 2. Acute/chronic anemia - AVM, duodenal ectasia s/p cautery -mult blood transfusions recently -chronic iron infusions -hematuria- largely resolved. Urine mostly clear today 3. Chronic UTI -indwelling melchor -hx E Coli sepsis 4. CHADS2-VASC =2 (advancing age and vascular disease) -unable to take anticoagulation with acute/chronic anemia 5. Leukocytosis - fever 102 yesterday. WBC 15.4k today. ID consult pending. Change Flecainide 100mg BID for arrhythmia suppression. 12 lead EKG pending today to monitor QRS
--- NOTE | 2018-08-24 17:14 | EKG ---
Test Reason : Blood Pressure : / mmHG Vent. Rate : 108 BPM Atrial Rate : 127 BPM P-R Int : 000 ms QRS Dur : 146 ms QT Int : 330 ms P-R-T Axes : 000 -70 064 degrees QTc Int : 442 ms Atrial fibrillation with rapid ventricular response Right bundle branch block Left anterior fascicular block Bifascicular block Abnormal ECG When compared with ECG of 21-AUG-2018 12:38, (Unconfirmed) Atrial fibrillation has replaced Sinus rhythm Confirmed by DR. Aad KRAUS ([id number]) on 08/24/2018 5:14:22 PM Referred By: SOPHIA Confirmed By:DR. Ada KRAUS
[2018-08-24] MEDS: Tamsulosin HCl 0.4 MG CAP PO SCH (20:32)
[2018-08-25] MEDS: MEROPENEM 1 GM/50 ML 1 GM in Premix Bag 1 BAG IVPB SCH ×2 (01:09→12:43)
--- NOTE | 2018-08-25 05:58 | PRG ---
DATE OF SERVICE: 08/24/2018 SUBJECTIVE: Patient was seen and examined at bedside and overnight events noted. Patient denies any shortness of breath or chest pain or palpitation. No history of nausea or vomiting or diarrhea or fever or chills or cramps. OBJECTIVE: GENERAL: This is an obese male, in no apparent distress. VITAL SIGNS: Temperature . Pulse 90. Respiratory rate 20. Blood pressure 144/58. HEENT: Atraumatic, normocephalic. Oral mucosa is moist NECK: Supple. CARDIOVASCULAR: S1, S2 heard. Rate and rhythm regular. RESPIRATORY: Clear to auscultation. GASTROINTESTINAL: Abdomen is soft. MUSCULOSKELETAL: No tenderness. No edema. DERMATOLOGIC: No skin rash. NEUROLOGIC: Alert and awake and oriented X3. No focal neurologic deficits. Moving all the extremities. PSYCHIATRIC: Mood and affect normal. LABORATORY DATA: Potassium is 4.3, BUN is 33, and creatinine 2.6. ASSESSMENT AND PLAN: 1. Acute kidney injury on chronic kidney disease, stage 4, stable. Avoid nephrotoxins. 2. . 3. Anemia. 4. Altered mentation. 5. Fatigue. No acute indication for dialysis. We will monitor. Job ID: [id number]
[2018-08-25] MEDS: Nystatin Powder 15 GM BOT TOP PRN (06:27)
[2018-08-25] MEDS: Digoxin 0.125 MG TAB PO SCH (08:43)
[2018-08-25] MEDS: Flecainide 50 MG TAB PO SCH ×2 (08:44→20:09)
[2018-08-25] MEDS: Amlodipine 5 MG TAB PO SCH (08:45)
[2018-08-25 09:35] LABS: Anion Gap 13 mmol/L (10-20); BUN (Urea Nitrogen) 29 mg/dL (8.4-25.7); Calc. Creatinine Clearance 49 mL/min (70-130); Calcium 8.5 mg/dL (7.8-10.44); Carbon Dioxide 30 mmol/L (23-31); Chloride 98 mmol/L (98-107); Estimated GFR-MDRD 30; Glucose 138 mg/dL (83-110); Potassium 3.8 mmol/L (3.5-5.1); Sodium 137 mmol/L (136-145)
--- NOTE | 2018-08-25 09:37 | PRG ---
DATE OF SERVICE: 08/24/2018 SUBJECTIVE: The patient is resting comfortably. He has no complaints. He does report that he is still having black tarry stools. He has previously undergone an EGD with cauterization of an AV malformation near the stomach or duodenum. He has been cared for by Dr. Ledezma most recently who has performed irrigations on his bladder due to persistent hematuria, which has been occurring off and on with some small clots present. OBJECTIVE: VITAL SIGNS: Temperature 98.7, pulse 116, respirations 20, blood pressure 130/62, saturation 99% on 2 L nasal cannula. GENERAL: No apparent distress, communicating, and alert. CARDIOVASCULAR: Sinus tachycardia. CHEST: No increased work of breathing. Bibasilar crackles. ABDOMEN: Protuberant, soft, nontender, nondistended. : Allen catheter in place draining a dark red urine. This was hand irrigated with removal of some small clots, but no major clots. There was some difficulty with irrigation. It is questionable whether or not this is just the bladder wall or if it is a blood clot. EXTREMITIES: 2+ edema. Otherwise, no significant clubbing or cyanosis. LABORATORY DATA: On laboratory evaluation, the full set of labs in the [employer] system, which I have reviewed. Of note, the patient's creatinine is 2.64 as of August 22. Hemoglobin is 6.8 with white count 9.3. 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 It is unlikely that hematuria will really ever resolve completely unless all instruments were taken out of his bladder, which unfortunately will result in the patient being unable to void and result in bilateral hydronephrosis again. In his current state, his kidney function is stable and he will be at low risk for UTIs. However, he will likely continue to have his hematuria. From a bleeding standpoint, I think it is extremely unlikely that his hemoglobin has trended down due to his hematuria, although this is certainly not helping. His black tarry stools make it more likely that he is either having old blood passed from his previous AV malformation cauterization or he is rebleeding again. This may need to be looked into if his hemoglobin continues to trend down. From my standpoint, the hematuria would really only pose a problem from issues of clotting. I will order a renal bladder ultrasound today to ensure that he does not have any clots in his bladder and continue to follow. Job ID: [id number]
--- NOTE | 2018-08-25 09:45 | PRG ---
DATE OF SERVICE: 08/25/2018 SUBJECTIVE: The patient states he is feeling fine. No complaints. His renal and bladder ultrasound came back with mild left hydronephrosis, which is stable from prior with no significant clots noted within the bladder. Allen catheter was in place. OBJECTIVE: VITAL SIGNS: Temperature 99, pulse 92, respirations 18, blood pressure 139/61, and saturation 94% on room air. GENERAL: No apparent distress, communicative and alert. CARDIOVASCULAR: Regular rate and rhythm. ABDOMEN: Soft, nontender, and nondistended. Positive bowel sounds. : Allen catheter in place with translucent light red urine without clots. LABORATORY DATA: No new labs have reported today. ASSESSMENT AND PLAN: A 77-year-old white male with gross hematuria, likely secondary to radiation cystitis and instrument irritation from stents and indwelling Allen catheter. His anemia is likely due to anemia of chronic disease along with gastrointestinal bleeding slightly exacerbated by gross hematuria, although, the hematuria is the least likely culprit. His ultrasound does not demonstrate any clots in the bladder and from my standpoint, I do not think there is anything significant to be done at this time. Unfortunately, he will have intermittent hematuria off and on. If he has significant hematuria with recurrent clotting of his catheter, we may need to consider putting bilateral nephrostomy tubes in and taking his stents out, but this would create a significant social problem for him as he is extremely poor with mobility and trying to transfer and ambulate with a Allen catheter and two nephrostomy bags will have a high risk of the tube is becoming entangled, accidentally getting pulled out or causing the patient a significant amount of discomfort. As such, the optimal situation is to leave him as he has with indwelling stents, however, the situation that would push me toward bilateral nephrostomy tubes is again gross hematuria with recurrent clotting with gross hematuria without clots or obstruction to the catheter. I think we could leave him in this situation so long as his hematuria remains stable and his hemoglobin does not decrease dramatically. Although, again I do suspect that his GI bleed is the more likely culprit in this situation. I will continue to follow and make recommendations. Job ID: [id number]
--- NOTE | 2018-08-25 14:23 | PDOC.CTH ---
Cardiology Progress Note - Subjective EP PROGRESS NOTE: 08/25/18 Seen as follow up for atrial arrhythmias and medical management. Mentally much clearer today. No cardiac concerns or complaints - Objective Vital Signs Temp Pulse Pulse Pulse Resp BP BP 08/25/18 12:55 98.6 F 88 18 08/25/18 11:09 90 18 08/25/18 09:37 85 86 147/64 H 157/68 H 08/25/18 09:30 08/25/18 08:43 92 08/25/18 07:35 99.0 F 92 18 08/25/18 07:06 90 18 08/25/18 04:00 98.7 F 89 20 08/25/18 02:35 90 22 H BP Pulse Ox 08/25/18 12:55 126/57 L 100 08/25/18 11:09 08/25/18 09:37 08/25/18 09:30 94 L 08/25/18 08:43 08/25/18 07:35 139/61 94 L 08/25/18 07:06 08/25/18 04:00 100/54 L 96 08/25/18 02:35 89 L Admit Weight 295 lb 9.6 oz Weight 274 lb 08/24/18 08/25/18 08/26/18 06:59 06:59 06:59 Intake Total 2365 Output Total 1875 1575 Balance -1875 790 - Physical Examination General/Neuro: alert & oriented x3, NAD Neck: no JVD present Lungs: unlabored respirations, other: Heart: PMI normal, RRR Abdomen: NT/ND, soft - Labs Result Diagrams: 08/24/18 04:39 08/25/18 08:42 Troponin/CKMB Troponin I Less than 0.010 ng/mL (< 0.028) 08/13/18 21:02 - Assessment/Plan 1. Paroxysmal atrial arrhythmias - Atrial fibrillation and atrial flutter dx at least three years ago. Previously on Multaq -Started on Flecainide 100mg BID on 08/19/18. Good response so far. Hence Chr renal insuf, we had decreased flecainde 50 BID on 08/21/18, but had recurrence. Increased flecainde to 100mg PO BID on 08/24 in AM -12 lead EKG to monitor QTc. -recurrent afib on 08/24. 2. Acute/chronic anemia - AVM, duodenal ectasia s/p cautery -mult blood transfusions recently -chronic iron infusions -hematuria: dark hematuria again today 3. Chronic UTI -indwelling melchor -hx E Coli sepsis 4. CHADS2-VASC =2 (advancing age and vascular disease) -unable to take anticoagulation with acute/chronic anemia 5. Leukocytosis - resolved 6. Sepsis - back in tele and mentally much clearer/alert. - per hospitalist. 7. Chronic renal insufficiency - Creat 2.15 today, improving In sinus rhythm today but did have brief run of PAT yesterday. Continue current treatment plan of flecainide 100mg po BID for AF suppression
--- NOTE | 2018-08-25 16:12 | EKG ---
Test Reason : Blood Pressure : / mmHG Vent. Rate : 087 BPM Atrial Rate : 087 BPM P-R Int : 224 ms QRS Dur : 162 ms QT Int : 446 ms P-R-T Axes : 063 -68 048 degrees QTc Int : 536 ms Sinus rhythm with 1st degree A-V block Right bundle branch block Left anterior fascicular block Bifascicular block Abnormal ECG When compared with ECG of 24-AUG-2018 09:33, Sinus rhythm has replaced Atrial fibrillation QT has lengthened Confirmed by DR. Ada KRAUS ([id number]) on 08/25/2018 4:12:00 PM Referred By: [facility] Confirmed By:DR. Ada KRAUS
--- NOTE | 2018-08-25 16:23 | EKG ---
Test Reason : Blood Pressure : / mmHG Vent. Rate : 089 BPM Atrial Rate : 089 BPM P-R Int : 230 ms QRS Dur : 162 ms QT Int : 438 ms P-R-T Axes : 067 -69 044 degrees QTc Int : 532 ms Sinus rhythm with 1st degree A-V block Right bundle branch block Left anterior fascicular block Bifascicular block Abnormal ECG When compared with ECG of 25-AUG-2018 07:14, (Unconfirmed) No significant change was found Confirmed by DR. Ada KRAUS ([id number]) on 08/25/2018 4:23:02 PM Referred By: SOPHIA Confirmed By:DR. Ada KRAUS
[2018-08-25] MEDS: Tamsulosin HCl 0.4 MG CAP PO SCH (20:09)
--- NOTE | 2018-08-25 22:08 | PDOC.PN ---
- Subjective Encounter Start Date: 08/25/18 Encounter Start Time: 17:00 Late entry note. Patient awake, conversant about dinner, able to relate some elements of his hospital course. His had planned on coming today for meeting with case management but was unable to come. Patient and trying to decide upon disposition options. - Objective Resuscitation Status - Order Detail: 08/13/18 17:30 Resuscitation Status Routine Resuscitation Status: FULL: Full Resuscitation Vital Signs & Weight: Vital Signs (12 hours) Temp Pulse Resp BP Pulse Ox 08/25/18 19:45 98.0 F 90 20 125/55 L 95 08/25/18 19:17 95 16 93 L 08/25/18 16:09 97.9 F 89 90 H 136/60 90 L 08/25/18 14:46 90 16 08/25/18 12:55 98.6 F 88 18 126/57 L 100 08/25/18 11:09 90 18 Weight Admit Weight 295 lb 9.6 oz Weight 274 lb I&O: 08/24/18 08/25/18 08/26/18 06:59 06:59 06:59 Intake Total 2365 480 Output Total 1875 1575 350 Balance -1875 790 130 Result Diagrams: 08/24/18 04:39 08/25/18 08:42 Additional Labs: Accuchecks 08/25/18 08/25/18 08/25/18 20:50 17:09 10:53 POC Glucose 144 H 110 142 H 08/25/18 05:38 POC Glucose 119 H Phys Exam - Physical Examination Constitutional: NAD : Allen present HEENT: PERRLA, oral pharynx no lesions Neck: supple, full ROM Fair aeration Cardiovascular: RRR Gastrointestinal: soft, non-tender Musculoskeletal: edema present Mild Neurological: moves all 4 limbs Deviation from normal: Oriented to person and place Dx/Plan (1) Encephalopathy Code(s): G93.40 - ENCEPHALOPATHY, UNSPECIFIED Status: Acute Comment: Generally improving per chart review and confirmed on visit today (toxic metabolic likely secondary to sepsis) (2) Prostate cancer metastatic to bone Code(s): C61 - MALIGNANT NEOPLASM OF PROSTATE; C79.51 - SECONDARY MALIGNANT NEOPLASM OF BONE Status: Acute Comment: Appreciate evaluation. Expected intermittant bleeding secondary to metastatic prostate cancer (3) Paroxysmal A-fib Code(s): I48.0 - PAROXYSMAL ATRIAL FIBRILLATION Status: Acute Comment: Appreciate EP input. Presently on flecainide, dose adjusted, monitoring QTc. 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 Penile culture Pseudomonas. Presently on Meropenam, improving. (8) Acute worsening of stage 3 chronic kidney disease Code(s): N18.3 - CHRONIC KIDNEY DISEASE, STAGE 3 (MODERATE) Status: Acute Comment: creatinine stabilizing, 2.75 today - Plan cont current plan of care, continue antibiotics, director social service * Please see plan as updated above * Patient and to meet with case management tomorrow 08/26 to discuss facility preference. Consideration for discharge 24-48 hours, though ongoing blood loss/anemia may require additional transfusion. Management options from urology standpoint limited as per review of notes.
[2018-08-26] MEDS: MEROPENEM 1 GM/50 ML 1 GM in Premix Bag 1 BAG IVPB SCH ×2 (01:03→13:23)
[2018-08-26 04:52] LABS: #Eosinphils 0.2 thou/uL (0.0-0.7); #Lymphocytes 1.1 thou/uL (1.20-3.40); #Neutrophils 9.3 thou/uL (1.40-6.50); %Basophils 0.2 % (0.0-1.0); %Eosinophils 1.7 % (0.0-10.0); %Lymphocytes 9.3 % (21.0-51.0); %Neutrophils 79.9 % (42.0-75.0); Mean Corpuscular Hemoglobin 28.5 pg (27.0-31.0); Mean Corpuscular Volume 89.2 fL (78.0-98.0); Platelet Count 373 thou/uL (130-400); RBC Distribution Width 15.3 % (11.5-14.5); Red Blood Cell (RBC) Count 2.45 mill/uL (4.70-6.10); White Blood Cell (WBC) Count 11.6 thou/uL (4.8-10.8)
[2018-08-26 05:04] LABS: Anion Gap 12 mmol/L (10-20); BUN (Urea Nitrogen) 29 mg/dL (8.4-25.7); Calc. Creatinine Clearance 50 mL/min (70-130); Calcium 8.4 mg/dL (7.8-10.44); Carbon Dioxide 32 mmol/L (23-31); Chloride 97 mmol/L (98-107); Estimated GFR-MDRD 30; Glucose 111 mg/dL (83-110); Potassium 3.6 mmol/L (3.5-5.1); Sodium 137 mmol/L (136-145)
--- NOTE | 2018-08-26 08:03 | PDOC.CTH ---
Cardiology Progress Note - Subjective EP PROGRESS NOTE: 08/26/18 Seen as follow up for atrial arrhythmias and medical management. No cardiac concerns or complaints - Objective Vital Signs Temp Pulse Resp BP Pulse Ox 08/26/18 04:00 97.6 F 91 20 137/63 95 08/26/18 02:53 89 18 91 L 08/26/18 00:00 98.4 F 99 22 H 125/60 96 08/25/18 22:54 98 20 86 L Admit Weight 295 lb 9.6 oz Weight 271 lb 8 oz 08/25/18 08/26/18 08/27/18 06:59 06:59 06:59 Intake Total 2365 1030 Output Total 1575 900 Balance 790 130 - Physical Examination General/Neuro: alert & oriented x3, NAD Neck: carotid US brisk, no JVD present Lungs: unlabored respirations, other: (coarse) Heart: RRR Abdomen: NT/ND, soft - Telemetry Telemetry Rhythm: SR - Labs Result Diagrams: 08/26/18 04:19 08/26/18 04:19 Troponin/CKMB Troponin I Less than 0.010 ng/mL (< 0.028) 08/13/18 21:02 - Assessment/Plan 1. Paroxysmal atrial arrhythmias - Atrial fibrillation and atrial flutter dx at least three years ago. Previously on Multaq -Started on Flecainide 100mg BID on 08/19/18. Good response so far. Hence Chr renal insuf, we had decreased flecainde 50 BID on 08/21/18, but had recurrence. Increased flecainde to 100mg PO BID on 08/24 in AM -12 lead EKG to monitor QTc. (baseline 132msec, 164msec today. 20% increase) -recurrent afib on 08/24 and 08/26 HS 2. Acute/chronic anemia - AVM, duodenal ectasia s/p cautery -mult blood transfusions recently -chronic iron infusions -hematuria: dark hematuria again today 3. Chronic UTI -indwelling melchor -hx E Coli sepsis 4. CHADS2-VASC =2 (advancing age and vascular disease) -unable to take anticoagulation with acute/chronic anemia 5. Leukocytosis - resolved 6. Sepsis - back in tele and mentally much clearer/alert. - per hospitalist. 7. Chronic renal insufficiency - Creat 2.11 today, continues to improve 8. CAD - hx of stent to RCA 9. MOLLY - CPAP at home. Unsure if being used at night during this hospital stay. - provoking cardiac pauses while asleep In sinus rhythm today but did have run of atrial fibrillation last night with 3.8 second pause likely from his sleep apnea. He will likely benefit from a pacemaker at once his infectious status has cleared and can be arranged as an outpatient. Continue current treatment plan of flecainide 100mg po BID for AF suppression. Flecainide is not an ideal option for him with his CAD but he has limited options for medical management but his CAD is stable right now. Amiodarone is the other option which is also not ideal with his COPD. Will continue to check daily EKG to monitor his QRS with flecainide. Highly recommend his sleep apnea be treated with CPAP at night if not already in place while in the hospital.
[2018-08-26] MEDS: Flecainide 50 MG TAB PO SCH ×2 (10:22→21:38)
[2018-08-26] MEDS: Amlodipine 5 MG TAB PO SCH (10:22)
[2018-08-26] MEDS: Digoxin 0.125 MG TAB PO SCH (10:22)
--- NOTE | 2018-08-26 11:22 | PRG ---
DATE OF SERVICE: 08/25/2018 SUBJECTIVE: Patient was seen and examined at bedside and overnight events noted. Patient denies any shortness of breath or chest pain or palpitation. No history of nausea or vomiting or diarrhea or fever or chills or cramps. OBJECTIVE: GENERAL: This is an obese male, in no apparent distress. VITAL SIGNS: Temperature 98.6. Pulse 80. Respiratory rate 18. Blood pressure 126/57. HEENT: Atraumatic, normocephalic. Oral mucosa is moist NECK: Supple. CARDIOVASCULAR: S1, S2 heard. Rate and rhythm regular. RESPIRATORY: Clear to auscultation. GASTROINTESTINAL: Abdomen is soft. MUSCULOSKELETAL: No tenderness. No edema. DERMATOLOGIC: No skin rash. NEUROLOGIC: Alert and awake and oriented X3. No focal neurologic deficits. Moving all the extremities. PSYCHIATRIC: Mood and affect normal. LABORATORY DATA: Potassium is 3.8, BUN is 29, creatinine is 2.1. ASSESSMENT AND PLAN: 1. Acute kidney injury on chronic kidney disease, stage 3 . 2. Hypertension, stable. 3. Anemia. 4. Altered mentation, stable. 5. Renal function is stable. Avoid nephrotoxins. We will follow. Job ID: [id number]
[2018-08-26 12:25] VITALS: BMI 40.1
--- NOTE | 2018-08-26 14:00 | PRG ---
DATE OF SERVICE: 08/26/2018 SUBJECTIVE: Patient was seen and examined at bedside and overnight events noted. Patient denies any shortness of breath or chest pain or palpitation. No history of nausea or vomiting or diarrhea or fever or chills or cramps. OBJECTIVE: GENERAL: This is a well-built male, in no apparent distress. VITAL SIGNS: Temperature 98. Pulse 87. Respiratory rate 18. Blood pressure 131/58. HEENT: Atraumatic, normocephalic. Oral mucosa is moist NECK: Supple. CARDIOVASCULAR: S1, S2 heard. Rate and rhythm regular. RESPIRATORY: Clear to auscultation. GASTROINTESTINAL: Abdomen is soft. MUSCULOSKELETAL: No tenderness. No edema. DERMATOLOGIC: No skin rash. NEUROLOGIC: Alert and awake and oriented X3. No focal neurologic deficits. Moving all the extremities. PSYCHIATRIC: Mood and affect normal. LABORATORY DATA: Potassium is 3.6, BUN 29 and creatinine is 2.1. ASSESSMENT AND PLAN: 1. Acute kidney injury on chronic kidney disease, stage 3 with improvement in the renal function, stable. Avoid nephrotoxins. 2. Edema, controlled. 3. Hypertension. function is stable. No acute indications for dialysis. We will follow. Job ID: [id number]
[2018-08-26] MEDS: Nystatin Powder 15 GM BOT TOP PRN (16:20)
--- NOTE | 2018-08-26 17:53 | PDOC.PN ---
- Subjective Encounter Start Date: 08/26/18 Encounter Start Time: 17:51 Subjective: feels weak and tired.care discussed w at bedside -: tried to discuss disease prognosis & Code status,but pt does not want today - Objective Resuscitation Status - Order Detail: 08/13/18 17:30 Resuscitation Status Routine Resuscitation Status: FULL: Full Resuscitation MAR Reviewed: Yes Vital Signs & Weight: Vital Signs (12 hours) Temp Pulse Pulse Resp BP BP Pulse Ox 08/26/18 15:06 97.7 F 78 16 139/63 97 08/26/18 15:05 74 6 L 96 08/26/18 15:00 97.7 F 78 16 139/63 100 08/26/18 11:33 98.1 F 86 18 125/58 L 97 08/26/18 11:13 85 16 97 08/26/18 10:22 97 08/26/18 08:21 97 08/26/18 08:18 85 16 97 08/26/18 07:31 98.0 F 87 18 131/58 L 97 Weight Admit Weight 295 lb 9.6 oz Weight 271 lb 8 oz I&O: 08/25/18 08/26/18 08/27/18 06:59 06:59 06:59 Intake Total 2365 1030 0 Output Total 1575 900 Balance 790 130 0 Result Diagrams: 08/26/18 04:19 08/26/18 04:19 Additional Labs: Accuchecks 08/26/18 08/26/18 08/26/18 16:54 10:40 05:54 POC Glucose 118 H 144 H 113 H 08/25/18 20:50 POC Glucose 144 H Microbiology 08/16/18 10:25 Stool Stool Occult Blood (MEG) - Final 08/14/18 13:54 Penis Bacterial Culture - Final Pseudomonas aeruginosa 08/13/18 23:00 Urine melchor catheter Urine Culture - Final NO GROWTH AT 36 HOURS 08/21/18 13:13 Venous blood - Right Hand Blood Culture - Preliminary NO GROWTH AT 48 HOURS 08/21/18 13:13 Venous blood - Right Arm Blood Culture - Preliminary NO GROWTH AT 48 HOURS Laboratory Tests 08/21/18 08/22/18 08/25/18 05:28 11:21 08:42 Creatinine 2.73 H 2.64 H 2.16 H 08/26/18 04:19 Creatinine 2.11 H Phys Exam - Physical Examination pale,chronically ill looking.awake HEENT: PERRLA, moist MMs, sclera anicteric, TM's clear, 2+ tonsils Neck: no nodes, no JVD, supple, full ROM Respiratory: no wheezing, no rales, no rhonchi Cardiovascular: RRR, no significant murmur Gastrointestinal: soft, non-tender, no distention, positive bowel sounds Musculoskeletal: no edema, pulses present Neurological: non-focal, normal sensation, moves all 4 limbs Dx/Plan (1) Sepsis Code(s): A41.9 - SEPSIS, UNSPECIFIED ORGANISM Status: Acute Comment: Suspected urinary tract source. Penile culture Pseudomonas. Presently on Meropenam, improving. (2) Acute worsening of stage 3 chronic kidney disease Code(s): N18.3 - CHRONIC KIDNEY DISEASE, STAGE 3 (MODERATE) Status: Acute Comment: creatinine stabilizing, 2.11 today (3) GI bleed Code(s): K92.2 - GASTROINTESTINAL HEMORRHAGE, UNSPECIFIED Status: Acute Comment: PPI daily.s/p EGD for vascular ectasia with cautery.H/.H stable for now (4) Atrial fibrillation with RVR Code(s): I48.91 - UNSPECIFIED ATRIAL FIBRILLATION Status: Acute Comment: Start Digoxin daily, continue Metoprolol 75mg BID, Echo showed EF 60-65%, mod LAE.NOT a candidate for OAC due to GIB from ectasia. (5) Blood loss anemia Code(s): D50.0 - IRON DEFICIENCY ANEMIA SECONDARY TO BLOOD LOSS (CHRONIC) Status: Acute Comment: Transfuse 1 unit PRBC again today 08/26/18 (6) Prostate cancer metastatic to bone Code(s): C61 - MALIGNANT NEOPLASM OF PROSTATE; C79.51 - SECONDARY MALIGNANT NEOPLASM OF BONE Status: Acute Comment: Appreciate evaluation. Expected intermittant bleeding secondary to metastatic prostate cancer (7) Sinus pause Code(s): I45.5 - OTHER SPECIFIED HEART BLOCK Status: Acute Comment: Pt not a good candidate for pacemaker. Has pauses when on beta blockers. Off of beta blockers, he has tachyarrhythmias. He has been started on flecainide yesterday. 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 Code(s): K31.811 - ANGIODYSPLASIA OF STOMACH AND DUODENUM WITH BLEEDING Status : Acute Comment: s/p EGD with APC cauterization (10) Morbid obesity Code(s): E66.01 - MORBID (SEVERE) OBESITY DUE TO EXCESS CALORIES Status: Chronic (11) UTI (urinary tract infection) Status: Acute Comment: Proteus spp, d/c Rocephin, start Levaquin 500mg po daily (12) Chronic indwelling Melchor catheter Code(s): Z92.89 - PERSONAL HISTORY OF OTHER MEDICAL TREATMENT Status: Chronic - Plan plan discussed w/ family, melchor catheter, continue antibiotics, PT/OT, respiratory therapy, incentive spirometry, out of bed/ambulate, DVT proph w/SCDs Extremly poor prognosis & i fear pt will code again or get readmitted -: tried to discuss code status but they seem overwhelmed w DC planning -: will attempt again.approved for SNIF.HD stable.can DC post transfusion -: High risk or decompensation & readmission. -: meds as mentioned above & as listed below.Hr better controlled * . Review of Systems - Review of Systems Constitutional: weakness, malaise. negative: fever, chills, sweats, other Respiratory: Cough, Dry, SOB with Excertion. negative: Shortness of Breath, Hemoptysis, Pleuritic Pain, Sputum, Wheezing Cardiovascular: negative: chest pain, palpitations, orthopnea, paroxysmal nocturnal dyspnea, edema, light headedness, other Gastrointestinal: negative: Nausea, Vomiting, Abdominal Pain, Diarrhea, Constipation, Melena, Hematochezia, Other Genitourinary: negative: Dysuria, Frequency, Incontinence, Hematuria, Retention , Other Musculoskeletal: negative: Neck Pain, Shoulder Pain, Arm Pain, Back Pain, Hand Pain, Leg Pain, Foot Pain, Other Neurological: negative: Weakness, Numbness, Incoordination, Change in Speech, Confusion, Seizures, Other - Medications/Allergies Allergies/Adverse Reactions: Allergies Allergy/AdvReac Type Severity Reaction Status Date / Time No Known Allergies Allergy Verified 08/13/18 20:53 Medications: Current Medications Acetaminophen (Tylenol) 650 mg PO Q6H PRN PRN Reason: Mild Pain (1-3)/FEVER Last Admin: 08/22/18 21:07 Dose: 650 mg Albuterol/Ipratropium (Duoneb) 3 ml NEB H3AC-RH [facility] Last Admin: 08/26/18 15:05 Dose: 3 ml Amlodipine Besylate (Norvasc) 5 mg PO DAILY [facility] Last Admin: 08/26/18 10:22 Dose: 5 mg Digoxin (Lanoxin) 0.125 mg PO DAILY [facility] Last Admin: 08/26/18 10:22 Dose: 0.125 mg Flecainide Acetate (Tambocor) 100 mg PO Q12HR [facility] Last Admin: 08/26/18 10:22 Dose: 100 mg Hydralazine HCl (Apresoline) 10 mg SLOW IVP Q4H PRN PRN Reason: SBP > 180 Meropenem 1 gm/ Device 50 mls @ 100 mls/hr IVPB 0100,1300 [facility] Last Admin: 08/26/18 13:23 Dose: 50 mls Melatonin (Melatonin) 3 mg PO HS PRN PRN Reason: Insomnia Last Admin: 08/24/18 01:38 Dose: 3 mg Nystatin (Mycostatin Powder) 0 gm TOP PRN PRN PRN Reason: DIRECTED Last Admin: 08/25/18 06:27 Dose: 1 applic Pantoprazole Sodium (Protonix) 40 mg PO DAILY [facility] Last Admin: 08/26/18 10:22 Dose: 40 mg Sodium Chloride (Flush - Normal Saline) 10 ml IVF PRN PRN PRN Reason: Saline Flush Last Admin: 08/25/18 20:10 Dose: 10 ml Tamsulosin HCl (Flomax) 0.4 mg PO HS [facility] Last Admin: 08/25/18 20:09 Dose: 0.4 mg
[2018-08-26] MEDS: Tamsulosin HCl 0.4 MG CAP PO SCH (21:39)
[2018-08-27] MEDS: MEROPENEM 1 GM/50 ML 1 GM in Premix Bag 1 BAG IVPB SCH ×2 (01:06→12:12)
[2018-08-27] MEDS: Nystatin Powder 15 GM BOT TOP PRN (05:11)
[2018-08-27 05:13] LABS: Hemoglobin 7.3 g/dL (14.0-18.0)
[2018-08-27] MEDS: Digoxin 0.125 MG TAB PO SCH (08:29)
[2018-08-27] MEDS: Flecainide 50 MG TAB PO SCH (08:29)
[2018-08-27] MEDS: Amlodipine 5 MG TAB PO SCH (08:29)
[2018-08-27 11:28] VITALS: BP 116/56; TEMP 98.8
--- NOTE | 2018-08-27 12:35 | PDOC.CTH ---
Cardiology Progress Note - Subjective No new complaints overnight. Wants to go home. Laying in bed comfortably. - Objective Vital Signs Temp Pulse Pulse Pulse Resp BP BP 08/27/18 11:25 98.8 F 81 18 08/27/18 11:04 78 16 08/27/18 08:54 84 83 139/63 135/61 08/27/18 08:29 08/27/18 07:32 08/27/18 07:30 78 20 08/27/18 07:26 98.3 F 79 20 08/27/18 03:30 98.7 F 80 22 H 08/27/18 02:33 82 20 BP Pulse Ox Pulse Ox Pulse Ox 08/27/18 11:25 116/56 L 97 08/27/18 11:04 98 08/27/18 08:54 95 97 08/27/18 08:29 98 08/27/18 07:32 98 08/27/18 07:30 98 08/27/18 07:26 114/53 L 96 08/27/18 03:30 125/58 L 98 08/27/18 02:33 98 Admit Weight 295 lb 9.6 oz Weight 268 lb 4.8 oz 08/26/18 08/27/18 08/28/18 06:59 06:59 06:59 Intake Total 1030 930 Output Total 900 1025 Balance 130 -95 - Physical Examination General/Neuro: alert & oriented x3 Neck: no JVD present Lungs: CTA, unlabored respirations Heart: PMI normal, RRR, other: Abdomen: no HSM, soft - Telemetry Telemetry Rhythm: SR. Occ Mob I AV block No more pauses. - Labs Result Diagrams: 08/27/18 04:26 08/26/18 04:19 Troponin/CKMB Troponin I Less than 0.010 ng/mL (< 0.028) 08/13/18 21:02 - Assessment/Plan - Assessment/Plan 1. Paroxysmal atrial arrhythmias - Atrial fibrillation and atrial flutter dx at least three years ago. Previously on Multaq -Started on Flecainide 100mg BID on 08/19/18. Good response so far. Hence Chr renal insuf, we had decreased flecainde 50 BID on 08/21/18, but had recurrence. Increased flecainde to 100mg PO BID on 08/24 in AM -12 lead EKG to monitor QTc. (baseline 132msec, 164msec today. 20% increase) -recurrent afib on 08/24 and 08/26 HS 2. Acute/chronic anemia - AVM, duodenal ectasia s/p cautery -mult blood transfusions recently -chronic iron infusions -hematuria: dark hematuria again today 3. Chronic UTI -indwelling melchor -hx E Coli sepsis 4. CHADS2-VASC =3 (advancing age and vascular disease) -unable to take anticoagulation with acute/chronic anemia 5. Leukocytosis - resolved 6. Sepsis - back in tele and mentally much clearer/alert. - per hospitalist. 7. Chronic renal insufficiency - Creat 2.11 today, continues to improve 8. CAD - hx of stent to RCA 9. MOLLY - CPAP at home. Unsure if being used at night during this hospital stay. - provoking cardiac pauses while asleep In sinus rhythm today but did have run of atrial fibrillation last night with 3.8 second pause likely from his sleep apnea. He will likely benefit from a pacemaker at once his infectious status has cleared and can be arranged as an outpatient. Continue current treatment plan of flecainide 100mg po BID for AF suppression. Flecainide is not an ideal option for him with his CAD but he has limited options for medical management but his CAD is stable right now. Amiodarone is the other option which is also not ideal with his COPD. Will continue to check daily EKG to monitor his QRS with flecainide. Discussed w. Dr Arizmendi, waste specialist, who will follow him as outpt. Highly recommend his sleep apnea be treated with CPAP at night if not already in place while in the hospital.
--- NOTE | 2018-08-27 18:35 | EKG ---
Test Reason : Blood Pressure : / mmHG Vent. Rate : 147 BPM Atrial Rate : 153 BPM P-R Int : 000 ms QRS Dur : 128 ms QT Int : 328 ms P-R-T Axes : 000 -73 108 degrees QTc Int : 513 ms Atrial fibrillation with rapid ventricular response Right bundle branch block Left anterior fascicular block Bifascicular block Inferior infarct , age undetermined cannot be excluded T wave abnormality, consider lateral ischemia Abnormal ECG Confirmed by HAROON PHAM ([id number]) on 08/27/2018 6:35:26 PM Referred By: HUBER Confirmed By:HAROON PHAM
--- NOTE | 2018-08-27 18:59 | EKG ---
Test Reason : Blood Pressure : / mmHG Vent. Rate : 094 BPM Atrial Rate : 094 BPM P-R Int : 184 ms QRS Dur : 132 ms QT Int : 374 ms P-R-T Axes : 069 -58 036 degrees QTc Int : 467 ms Normal sinus rhythm Left axis deviation Right bundle branch block Abnormal ECG Confirmed by HAROON PHAM ([id number]) on 08/27/2018 6:59:05 PM Referred By: ANISH Confirmed By:HAROON PHAM
--- NOTE | 2018-08-27 19:15 | PRG ---
DATE OF SERVICE: 08/27/2018 SUBJECTIVE: Patient was seen and examined at bedside and overnight events noted. Patient denies any shortness of breath or chest pain or palpitation. No history of nausea or vomiting or diarrhea or fever or chills or cramps. OBJECTIVE: GENERAL: This is an elderly male, in no apparent distress. VITAL SIGNS: Temperature 98. Pulse 81. Respiratory rate 18. Blood pressure 116/57. HEENT: Atraumatic, normocephalic. Oral mucosa is moist NECK: Supple. CARDIOVASCULAR: S1, S2 heard. Rate and rhythm regular. RESPIRATORY: Clear to auscultation. GASTROINTESTINAL: Abdomen is soft. MUSCULOSKELETAL: No tenderness. No edema. DERMATOLOGIC: No skin rash. NEUROLOGIC: Alert and awake and oriented X3. No focal neurologic deficits. Moving all the extremities. PSYCHIATRIC: Mood and affect normal. LABORATORY DATA: None today. ASSESSMENT AND PLAN: 1. Acute kidney injury, stable. 2. Chronic kidney disease, stage 3. 3. Edema. 4. Hypertension. 5. Anemia. 6. Obesity. Follow up with Dr. Lancaster in 1 to 2 weeks. Job ID: [id number]
--- NOTE | 2018-08-27 19:18 | EKG ---
Test Reason : Blood Pressure : / mmHG Vent. Rate : 093 BPM Atrial Rate : 093 BPM P-R Int : 202 ms QRS Dur : 148 ms QT Int : 380 ms P-R-T Axes : 053 -68 075 degrees QTc Int : 472 ms Normal sinus rhythm Left axis deviation Right bundle branch block Abnormal ECG Confirmed by HAROON PHAM ([id number]) on 08/27/2018 7:17:53 PM Referred By: SOPHIA Confirmed By:HAROON PHAM
--- NOTE | 2018-08-28 04:13 | DIS ---
DATE OF ADMISSION: 08/13/2018 DATE OF DISCHARGE: 08/27/2018 PRIMARY CARE PHYSICIAN: Dr. Cortes. DISCHARGE DISPOSITION: [facility] in [place]. CONDITION: At the time of discharge, stable with potential for decompensation. DISCHARGE DIAGNOSES: 1. Paroxysmal atrial flutter and fibrillation. 2. Acute gastrointestinal bleed secondary to arteriovenous malformation and duodenal ectasias, status post cauterization, requiring multiple blood transfusions. 3. Chronic urinary tract infection with indwelling Allen. 4. CHADS2-VASc score of 3, unable to take anticoagulation with acute on chronic anemia. 5. Sepsis due to likely Pseudomonas urinary tract infection, on IV antibiotics. 6. Acute on chronic kidney disease. 7. History of coronary artery disease, status post stenting to right coronary artery in the past. 8. Obstructive sleep apnea, uses CPAP at home. 9. Chronic debilitation. 10. Metastatic prostate cancer to bone. 11. Morbid obesity with a BMI of 39. 12. History of stenosis of both ureters, status post bilateral stenting in the past. DISCHARGE MEDICATIONS: 1. Epogen 10,000 units every 7 days. 2. Flomax 0.4 mg daily. 3. Nystatin powder as needed. 4. Aspirin 81 mg daily. 5. Protonix 40 mg daily. 6. Meropenem 1 g IV b.i.d. for 5 more days. 7. Melatonin 3 mg h.s. p.r.n. 8. DuoNebs p.r.n. 9. Flecainide 100 mg p.o. b.i.d. 10. Digoxin 0.125 mg daily. 11. Amlodipine 5 mg daily. 12. Tylenol as needed. IN-HOUSE CONSULTATIONS: 1. Electrophysiology, Dr. Jacqeus Romano. 2. Nephrology, Dr. Collins. 3. Urology, Dr. Paz and Dr. Ledezma. 4. Infectious Disease, Dr. Lobo. 5. Cardiology, Dr. Rabago and Dr. East. 6. Gastroenterology, Dr. Tan and Dr. Mattson. 7. Oncology, MsErum Sherrie Jewellt from [facility]. PROCEDURES DONE IN THE HOSPITAL: 1. Renal ultrasound at admission on 08/14/2018, which showed mild left hydronephrosis. 2. Transthoracic echocardiogram on 08/15/2018, which showed EF of 60% to 65% with mild mitral and tricuspid regurgitation. 3. CT scan of the abdomen and pelvis on 08/18/2018, which showed bilateral ureteral stents in place and chronic mild left hydroureteronephrosis. 4. EGD with control of hemorrhage. He was found to have multiple vascular ectasias in the 2nd and 3rd portions of the duodenum, which were cauterized. There was active bleeding seen at the time of EGD. 5. Multiple blood transfusions for acute blood loss anemia. 6. Lower extremity ultrasound which is negative for any DVT bilaterally. 7. 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 8. Renal ultrasound on 08/24/2018, which once again showed the similar findings of mild left hydronephrosis. Please note that this patient has had prolonged stay in the hospital. I was involved in his care for the last 2 days of his stay and he was discharged yesterday, but could not go as he was still getting blood transfusion. Most of my knowledge about his hospitalization comes through reading the notes in [facility]. Please refer to [facility] for further detail and day-to-day history. HISTORY OF PRESENTING ILLNESS: Mr. Fraga is a 77-year-old male with known history of atrial fibrillation, hypertension, chronic indwelling Allen, E coli chronic UTI, chronic kidney disease, and chronic anemia requiring transfusion in the outside setting, and metastatic prostate cancer, who presented to the emergency room with complaints of chest pain. He was found to have acute renal insufficiency on chronic kidney disease and atrial fibrillation with RVR upon admission. Nephrology and Cardiology were consulted upon admission. His BNP was 326 and creatinine 2.4 upon presentation. Please see admission history and physical for further details. HOSPITAL COURSE: The patient was seen by Nephrology, Dr. Lancaster and Dr. Collins, who followed along without much intervention and the patient's renal function was monitored closely. Oncology was also consulted with his history of metastatic prostate cancer and Sherrie Flannery saw the patient. They also consulted with regard to his anemia requiring multiple transfusion recently prior to this hospitalization. Please see Erum Prudencio's note from 08/14/2018, for further details. The patient was seen by Cardiology initially by Dr. East for his complaints of chest pain and atrial fibrillation with RVR. Medication adjustments were made and he was eventually started on flecainide and the dose was adjusted based on his response of some sinus pauses and he tolerated that very well. Echo was done with the above-mentioned findings. Gastroenterology was consulted. Dr. Mattson saw the patient on 08/16 for recurrent anemia and possibility of a GI bleed. He deferred his care to Dr. Bustillos who has seen him in the past. Dr. Tan saw the patient for DR. Bustillos and did an endoscopy which showed findings of multiple ectasias. Some of them were bleeding and were cauterized. Meanwhile, the patient required multiple transfusions again to stabilize his H and H. He had a quite complicated hospital course and actually had coded in the hospital on 08/21/2018, because of reduced responsiveness. There was question of fever with increased respiratory breathing and he was started on empiric IV antibiotics and ID was consulted. Thromboembolic workup was also done and cultures were sent. His penile culture came back positive for Pseudomonas, but other cultures including urine and blood remained negative. He was also seen by Urology for his chronic indwelling Allen catheter and they just recommended medical management and nothing much change from their side. Eventually, the patient stabilized to the point that discharge was planned for him. He was initially accepted and magnified, but did not want to go then due to bad reports as per the patient and his . They were excepted at [facility] yesterday. I gave him 1 more unit of blood transfusion as his H and H was 7 yesterday. It was recheck this morning and it has come up to 7.3. At the time of my evaluation, the patient is pale and appears chronically ill, but he is awake and alert, and he states that he has been working with Physical Therapy in the room. He is, otherwise, hemodynamically stable. Looking at his prolonged stay and multiple comorbidities including metastatic prostate cancer: I tried to discuss code status with them, but both of the days I took care of him, they feel overwhelmed, and I did not want to discuss it. He remains a full code. PHYSICAL EXAMINATION: This morning; VITAL SIGNS: Temperature 98.8, pulse of 81, respirations 18, saturating 97% on 2 L nasal cannula, and blood pressure 116/56. GENERAL: No acute distress. He does appear pale, but awake, alert, and oriented x3. CHEST: Clear to auscultation bilaterally. HEART: Rate and rhythm are regular. ABDOMEN: Soft, nontender, and nondistended. He is eating and is mobile and has been having normal bowel movements, and he will be discharged to [facility]. He remains a very high risk for readmission due to his multiple comorbidities, quick decompensation and that is not unexpected. TIME SPENT: Total time spent in the discharge of this patient, 38 minutes. Job ID: [id number]
--- NOTE | 2018-08-28 10:07 | PQF ---
EDENILSON JOE RICHA MD [id number] [facility]-294 [id number] CLINICAL DOCUMENTATION CLARIFICATION FORM: POST DISCHARGE DATE: 08/28/2018 ATTN : Dr. Alberto Please exercise your independent, professional judgment in responding to the clarification form. Clinical indicators are provided on the bottom of this form for your review Please check appropriate box(s): [ ] UTI please specify if due to or related to (as applicable): [ ] Indwelling catheter [ ] Other (please specify) [ ] Unable to determine etiology UTI Site: [ ] Kidney [ ] Ureter [ ] Bladder [ ] Urethra [ ] Unable to determine [ ] Contaminated urine specimen without UTI [ ] Other diagnosis (please specify) [ ] Unable to determine In addition, please specify: Present on Admission (POA): [ ] Yes [ ] No [ ] Unable to determine For continuity of documentation, please document condition throughout progress notes and discharge summary. Thank You. CLINICAL INDICATORS - SIGNS / SYMPTOMS / LABS Documentation--UTI. Per discharge summary/progress notes: Chronic urinary tract infection with indwelling Melchor. Sepsis due to likely Pseudomonas urinary tract infection. RISKS: Chronic indwelling melchor catheter. Chronic debilitation. Prostate cancer with obstruction of bilateral ureters. TREATMENT: IV Meropenem. IVF (This form is maintained as a part of the permanent medical record) 2014 [email or web address], [email or web address]. All Rights Reserved [email or web address] [email or web address] [phone] [email or web address]
== END 2018-08-27 13:51 | DRG 682 ==
LOC: ERS 13:23 → ERHOLD 17:27 → 2NO 19:42 → IMCU/EMU 08-21 12:18 → 2NO 08-24 19:56
PROVIDERS: ADMIT Family Medicine; ATTEND Family Medicine
PROC: 0W3P8ZZ Control Bleeding in Gastrointestinal Tract, Via Natural or Artificial Opening Endoscopic (ICD-10-PCS; principal; 2018-08-19)
DX: N17.9 Acute kidney failure, unspecified (principal); K31.811 Angiodysplasia of stomach and duodenum with bleeding; G92 Toxic encephalopathy; A41.52 Sepsis due to Pseudomonas; D62 Acute posthemorrhagic anemia; I48.92 Unspecified atrial flutter; N39.0 Urinary tract infection, site not specified; C79.51 Secondary malignant neoplasm of bone; I12.9 Hypertensive chronic kidney disease with stage 1 through stage 4 chronic kidney disease, or unspecified chronic kidney disease; N18.3 Chronic kidney disease, stage 3 (moderate); Z68.39 Body mass index [BMI] 39.0-39.9, adult; I48.0 Paroxysmal atrial fibrillation; I25.5 Ischemic cardiomyopathy; I49.5 Sick sinus syndrome; E87.5 Hyperkalemia; I25.10 Atherosclerotic heart disease of native coronary artery without angina pectoris; G47.33 Obstructive sleep apnea (adult) (pediatric); E66.01 Morbid (severe) obesity due to excess calories; N13.30 Unspecified hydronephrosis; Z87.891 Personal history of nicotine dependence; Z85.46 Personal history of malignant neoplasm of prostate; Z92.3 Personal history of irradiation; Z79.82 Long term (current) use of aspirin; Z79.899 Other long term (current) drug therapy; Z96.642 Presence of left artificial hip joint; Z95.2 Presence of prosthetic heart valve; Z95.5 Presence of coronary angioplasty implant and graft
CPT/HCPCS: 36415; 36416; 36430; 70450; 71045; 74176; 76770; 80048; 80053; 80162; 82274; 82607; 82728; 82746; 82805; 83540; 83550; 83880; 84238; 84484; 85014; 85018; 85025; 85027; 85610; 85730; 86850; 86900; 86901; 87040; 87070; 87077; 87086; 87186; 87205; 93005; 93010; 93306; 93970; 94640; C9113; G8978-GP-CN; G8979-GP-CK; G8987-GO-CM; G8988-GO-CK; J0744; J1160; J1644; J1940; J2185; J2704; J7050; J7620; P9016; Q4081